=== PATIENT | male | born 1940 | race Caucasian/White ===

== ENCOUNTER → 2016-05-01 | Outpatient (CLI) | payer OTHER, MEDICARE ==
[~2016-05-01] MED LIST: ASPI81TA28 PO; ATOR-26 PO; CRD200 PO; FRS/40 PO; HYDR-4717 PO; INSHI7030 SC; LSN40 PO; MULT-506 PO; NITR0.4S UT; OMEG12006 PO; PLV75 PO; TPRSR/50 PO; VSC/10 PO; [UNRECOGNIZED DRUG - CODE] PO
[2016-05-01 16:39] LABS: HEMATOCRIT 39.1 % (42-52); MEAN CELL VOLUME 97.5 fL (80-100); MEAN CORPUSCULAR HEMOGLOBIN 32.9 pg (25-34); MEAN CORPUSCULAR HGB CONC 33.8 g/dl (32-36); MEAN PLATELET VOLUME 10.4 fL (7.4-10.4); PLATELET COUNT 143 K/uL (130-400); RED BLOOD COUNT 4.01 M/uL (4.7-6.1); WHITE BLOOD COUNT 7.53 K/uL (4.8-10.8)
== END | disposition home or self-care (01) ==
LOC: C.LABBFT 16:25
PROVIDERS: ATTEND Internal Medicine
DX: T14.8 Other injury of unspecified body region (principal); X58.XXXA Exposure to other specified factors, initial encounter

== ENCOUNTER → 2016-05-21 | Outpatient (CLI) | payer OTHER, MEDICARE ==
[2016-05-21 12:28] LABS: HEMATOCRIT 42.1 % (42-52); MEAN CELL VOLUME 96.1 fL (80-100); MEAN CORPUSCULAR HEMOGLOBIN 32.2 pg (25-34); MEAN CORPUSCULAR HGB CONC 33.5 g/dl (32-36); MEAN PLATELET VOLUME 10.1 fL (7.4-10.4); PLATELET COUNT 147 K/uL (130-400); RED BLOOD COUNT 4.38 M/uL (4.7-6.1); WHITE BLOOD COUNT 6.81 K/uL (4.8-10.8)
[2016-05-21 12:33] LABS: URINE APPEARANCE CLEAR (CLEAR); URINE BILIRUBIN NEG (NEG); URINE COLOR YELLOW; URINE NITRITE NEG (NEG); URINE SPECIFIC GRAVITY 1.017 (1.000-1.030); UROBILINOGEN NEG (NEG)
[2016-05-21 12:35] LABS: MANUAL MICROSCOPIC REQUIRED? NO; REVIEW REQ? NO
[2016-05-21 12:49] LABS: BLOOD UREA NITROGEN 22 mg/dl (7-18); BUN/CREATININE RATIO 17.1 (10-20); CALCIUM 8.7 mg/dl (8.5-10.1); CARBON DIOXIDE 30 mmol/L (21-32); CHLORIDE 103 mmol/L (98-107); CHOLESTEROL 141 mg/dl (0-200); GLUCOSE 86 mg/dl (70-99); POTASSIUM 3.9 mmol/L (3.5-5.1); SODIUM 141 mmol/L (136-145); TRIGLYCERIDES 182 mg/dl (0-150); VERY LOW DENSITY LIPOPROT CALC 36 mg/dl
[2016-05-21 12:52] LABS: CHOLESTEROL/HDL RATIO 3.4; HDL CHOLESTEROL 41 mg/dl; LDL CHOLESTEROL CALCULATED 64 mg/dl
[2016-05-21 13:05] LABS: URINE PROTIEN/CREAT RATIO 0.2 (0-0.2); URINE TOTAL PROTEIN 23.7 mg/dl (0-11.9)
== END | disposition home or self-care (01) ==
LOC: C.LABBFT 09:53
PROVIDERS: ATTEND Internal Medicine Nephrology
DX: I12.9 Hypertensive chronic kidney disease with stage 1 through stage 4 chronic kidney disease, or unspecified chronic kidney disease (principal); N20.0 Calculus of kidney; N18.3 Chronic kidney disease, stage 3 (moderate); E55.9 Vitamin D deficiency, unspecified; E78.5 Hyperlipidemia, unspecified; T14.8 Other injury of unspecified body region; X58.XXXA Exposure to other specified factors, initial encounter

== ENCOUNTER → 2016-06-18 | Outpatient (CLI) | payer OTHER, MEDICARE ==
[2016-06-19 06:00] LABS: ESTIMATED AVERAGE GLUCOSE 169 mg/dl; HA1C FLAG Normal (Normal)
== END | disposition home or self-care (01) ==
LOC: C.LABBFT 12:26
PROVIDERS: ATTEND Internal Medicine
DX: E11.65 Type 2 diabetes mellitus with hyperglycemia (principal)

== ENCOUNTER → 2016-07-07 | Outpatient (CLI) | payer OTHER, MEDICARE ==
[2016-07-07 13:09] LABS: BLOOD UREA NITROGEN 20 mg/dl (7-18); BUN/CREATININE RATIO 15.2 (10-20)
== END | disposition home or self-care (01) ==
LOC: C.LABBFT 08:39
PROVIDERS: ATTEND Urology
DX: N28.1 Cyst of kidney, acquired (principal)

== ENCOUNTER → 2016-07-14 | Outpatient (CLI) | payer OTHER, MEDICARE ==
[~2016-07-14] MED LIST changes: +AMLO-110 PO; +DONE1TAB26 PO; +ISOS60TA25 PO; +METO100T44 PO; +MULTTAB58 PO; +OMEG10007 PO; +SOLI10TA2 PO
--- NOTE | 2016-07-14 11:36 | DIAGNOSTIC IMAGING REPORT ---
CT SCAN OF THE ABDOMEN AND PELVIS COMBO RENAL MASS PROTOCOL CLINICAL HISTORY: Renal cyst. Follow-up complex renal lesion. COMPARISON STUDY: Abdominal CT dated 04/14/2016 and 03/05/2014. TECHNIQUE: Before and following the IV administration of 94 cc of Optiray 320, CT scan of the abdomen and pelvis is performed from the lung bases to the proximal femora utilizing the renal mass protocol. Images are reviewed in the axial, sagittal, and coronal planes. IV contrast was administered without complication. Automated dose control exposure was utilized. CT DOSE: 2641.71 mGycm FINDINGS: Lung bases: The heart is enlarged and without pericardial effusion. Pacemaker leads are noted. Calcified pleural plaque is seen at both lung bases. No airspace consolidation or pleural effusion is identified. There is a small hiatal hernia. Liver: The contrast-enhanced liver is normal in size, contour, and attenuation. There is no intrahepatic biliary ductal dilatation. Small hepatic cysts are unchanged and measure up to 2.9 cm. Additional subcentimeter hypodensities also likely represent cysts but are too small for definitive characterization. The hepatic veins and portal veins are patent. Gallbladder: Unremarkable. Spleen: The spleen is mildly enlarged, measuring 14.8 cm in length. Pancreas: The pancreas is moderately atrophic. Foci of parenchymal calcification suggest chronic pancreatitis. Adrenal glands: A 2.1 cm left adrenal nodule is unchanged and meets CT criteria for a fat-containing adenoma. The right adrenal gland is unremarkable. Kidneys: There is an 8 mm nonobstructing calculus in the lower pole of left kidney. A 6 mm nonobstructing calculus is seen in the right kidney. The contrast-enhanced kidneys are atrophic and without hydronephrosis. Multiple foci of cortical scarring are seen bilaterally. The kidneys enhance and excrete symmetrically. No enhancing renal cortical mass is identified. There is no evidence of urothelial lesion within the renal pelvis bilaterally or along the course of the ureters. Bilateral renal cysts measure up to 4.2 cm. An exophytic lesion arising from the upper pole of the left kidney measures up to 2.5 cm. This does not show any postcontrast enhancement or delayed washout and likely represents a complex/hemorrhagic cyst. Abdominal vasculature: There is advanced atherosclerotic calcification of the abdominal aorta. 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 The residual aneurysm sac measures 6.0 cm in AP diameter and 6.7 cm in transverse diameter. Contrast is present within the aneurysm sac on the arterial phase images. This is best seen on axial image #253. The appearance is consistent with endoleak. Bowel: The small bowel and colon are normal in course and caliber. There is mild to moderate colonic fecal retention. The appendix is well-visualized and normal. Peritoneum: There is no intraperitoneal free air or abdominal ascites. Lymphadenopathy: None. Pelvic viscera: The prostate gland is diminutive noting brachytherapy seeds. The bladder is partially decompressed. The bladder wall appears thickened and trabeculated suggesting the sequelae of chronic outlet obstruction. Skeletal structures: The skeletal structures are osteopenic. There is moderate to advanced lumbosacral spondylosis. No lytic or blastic lesions are seen. Posttraumatic deformity is again suggested involving the coccyx. There is only trace residual fluid seen overlying the left hip. This has almost completely resolved from previous. IMPRESSION: 1. No enhancing renal cortical mass is identified. There is no evidence of urothelial lesion within the renal pelvis bilaterally or along the course of the ureters. 2. The previously identified 2.5 cm indeterminant lesion arising from the upper pole of the left kidney is consistent with a complex cyst. 3. Bilateral nonobstructing renal calculi. 4. 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 The residual aneurysm sac measures 6.0 x 6.7 cm. 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 5. Brachytherapy seeds are noted in the prostate gland. The appearance of the bladder suggests the sequelae of chronic obstruction. 6. Cardiomegaly and cardiac pacemaker. 7. 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 8. The complex fluid collection overlying the left hip seen on 04/14/2016 has almost completely resolved from previous. 9. Additional findings as above. Electronically signed by: Neto Han M.D. 07/14/2016 11:35 AM Dictated Date/Time: 07/14/2016 11:21 AM
== END | disposition home or self-care (01) ==
LOC: C.CTS 10:36
PROVIDERS: ATTEND Urology
DX: E27.9 Disorder of adrenal gland, unspecified (principal); N28.1 Cyst of kidney, acquired; N20.0 Calculus of kidney; Z98.890 Other specified postprocedural states; I51.7 Cardiomegaly; Z95.0 Presence of cardiac pacemaker; J92.9 Pleural plaque without asbestos

== ENCOUNTER → 2016-10-30 | Outpatient (CLI) | payer OTHER, MEDICARE ==
[~2016-10-30] MED LIST changes: -AMLO-110 PO; -DONE1TAB26 PO; -ISOS60TA25 PO; -METO100T44 PO; -MULTTAB58 PO; -OMEG10007 PO; -SOLI10TA2 PO
[2016-10-30 16:31] LABS: URINE APPEARANCE CLEAR (CLEAR); URINE BILIRUBIN NEG (NEG); URINE COLOR YELLOW; URINE NITRITE NEG (NEG); URINE PH 6.5 (4.5-7.5); URINE SPECIFIC GRAVITY 1.022 (1.000-1.030); UROBILINOGEN NEG (NEG)
[2016-10-30 16:37] LABS: ALT/SGPT 20 U/L (12-78); AST/SGOT 13 U/L (15-37); BLOOD UREA NITROGEN 18 mg/dl (7-18); BUN/CREATININE RATIO 14.6 (10-20); CALCIUM 8.6 mg/dl (8.5-10.1); CARBON DIOXIDE 31 mmol/L (21-32); CHLORIDE 105 mmol/L (98-107); GLUCOSE 136 mg/dl (70-99); HEMATOCRIT 42.8 % (42-52); MEAN CELL VOLUME 96.6 fL (80-100); MEAN CORPUSCULAR HEMOGLOBIN 31.6 pg (25-34); MEAN CORPUSCULAR HGB CONC 32.7 g/dl (32-36); MEAN PLATELET VOLUME 9.9 fL (7.4-10.4); PLATELET COUNT 132 K/uL (130-400); RED BLOOD COUNT 4.43 M/uL (4.7-6.1); SODIUM 140 mmol/L (136-145); WHITE BLOOD COUNT 6.71 K/uL (4.8-10.8)
[2016-10-30 16:48] LABS: ALB/GLOB RATIO 0.9 (0.9-2); ALKALINE PHOSPHATASE 73 U/L (45-117); THYROID STIMULATING HORMONE 0.729 uIu/ml (0.300-4.500); URINE PROTIEN/CREAT RATIO 0.1 (0-0.2); URINE TOTAL PROTEIN 26.2 mg/dl (0-11.9)
[2016-10-30 16:57] LABS: MANUAL MICROSCOPIC REQUIRED? NO; REVIEW REQ? NO
[2016-10-31 06:02] LABS: ESTIMATED AVERAGE GLUCOSE 177 mg/dl; HA1C FLAG Normal (Normal)
== END | disposition home or self-care (01) ==
LOC: C.LABBFT 11:17
PROVIDERS: ATTEND Internal Medicine Nephrology
DX: I12.9 Hypertensive chronic kidney disease with stage 1 through stage 4 chronic kidney disease, or unspecified chronic kidney disease (principal); N18.3 Chronic kidney disease, stage 3 (moderate); E55.9 Vitamin D deficiency, unspecified; N28.1 Cyst of kidney, acquired; E11.65 Type 2 diabetes mellitus with hyperglycemia; I42.9 Cardiomyopathy, unspecified

== ENCOUNTER → 2016-12-15 | Outpatient (CLI) | payer OTHER, MEDICARE ==
[~2016-12-15] MED LIST changes: +AMLO-110 PO; +DONE1TAB26 PO; +ISOS60TA25 PO; +METO1TAB69 PO; +MULTTAB58 PO; +OMEG10007 PO; +SOLI10TA2 PO
--- NOTE | 2016-12-15 19:18 | DIAGNOSTIC IMAGING REPORT ---
LEFT LOWER EXTREMITY VENOUS DOPPLER HISTORY: LEFT LEG PAIN COMPARISON STUDY: None. FINDINGS: There is normal compressibility, flow, and augmentation within the left lower extremity deep venous system. Of note, the calf veins were not well visualized. IMPRESSION: No DVT within the left lower extremity. Electronically signed by: Luis Carlos Madrid M.D. 12/15/2016 7:17 PM Dictated Date/Time: 12/15/2016 7:17 PM
== END | disposition home or self-care (01) ==
LOC: C.ULTR 18:03
PROVIDERS: ATTEND Internal Medicine Nephrology
DX: E55.9 Vitamin D deficiency, unspecified (principal); I12.9 Hypertensive chronic kidney disease with stage 1 through stage 4 chronic kidney disease, or unspecified chronic kidney disease; N18.3 Chronic kidney disease, stage 3 (moderate); N20.0 Calculus of kidney; M25.552 Pain in left hip; N28.1 Cyst of kidney, acquired; M79.605 Pain in left leg

== ENCOUNTER → 2016-12-15 | Outpatient (CLI) | payer OTHER, MEDICARE ==
--- NOTE | 2016-12-15 14:23 | DIAGNOSTIC IMAGING REPORT ---
LEFT HIP UNILATERAL 2 VIEWS CLINICAL HISTORY: 76 years-old Male presenting with LT HIP PAIN. TECHNIQUE: Frontal and lateral views of the left hip were obtained. COMPARISON: Correlation made to CT from 04/14/2016. FINDINGS: Left hip joint congruent. No acute fracture. No joint space loss or severe degenerative changes evident. Partially visualized brachytherapy seeds in the prostate. Atherosclerosis. Partially visualized vascular stent in the left iliac region. IMPRESSION: No acute osseous injury of the left hip. Electronically signed by: Gian Bradley M.D. 12/15/2016 2:21 PM Dictated Date/Time: 12/15/2016 2:20 PM
== END | disposition home or self-care (01) ==
LOC: C.RAD1850 13:56
PROVIDERS: ATTEND Internal Medicine Nephrology
DX: E55.9 Vitamin D deficiency, unspecified (principal); I10 Essential (primary) hypertension; N18.3 Chronic kidney disease, stage 3 (moderate); N20.0 Calculus of kidney; M25.552 Pain in left hip

== ENCOUNTER → 2017-02-20 | Day surgery (SDC) | payer OTHER, MEDICARE ==
[2017-02-06 08:08] VITALS: Ht 167.6 cm; Wt 113.6 kg
[~2017-02-20] VITALS: Ht 167.6 cm; Wt 113.6 kg
[~2017-02-20] MED LIST changes: +LIDOCAINE HCL 2% 2 ML VIAL (20MG/ML) ONE; -LSN40 PO; +METO100T44 PO; -METO1TAB69 PO; -MULT-506 PO; -OMEG12006 PO; +OPTIRAY 320 IV PRN; -PLV75 PO; +PROPOFOL IV EMULSION 10 MG/ML 20 ML VIAL IV ONE; +SODIUM CHLORIDE 0.9% 500ML 500 ML IV ONE; -TPRSR/50 PO; -VSC/10 PO; -[UNRECOGNIZED DRUG - CODE] PO
[2017-02-20 08:22] VITALS: TEMP 36.6
--- NOTE | 2017-02-20 08:55 | Endo History and Physical ---
History & Physical Date of Service: Feb 20, 2017. Chief Complaint: history of polyps Referring Physician: Dr. Saud Dunham History of Present Illness 76 yo CM who presents for colonoscopy secondary to history of colon polyps. Past Surgical History Hx Cardiac Surgery: Yes (HEART CATHS-? #STENTS) Hx Internal Defibrillator: Yes Hx Pacemaker: Yes Hx Abdominal Surgery: Yes (ABDOMINAL ANEURYSM REPAIR X 3) Hx of Implantable Prosthesis: No Hx Post-Op Nausea and Vomiting: No Hx Cancer Surgery: No Hx Thoracic Surgery: No Hx Orthopedic: No Hx Urinary Tract Surgery: Yes (LITHOTRISPY AND STENT FOR KIDNEY STONE) Family History None Social History Smoking Status: Former Smoker Hx Substance Use: No Hx Alcohol Use: Yes ("SOCIALLY") Allergies Coded Allergies: No Known Allergies (Verified , 02/20/17) Current Medications Reported Home Medications Medications Dose Route/Sig Max Daily Dose Days Date Category Vesicare (Solifenacin) 10 Mg Tab 10 Mg PO QAM 02/06/17 Reported Multivitamin (Multiple Vitamin) 1 Tab Tab 1 Tab PO QAM 02/06/17 Reported Toprol-Xl (Metoprolol Succinate) 100 Mg Tabcr 100 Mg PO BID 02/06/17 Reported Imdur Ext Rel (Isosorbide Mononitrate) 60 Mg Ertab 60 Mg PO QAM 02/06/17 Reported Apresoline (Hydralazine Hcl) 50 Mg Tab 50 Mg PO TID 02/06/17 Reported [place]-3 (Fish Oil) 1 Ea Cap 1 Cap PO QAM 02/06/17 Reported Donepezil Hcl (Donepezil Hydrochloride) 10 Mg Tab 1 Tab PO QAM 02/06/17 Reported Norvasc (Amlodipine Besylate) 5 Mg Tab 5 Mg PO QAM 02/06/17 Reported Humulin 70/30 (Insulin Human Isoph/Insulin Regular) Inj 40 Units SC AMPM 03/05/14 Reported Nitrostat (Nitroglycerin) 0.4 Mg Sub 0.4 Mg UT PRN 03/05/14 Reported Amiodarone HCl 200 Mg Tab 200 Mg PO 3XWK 03/05/14 Reported Lipitor (Atorvastatin Calcium) 80 Mg Tab 80 Mg PO HS 03/05/14 Reported Lasix (Furosemide) 40 Mg Tab 40 Mg PO QAM 03/05/14 Reported Aspirin Ec (Aspirin) 81 Mg Tab 81 Mg PO QAM 03/05/14 Reported Vital Signs Weight (Kilograms): 113.64 Height (Feet): 5 Height (Inches): 6 Date Time Temp Pulse Resp B/P (MAP) Pulse Ox O2 Delivery O2 Flow Rate FiO2 02/20/17 08:28 139/86 (103) 96 Room Air 02/20/17 08:22 36.6 78 20 174/102 (126) 92 Room Air Physical Exam General Appearance: WD/WN, no apparent distress Respiratory/Chest: Auscultation: breath sounds normal Cardiovascular: Heart Auscultation: RRR Abdomen: Bowel Sounds: normal Inspection & Palpation: soft, non-distended, no tenderness, guarding & rebound Assessment and Plan Assessment: 76 yo CM who presents for colonoscopy secondary to history of colon polyps. Plan: Proceed with colonoscopy.
--- NOTE | 2017-02-20 09:48 | Discharge Instructions ---
Endoscopy Patient Instructions Date / Procedure(s) Performed Feb 20, 2017. Colonoscopy Allergy Information Coded Allergies: No Known Allergies (Verified , 02/20/17) Discharge Date / Findings Feb 20, 2017. Colon polyps Internal hemorrhoids Medication Instructions Stopped Medication(s): took ASA yesterday 1) Hold Aspirin for 5 days 2) Resume all other medications today as prescribed Reported Home Medications Medications Dose Route/Sig Max Daily Dose Days Date Category Vesicare (Solifenacin) 10 Mg Tab 10 Mg PO QAM 02/06/17 Reported Multivitamin (Multiple Vitamin) 1 Tab Tab 1 Tab PO QAM 02/06/17 Reported Toprol-Xl (Metoprolol Succinate) 100 Mg Tabcr 100 Mg PO BID 02/06/17 Reported Imdur Ext Rel (Isosorbide Mononitrate) 60 Mg Ertab 60 Mg PO QAM 02/06/17 Reported Apresoline (Hydralazine Hcl) 50 Mg Tab 50 Mg PO TID 02/06/17 Reported [place]-3 (Fish Oil) 1 Ea Cap 1 Cap PO QAM 02/06/17 Reported Donepezil Hcl (Donepezil Hydrochloride) 10 Mg Tab 1 Tab PO QAM 02/06/17 Reported Norvasc (Amlodipine Besylate) 5 Mg Tab 5 Mg PO QAM 02/06/17 Reported Humulin 70/30 (Insulin Human Isoph/Insulin Regular) Inj 40 Units SC AMPM 03/05/14 Reported Nitrostat (Nitroglycerin) 0.4 Mg Sub 0.4 Mg UT PRN 03/05/14 Reported Amiodarone HCl 200 Mg Tab 200 Mg PO 3XWK 03/05/14 Reported Lipitor (Atorvastatin Calcium) 80 Mg Tab 80 Mg PO HS 03/05/14 Reported Lasix (Furosemide) 40 Mg Tab 40 Mg PO QAM 03/05/14 Reported Aspirin Ec (Aspirin) 81 Mg Tab 81 Mg PO QAM 03/05/14 Reported Provider Instructions Activity Restrictions - No exercising or heavy lifting for 24 hours. - Do not drink alcohol the day of the procedure. - Do not drive a car or operate machinery until the day after the procedure. - Do not make any important decisions or sign important papers in 24 hours after the procedure. Following Day: - Return to full activity which may include returning to work/school. Diet Start your diet with liquids and light foods (jello, soup, juice, toast). Then eat your usual diet if not nauseated. Treatment For Common After Affects For mild abdominal pain, bloating, or excessive gas: - Rest - Eat lightly - Lie on right side Follow-Up Information Follow-up with Dr. Saud Dunham as scheduled Anesthesia Information What You Should Know You have had a procedure that required some medicine to reduce anxiety and discomfort. This treatment is called moderate sedation. After receiving the treatment, you may be sleepy, but you will be able to breathe on your own. The effects of the treatment may last for several hours. Follow these instructions along with Activity/Diet recommendations noted above: * Do NOT do anything where dizziness or clumsiness would be dangerous. * Rest quietly at home today, then you can be up and about tomorrow. * Have a responsible person stay with you the rest of today. * You may have had an I.V. today. If so, you may take the dressing off later today. Recommendations Call your doctor if: * Trouble breathing * Continuous vomiting for more than 24 hours * Temperature above 101 degrees * Severe abdominal pain or bloating * Pain not relieved by pain medicine ordered * There is increased drainage or redness from any incision * A large amount of rectal bleeding greater than 2-3 tablespoons. (If you had a polyp/s removed or have hemorrhoids, a small amount of blood - from the rectum is to be expected.) * You have any unanswered questions or concerns. IN THE EVENT OF A SERIOUS EMERGENCY, GO TO THE NEAREST EMERGENCY ROOM Your discharge instructions were prepared by provider Jamaal Brock. Patient Instructions Signature Page Rowdy Gracia Patient (or Guardian) Signature/Date: I have read and understand the instructions given to me by my caregivers. Caregiver/RN/Doctor Signature/Date: The above-named patient and/or guardian has received patient instructions on this date. + Original Patient Signature Page (only) stays with chart. Please make copy for patient.
--- NOTE | 2017-02-20 09:54 | GI REPORT ---
Procedure Date: 02/20/2017 8:17 AM Procedure: Colonoscopy Indications: High risk colon cancer surveillance: Personal history of colonic polyps Medicines: Monitored Anesthesia Care Complications: No immediate complications. Estimated Blood Loss: Estimated blood loss: none. Procedure: Pre-Anesthesia Assessment: - Prior to the procedure, a History and Physical was performed, and patient medications and allergies were reviewed. The patient's tolerance of previous anesthesia was also reviewed. The risks and benefits of the procedure and the sedation options and risks were discussed with the patient. All questions were answered, and informed consent was obtained. Prior Anticoagulants: The patient has taken aspirin, last dose was 1 day prior to procedure. ASA Grade Assessment: III - A patient with severe systemic disease. After reviewing the risks and benefits, the patient was deemed in satisfactory condition to undergo the procedure. After I obtained informed consent, the scope was passed under direct vision. Throughout the procedure, the patient's blood pressure, pulse, and oxygen saturations were monitored continuously. The scope was introduced through the anus and advanced to the cecum, identified by appendiceal orifice and ileocecal valve. The colonoscopy was performed without difficulty. The patient tolerated the procedure well. The quality of the bowel preparation was good. The ileocecal valve, appendiceal orifice, and rectum were photographed. Findings: Many (16) sessile polyps were found in the transverse colon and in the cecum. The polyps were 5 to 12 mm in size. These polyps were removed with a hot snare. Resection and retrieval were complete. To prevent bleeding after the polypectomy, four hemostatic clips were successfully placed (MR conditional). There was no bleeding at the end of the procedure. Non-bleeding internal hemorrhoids were found during retroflexion. The hemorrhoids were small. The perianal and digital rectal examinations were normal. Impression: - Many (16) 5 to 12 mm polyps in the transverse colon and in the cecum, removed with a hot snare. Resected and retrieved. Clips (MR conditional) were placed. - Non-bleeding internal hemorrhoids. Recommendation: - Resume previous diet. - Continue present medications. - Repeat colonoscopy for surveillance based on pathology results. - Return to primary care physician as previously scheduled. Jamaal Brock DO 02/20/2017 9:54:10 AM This report has been signed electronically. Note Initiated On: 02/20/2017 8:17 AM I attest to the content of the Intraoperative Record and orders documented therein, exceptions below
[2017-02-20 10:21] VITALS: BP 150/84; PULSE 60; O2SAT 92
--- NOTE | 2017-02-20 10:25 | Anesthesiology Progress Note ---
Anesthesia Post Op Note Date & Time Feb 20, 2017 at 10:24 Vital Signs Pain Intensity: 0 Vital Signs Past 12 Hours Date Time Temp Pulse Resp B/P (MAP) Pulse Ox O2 Delivery O2 Flow Rate FiO2 02/20/17 10:21 60 18 150/84 (106) 92 Room Air 02/20/17 10:06 64 18 115/70 (85) 94 Nasal Cannula 4 02/20/17 09:52 63 16 114/61 (78) 93 Nasal Cannula 4 02/20/17 08:28 139/86 (103) 96 Room Air 02/20/17 08:22 36.6 78 20 174/102 (126) 92 Room Air Notes Mental Status: alert / awake / arousable, participated in evaluation Pt Amnestic to Procedure: Yes Nausea / Vomiting: adequately controlled Pain: adequately controlled Airway Patency, RR, SpO2: stable & adequate BP & HR: stable & adequate Hydration State: stable & adequate Anesthetic Complications: no major complications apparent
== END | disposition home or self-care (01) ==
LOC: C.GI 07:57
PROVIDERS: ATTEND Internal Medicine
DX: Z12.11 Encounter for screening for malignant neoplasm of colon (principal); D12.0 Benign neoplasm of cecum; D12.3 Benign neoplasm of transverse colon; K64.8 Other hemorrhoids; Z86.010 Personal history of colon polyps; Z87.891 Personal history of nicotine dependence; Z79.82 Long term (current) use of aspirin; Z79.899 Other long term (current) drug therapy

== ENCOUNTER → 2017-03-18 | Outpatient (CLI) | payer OTHER, MEDICARE ==
[~2017-03-18] MED LIST changes: -LIDOCAINE HCL 2% 2 ML VIAL (20MG/ML) ONE; -OPTIRAY 320 IV PRN; -PROPOFOL IV EMULSION 10 MG/ML 20 ML VIAL IV ONE; -SODIUM CHLORIDE 0.9% 500ML 500 ML IV ONE
[2017-03-18 17:14] LABS: CHOLESTEROL 109 mg/dl (0-200); CHOLESTEROL/HDL RATIO 3.3; HDL CHOLESTEROL 33 mg/dl; LDL CHOLESTEROL CALCULATED 23 mg/dl; PROSTATE SPECIFIC ANTIGEN < 0.010 ng/ml (0.000-4.000); TRIGLYCERIDES 267 mg/dl (0-150); VERY LOW DENSITY LIPOPROT CALC 53 mg/dl
[2017-03-19 06:44] LABS: ESTIMATED AVERAGE GLUCOSE 186 mg/dl; HA1C FLAG Normal (Normal)
== END | disposition home or self-care (01) ==
LOC: C.LABBFT 12:32
PROVIDERS: ATTEND Physician Assistant Medical
DX: E78.5 Hyperlipidemia, unspecified (principal); E11.65 Type 2 diabetes mellitus with hyperglycemia; C61 Malignant neoplasm of prostate

== ENCOUNTER → 2017-06-17 | Outpatient (CLI) | payer OTHER, MEDICARE ==
[2017-06-17 17:46] LABS: HEMATOCRIT 41.5 % (42-52); HEMOGLOBIN 13.9 g/dL (14.0-18.0); MEAN CELL VOLUME 98.3 fL (80-100); MEAN CORPUSCULAR HEMOGLOBIN 32.9 pg (25-34); MEAN CORPUSCULAR HGB CONC 33.5 g/dl (32-36); MEAN PLATELET VOLUME 9.6 fL (7.4-10.4); PLATELET COUNT 126 K/uL (130-400); RED CELL DISTRIBUTION WIDTH CV 14.4 % (11.5-14.5); RED CELL DISTRIBUTION WIDTH SD 51.7 fL (36.4-46.3); WHITE BLOOD COUNT 5.55 K/uL (4.8-10.8)
[2017-06-17 17:59] LABS: ALBUMIN 3.4 gm/dl (3.4-5.0); BLOOD UREA NITROGEN 23 mg/dl (7-18); CALCIUM 8.8 mg/dl (8.5-10.1); CARBON DIOXIDE 33 mmol/L (21-32); CREATININE 1.42 mg/dl (0.60-1.40); GLUCOSE 140 mg/dl (70-99); SODIUM 138 mmol/L (136-145)
[2017-06-17 18:00] LABS: PHOSPHORUS 3.1 mg/dl (2.5-4.9)
== END | disposition home or self-care (01) ==
LOC: C.LABBFT 14:04
PROVIDERS: ATTEND Internal Medicine Nephrology
DX: I12.9 Hypertensive chronic kidney disease with stage 1 through stage 4 chronic kidney disease, or unspecified chronic kidney disease (principal); N20.0 Calculus of kidney; N18.3 Chronic kidney disease, stage 3 (moderate); M25.552 Pain in left hip; N28.1 Cyst of kidney, acquired; E55.9 Vitamin D deficiency, unspecified

== ENCOUNTER → 2017-07-01 | Outpatient (CLI) | payer OTHER, MEDICARE ==
[2017-07-01 12:33] LABS: ALT/SGPT 18 U/L (12-78); AST/SGOT 13 U/L (15-37); BLOOD UREA NITROGEN 20 mg/dl (7-18); CHOLESTEROL 121 mg/dl (0-200); CREATININE 1.27 mg/dl (0.60-1.40)
[2017-07-01 12:34] LABS: HEMOGLOBIN A1C 7.3 % (4.5-5.6)
[2017-07-01 12:44] LABS: LDL CHOLESTEROL CALCULATED 54 mg/dl
== END | disposition home or self-care (01) ==
LOC: C.LABBFT 10:27
PROVIDERS: ATTEND Physician Assistant Medical
DX: E11.65 Type 2 diabetes mellitus with hyperglycemia (principal); E78.5 Hyperlipidemia, unspecified; N18.3 Chronic kidney disease, stage 3 (moderate); I12.9 Hypertensive chronic kidney disease with stage 1 through stage 4 chronic kidney disease, or unspecified chronic kidney disease; I25.10 Atherosclerotic heart disease of native coronary artery without angina pectoris; I42.9 Cardiomyopathy, unspecified; Z79.899 Other long term (current) drug therapy

== ENCOUNTER 2017-08-02 00:07 | Emergency (ER) | payer OTHER, MEDICARE ==
[~2017-08-02] VITALS: Ht 170.2 cm; Wt 115.5 kg
[2017-08-02 00:12] VITALS: TEMP 36.5; Ht 170.2 cm; Wt 115.5 kg
--- NOTE | 2017-08-02 00:43 | EMERGENCY ROOM VISIT NOTE ---
History Report prepared by Davidibsergey: Jaswant Hummel Under the Supervision of: Dr. Niharika Cm M.D. First contact with patient: 00:16 Chief Complaint: KNEEPAIN Stated Complaint: LUMP ON BACK OF LEG/HIGH BP History of Present Illness The patient is a 76 year old male who presents to the Emergency Room with complaints of persistent lump to the back of his right leg since this afternoon. He reports playing cards when he bent over to reach down and noticed the lump. He states that he iced the lump, which seemed to help, but the lump still persists. He notes his leg is also swollen even though he had compression socks on. He also reports his blood pressure was over 200 systolic this evening. He notes it was 148 systolic this morning. 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 He uses a wrist cuff to measure his blood pressure. He regularly takes an Aspirin daily. He has a history of bilateral total knee replacements, AAA repair, aneurysms, MO, and vascular repairs. He has an AICD. Source of History: patient Onset: since this afternoon Position: leg (right) Quality: other (lump) Timing: other (persistent) Note: He notes leg swelling and hypertension. Review of Systems See HPI for pertinent positives & negatives. A total of 10 systems reviewed and were otherwise negative. Past Medical & Surgical Medical Problems: (1) Aneurysm (2) Diabetes (3) Hyperlipidemia (4) Hypertension (5) Myocardial infarction Surgical Problems: (1) AICD (automatic cardioverter/defibrillator) present (2) History of bilateral knee replacement Family History Diabetes mellitus Heart disease Hypertension Social History Smoking Status: Never Smoker Smokeless Tobacco Use: No Alcohol Use: occasionally Drug Use: none Marital Status: Housing Status: lives with family Occupation Status: unemployed Current/Historical Medications Scheduled Amiodarone HCl (Amiodarone HCl), 200 MG PO 5XWK Amlodipine (Norvasc), 5 MG PO QAM Aspirin (Aspirin Ec), 81 MG PO QAM Atorvastatin (Lipitor), 80 MG PO HS Donepezil Hydrochloride (Donepezil Hcl), 1 TAB PO QAM Fish Oil ([place]-3), 1 CAP PO QAM Furosemide (Lasix), 40 MG PO QAM Hydralazine Hcl (Apresoline), 50 MG PO TID Insulin Human Isophan/Regular (Humulin 70/30), 40 UNITS SC AMPM Isosorbide Mononitrate Ext Rel (Imdur Ext Rel), 60 MG PO QAM Metoprolol Succ (Toprol Xl) (Toprol-Xl ), 100 MG PO BID Multiple Vitamin (Multivitamin), 1 TAB PO QAM Nitroglycerin (Nitrostat), 0.4 MG UT PRN Solifenacin (Vesicare), 10 MG PO QAM Allergies Coded Allergies: No Known Allergies (Verified , 08/02/17) Physical Exam Vital Signs Date Time Temp Pulse Resp B/P (MAP) Pulse Ox O2 Delivery O2 Flow Rate FiO2 08/02/17 04:56 62 18 157/93 95 08/02/17 04:26 60 18 180/89 93 Room Air 08/02/17 04:03 60 18 168/99 93 Room Air 08/02/17 03:36 64 18 178/102 94 Room Air 08/02/17 02:37 61 18 152/105 93 Room Air 08/02/17 00:12 36.5 79 18 168/95 91 Room Air Physical Exam Vital signs reviewed. General: Well-appearing, in no significant distress. HEENT: No scleral icterus, PERRLA, neck supple. Atraumatic. Cardiovascular: Regular rate and rhythm, no extra sounds. Pulmonary: Clear to auscultation bilaterally, normal work of breathing. Abdomen: Soft, nontender, nondistended, positive bowel sounds. Musculoskeletal: Atraumatic, no peripheral edema. Palpable 4 cm mass to popliteal region of right knee. Nontender. Nonpulsatile. FROM of the leg. Neurologic: Patient awake alert and oriented x 3, full strength in all 4 extremities. Cranial nerves 2 through 12 grossly intact. Skin: Warm, dry, no rash. Venous insufficiency BLE. Medical Decision & Procedures ER Provider Diagnostic Interpretation: Radiology results as stated below per my review and interpretation: RIGHT KNEE XR: Arthritic changes, hardware appears to be intact. No acute fracture or dislocation. Radiology results as stated below per my review and radiologist interpretation: US VENOUS RIGHT LOWER EXTREMITY: No DVT. 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 Radiologist: Waldemar Chambers MD Study ready at 02:42 and initial results transmitted at 02:47 CTA EXTREMITY RIGHT LOWER: Extremely difficult to evaluate given overlying knee arthroplasty hardware. The popliteal artery appears to measure up to 1.4 cm in this limited view study , however, this is not reliable given that on the ultrasound the diameter was close to 5 cm with a large surrounding thrombus, which is not clearly demonstrated on this study. However, it is possible to say that the vessels are overall patent from the distal thigh to the proximal calf. Radiologist: Waldemar Chambers MD Study ready at 03:36 and initial results transmitted at 04:04 Laboratory Results Test 08/02/17 03:20 Bedside Hemoglobin 13.9 g/dl (14.0-18.0) Bedside Hematocrit 41 % (42-52) Bedside Sodium 140 mEq/L (135-144) Bedside Potassium 3.9 mEq/L (3.3-5.0) Bedside Chloride 100 mEq/L (101-112) Bedside Total CO2 28 mEq/l (24-31) Anion Gap 17.0 mmol/L (16-25) Bedside Blood Urea Nitrogen 27 mg/dl (7-18) Bedside Creatinine 1.4 mg/dl (0.6-1.3) Bedside Glucose (other) 124 mg/dl (70-99) Bedside Ionized Calcium (Margarita) 1.22 mmol/l (1.12-1.32) Laboratory results per my review. Medications Administered Medications (Trade) Dose Ordered Sig/Mehul Route Start Time Stop Time Status Last Admin Dose Admin Sodium Chloride 1,000 ml @ 125 mls/hr Q8H STAT IV 08/02/17 02:55 08/02/17 05:18 DC 08/02/17 03:08 125 MLS/HR ED Course 0028: Past medical records reviewed. The patient was evaluated in room B5. A complete history and physical examination was performed. 0255: Ordered Sodium Chloride 1,000 ml @ 125 mls/hr IV 0310: I reassessed the patient at this time. The patient agreed to have a CTA. 0435: I reassessed the patient at this time. I updated the patient. 0438: I spoke with Dr. Heredia, vascular surgeon. We discussed the patient's case. He will follow up with him as an outpatient. 0440: I reassessed the patient at this time. I discussed the results and treatment plan with the patient. I answered all pertaining questions that he had. He expressed understanding and verbalized agreement. The patient will be discharged home. Medical Decision Differential Diagnoses include: popliteal cyst, popliteal aneurysm, tumor, and DVT. This pt was evaluated and appeared to be in no distress. US of RLE is negative for DVT. 5 cm aneurysmal dilation of the popliteal artery. There is calcification. CTA of the leg is not useful d/t TKA hardware. Pt was hydrated with NSS d/t h/o renal insufficiency. Case was d/w Dr Heredia of vascular surgery. He stated that these aneurysms rarely rupture. Pt is asymptomatic and can be d/c to outpt f/u this week. Pt can see his vascular surgeon in [place] or f/u with Dr Heredia locally. They were provided with information. Pt will return to the ED for worsening of symptoms or any medical concerns. Medication Reconcilliation Current Medication List: was personally reviewed by me Blood Pressure Screening Patient's blood pressure: Elevated blood pressure Blood pressure disposition: Referred to PCP Consults Time Called: [phone] Consulting Physician: Dr. Heredia, vascular surgeon Returned Call: [phone] Heredia, vascular surgeon. We discussed the patient's case. He will follow up with him as an outpatient. Impression Primary Impression: Aneurysm of right popliteal artery Scribe Attestation The scribe's documentation has been prepared under my direction and personally reviewed by me in its entirety. I confirm that the note above accurately reflects all work, treatment, procedures, and medical decision making performed by me. Departure Information Dispostion Home / Self-Care Referrals Saud Dunham M.D. (PCP) Germán Heredia M.D. Forms HOME CARE DOCUMENTATION FORM, IMPORTANT VISIT INFORMATION Patient Instructions My [facility] Additional Instructions Diagnosis: Right popliteal artery aneurysm Please contact Dr. Heredia Thursday morning for follow-up within the next week. Avoid compression stockings on the right lower extremity until you are reevaluated. Return to the emergency department for pain, increased swelling or any medical concerns.
[2017-08-02] MEDS ORDERED: SODIUM CHLORIDE 0.9% 1000ML 1,000 ML IV STA (02:55)
[2017-08-02] MEDS ORDERED: OPTIRAY 320 IV PRN (03:15)
[2017-08-02 03:34] LABS: ISTAT CREATININE 1.4 mg/dl (0.6-1.3); ISTAT IONIZED CALCIUM 1.22 mmol/l (1.12-1.32); ISTAT POTASSIUM 3.9 mEq/L (3.3-5.0)
[2017-08-02 04:56] VITALS: BP 157/93; PULSE 62; O2SAT 95
--- NOTE | 2017-08-02 07:46 | DIAGNOSTIC IMAGING REPORT ---
RIGHT KNEE 2 VIEWS CLINICAL HISTORY: Recent development of a palpable mass. COMPARISON: None. DISCUSSION: There are postsurgical changes of a total right knee arthroplasty and patellar resurfacing. There are no acute fractures. There is a small joint effusion. Extensive vascular calcifications are visualized. A popliteal aneurysm cannot be excluded. IMPRESSION: 1. Postsurgical changes of a total right knee arthroplasty 2. No acute fractures 3. Joint effusion 4. Extensive vascular calcifications. The popliteal aneurysm cannot be excluded. Electronically signed by: Yoel Anderson M.D. 08/02/2017 7:44 AM Dictated Date/Time: 08/02/2017 7:42 AM
--- NOTE | 2017-08-02 07:53 | DIAGNOSTIC IMAGING REPORT ---
ULTRASOUND R VENOUS DOPP LOWER EXT UNILAT CLINICAL HISTORY: Right lower extremity edema and popliteal mass. COMPARISON STUDY: No previous studies for comparison. FINDINGS: Real-time and color flow Doppler imaging were performed. Flow was seen within the femoral, popliteal and calf veins with no intraluminal thrombus demonstrated. The saphenous vein is patent. There is a partially thrombosed 4.6 cm popliteal artery aneurysm. IMPRESSION: 1. No evidence of right lower extremity DVT 2. Partially thrombosed 4.6 cm popliteal artery aneurysm. Electronically signed by: Yoel Anderson M.D. 08/02/2017 7:52 AM Dictated Date/Time: 08/02/2017 7:50 AM
--- NOTE | 2017-08-02 09:19 | DIAGNOSTIC IMAGING REPORT ---
ENHANCED CT ANGIOGRAPHY OF THE RIGHT LOWER EXTREMITY CT DOSE: 287.32 mGy.cm CLINICAL HISTORY: Right popliteal fossa mass. Arterial aneurysm. TECHNIQUE: CT angiography of the popliteal fossa was performed. MIP imaging was obtained. The study is performed in a dynamic helical fashion during intravenous administration of 91 cc of Optiray 320. A dose lowering technique was utilized adhering to the principles of ALARA. COMPARISON STUDY: Ultrasound study dated 08/02/2017 FINDINGS: There is significant artifact secondary to the patient's the arthroplasty. There are atheromatous changes present within the distal superficial femoral and popliteal artery. There are atheromatous changes present within the proximal trifurcation vessels. The anterior tibial artery appears occluded proximally. The popliteal artery is patent. The recently described popliteal artery aneurysm cannot be visualized due to artifact from the knee arthroplasty. There is a focal dissection of the distal popliteal artery. IMPRESSION: 1. Very limited study secondary to artifact from the patient's total knee arthroplasty 2. Focal dissection of the distal popliteal artery 3. The popliteal artery lumen measures up to 14 mm in diameter. The partially thrombosed aneurysm described on the ultrasound study cannot be visualized due to artifact from the patient's prosthesis 4. Occlusion of the proximal anterior tibial artery. Electronically signed by: Yoel Anderson M.D. 08/02/2017 9:18 AM Dictated Date/Time: 08/02/2017 9:11 AM
== END 2017-08-02 04:57 | disposition home or self-care (01) ==
LOC: C.EDB 00:09
DX: I72.4 Aneurysm of artery of lower extremity (principal); E11.9 Type 2 diabetes mellitus without complications; E78.5 Hyperlipidemia, unspecified; I10 Essential (primary) hypertension; I25.2 Old myocardial infarction; Z95.810 Presence of automatic (implantable) cardiac defibrillator; Z96.653 Presence of artificial knee joint, bilateral; Z83.3 Family history of diabetes mellitus; Z82.49 Family history of ischemic heart disease and other diseases of the circulatory system; Z79.82 Long term (current) use of aspirin; Z79.4 Long term (current) use of insulin; Z79.899 Other long term (current) drug therapy

== ENCOUNTER → 2017-09-05 | Outpatient (CLI) | payer OTHER, MEDICARE ==
--- NOTE | 2017-09-05 11:34 | DIAGNOSTIC IMAGING REPORT ---
CHEST 2 VIEWS ROUTINE HISTORY: 77 years-old Male R05 Productive [id number] Lung [id number] acute cough COMPARISON: Chest radiographs 03/05/2014 TECHNIQUE: PA and lateral views of the chest FINDINGS: Cardiac silhouette is mildly enlarged, unchanged. Mild pulmonary vascular congestion without overt pulmonary edema. Atherosclerosis of the aorta. Left subclavian pacer/AICD appears unchanged. No pneumothorax or large pleural effusion. Linear scarring or atelectasis of the lateral right midlung. Subsegmental bibasilar opacities, left greater than right are noted with mild blunting of the left costophrenic angle. Degenerative changes of the shoulders and spine. IMPRESSION: 1. Cardiomegaly with mild pulmonary vascular congestion. 2. Left greater than right subsegmental bibasilar opacities suggest atelectasis with pneumonitis thought to be less likely. The above report was generated using voice recognition software. It may contain grammatical, syntax or spelling errors. Electronically signed by: Uri Ibarra M.D. 09/05/2017 11:32 AM Dictated Date/Time: 09/05/2017 11:30 AM
== END | disposition home or self-care (01) ==
LOC: C.RAD1850 11:10
PROVIDERS: ATTEND Internal Medicine
DX: R05 Cough (principal); R09.89 Other specified symptoms and signs involving the circulatory and respiratory systems; R09.02 Hypoxemia; I51.7 Cardiomegaly; R91.8 Other nonspecific abnormal finding of lung field

== ENCOUNTER 2017-12-08 17:37 | Emergency (ER) | payer OTHER, MEDICARE ==
[~2017-12-08] VITALS: Ht 170.2 cm; Wt 110.0 kg
[~2017-12-08 17:37] MED LIST changes: -AMLO-110 PO; +AMLO5TAB3 PO
[2017-12-08 17:58] VITALS: TEMP 36.6; Ht 170.2 cm; Wt 110.0 kg
--- NOTE | 2017-12-08 19:51 | DIAGNOSTIC IMAGING REPORT ---
ADDENDUM Given the patient's history of prior surgical intervention at outside institution as well as studies presumably done elsewhere following the CT angiogram done at this institution, it is impossible to evaluate the integrity of a vascular repair versus the possibility of a new or interval process. Electronically signed by: Talat Hanson M.D. 12/08/2017 8:34 PM Dictated Date/Time: 12/08/2017 8:33 PM ORIGINAL REPORT R ART DOP DUPLEX LWR EXT UNI CLINICAL HISTORY: R posterior knee swelling - R/O new aneurysm aneurysm TECHNIQUE: Arterial Doppler COMPARISON STUDY: CT angiography of 08/02/2017 FINDINGS: 1.8 cm complex popliteal cyst. No significant change in aneurysmal dilatation. No new or interval findings. IMPRESSION: 1.8 cm complex popliteal cyst. No evidence for new interval or progressive aneurysm. The above report was generated using voice recognition software. It may contain grammatical, syntax or spelling errors. Electronically signed by: Talat Hanson M.D. 12/08/2017 7:50 PM Dictated Date/Time: 12/08/2017 7:48 PM
--- NOTE | 2017-12-08 19:52 | DIAGNOSTIC IMAGING REPORT ---
ADDENDUM There is specifically noted that given the patient's history of prior surgical procedure at an outside institution following the patient's prior CT study at this institution, makes it impossible to confirm or exclude an interval change in the vascular configuration of the popliteal fossa. Correlation of this study with any prior postoperative procedures would be helpful to confirm or exclude significant change. Electronically signed by: Talat Hanson M.D. 12/08/2017 8:36 PM Dictated Date/Time: 12/08/2017 8:35 PM ORIGINAL REPORT R EXTREMITY NONVASCULAR LIMITED CLINICAL HISTORY: R posterior knee swelling - R/O Bakers cyst TECHNIQUE: Ultrasound COMPARISON STUDY: CT 08/02/2017 FINDINGS: 1.8 x 2.7 cm complex popliteal cyst. No other significant abnormality. IMPRESSION: Popliteal cyst. Otherwise negative study. The above report was generated using voice recognition software. It may contain grammatical, syntax or spelling errors. Electronically signed by: Talat Hnason M.D. 12/08/2017 7:51 PM Dictated Date/Time: 12/08/2017 7:50 PM
[2017-12-08] MEDS ORDERED: PLV75 PO (20:16)
[2017-12-08] MEDS ORDERED: INSU75IN2 SQ (20:16)
--- NOTE | 2017-12-08 20:20 | EMERGENCY ROOM VISIT NOTE ---
ED Visit Note First contact with patient: 18:00 The patient was seen and examined with Cristino Johnson PA-C. I agree with the history, physical and findings. Please see the note for disposition and details.
--- NOTE | 2017-12-08 20:20 | EMERGENCY ROOM VISIT NOTE ---
History First contact with patient: 18:00 Chief Complaint: KNEEPAIN Stated Complaint: LUMP BEHIND RIGHT KNEE History of Present Illness The patient is a 77 year old male who presents to the Emergency Room with complaints of a recurrent lump behind his right knee. The patient reports that he was here in July and diagnosed with a popliteal aneurysm. The patient had his first aneurysm surgery performed on 08/08/17 in [place]. He required an additional surgery on 11/12/17 for recurrent aneurysm. He started to notice a lump behind his knee yesterday, and it has progressively worsened. The patient was sent here by his PCP, Dr. Dunham for ultrasound. The patient denies any pain. Review of Systems 10 system review was performed and was negative except for pertinent positives and negatives as indicated in history of present illness Past Medical/Surgical History Medical Problems: (1) Aneurysm (2) Diabetes (3) Hyperlipidemia (4) Hypertension (5) Myocardial infarction Surgical Problems: (1) AICD (automatic cardioverter/defibrillator) present (2) History of bilateral knee replacement Family History Diabetes mellitus Heart disease Hypertension Social History Smoking Status: Never Smoker Alcohol Use: occasionally Drug Use: none Marital Status: Housing Status: lives with family Occupation Status: unemployed Current/Historical Medications Scheduled Amiodarone HCl (Amiodarone HCl), 200 MG PO 5XWK Aspirin (Aspirin Ec), 81 MG PO QAM Atorvastatin (Lipitor), 80 MG PO HS Clopidogrel Bisulfate (Clopidogrel), 75 MG PO DAILY Donepezil Hydrochloride (Donepezil Hcl), 1 TAB PO QAM Fish Oil ([place]-3), 1 CAP PO QAM Furosemide (Lasix), 40 MG PO QAM Hydralazine Hcl (Apresoline), 50 MG PO TID Insulin Lispro Protamine & Lis (Humalog Mix 75/25 Kwikpen), 40 UNITS SQ AMPM Isosorbide Mononitrate Ext Rel (Imdur Ext Rel), 60 MG PO QAM Metoprolol Succ (Toprol Xl) (Toprol-Xl ), 100 MG PO BID Multiple Vitamin (Multivitamin), 1 TAB PO QAM Nitroglycerin (Nitrostat), 0.4 MG UT PRN Solifenacin (Vesicare), 10 MG PO QAM Physical Exam Vital Signs Date Time Temp Pulse Resp B/P (MAP) Pulse Ox O2 Delivery O2 Flow Rate FiO2 8/14/18 19:32 82 18 175/107 94 Room Air 12/08/17 17:58 36.6 74 18 165/92 95 Room Air Physical Exam CONSTITUTIONAL: Healthy and well nourished. Alert and oriented X 3 with positive affect. HEENT: Normocephalic, atraumatic. Pupils equal, round and reactive. NECK: Full active range of motion without discomfort. MUSCULOSKELETAL: Examination shows a lemon sized fluctuant mass in the right popliteal space. It is nonpulsatile. No bruits on auscultation. There is no overriding erythema. Patient has no joint effusion or worsening pain with range of motion of the knee. Ligamentous exam of the knee is normal. Pedal pulses are intact. INTEGUMENTARY: No rash or other significant dermatologic conditions noted. NEUROLOGIC: Right lower extremity is sensory intact. Medical Decision & Procedures ER Provider Diagnostic Interpretation: Arterial ultrasound of the right lower extremity shows a 1.8 cm complex popliteal cyst. Nonvascular ultrasound confirms the same finding. Radiologist report is as follows: R ART DOP DUPLEX LWR EXT UNI CLINICAL HISTORY: R posterior knee swelling - R/O new aneurysm aneurysm TECHNIQUE: Arterial Doppler COMPARISON STUDY: CT angiography of 08/02/2017 FINDINGS: 1.8 cm complex popliteal cyst. No significant change in aneurysmal dilatation. No new or interval findings. IMPRESSION: 1.8 cm complex popliteal cyst. No evidence for new interval or progressive aneurysm. ED Course Patient history and physical exam were performed. Nurse's notes were reviewed. Vital signs were reviewed, showing an elevated blood pressure of 165/92. The patient denies any discomfort. Arterial ultrasound of the right lower extremity , as well as a nonvascular ultrasound of the right popliteal space confirms a 1.8 cm complex popliteal cyst. The requested copies of ultrasound studies so they can return to [place] for reevaluation by his vascular surgeon and orthopedics. The patient has had a prior history of right total knee arthroplasty. The patient and are happy with plan of care, and voiced understanding of all discharge instructions. The patient was also seen and examined by Dr. Aleman, ED attending physician, who agrees with workup and plan of care. Medical Decision Medication Reconcilliation Current Medication List: was personally reviewed by wa Blood Pressure Screening Patient's blood pressure: Normal blood pressure Impression Primary Impression: Right popliteal cyst Departure Information Referrals Dunham, Christopher E.,M.D. (PCP) Patient Instructions [facility]
[2017-12-08 20:52] VITALS: BP 181/109; PULSE 73; O2SAT 95
== END 2017-12-08 20:53 | disposition home or self-care (01) ==
LOC: C.EDB 17:38
DX: M71.21 Synovial cyst of popliteal space [Baker], right knee (principal); I72.4 Aneurysm of artery of lower extremity; E11.9 Type 2 diabetes mellitus without complications; E78.5 Hyperlipidemia, unspecified; I10 Essential (primary) hypertension; I25.2 Old myocardial infarction; Z95.810 Presence of automatic (implantable) cardiac defibrillator; Z96.653 Presence of artificial knee joint, bilateral; Z83.3 Family history of diabetes mellitus; Z82.49 Family history of ischemic heart disease and other diseases of the circulatory system; Z79.82 Long term (current) use of aspirin; Z79.4 Long term (current) use of insulin; Z79.899 Other long term (current) drug therapy

== ENCOUNTER → 2017-12-15 | Outpatient (CLI) | payer OTHER, MEDICARE ==
[~2017-12-15] MED LIST changes: -AMLO5TAB3 PO; -INSHI7030 SC; +INSU75IN2 SQ; +PLV75 PO
[2017-12-15 12:42] LABS: HEMOGLOBIN 12.9 g/dL (14.0-18.0); MEAN CELL VOLUME 94.1 fL (80-100); MEAN CORPUSCULAR HEMOGLOBIN 30.4 pg (25-34); MEAN CORPUSCULAR HGB CONC 32.3 g/dl (32-36); MEAN PLATELET VOLUME 10.2 fL (7.4-10.4); PLATELET COUNT 138 K/uL (130-400); RED CELL DISTRIBUTION WIDTH CV 16.6 % (11.5-14.5); WHITE BLOOD COUNT 5.87 K/uL (4.8-10.8)
[2017-12-15 13:23] LABS: HEMOGLOBIN A1C 8.1 % (4.5-5.6)
[2017-12-15 14:09] LABS: ALBUMIN 3.1 gm/dl (3.4-5.0); BLOOD UREA NITROGEN 21 mg/dl (7-18); CALCIUM 8.5 mg/dl (8.5-10.1); CARBON DIOXIDE 31 mmol/L (21-32); CHOLESTEROL 131 mg/dl (0-200); CREATININE 1.35 mg/dl (0.60-1.40); GLUCOSE 139 mg/dl (70-99); LDL CHOLESTEROL CALCULATED 57 mg/dl; PHOSPHORUS 3.1 mg/dl (2.5-4.9); SODIUM 139 mmol/L (136-145)
== END | disposition home or self-care (01) ==
LOC: C.LABBFT 09:44
PROVIDERS: ATTEND Internal Medicine Nephrology
DX: N18.3 Chronic kidney disease, stage 3 (moderate) (principal); N28.1 Cyst of kidney, acquired; E55.9 Vitamin D deficiency, unspecified; I12.9 Hypertensive chronic kidney disease with stage 1 through stage 4 chronic kidney disease, or unspecified chronic kidney disease; E11.65 Type 2 diabetes mellitus with hyperglycemia

== ENCOUNTER 2020-08-30 15:22 | Inpatient (IN) ==
--- NOTE | 2020-08-30 15:39 | Emergency Department Note ---
Impression & Plan Pulmonary embolism, Acute hypotension, CKD (chronic kidney disease) ED Provider Note NAME: NILTON NYE AGE: 80 SEX: M : 1940 ARRIVES VIA: Ambulance INFORMANT: Patient ED PROVIDER(S): Jamar Lopez DO CHIEF COMPLAINT: swelling in LLE HPI: Patient is an 80-year-old male who presents the ER with a past medical history of dialysis, ICD, cardiomyopathy, CAD, abdominal aortic aneurysm repair who presents ER referred in for swelling of his right lower extremity. In And compress patient was found to have bilateral lower extremity DVTs. He has been getting subcu heparin. He denies any headache or change in vision. No chest pain or shortness of breath. No nausea, vomiting or diarrhea. He notes he normally gets swelling in lower extremities but is normally able to care for it. He still on heparin 5000 units subcu every 8 hours. He denies any other exacerbating or remitting factors. Pressures have been running into the low 100s high 90s at [facility]. ROS: See above HPI for pertinent positives & negatives. A total of 10 systems reviewed and were otherwise negative. PAST MEDICAL HISTORY:See Below PAST SURGICAL HISTORY:See Below FAMILY HISTORY:See Below SOCIAL HISTORY:See Below HOME MEDICATIONS:See Below ALLERGIES:See Below VITALS:See Below PHYSICAL EXAMINATION: GENERAL: Sitting up in bed, alert, chronically ill-appearing, disheveled EYE EXAM: normal conjunctiva. OROPHARYNX: no exudate, no erythema, lips, buccal mucosa, and tongue normal and mucous membranes are moist NECK: supple, no nuchal rigidity, no adenopathy, non-tender LUNGS: Clear to auscultation. Normal chest wall mechanics HEART: no murmurs, S1 normal and S2 normal ABDOMEN: abdomen soft, non-tender, normo-active bowel sounds, no masses, no rebound or guarding. Midline incision is clean dry and intact with dressing in place. BACK: Back is symmetrical on inspection and there is no deformity, no midline tenderness, no CVA tenderness. SKIN: no rashes and no bruising UPPER EXTREMITIES: upper extremities are grossly normal. LOWER EXTREMITIES: Right lower extremity significantly larger than left NEURO EXAM: Normal sensorium, cranial nerves II-XII grossly intact, normal speech, no gross weakness of arms, no gross weakness of legs. MEDICAL DECISION MAKING: Patient is an 80-year-old male who presents the ER referred in for DVTs in his bilateral lower extremities. IV was established blood work was obtained. He is borderline slightly hypotensive with systolics in the 90s to low 100s. IV was established blood work was obtained.Labs show no significant leukocytosis. Mild anemia 10. INR was unremarkable. BMP with a creatinine of 5.2. LFTs bilirubin was unremarkable. Troponin was negative. Lipase was slightly elevated at 600. Covid was ordered. Duplex of the right lower extremity was negative. CT angio of the chest shows bilateral PEs. Patient was given a bolus of heparin and placed on a drip after discussion with Dr. Heredia and the surgery being performed around August 08. Upon initial arrival patient was discussed with [facility] as well. Triage Nursing notes reviewed. Limited review of prior medical records performed Vital Signs: reviewed and remarkable for no significant abnormalities Differential diagnosis: Differential diagnoses includes but is not limited to pneumonia, bronchitis, COPD/Asthma exacerbation, pneumothorax, pulmonary embolism, congestive heart failure, acute coronary syndrome ER treatment provided: See below Diagnostics interpreted by me: ECG: Ventricularly paced rate of 65 Left axis No PVCs QTC 567 Cardiac Monitoring: An order was placed for continuous cardiac monitoring. The monitor shows a rate of 68 with paced rhythm. Laboratory studies: As stated above and show below. Imaging studies: CT angio of the chest shows bilateral PEs Consultation(s): Discussed with Dr. Haely Celis for further evaluation Discussed with Dr. Heredia and agrees with IV heparin and admission Procedures: none Critical Care: I have personally spent 43 minutes of critical care time in the direct manageme nt of this patient. This includes bedside care, interpretation of diagnostic studies, and testing, discussion with consultants, patient, and family members, and other required patient management activities. This 43 minutes is in excess of all separately billable procedures. Past Med/Surg History Medical History (Updated 08/30/20 @ 19:20 by Jamar Lopez DO) Abdominal aortic aneurysm (AAA) x3 Aneurysm of right popliteal artery CAD (coronary artery disease) Cardiomyopathy Chronic kidney disease, stage 3 (moderate) Hearing deficit Hyperlipidemia Hypertension ICD (implantable cardioverter-defibrillator) in place (~2013) Kidney stones Lymphedema Myocardial Infarction (~1995) On amiodarone therapy Orbital floor fracture Right orbital fracture April 2019 Prostate cancer sx Ventricular tachycardia Surgical History History of bilateral cataract extraction History of bilateral knee replacement History of cardiac cath multiple--last one 2013 History of carpal tunnel release History of colonoscopy History of heart artery stent x1-2; "last one was years ago"--follows with Dr. Sosa History of hernia repair History of lithotripsy History of prostate biopsy malignant History of prostate surgery radiation seeds implanted History of total left knee replacement (TKR) History of total right knee replacement (TKR) S/P AAA repair x3--last in 2013 Status post cystoscopy with ureteral stent placement Status post femoral-popliteal bypass surgery 2018 in [place] Family History Mother Hypertension Cardiac disorder Father Cardiac disorder Myocardial infarction Brother Diabetes Hypertension Hyperlipidemia Obstructive sleep apnea Social History Smoking Status: Former smoker Second Hand Exposure: No; Hx Alcohol Use: Yes Alcohol type: beer, wine and hard liquor Hx Substance Use: No Preferred Language: Vietnamese Communication Ability: Effective 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: No Beliefs That Will Affect Care: None marital status: Current Living Situation: Spouse Feels Safe at Home: Yes Assistive Devices: Glasses Allergies Allergies Allergy/AdvReac Type Severity Reaction Status Date / Time No Known Allergies Allergy Verified 08/30/20 15:59 Home Meds Home Medications Medication Instructions Recorded Confirmed aspirin 81 mg tablet,delayed 81 mg PO QAM tab 09/27/18 08/30/20 release Saccharomyces boulardii [Florastor] 250 mg PO BIDM 08/30/20 08/30/20 acetaminophen [Tylenol] 650 mg PO Q4H PRN 08/30/20 08/30/20 amiodarone 200 mg PO 5XWK 08/30/20 08/30/20 bisacodyl 10 mg AL DAILY PRN 08/30/20 08/30/20 cholecalciferol (vitamin D3) 50 mcg PO DAILY 08/30/20 08/30/20 [Vitamin D3] darbepoetin tiarra in polysorbat 100 mcg IV WK 08/30/20 08/30/20 donepezil 10 mg PO HS 08/30/20 08/30/20 heparin (porcine) 5,000 unit SUBCUT Q8H 08/30/20 08/30/20 hydralazine 25 mg PO Q6H PRN 08/30/20 08/30/20 magnesium hydroxide [Milk of 30 ml PO DAILY PRN 08/30/20 08/30/20 Magnesia] metoprolol tartrate 50 mg PO Q12H 08/30/20 08/30/20 multivitamin with minerals 1 tab PO DAILY 08/30/20 08/30/20 naloxone [Narcan] 4 mg INTRANASAL DIRECTED PRN 08/30/20 08/30/20 omega-3 fatty acids 1,000 mg PO DAILY 08/30/20 08/30/20 pantoprazole 40 mg PO DAILYBB 08/30/20 08/30/20 polyethylene glycol 3350 [Miralax] 17 g PO QDL PRN 08/30/20 08/30/20 sennosides-docusate sodium 1 tab-cap PO QDL PRN 08/30/20 08/30/20 [Senokot-S] sodium chloride 0.9 % 1,000 ml IV Q12H PRN 08/30/20 08/30/20 tramadol 25 mg PO Q4H PRN 08/30/20 08/30/20 vancomycin 750 mg IV 3XWK 08/30/20 08/30/20 Previous Rx's Medication Instructions Recorded CPAP Machine #1 ea 02/28/19 lancets #100 ea 05/10/19 nitroglycerin 0.4 mg sublingual 0.4 mg SUBLINGUAL UD PRN #30 tab 05/10/19 tablet blood sugar diagnostic #300 ea 09/02/19 clopidogrel 75 mg tablet 75 mg PO QAM #90 tab 04/06/20 atorvastatin 80 mg tablet 80 mg PO QAM #90 tab 06/18/20 isosorbide mononitrate 60 mg 60 mg PO QAM #90 tab 06/22/20 tablet,extended release 24 hr nystatin 100,000 unit/gram topical 1 applic TOPICAL BID #30 g 07/27/20 powder Results & Data (ED) Vital Signs Vital Signs - 24 hr 08/30/20 15:27 08/30/20 15:39 08/30/20 16:00 Temperature 36.7 C Temperature Source Oral Pulse Rate 84 61 Pulse Rate from SpO2 Sensor 61 Respiratory Rate 18 18 Blood Pressure 96/62 L 94/56 L Blood Pressure Mean 73 68 Pulse Oximetry 96 96 95 Oxygen Delivery Method Room Air Room Air Room Air Sepsis Recent Fever Within 48 Hours No Sepsis New/Unexplained Change in Mental Status No Sepsis Action Taken by Nursing No Action Required 08/30/20 16:30 08/30/20 17:22 08/30/20 17:30 Temperature Temperature Source Pulse Rate 61 62 61 Pulse Rate from SpO2 Sensor 61 62 61 Respiratory Rate 21 17 Blood Pressure 91/58 L 100/60 100/57 L Blood Pressure Mean 69 73 71 Pulse Oximetry 95 95 94 Oxygen Delivery Method Room Air Room Air Room Air Sepsis Recent Fever Within 48 Hours Sepsis New/Unexplained Change in Mental Status Sepsis Action Taken by Nursing 08/30/20 18:32 Temperature Temperature Source Pulse Rate 64 Pulse Rate from SpO2 Sensor 64 Respiratory Rate 20 Blood Pressure 112/59 L Blood Pressure Mean 76 Pulse Oximetry 93 Oxygen Delivery Method Room Air Sepsis Recent Fever Within 48 Hours Sepsis New/Unexplained Change in Mental Status Sepsis Action Taken by Nursing Laboratory Data Result diagrams: 08/30/20 16:10 08/30/20 16:10 Lab Results 08/30/20 08/30/20 08/30/20 Range/Units 16:10 16:10 16:10 WBC 6.99 (4.8-10.8) K/uL RBC 3.45 L (4.7-6.1) M/uL Hgb 10.3 L (14.0-18.0) g/dL Hct 30.9 L (42-52) % MCV 89.6 (80-100) fL MCH 29.9 (25-34) pg MCHC 33.3 (32-36) g/dL RDW Std Deviation 54.3 H (36.4-46.3) fL RDW Coeff of Phillip 16.6 H (11.5-14.5) % Plt Count 273 (130-400) K/uL MPV 8.8 (7.4-10.4) fL Immature Gran % (Auto) 0.6 % Neut % (Auto) 70.0 % Lymph % (Auto) 12.0 % Ray % (Auto) 12.4 % Eos % (Auto) 4.6 % Baso % (Auto) 0.4 % Neut # (Auto) 4.89 (1.4-6.5) K/uL Lymph # (Auto) 0.84 L (1.2-3.4) K/uL Ray # (Auto) 0.87 H (0.11-0.59) K/uL Eos # (Auto) 0.32 (0-0.5) K/uL Baso # (Auto) 0.03 (0-0.2) K/uL Immature Gran # (Auto) 0.04 H (0.00-0.02) K/uL PT 11.3 (9.0-12.0) Seconds INR 1.1 (0.9-1.1) APTT 35.0 H (21.0-31.0) Seconds PTT Ratio 1.3 Sodium 134 L (136-145) mmol/L Potassium 4.4 (3.5-5.1) mmol/L Chloride 99 (98-107) mmol/L Carbon Dioxide 27 (21-32) mmol/L Anion Gap 8.0 (3-11) BUN 37 H (7-18) mg/dl Creatinine 5.21 H* (0.6-1.4) mg/dl Est Cr Clr Drug Dosing 12.7 ml/min Est GFR ( Amer) 11.1 Est GFR (Non-Af Amer) 9.6 BUN/Creatinine Ratio 7.2 L (10-20) Glucose 104 H (70-99) mg/dl Calcium 8.7 (8.5-10.1) mg/dl Total Bilirubin 0.6 (0.2-1) mg/dl AST 35 (15-37) U/L ALT 11 L (12-78) U/L Alkaline Phosphatase 269 H (45-117) U/L Troponin I < 0.015 (0-0.045) ng/ml Total Protein 7.0 (6.4-8.2) gm/dl Albumin 1.7 L (3.4-5.0) gm/dl Globulin 5.3 H (2.5-4.0) gm/dl Albumin/Globulin Ratio 0.3 L (0.9-2) Lipase 593 H (73-393) U/L COVID-19 Eval Order 08/30/20 Range/Units 18:50 WBC (4.8-10.8) K/uL RBC (4.7-6.1) M/uL Hgb (14.0-18.0) g/dL Hct (42-52) % MCV (80-100) fL MCH (25-34) pg MCHC (32-36) g/dL RDW Std Deviation (36.4-46.3) fL RDW Coeff of Phillip (11.5-14.5) % Plt Count (130-400) K/uL MPV (7.4-10.4) fL Immature Gran % (Auto) % Neut % (Auto) % Lymph % (Auto) % Ray % (Auto) % Eos % (Auto) % Baso % (Auto) % Neut # (Auto) (1.4-6.5) K/uL Lymph # (Auto) (1.2-3.4) K/uL Ray # (Auto) (0.11-0.59) K/uL Eos # (Auto) (0-0.5) K/uL Baso # (Auto) (0-0.2) K/uL Immature Gran # (Auto) (0.00-0.02) K/uL PT (9.0-12.0) Seconds INR (0.9-1.1) APTT (21.0-31.0) Seconds PTT Ratio Sodium (136-145) mmol/L Potassium (3.5-5.1) mmol/L Chloride (98-107) mmol/L Carbon Dioxide (21-32) mmol/L Anion Gap (3-11) BUN (7-18) mg/dl Creatinine (0.6-1.4) mg/dl Est Cr Clr Drug Dosing ml/min Est GFR ( Amer) Est GFR (Non-Af Amer) BUN/Creatinine Ratio (10-20) Glucose (70-99) mg/dl Calcium (8.5-10.1) mg/dl Total Bilirubin (0.2-1) mg/dl AST (15-37) U/L ALT (12-78) U/L Alkaline Phosphatase (45-117) U/L Troponin I (0-0.045) ng/ml Total Protein (6.4-8.2) gm/dl Albumin (3.4-5.0) gm/dl Globulin (2.5-4.0) gm/dl Albumin/Globulin Ratio (0.9-2) Lipase (73-393) U/L COVID-19 Eval Order CovFluRsv at [facility] Administered Medications Discontinued Medications Ioversol (Optiray 350 500ml) 107 ml IV ONCE ONE Stop: 08/30/20 18:26 Last Admin: 08/30/20 18:27 Dose: 107 ml Documented by: [id number] Imaging Data Radiologist's Impression: Chest X-Ray 08/30/20 15:34 XR chest 1V portable CLINICAL HISTORY: Chest Pain COMPARISON STUDY: Chest radiograph July 04, 2019. FINDINGS: A dual lumen right internal jugular central line is in place. There is a dual-lead left subclavian pacer/AICD. Lung volumes are diminished. This is unchanged. No pneumothorax or pleural effusion is noted. There is moderate cardiomegaly without evidence for pulmonary edema. Right basilar opacity is noted. There is minimal left basilar opacity. IMPRESSION: 1. Bibasilar opacities which could reflect atelectasis or consolidation. Radiographic follow-up is recommended. 2. Cardiomegaly without evidence for pulmonary edema. ACT 112: Negative or not required by law. Electronically signed by: George Pena M.D. 08/30/2020 4:20 PM Venous Doppler Study 08/30/20 15:34 RIGHT LOWER EXTREMITY VENOUS DOPPLER CLINICAL HISTORY: Right lower extremity swelling. COMPARISON STUDY: Right lower extremity venous Doppler ultrasound June 24, 2019. TECHNIQUE: Sonography of the deep venous system of the right lower extremity was performed. Compression and augmentation were evaluated. FINDINGS: The right common femoral, superficial femoral and popliteal veins were compressible. Augmentation was normal. Flow was shown within the deep calf vessels. Right lower extremity subcutaneous edema was noted. IMPRESSION: No evidence of deep venous thrombus within the right lower extremi ty. ACT 112: Negative or not required by law. Electronically signed by: George Pena M.D. 08/30/2020 5:15 PM Chest CTA 08/30/20 17:28 CT ANGIOGRAPHY OF THE CHEST, PULMONARY EMBOLUS PROTOCOL CLINICAL HISTORY: ? pe COMPARISON STUDY: Chest CT March 05, 2014. Chest radiograph performed earlier today. TECHNIQUE: Following IV administration of 107 mL of Optiray, helical axial images of the chest were obtained utilizing the pulmonary embolus protocol. Maximal intensity projections and sagittal and coronal reformats were viewed on an independent 3D workstation. IV contrast was administered without complication. Automated exposure control was utilized for the study. A dose lowering technique was utilized adhering to the principles of ALARA. CT DOSE: 779.77 mGy.cm FINDINGS: A right internal jugular dual lumen catheter is in place. There is a left subclavian pacer. Moderate cardiomegaly is noted with extensive coronary artery calcification. There is no pericardial effusion. Note is made of numerous bilateral pulmonary emboli, including emboli within the right lower lobe pulmonary artery extending into multiple segmental branches of the right lower lobe. Additional scattered bilateral segmental pulmonary emboli are noted. There is mild dilatation of the central pulmonary arteries. No pneumothorax is present. Calcified pleural plaques are present. There is no thoracic lymphadenopathy. Note is made of a trace right pleural effusion. There is moder ate right lower lobe subpleural opacity. Left basilar opacity favors atelectasis. Bones appear dense. There is hyperdense which are within the gallbladder with gallbladder wall thickening. A small amount of upper abdominal ascites is noted. A left adrenal nodule is unchanged and CT of April 2019. A suspected cyst within the upper pole the left kidney is noted. There are hepatic cyst. IMPRESSION: 1. Multiple bilateral pulmonary emboli, as above. 2. Trace right pleural effusion with right lower lobe airspace opacity. This could reflect atelectasis or consolidation. Pulmonary infarct is considered less likely but cannot be excluded. 3. Moderate cardiomegaly and extensive coronary artery calcification. Dilatation of the central pulmonary arteries which suggests pulmonary arterial hyper tension. 4. Hyperdense material within the gallbladder with gallbladder wall thickening. If right upper quadrant pain, ultrasound is recommended. 5. Small amount of upper abdominal ascites. ACT 112: Negative or not required by law. Electronically signed by: George Pena M.D. 08/30/2020 7:05 PM Discharge Plan Visit Data Chief Complaint: Swelling/Edema to Extremity Stated Complaint: BLOOD CLOTS IN LEG ED Provider: Jamar Lopez Discharge Problem: Pulmonary embolism, Acute hypotension, CKD (chronic kidney disease) Forms Stand Alone Forms: My [employer] Prescriptions Prescriptions: No Action (DME) lancets [Accu-Chek Softclix Lancets] Misc See Rx Instructions .ROUTE .MEDSUPPLY Qty: 100 RF: 5 (DME) Accu-Chek SmartView Test Strip Strip See Rx Instructions .ROUTE .MEDSUPPLY Qty: 300 RF: 5 clopidogrel [Plavix] 75 mg tablet 75 mg PO QAM Qty: 90 RF: 3 atorvastatin 80 mg tablet 80 mg PO QAM Qty: 90 RF: 3 isosorbide mononitrate 60 mg tablet extended release 24 hr 60 mg PO QAM Qty: 90 RF: 3 nystatin [Nystop] 100,000 unit/gram powder 1 applic topical BID Qty: 30 RF: 3 nitroglycerin 0.4 mg tablet, sublingual 0.4 mg Sublingual UD PRN (Reason: Angina) Qty: 30 RF: 0 (DME) CPAP Machine Misc See Dose Instructions .ROUTE .MEDSUPPLY Qty: 1 RF: 0 aspirin 81 mg tablet,delayed release (DR/EC) 81 mg PO QAM RF: 0 acetaminophen [Tylenol] 325 mg Tablet 650 mg PO Q4H PRN (Reason: Pain (Scale Score 1-3)) RF: 0 omega-3 fatty acids 1,000 mg Capsule 1,000 mg PO DAILY RF: 0 sennosides-docusate sodium [Senokot-S] 8.6-50 mg Tablet 1 tab-cap PO QDL PRN (Reason: Constipation) RF: 0 hydralazine 25 mg Tablet 25 mg PO Q6H PRN (Reason: ELAVATED BLOOD PRESSURE) RF: 0 tramadol 50 mg Tablet 25 mg PO Q4H PRN (Reason: Pain (Scale Score 4-6)) RF: 0 sodium chloride 0.9 % Solution 1,000 ml IV Q12H PRN (Reason: DIALYSIS) RF: 0 magnesium hydroxide [Milk of Magnesia] 400 mg/5 mL Suspension 30 ml PO DAILY PRN (Reason: Constipation) RF: 0 bisacodyl 10 mg Suppository 10 mg AL DAILY PRN (Reason: Constipation) RF: 0 pantoprazole 40 mg Tablet,Delayed Release (Dr/Ec) 40 mg PO DAILYBB RF: 0 metoprolol tartrate 50 mg Tablet 50 mg PO Q12H RF: 0 multivitamin with minerals Tablet 1 tab PO DAILY RF: 0 polyethylene glycol 3350 [Miralax] 17 gram/dose Powder 17 g PO QDL PRN (Reason: Constipation) RF: 0 heparin (porcine) 5,000 unit/mL Solution 5,000 unit SUBCUT Q8H RF: 0 Saccharomyces boulardii [Florastor] 250 mg Capsule 250 mg PO BIDM RF: 0 darbepoetin tiarra in polysorbat 100 mcg/0.5 mL Syringe 100 mcg IV WK RF: 0 cholecalciferol (vitamin D3) [Vitamin D3] 50 mcg (2,000 unit) Capsule 50 mcg PO DAILY RF: 0 vancomycin 750 mg Recon Soln 750 mg IV 3XWK RF: 0 Narcan 4 mg/actuation [place],Non-Aerosol 4 mg INTRANASAL DIRECTED PRN (Reason: OVERSEDATION) RF: 0 amiodarone 200 mg tablet 200 mg PO 5XWK RF: 0 donepezil 10 mg tablet 10 mg PO HS RF: 0 Discharge Problem: Pulmonary embolism Qualifiers: Pulmonary embolism type: unspecified Chronicity: acute Acute cor pulmonale presence: unspecified Qualified Code(s): I26.99 - Other pulmonary embolism without acute cor pulmonale CKD (chronic kidney disease) Qualifiers: Chronic kidney disease stage: unspecified stage Qualified Code(s): N18.9 - Chronic kidney disease, unspecified
--- NOTE | 2020-08-30 16:21 | XRay Report ---
XR chest 1V portable CLINICAL HISTORY: Chest Pain COMPARISON STUDY: Chest radiograph July 04, 2019. FINDINGS: A dual lumen right internal jugular central line is in place. There is a dual-lead left sub clavian pacer/AICD. Lung volumes are diminished. This is unchanged. No pneumothorax or pleural effusi on is noted. There is moderate cardiomegaly without evidence for pulmonary edema. Right basilar opaci ty is noted. There is minimal left basilar opacity. IMPRESSION: 1. Bibasilar opacities which could reflect atelectasis or consolidation. Radiographic follow-up is re commended. 2. Cardiomegaly without evidence for pulmonary edema. ACT 112: Negative or not required by law. Electronically signed by: George Pena M.D. 08/30/2020 4:20 PM
[2020-08-30 16:23] LABS: Basophils # (auto) 0.03 K/uL (0-0.2); Basophils % (auto) 0.4 %; Eosinophils # (auto) 0.32 K/uL (0-0.5); Eosinophils % (auto) 4.6 %; Hematocrit (blood only) 30.9 % (42-52); Hemoglobin 10.3 g/dL (14.0-18.0); Immature Granulocytes # (auto) 0.04 K/uL (0.00-0.02); Immature Granulocytes % (auto) 0.6 %; Lymphocytes # (auto) 0.84 K/uL (1.2-3.4); Mean Corpuscular Hemoglobin 29.9 pg (25-34); Mean Corpuscular Hgb Conc 33.3 g/dL (32-36); Mean Corpuscular Volume 89.6 fL (80-100); Mean Platelet Volume 8.8 fL (7.4-10.4); Monocytes # (auto) 0.87 K/uL (0.11-0.59); Monocytes % (auto) 12.4 %; Neutrophils # (auto) 4.89 K/uL (1.4-6.5); Platelet Count 273 K/uL (130-400); RDW Coefficient of Variation 16.6 % (11.5-14.5); RDW Standard Deviation 54.3 fL (36.4-46.3); Red Blood Count 3.45 M/uL (4.7-6.1); White Blood Count 6.99 K/uL (4.8-10.8)
[2020-08-30 16:34] LABS: INR 1.1 (0.9-1.1); Partial Thromboplastin Ratio 1.3; Prothrombin Time 11.3 Seconds (9.0-12.0)
[2020-08-30 17:09] LABS: Alanine Aminotransferase 11 U/L (12-78); Albumin Globulin Ratio 0.3 (0.9-2); Albumin Level 1.7 gm/dl (3.4-5.0); Alkaline Phosphatase 269 U/L (45-117); Aspartate Aminotransferase 35 U/L (15-37); BUN Creatinine Ratio 7.2 (10-20); Bilirubin,Total 0.6 mg/dl (0.2-1); Blood Urea Nitrogen 37 mg/dl (7-18); Calcium 8.7 mg/dl (8.5-10.1); Carbon Dioxide 27 mmol/L (21-32); Chloride 99 mmol/L (98-107); Creatinine Clr Calc Pharmacy 12.7 ml/min; Est GFR (African American) 11.1; Est GFR (Non-African American) 9.6; Globulin 5.3 gm/dl (2.5-4.0); Glucose 104 mg/dl (70-99); Lipase 593 U/L (73-393); Potassium 4.4 mmol/L (3.5-5.1); Sodium 134 mmol/L (136-145); Troponin I < 0.015 ng/ml (0-0.045)
--- NOTE | 2020-08-30 17:16 | Ultrasound Report ---
RIGHT LOWER EXTREMITY VENOUS DOPPLER CLINICAL HISTORY: Right lower extremity swelling. COMPARISON STUDY: Right lower extremity venous Doppler ultrasound June 24, 2019. TECHNIQUE: Sonography of the deep venous system of the right lower extremity was performed. Compress ion and augmentation were evaluated. FINDINGS: The right common femoral, superficial femoral and popliteal veins were compressible. Augme ntation was normal. Flow was shown within the deep calf vessels. Right lower extremity subcutaneous e dayanara was noted. IMPRESSION: No evidence of deep venous thrombus within the right lower extremity. ACT 112: Negative or not required by law. Electronically signed by: George Pena M.D. 08/30/2020 5:15 PM
[2020-08-30] MEDS ORDERED: OPTIRAY 350 500ml IV ONE (18:25)
[2020-08-30] MEDS ORDERED: Heparin IV Adult Wt-Based Standard WITH Bolus Protocol IV STA (18:46)
[2020-08-30] MEDS ORDERED: HEPARIN SOD (PORCINE) 1000 UNIT/ML IV ONE (19:01)
--- NOTE | 2020-08-30 19:07 | CT Scan Report ---
CT ANGIOGRAPHY OF THE CHEST, PULMONARY EMBOLUS PROTOCOL CLINICAL HISTORY: ? pe COMPARISON STUDY: Chest CT March 05, 2014. Chest radiograph performed earlier today. TECHNIQUE: Following IV administration of 107 mL of Optiray, helical axial images of the chest were o btained utilizing the pulmonary embolus protocol. Maximal intensity projections and sagittal and cor onal reformats were viewed on an independent 3D workstation. IV contrast was administered without co mplication. Automated exposure control was utilized for the study. A dose lowering technique was ut ilized adhering to the principles of ALARA. CT DOSE: 779.77 mGy.cm FINDINGS: A right internal jugular dual lumen catheter is in place. There is a left subclavian pacer . Moderate cardiomegaly is noted with extensive coronary artery calcification. There is no pericardia l effusion. Note is made of numerous bilateral pulmonary emboli, including emboli within the right lo wer lobe pulmonary artery extending into multiple segmental branches of the right lower lobe. Additio nal scattered bilateral segmental pulmonary emboli are noted. There is mild dilatation of the central pulmonary arteries. No pneumothorax is present. Calcified pleural plaques are present. There is no t horacic lymphadenopathy. Note is made of a trace right pleural effusion. There is moderate right lowe r lobe subpleural opacity. Left basilar opacity favors atelectasis. Bones appear dense. There is hype rdense which are within the gallbladder with gallbladder wall thickening. A small amount of upper abd ominal ascites is noted. A left adrenal nodule is unchanged and CT of April 2019. A suspected cyst within the upper pole the left kidney is noted. There are hepatic cyst. IMPRESSION: 1. Multiple bilateral pulmonary emboli, as above. 2. Trace right pleural effusion with right lower lobe airspace opacity. This could reflect atelectasi s or consolidation. Pulmonary infarct is considered less likely but cannot be excluded. 3. Moderate cardiomegaly and extensive coronary artery calcification. Dilatation of the central pulmo nary arteries which suggests pulmonary arterial hypertension. 4. Hyperdense material within the gallbladder with gallbladder wall thickening. If right upper quadra nt pain, ultrasound is recommended. 5. Small amount of upper abdominal ascites. ACT 112: Negative or not required by law. Electronically signed by: George Pena M.D. 08/30/2020 7:05 PM
--- NOTE | 2020-08-30 20:01 | Ultrasound Report ---
LEFT LOWER EXTREMITY VENOUS DOPPLER CLINICAL HISTORY: Left lower extremity swelling. COMPARISON STUDY: Left lower extremity venous Doppler ultrasound October 27, 2018. TECHNIQUE: Sonography of the deep venous system of the left lower extremity was performed. Compressi on and augmentation were evaluated. FINDINGS: Note is made of deep venous thrombus within the left common femoral and superficial femoral veins. Left calf edema is noted. IMPRESSION: Deep venous thrombus within the left common femoral and superficial femoral veins. ACT 112: Negative or not required by law. Electronically signed by: George Pena M.D. 08/30/2020 8:00 PM
[2020-08-30 20:03] LABS: Influenza A virus by PCR Negative (Neg); Influenza B virus by PCR Negative (Neg); RSV by PCR Negative (Neg); SARS CoV2 RNA(COVID-19) InHosp NEGATIVE (Negative)
[2020-08-30] MEDS: HEPARIN SODIUM/DEXTROSE 25,000 UNITS/500 ML BAG IV SCH (20:07)
--- NOTE | 2020-08-30 21:05 | History & Physical Report ---
Date of Service August 30, 2020 Assessment & Plan (1) Pulmonary embolism: 80yo male with multiple medical problems, recent prolonged hospitalization at [facility] for explant of his aortic graft with replacement, complicated by oliguric renal failure requiring initiation of HD. Patient presents today with LLE DVT as well as bilateral PEs. Patient is hemodynamically stable, no respiratory distress, adequate oxygenation on room air, asymptomatic at this time. Patient's age, gender and multiple comorbidities place him at high risk for poor outcome. LLE DVT present. -Admit to medical with telemetry monitoring -Continue heparin gtt - medication discussed between ER attending and Vascular Surgeon -Consider Vascular consultation given patient's recent endograft placement and need for anticoagulation Present on Admission?: Yes (2) Abdominal aortic aneurysm (AAA): S/p exploratory laparotomy with explantation of endograft, aorto iliac bypass and placement of Dacron graft performed at [facility] on 08/08/20. Concern for possible sepsis in the post-operative period. Patient has been on dual-antiplatelet therapy with ASA and Plavix since discharge from [facility]. -Will hold ASA for now in setting of Heparin gtt -Continue Plavix -Continue Vancomycin 750mg IV 3 times weekly as recommended by ID at [place] - to continue through 09/20/20 for risk of graft infection -Consider Vascular surgery assessment Present on Admission?: Yes (3) ESRD (end stage renal disease): Metabolic profile and electrolytes are acceptable at this time. No need for urgent HD. Patient is dialyzed q M/W/F -Nephrology consultation appreciated -Monitor electrolytes Present on Admission?: Yes (4) Anemia: Normochromic/normocytic anemia with Hgb=10.3, Hct=30.9, near baseline. No bleeding. -Continue to monitor CBC Present on Admission?: Yes (5) Diabetes mellitus, controlled: Blood sugars well controlled at presaent -ISS -Check A1C Present on Admission?: Yes (6) Cardiomyopathy: Patient appears euvolemic -Continue isosorbide mononitrate -Continue Metoprolol 50mg po BID Present on Admission?: Yes (7) CAD (coronary artery disease): Patient denies chest pain. Troponin unremarkable. EKG V-paced -Holding ASA 81mg po daily for now -Continue Plavix 75mg po daily -Continue Atorvastatin 80mg po daily -Continue Metoprolol 50mg po BID Present on Admission?: Yes (8) Hypertension: Blood pressure stable, 120/64 at this time -Continue Isosorbide mononitrate -Continue Metoprolol Present on Admission?: Yes (9) Severe obstructive sleep apnea: Chronic -Continue CPAP at home settings Present on Admission?: Yes (10) Senile dementia: states that patient becomes confused at times and does not remember things. -Delirium prevention strategies with frequent orientation, ambulation with assistance as tolerated and maintenance of sleep/wake cycle as able -Continue Aricept 10mg po qHS -Please update - Cynthia - [phone] Present on Admission?: Yes (11) ICD (implantable cardioverter-defibrillator) in place: No discharges -Continue Amiodarone F/E/N - Heplock. Monitor electrolytes. CC/AHA/Renal diet as tolerated, continue bowel regimen as needed. Continue Florastor at home dose Ppx - Heparin gtt Code - Full Code Dispo -Admit to medical POC: Cynthia () - [phone] Present on Admission?: Yes History of Present Illness Chief Complaint: pulmonary emboli Primary Care Provider: [facility] Rowdy Gracia is an 80yo male with history of abdominal aortic aneurysm. He had repair with an endograft in 2002. He was noted to have persistently enlarging aortic sac expansion and underwent multiple coil embolizations which were unsuccessful. He had explant of the aortic endograft open aortic aneurysm repair with aorto iliac bypass, placement of a 24 x 12mm Dacron graft performed at [facility] on [place]08/[place]. Patient suffered postoperative oliguric acute kidney injury and had CRRT initiated. He had a right chest HD catheter placed on and was started on HD, now is dialyzed q M/W/F. Patient was discharged to [facility] on August 23. Patient has been doing well at [facility] overall. He is able to ambulate short distances using a walker. Patient was complaining of some RLE pain and edema while at [facility]. A portable US was performed at [facility] which showed possible DVTs, therefore, he was sent to [facility] for further evaluation. Patinent found to have DVT in the left common femoral and superficial femoral veins as well as bilateral PEs. Patient denies chest pain/palpitations/cough/SOB. He denies nausea/vomiting/diarrhea/constipation/dizziness/syncope. No additional complaints at this time. ER Course: Heparin gtt Allergies Allergy/AdvReac Type Severity Reaction Status Date / Time No Known Allergies Allergy Verified 08/30/20 15:59 Home Medications Medication Instructions Recorded Confirmed Type aspirin 81 mg tablet,delayed 81 mg PO QAM tab 09/27/18 08/30/20 History release CPAP Machine #1 ea 02/28/19 06/27/20 Rx lancets #100 ea 05/10/19 06/27/20 Rx nitroglycerin 0.4 mg sublingual 0.4 mg SUBLINGUAL UD PRN #30 tab 05/10/19 08/30/20 Rx tablet blood sugar diagnostic #300 ea 09/02/19 06/27/20 Rx clopidogrel 75 mg tablet 75 mg PO QAM #90 tab 04/06/20 08/30/20 Rx atorvastatin 80 mg tablet 80 mg PO QAM #90 tab 06/18/20 08/30/20 Rx isosorbide mononitrate 60 mg 60 mg PO QAM #90 tab 06/22/20 08/30/20 Rx tablet,extended release 24 hr nystatin 100,000 unit/gram topical 1 applic TOPICAL BID #30 g 07/27/20 08/30/20 Rx powder Saccharomyces boulardii [Florastor] 250 mg PO BIDM 08/30/20 08/30/20 History acetaminophen [Tylenol] 650 mg PO Q4H PRN 08/30/20 08/30/20 History amiodarone 200 mg PO 5XWK 08/30/20 08/30/20 History bisacodyl 10 mg WA DAILY PRN 08/30/20 08/30/20 History cholecalciferol (vitamin D3) 50 mcg PO DAILY 08/30/20 08/30/20 History [Vitamin D3] darbepoetin tiarra in polysorbat 100 mcg IV WK 08/30/20 08/30/20 History donepezil 10 mg PO HS 08/30/20 08/30/20 History heparin (porcine) 5,000 unit SUBCUT Q8H 08/30/20 08/30/20 History hydralazine 25 mg PO Q6H PRN 08/30/20 08/30/20 History magnesium hydroxide [Milk of 30 ml PO DAILY PRN 08/30/20 08/30/20 History Magnesia] metoprolol tartrate 50 mg PO Q12H 08/30/20 08/30/20 History multivitamin with minerals 1 tab PO DAILY 08/30/20 08/30/20 History naloxone [Narcan] 4 mg INTRANASAL DIRECTED PRN 08/30/20 08/30/20 History omega-3 fatty acids 1,000 mg PO DAILY 08/30/20 08/30/20 History pantoprazole 40 mg PO DAILYBB 08/30/20 08/30/20 History polyethylene glycol 3350 [Miralax] 17 g PO QDL PRN 08/30/20 08/30/20 History sennosides-docusate sodium 1 tab-cap PO QDL PRN 08/30/20 08/30/20 History [Senokot-S] sodium chloride 0.9 % 1,000 ml IV Q12H PRN 08/30/20 08/30/20 History tramadol 25 mg PO Q4H PRN 08/30/20 08/30/20 History vancomycin 750 mg IV 3XWK 08/30/20 08/30/20 History Past Med/Surg History Medical History (Updated 08/31/20 @ 00:26 by Tameka Celis DO) Abdominal aortic aneurysm (AAA) x3 Aneurysm of right popliteal artery CAD (coronary artery disease) Cardiomyopathy ESRD (end stage renal disease) Hearing deficit Hyperlipidemia Hypertension ICD (implantable cardioverter-defibrillator) in place (~2013) Kidney stones Lymphedema Myocardial Infarction (~1995) On amiodarone therapy Orbital floor fracture Right orbital fracture April 2019 Prostate cancer sx Ventricular tachycardia Surgical History History of bilateral cataract extraction History of bilateral knee replacement History of cardiac cath multiple--last one 2013 History of carpal tunnel release History of colonoscopy History of heart artery stent x1-2; "last one was years ago"--follows with Dr. Sosa History of hernia repair History of lithotripsy History of prostate biopsy malignant History of prostate surgery radiation seeds implanted History of total left knee replacement (TKR) History of total right knee replacement (TKR) S/P AAA repair x3--last in 2013 Status post cystoscopy with ureteral stent placement Status post femoral-popliteal bypass surgery 2018 in [place] Family History Mother Hypertension Cardiac disorder Father Cardiac disorder Myocardial infarction Brother Diabetes Hypertension Hyperlipidemia Obstructive sleep apnea Social History Smoking Status: Former smoker Second Hand Exposure: No; Hx Alcohol Use: Yes Alcohol type: beer, wine and hard liquor Hx Substance Use: No Preferred Language: Nepali Communication Ability: Effective Soda Clerk Required: No Beliefs That Will Affect Care: None marital status: Current Living Situation: Spouse Feels Safe at Home: Yes Assistive Devices: Glasses Review of Systems Review of Systems: All systems reviewed & are unremarkable except as noted in HPI & below Physical Exam Physical Exam: General: patient resting comfortably, NAD, non-toxic in appearance, AA&O x 4 Skin: warm, dry, intact, no rashes or lesions, dusky coloration right great toe at baseline HEENT: NC/AT, PERRL, EOMI, anicteric sclera, conjunctiva without injection, external ear normal to inspection and nontender, nares patent, dry mucus membranes, dentition intact, no oropharyngeal lesions, neck supple, trachea midline, no LAD, no thyromegaly, no JVD Heart: +S1/S2, regular, no m/r/g, AICD left chest, nontender, Perm cath right chest wall, nontender Lungs: equal air entry bilaterally, no rales/rhonchi/wheezes Abd: +BS, soft, NT/ND, no masses/organomegaly/ascites, dressing in place with katherine, clean/dry/intact, abdominal binder Ext: warm, 2+ pulses in UE/LE bilaterally, no clubbing/cyanosis +3 + pitting edema of bilateral LE, > > R Neuro: nonfocal, patient AA&O x 4, speech intact, no facial droop, moving all extremities on command with equal strength 5/5 Results & Data Results & Data ([facility]) Vital Signs (Past 12 Hours) Vital Signs Temp Pulse Resp BP Pulse Ox 08/30/20 20:03 63 13 117/64 95 08/30/20 19:00 61 16 111/59 L 96 08/30/20 18:32 64 20 112/59 L 93 08/30/20 17:30 61 17 100/57 L 94 08/30/20 17:22 62 21 100/60 95 08/30/20 16:30 61 21 91/58 L 95 08/30/20 16:00 61 18 94/56 L 95 08/30/20 15:39 36.7 C 84 18 96/62 L 96 08/30/20 15:27 96 Laboratory Results Lab Results 08/30/20 08/30/20 08/30/20 Range/Units 16:10 16:10 16:10 WBC 6.99 (4.8-10.8) K/uL RBC 3.45 L (4.7-6.1) M/uL Hgb 10.3 L (14.0-18.0) g/dL Hct 30.9 L (42-52) % MCV 89.6 (80-100) fL MCH 29.9 (25-34) pg MCHC 33.3 (32-36) g/dL RDW Std Deviation 54.3 H (36.4-46.3) fL RDW Coeff of Phillip 16.6 H (11.5-14.5) % Plt Count 273 (130-400) K/uL MPV 8.8 (7.4-10.4) fL Immature Gran % (Auto) 0.6 % Neut % (Auto) 70.0 % Lymph % (Auto) 12.0 % Gonzales % (Auto) 12.4 % Eos % (Auto) 4.6 % Baso % (Auto) 0.4 % Neut # (Auto) 4.89 (1.4-6.5) K/uL Lymph # (Auto) 0.84 L (1.2-3.4) K/uL Gonzales # (Auto) 0.87 H (0.11-0.59) K/uL Eos # (Auto) 0.32 (0-0.5) K/uL Baso # (Auto) 0.03 (0-0.2) K/uL Immature Gran # (Auto) 0.04 H (0.00-0.02) K/uL PT 11.3 (9.0-12.0) Seconds INR 1.1 (0.9-1.1) APTT 35.0 H (21.0-31.0) Seconds PTT Ratio 1.3 Sodium 134 L (136-145) mmol/L Potassium 4.4 (3.5-5.1) mmol/L Chloride 99 (98-107) mmol/L Carbon Dioxide 27 (21-32) mmol/L Anion Gap 8.0 (3-11) BUN 37 H (7-18) mg/dl Creatinine 5.21 H* (0.6-1.4) mg/dl Est Cr Clr Drug Dosing 12.7 ml/min Est GFR ( Amer) 11.1 Est GFR (Non-Af Amer) 9.6 BUN/Creatinine Ratio 7.2 L (10-20) Glucose 104 H (70-99) mg/dl Calcium 8.7 (8.5-10.1) mg/dl Total Bilirubin 0.6 (0.2-1) mg/dl AST 35 (15-37) U/L ALT 11 L (12-78) U/L Alkaline Phosphatase 269 H (45-117) U/L Troponin I < 0.015 (0-0.045) ng/ml Total Protein 7.0 (6.4-8.2) gm/dl Albumin 1.7 L (3.4-5.0) gm/dl Globulin 5.3 H (2.5-4.0) gm/dl Albumin/Globulin Ratio 0.3 L (0.9-2) Lipase 593 H (73-393) U/L COVID-19 Eval Order SARS-CoV-2 (PCR) (Negative) Influenza Type A (PCR) (Neg) Influenza Type B (PCR) (Neg) RSV (RT-PCR) (Neg) 08/30/20 08/30/20 Range/Units 18:50 18:50 WBC (4.8-10.8) K/uL RBC (4.7-6.1) M/uL Hgb (14.0-18.0) g/dL Hct (42-52) % MCV (80-100) fL MCH (25-34) pg MCHC (32-36) g/dL RDW Std Deviation (36.4-46.3) fL RDW Coeff of Phillip (11.5-14.5) % Plt Count (130-400) K/uL MPV (7.4-10.4) fL Immature Gran % (Auto) % Neut % (Auto) % Lymph % (Auto) % Gonzales % (Auto) % Eos % (Auto) % Baso % (Auto) % Neut # (Auto) (1.4-6.5) K/uL Lymph # (Auto) (1.2-3.4) K/uL Gonzales # (Auto) (0.11-0.59) K/uL Eos # (Auto) (0-0.5) K/uL Baso # (Auto) (0-0.2) K/uL Immature Gran # (Auto) (0.00-0.02) K/uL PT (9.0-12.0) Seconds INR (0.9-1.1) APTT (21.0-31.0) Seconds PTT Ratio Sodium (136-145) mmol/L Potassium (3.5-5.1) mmol/L Chloride (98-107) mmol/L Carbon Dioxide (21-32) mmol/L Anion Gap (3-11) BUN (7-18) mg/dl Creatinine (0.6-1.4) mg/dl Est Cr Clr Drug Dosing ml/min Est GFR ( Amer) Est GFR (Non-Af Amer) BUN/Creatinine Ratio (10-20) Glucose (70-99) mg/dl Calcium (8.5-10.1) mg/dl Total Bilirubin (0.2-1) mg/dl AST (15-37) U/L ALT (12-78) U/L Alkaline Phosphatase (45-117) U/L Troponin I (0-0.045) ng/ml Total Protein (6.4-8.2) gm/dl Albumin (3.4-5.0) gm/dl Globulin (2.5-4.0) gm/dl Albumin/Globulin Ratio (0.9-2) Lipase (73-393) U/L COVID-19 Eval Order CovFluRsv at [facility] SARS-CoV-2 (PCR) NEGATIVE (Negative) Influenza Type A (PCR) Negative (Neg) Influenza Type B (PCR) Negative (Neg) RSV (RT-PCR) Negative (Neg) Diagnostic Findings CT ANGIOGRAPHY OF THE CHEST, PULMONARY EMBOLUS PROTOCOL CLINICAL HISTORY: ? pe COMPARISON STUDY: Chest CT March 05, 2014. Chest radiograph performed earlier today. TECHNIQUE: Following IV administration of 107 mL of Optiray, helical axial images of the chest were obtained utilizing the pulmonary embolus protocol. Maximal intensity projections and sagittal and coronal reformats were viewed on an independent 3D workstation. IV contrast was administered without complication. Automated exposure control was utilized for the study. A dose lowering technique was utilized adhering to the principles of ALARA. CT DOSE: 779.77 mGy.cm FINDINGS: A right internal jugular dual lumen catheter is in place. There is a left subclavian pacer. Moderate cardiomegaly is noted with extensive coronary artery calcification. There is no pericardial effusion. Note is made of numerous bilateral pulmonary emboli, including emboli within the right lower lobe pulmonary artery extending into multiple segmental branches of the right lower lobe. Additional scattered bilateral segmental pulmonary emboli are noted. There is mild dilatation of the central pulmonary arteries. No pneumothorax is present. Calcified pleural plaques are present. There is no thoracic lympha denopathy. Note is made of a trace right pleural effusion. There is moderate right lower lobe subpleural opacity. Left basilar opacity favors atelectasis. Bones appear dense. There is hyperdense which are within the gallbladder with gallbladder wall thickening. A small amount of upper abdominal ascites is noted. A left adrenal nodule is unchanged and CT of April 2019. A suspected cyst within the upper pole the left kidney is noted. There are hepatic cyst. IMPRESSION: 1. Multiple bilateral pulmonary emboli, as above. 2. Trace right pleural effusion with right lower lobe airspace opacity. This could reflect atelectasis or consolidation. Pulmonary infarct is considered less likely but cannot be excluded. 3. Moderate cardiomegaly and extensive coronary artery calcification. Dilatation of the central pulmonary arteries which suggests pulmonary arterial hypertension. 4. Hyperdense material within the gallbladder with gallbladder wall thickening. If right upper quadrant pain, ultrasound is recommended. 5. Small amount of upper abdominal ascites. ACT 112: Negative or not required by law. Electronically signed by: George Pena M.D. 08/30/2020 7:05 PM Dictated: 08/[id number]: 08/30/201857 LEFT LOWER EXTREMITY VENOUS DOPPLER CLINICAL HISTORY: Left lower extremity swelling. COMPARISON STUDY: Left lower extremity venous Doppler ultrasound October 27, 2018. TECHNIQUE: Sonography of the deep venous system of the left lower extremity was performed. Compression and augmentation were evaluated. FINDINGS: Note is made of deep venous thrombus within the left common femoral and superficial femoral veins. Left calf edema is noted. IMPRESSION: Deep venous thrombus within the left common femoral and superficial femoral veins. ACT 112: Negative or not required by law. Electronically signed by: George Pena M.D. 08/30/2020 8:00 PM Dictated: 08/30/[id number]: 08/30/201958 Code Status & VTE Plan VTE Prophylaxis Plan VTE Prophylaxis will be ordered: Yes PG Care Time/CCT Total # of Minutes Spent Total Time Spent with Patient: Total time spent is greater than 50% in coordination of care (as documented) at patient's floor/unit and/or counseling patient: Coding Level of Care Code 67977 Initial Inpt Care Lvl 3 Diagnoses Pulmonary embolism I26.99 Acute cor pulmonale presence: unspecified Chronicity: acute Pulmonary embolism type: unspecified Abdominal aortic aneurysm (AAA) I71.4 Presence of rupture: without rupture ESRD (end stage renal disease) N18.6 Anemia D64.9 Anemia type: unspecified type Diabetes mellitus, controlled E11.9 Diabetes mellitus type: type 2 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 transplanted heart: [place] heart Associated angina: without angina Qualified Code(s): I25.10 - Atherosclerotic heart disease of [place] coronary artery without angina pectoris (3) Abdominal aortic aneurysm (AAA) Presence of rupture: without rupture Qualified Code(s): I71.4 - Abdominal aortic aneurysm, without rupture (4) Anemia Anemia type: unspecified type Qualified Code(s): D64.9 - Anemia, unspecified (5) Senile dementia Dementia behavioral disturbance: without behavioral disturbance Qualified Code(s): F03.90 - Unspecified dementia without behavioral disturbance (6) Pulmonary embolism Acute cor pulmonale presence: unspecified Chronicity: acute Pulmonary embolism type: unspecified Qualified Code(s): I26.99 - Other pulmonary embolism without acute cor pulmonale (7) Hypertension Hypertension type: essential hypertension Qualified Code(s): I10 - Essential (primary) hypertension (8) Cardiomyopathy Cardiomyopathy type: unspecified Qualified Code(s): I42.9 - Cardiomyopathy, unspecified
[2020-08-31] MEDS ORDERED: DOCUSATE SODIUM/SENNA 50/8.6MG TAB PO PRN (00:28)
[2020-08-31] MEDS ORDERED: GLUCOSE 40% GEL 15 GM TUBE PO PRN (00:28)
[2020-08-31] MEDS ORDERED: POLYETHYLENE (MIRALAX) 17 GM PACK PO PRN (00:28)
[2020-08-31] MEDS ORDERED: ACETAMINOPHEN 325 MG TAB PO PRN ×2 (00:28)
[2020-08-31] MEDS ORDERED: DEXTROSE 50% 50 ML SYRINGE IV PRN (00:28)
[2020-08-31] MEDS ORDERED: DOCUSATE SODIUM 100 MG CAP PO PRN (00:28)
[2020-08-31] MEDS ORDERED: bisacodyL 10 MG SUPP PR PRN (00:28)
[2020-08-31] MEDS ORDERED: GLUCAGON FOR INJ 1 MG VIAL SQ PRN (00:28)
[2020-08-31] MEDS ORDERED: GLUCOSE 10 TABS/TUBE PO PRN (00:28)
[2020-08-31] MEDS ORDERED: CARBOHYDRATES FOR HYPOGLYCEMIA PO PRN (00:28)
[2020-08-31] MEDS ORDERED: MAGNESIUM HYDROXIDE SUSP 30 ML UDC PO PRN (00:28)
[2020-08-31] MEDS ORDERED: traMADol HCL 50 MG TABLET PO PRN (00:28)
[2020-08-31 01:20] LABS: Magnesium 2.5 mg/dl (1.8-2.4)
[2020-08-31] MEDS ORDERED: VANCOMYCIN CONSULT ACTIVE PRN (01:26)
[2020-08-31] MEDS: METOPROLOL TARTRATE 50 MG TAB PO SCH ×4 (02:19→23:52)
[2020-08-31] MEDS: DONEPEZIL HCL 10 MG TAB PO SCH ×2 (02:19→20:55)
[2020-08-31 02:27] LABS: Partial Thromboplastin Ratio > 5.3
[2020-08-31 02:28] LABS: Partial Thromboplastin Time > 139.0 Seconds (21.0-31.0)
[2020-08-31 03:49] LABS: Basophils # (auto) 0.03 K/uL (0-0.2); Basophils % (auto) 0.4 %; Eosinophils # (auto) 0.45 K/uL (0-0.5); Eosinophils % (auto) 6.3 %; Hematocrit (blood only) 28.4 % (42-52); Hemoglobin 9.4 g/dL (14.0-18.0); Immature Granulocytes # (auto) 0.04 K/uL (0.00-0.02); Immature Granulocytes % (auto) 0.6 %; Lymphocytes # (auto) 1.06 K/uL (1.2-3.4); Lymphocytes % (auto) 14.9 %; Mean Corpuscular Hemoglobin 29.5 pg (25-34); Mean Corpuscular Hgb Conc 33.1 g/dL (32-36); Mean Platelet Volume 8.4 fL (7.4-10.4); Monocytes # (auto) 0.76 K/uL (0.11-0.59); Monocytes % (auto) 10.7 %; Neutrophils # (auto) 4.77 K/uL (1.4-6.5); Neutrophils % (auto) 67.1 %; Platelet Count 232 K/uL (130-400); RDW Coefficient of Variation 16.6 % (11.5-14.5); RDW Standard Deviation 53.9 fL (36.4-46.3); Red Blood Count 3.19 M/uL (4.7-6.1); White Blood Count 7.11 K/uL (4.8-10.8)
[2020-08-31 04:32] LABS: Partial Thromboplastin Ratio 3.8
[2020-08-31 04:34] LABS: Partial Thromboplastin Time 100.8 Seconds (21.0-31.0)
[2020-08-31 04:35] LABS: BUN Creatinine Ratio 7.4 (10-20); Creatinine Clr Calc Pharmacy 12.2 ml/min; Est GFR (African American) 10.6; Est GFR (Non-African American) 9.1; Potassium 4.3 mmol/L (3.5-5.1)
[2020-08-31 05:35] LABS: Partial Thromboplastin Ratio 2.9
[2020-08-31] MEDS: PANTOprazole 40 MG TAB PO SCH (05:56)
[2020-08-31 06:27] LABS: Estimated Average Glucose 114 mg/dl; Hemoglobin A1C 5.6 % (4.5-5.6)
[2020-08-31] MEDS ORDERED: AMIODARONE 200 MG TAB PO SCH (09:00)
[2020-08-31] MEDS: CLOPIDOGREL BISULFATE 75 MG TAB PO SCH (09:28)
[2020-08-31] MEDS: ISOSORBIDE MONO EXTENDED REL 60 MG TABCR PO SCH (09:28)
[2020-08-31] MEDS: SACCHAROMYCES BOULARDII 250 MG CAP PO SCH ×2 (09:28→17:03)
[2020-08-31] MEDS: ATORVASTATIN 40 MG TAB PO SCH (09:28)
[2020-08-31] MEDS: INSULIN ASPART 100 UNITS/ML 3 ML PEN SC SCH ×4 (09:32→20:16)
--- NOTE | 2020-08-31 09:57 | Electrocardiogram Report ---
Test Reason : Blood Pressure : / mmHG Vent. Rate : 065 BPM Atrial Rate : 050 BPM P-R Int : 000 ms QRS Dur : 180 ms QT Int : 546 ms P-R-T Axes : 000 260 062 degrees QTc Int : 567 ms Ventricular-paced rhythm Abnormal ECG When compared with ECG of 04-JUL-2019 13:44, Electronic ventricular pacemaker has replaced Electronic atrial pacemaker Confirmed by Hiram Denton ([id number]) on 08/31/2020 9:57:30 AM Referred By: [facility] Confirmed By:Hiram Denton
--- NOTE | 2020-08-31 11:27 | Nephrology Consultation ---
Date of Consultation August 31, 2020 Assessment & Plan (1) ESRD (end stage renal disease): ESRD on HD MWF via rt IJ TDC. Admitted with acute PE and DVT, on heparin drip. Recent AAA repair, post of MURRAY requiring HD, DC to [facility]. --Hd today as regular schedule via IJ TDC with 2 K bath --dose meds for GFR <10 --left arm nephrology precaution for future AVF placement --continue renal caps daily, check phos --Check iron study, Epogen 72698 units today, may need venofer Will follow Thank you for the consult (2) Pulmonary embolism: (3) Anemia: (4) Hypertension: History of Present Illness Reason for Consultation: ESRD on HD, admitted with PE Attending Physician: Ihsan Dyer History of Present Illness Mr. Gracia is an 80yo male with h/o ESRD on HD, recent AAA repair, admitted with PE and DVT. Nephrology consult was requested to manage HD while inpatient. EMR records were reviewed during visit. was was discharged to [facility] on August 23 from [facility] after AAA repair on 08/08/20. He has been doing well at [facility] overall. He is able to ambulate short distances using a walker. He was complaining of some RLE pain and edema yesterday and doppler showed possible DVTs and sent to [facility] for further evaluation. Found to have DVT in the left common femoral and superficial femoral veins as well as bilateral PEs. Started on heparin drip. He denies chest pain/palpitations/cough/SOB. He denies nausea/vomiting/diarrhea/constipation/dizziness/syncope. No additional complaints at this time. Has h/o AAA and had an endograft in 2002 but had persistently enlarging aortic sac expansion and underwent multiple coil embolizations which were unsuccessful. He had explant of the aortic endograft open aortic aneurysm repair with aorto iliac bypass, placement of a 24 x 12mm Dacron graft performed at [facility] on 08/08/20. Had stage 3B CKD b/l cr 1.6 to 1.7 secondary to microvascular disease. Postoperative started on CRRT for oliguric MURRAY via rt IJ TDC and now on IHD M/W/F. He denies any SOB, CP, leg pain or other complaints at this time. Allergies Allergy/AdvReac Type Severity Reaction Status Date / Time No Known Allergies Allergy Verified 08/30/20 15:59 Home Medications Medication Instructions Recorded Confirmed Type aspirin 81 mg tablet,delayed 81 mg PO QAM tab 09/27/18 08/30/20 History release CPAP Machine #1 ea 02/28/19 06/27/20 Rx lancets #100 ea 05/10/19 06/27/20 Rx nitroglycerin 0.4 mg sublingual 0.4 mg SUBLINGUAL UD PRN #30 tab 05/10/19 08/30/20 Rx tablet blood sugar diagnostic #300 ea 09/02/19 06/27/20 Rx clopidogrel 75 mg tablet 75 mg PO QAM #90 tab 04/06/20 08/30/20 Rx atorvastatin 80 mg tablet 80 mg PO QAM #90 tab 06/18/20 08/30/20 Rx isosorbide mononitrate 60 mg 60 mg PO QAM #90 tab 06/22/20 08/30/20 Rx tablet,extended release 24 hr nystatin 100,000 unit/gram topical 1 applic TOPICAL BID #30 g 07/27/20 08/30/20 Rx powder Saccharomyces boulardii [Florastor] 250 mg PO BIDM 08/30/20 08/30/20 History acetaminophen [Tylenol] 650 mg PO Q4H PRN 08/30/20 08/30/20 History amiodarone 200 mg PO 5XWK 08/30/20 08/30/20 History bisacodyl 10 mg MN DAILY PRN 08/30/20 08/30/20 History cholecalciferol (vitamin D3) 50 mcg PO DAILY 08/30/20 08/30/20 History [Vitamin D3] darbepoetin tiarra in polysorbat 100 mcg IV WK 08/30/20 08/30/20 History donepezil 10 mg PO HS 08/30/20 08/30/20 History heparin (porcine) 5,000 unit SUBCUT Q8H 08/30/20 08/30/20 History hydralazine 25 mg PO Q6H PRN 08/30/20 08/30/20 History magnesium hydroxide [Milk of 30 ml PO DAILY PRN 08/30/20 08/30/20 History Magnesia] metoprolol tartrate 50 mg PO Q12H 08/30/20 08/30/20 History multivitamin with minerals 1 tab PO DAILY 08/30/20 08/30/20 History naloxone [Narcan] 4 mg INTRANASAL DIRECTED PRN 08/30/20 08/30/20 History omega-3 fatty acids 1,000 mg PO DAILY 08/30/20 08/30/20 History pantoprazole 40 mg PO DAILYBB 08/30/20 08/30/20 History polyethylene glycol 3350 [Miralax] 17 g PO QDL PRN 08/30/20 08/30/20 History sennosides-docusate sodium 1 tab-cap PO QDL PRN 08/30/20 08/30/20 History [Senokot-S] sodium chloride 0.9 % 1,000 ml IV Q12H PRN 08/30/20 08/30/20 History tramadol 25 mg PO Q4H PRN 08/30/20 08/30/20 History vancomycin 750 mg IV 3XWK 08/30/20 08/30/20 History Patient History Medical History (Updated 08/31/20 @ 00:26 by Tameka Celis DO) Abdominal aortic aneurysm (AAA) x3 Aneurysm of right popliteal artery CAD (coronary artery disease) Cardiomyopathy ESRD (end stage renal disease) Hearing deficit Hyperlipidemia Hypertension ICD (implantable cardioverter-defibrillator) in place (~2013) Kidney stones Lymphedema Myocardial Infarction (~1995) On amiodarone therapy Orbital floor fracture Right orbital fracture April 2019 Prostate cancer sx Ventricular tachycardia Surgical History History of bilateral cataract extraction History of bilateral knee replacement History of cardiac cath multiple--last one 2013 History of carpal tunnel release History of colonoscopy History of heart artery stent x1-2; "last one was years ago"--follows with Dr. Sosa History of hernia repair History of lithotripsy History of prostate biopsy malignant History of prostate surgery radiation seeds implanted History of total left knee replacement (TKR) History of total right knee replacement (TKR) S/P AAA repair x3--last in 2013 Status post cystoscopy with ureteral stent placement Status post femoral-popliteal bypass surgery 2018 in [place] Family History Mother Hypertension Cardiac disorder Father Cardiac disorder Myocardial infarction Brother Diabetes Hypertension Hyperlipidemia Obstructive sleep apnea Social History Smoking Status: Never smoker Second Hand Exposure: No; Hx Alcohol Use: No Hx Substance Use: No Preferred Language: Kinyarwanda Communication Ability: Effective Manufacturing Technologist Required: No Beliefs That Will Affect Care: None marital status: Current Living Situation: Spouse Other Information That Helps Us Care for You: No Feels Safe at Home: Yes Safety Concerns: Feels Safe At This Time Assistive Devices: Walker Review of Systems Review of Systems: All systems reviewed & are unremarkable except as noted in Subjective Physical Exam Constitutional: WD/WN, vitals as above no acute distress ENMT: external ear and nose normal, oropharynx normal Ears: no hearing impairment Neck: normal visual inspection Respiratory: normal respiratory effort; no respiratory distress and no cough Auscultation: no diminished lung sounds, no crackles, no rales and no wheezes Cardiovascular: RRR, no murmur, no edema Extremities: + vascular access device (Rt IJ TDC) Gastrointestinal (Abdomen): normal bowel sounds, soft, nontender, no hepatosplenomegaly Percussion/Palpation: abdomen nontender, no guarding and abdomen not rigid Musculoskeletal: Extremities: extremities normal to inspection Gait: normal gait Skin: no rashes, warm and dry Neurologic: no focal motor deficits and not confused Psychiatric: A+Ox3, euthymic affect Results & Data ([facility]) Vital Signs (Past 12 Hours) Vital Signs Temp Pulse Pulse Resp BP Pulse Ox 08/31/20 07:58 36.5 C 73 20 116/72 95 08/31/20 07:13 60 08/31/20 04:50 36.4 C L 61 20 110/57 L 93 08/31/20 01:04 61 18 92 08/31/20 00:05 36.6 C 64 18 144/79 H 92 08/31/20 00:00 36.6 C 64 18 144/79 H 92 PG Care Time/CCT Total # of Minutes Spent Total Time Spent with Patient: Total time spent is greater than 50% in coordination of care (as documented) at patient's floor/unit and/or counseling patient: Coding Level of Care Code 14601 Initial Inpt Care Lvl 3 Diagnoses ESRD (end stage renal disease) N18.6 Pulmonary embolism I26.99 Acute cor pulmonale presence: unspecified Chronicity: acute Pulmonary embolism type: unspecified Anemia D64.9 Anemia type: unspecified type Hypertension I10 Hypertension type: essential hypertension (1) Anemia Anemia type: unspecified type Qualified Code(s): D64.9 - Anemia, unspecified (2) Pulmonary embolism Acute cor pulmonale presence: unspecified Chronicity: acute Pulmonary embolism type: unspecified Qualified Code(s): I26.99 - Other pulmonary embolism without acute cor pulmonale (3) Hypertension Hypertension type: essential hypertension Qualified Code(s): I10 - Essential (primary) hypertension
[2020-08-31] MEDS ORDERED: EPOETIN ALFA 20,000 UNITS/ML VIAL IV STA (11:38)
--- NOTE | 2020-08-31 12:00 | Pharmacy Report ---
Pharmacy Abx Dose Short Note - Date of Service August 31, 2020 - Assessment & Plan Assessment * Mr Gracia is an 80 year old M receiving Vancomycin for risk of graft infection (s/p exp lap w/ explantation of endograft and aortoiliac bypass and placement of Dacron graft on 08/08/20 at [facility]). * Per [place] ID dept recommendations, continue vancomycin until 09/20/20. * Random vanc level obtained this morning, which indicates appropriate vancomycin dosing. For now, will continue vanc dosing as started at [facility] and monitor for safety. Plan Vancomycin * Random level of 16.5 mcg/mL is therapeutic. * Continue dose Vanc 750mg IV qMWF after dialysis. A dose will be provided after today's dialysis session. * Goal trough level: 15 to 20 mcg/mL * Random level ordered for Thursday morning. Pharmacy will continue to follow and will adjust dose/frequency as necessary. Thank you.
[2020-08-31 12:24] LABS: Partial Thromboplastin Ratio 2.5
[2020-08-31 12:32] LABS: Partial Thromboplastin Time 65.2 Seconds (21.0-31.0)
[2020-08-31] MEDS ORDERED: VANCOMYCIN HCL 750 MG in SODIUM CHLORIDE 0.9% 250 ML IV SCH (16:00)
[2020-08-31] MEDS: HEPARIN SODIUM/DEXTROSE 25,000 UNITS/500 ML BAG IV SCH (21:59)
[2020-09-01] MEDS: PANTOprazole 40 MG TAB PO SCH (05:29)
[2020-09-01 06:47] LABS: Basophils # (auto) 0.03 K/uL (0-0.2); Basophils % (auto) 0.5 %; Eosinophils # (auto) 0.38 K/uL (0-0.5); Eosinophils % (auto) 6.6 %; Hemoglobin 9.5 g/dL (14.0-18.0); Immature Granulocytes # (auto) 0.04 K/uL (0.00-0.02); Immature Granulocytes % (auto) 0.7 %; Lymphocytes # (auto) 0.91 K/uL (1.2-3.4); Lymphocytes % (auto) 15.9 %; Mean Corpuscular Hemoglobin 29.3 pg (25-34); Mean Corpuscular Hgb Conc 32.8 g/dL (32-36); Mean Corpuscular Volume 89.5 fL (80-100); Mean Platelet Volume 8.1 fL (7.4-10.4); Monocytes # (auto) 0.76 K/uL (0.11-0.59); Monocytes % (auto) 13.3 %; Platelet Count 228 K/uL (130-400); RDW Coefficient of Variation 16.6 % (11.5-14.5); RDW Standard Deviation 54.9 fL (36.4-46.3); Red Blood Count 3.24 M/uL (4.7-6.1); White Blood Count 5.72 K/uL (4.8-10.8)
[2020-09-01 07:09] LABS: Partial Thromboplastin Ratio 2.4
[2020-09-01 07:15] LABS: Partial Thromboplastin Time 63.3 Seconds (21.0-31.0)
[2020-09-01 07:23] LABS: Albumin Level 1.5 gm/dl (3.4-5.0); BUN Creatinine Ratio 6.2 (10-20); Bilirubin Direct 0.2 mg/dl (0-0.2); Calcium 8.7 mg/dl (8.5-10.1); Creatinine Clr Calc Pharmacy 15.9 ml/min; Est GFR (African American) 14.7; Est GFR (Non-African American) 12.7; Potassium 3.7 mmol/L (3.5-5.1)
[2020-09-01 07:27] LABS: Bilirubin,Total 0.4 mg/dl (0.2-1); Ferritin 653.2 ng/ml (8-388); Phosphorus 3.4 mg/dl (2.5-4.9); Total Protein 6.3 gm/dl (6.4-8.2)
--- NOTE | 2020-09-01 08:35 | Hospitalist Progress Note ---
Date of Service August 31, 2020 Assessment & Plan (1) Pulmonary embolism: 80yo male with multiple medical problems, recent prolonged hospitalization at [facility] for explant of his aortic graft with replacement, complicated by oliguric renal failure requiring initiation of HD. Patient presents today with LLE DVT as well as bilateral PEs. Patient is hemodynamically stable, no respiratory distress, adequate oxygenation on room air, asymptomatic at this time. Patient's age, gender and multiple comorbidities place him at high risk for poor outcome. LLE DVT present. -Admit to medical with telemetry monitoring -Continue heparin gtt - medication discussed between ER attending and Vascular Surgeon -Consider Vascular consultation given patient's recent endograft placement and need for anticoagulation D/W vascular surgeon, no further workup or change of management is required. (2) Abdominal aortic aneurysm (AAA): S/p exploratory laparotomy with explantation of endograft, aorto iliac bypass and placement of Dacron graft performed at [facility] on 08/08/20. Concern for possible sepsis in the post-operative period. Patient has been on dual-antiplatelet therapy with ASA and Plavix since discharge from [facility]. -Will hold ASA for now in setting of Heparin gtt -Continue Plavix -Continue Vancomycin 750mg IV 3 times weekly as recommended by ID at [place] - to continue through 09/20/20 for risk of graft infection -Consider Vascular surgery assessment (3) ESRD (end stage renal disease): Metabolic profile and electrolytes are acceptable at this time. No need for urgent HD. Patient is dialyzed q M/W/F -Nephrology consultation appreciated -Monitor electrolytes (4) Anemia: Normochromic/normocytic anemia with Hgb=10.3, Hct=30.9, near baseline. No bleeding. -Continue to monitor CBC (5) Diabetes mellitus, controlled: Blood sugars well controlled at presaent -ISS -Check A1C (6) Cardiomyopathy: Patient appears euvolemic -Continue isosorbide mononitrate -Continue Metoprolol 50mg po BID (7) CAD (coronary artery disease): Patient denies chest pain. Troponin unremarkable. EKG V-paced -Holding ASA 81mg po daily for now -Continue Plavix 75mg po daily -Continue Atorvastatin 80mg po daily -Continue Metoprolol 50mg po BID (8) Hypertension: Blood pressure stable, 120/64 at this time -Continue Isosorbide mononitrate -Continue Metoprolol (9) Severe obstructive sleep apnea: Chronic -Continue CPAP at home settings (10) Senile dementia: states that patient becomes confused at times and does not remember things. -Delirium prevention strategies with frequent orientation, ambulation with assistance as tolerated and maintenance of sleep/wake cycle as able -Continue Aricept 10mg po qHS -Please update - Cynthia - [phone] (11) ICD (implantable cardioverter-defibrillator) in place: No discharges -Continue Amiodarone F/E/N - [place]. Monitor electrolytes. CC/AHA/Renal diet as tolerated, continue bowel regimen as needed. Continue Florastor at home dose Ppx - Heparin gtt Code - Full Code Dispo -Admit to medical POC: Cynthia () - [phone] Admission and Anticipated Discharge Date Admission Date: August 30, 2020 Subjective Patient reports feeling well. He has no new complaints. Review of Systems Review of Systems: All systems reviewed & are unremarkable except as noted in HPI & below Physical Exam Physical Exam: General: patient resting comfortably, NAD, non-toxic in appearance, AA&O x 4 Skin: warm, dry, intact, no rashes or lesions, dusky coloration right great toe at baseline HEENT: NC/AT, PERRL, EOMI, anicteric sclera, conjunctiva without injection, external ear normal to inspection and nontender, nares patent, dry mucus membranes, dentition intact, no oropharyngeal lesions, neck supple, trachea midline, no LAD, no thyromegaly, no JVD Heart: +S1/S2, regular, no m/r/g, AICD left chest, nontender, Perm cath right chest wall, nontender Lungs: equal air entry bilaterally, no rales/rhonchi/wheezes Abd: +BS, soft, NT/ND, no masses/organomegaly/ascites, dressing in place with katherine, clean/dry/intact, abdominal binder Ext: warm, 2+ pulses in UE/LE bilaterally, no clubbing/cyanosis +3 + pitting edema of bilateral LE, > > R Neuro: nonfocal, patient AA&O x 4, speech intact, no facial droop, moving all extremities on command with equal strength 5/5 Results & Data Results & Data ([place]) Vital Signs (Past 12 Hours) Vital Signs Temp Pulse Pulse Resp BP Pulse Ox 09/01/20 05:02 61 09/01/20 03:06 36.6 C 61 17 115/61 90 08/31/20 22:54 36.7 C 56 L 17 111/62 92 PG Care Time/CCT Total # of Minutes Spent Total Time Spent with Patient: Total time spent is greater than 50% in coordination of care (as documented) at patient's floor/unit and/or counseling patient: Coding Level of Care Code 75842 Subseq Hosp Care Lvl 3 Diagnoses Pulmonary embolism I26.99 Acute cor pulmonale presence: unspecified Chronicity: acute Pulmonary embolism type: unspecified Abdominal aortic aneurysm (AAA) I71.4 Presence of rupture: without rupture ESRD (end stage renal disease) N18.6 Anemia D64.9 Anemia type: unspecified type Diabetes mellitus, controlled E11.9 Diabetes mellitus complication status: without complication Diabetes mellitus dry house wheeler insulin use: without care home use Diabetes mellitus type: type 2 Cardiomyopathy I42.9 Cardiomyopathy type: unspecified CAD (coronary artery disease) I25.10 Associated angina: without angina Coronary Disease-Associated Artery/Lesion type: barrow artery [place] vs. transplanted heart: barrow heart Hypertension I10 Hypertension type: essential hypertension Severe obstructive sleep apnea G47.33 Senile dementia F03.90 Dementia behavioral disturbance: without behavioral disturbance ICD (implantable cardioverter-defibrillator) in place Z95.810 Time Spent (min) 35 (1) Diabetes mellitus, controlled Diabetes mellitus complication status: without complication Diabetes mellitus dry house wheeler insulin use: without dry house wheeler use Diabetes mellitus type: type 2 Qualified Code(s): E11.9 - Type 2 diabetes mellitus without complications (2) CAD (coronary artery disease) Associated angina: without angina Coronary Disease-Associated Artery/Lesion type: barrow artery [place] vs. transplanted heart: barrow heart Qualified Code(s): I25.10 - Atherosclerotic heart disease of barrow coronary artery without angina pectoris (3) Abdominal aortic aneurysm (AAA) Presence of rupture: without rupture Qualified Code(s): I71.4 - Abdominal aortic aneurysm, without rupture (4) Anemia Anemia type: unspecified type Qualified Code(s): D64.9 - Anemia, unspecified (5) Senile dementia Dementia behavioral disturbance: without behavioral disturbance Qualified Code(s): F03.90 - Unspecified dementia without behavioral disturbance (6) Pulmonary embolism Acute cor pulmonale presence: unspecified Chronicity: acute Pulmonary embolism type: unspecified Qualified Code(s): I26.99 - Other pulmonary embolism without acute cor pulmonale (7) Hypertension Hypertension type: essential hypertension Qualified Code(s): I10 - Essential (primary) hypertension (8) Cardiomyopathy Cardiomyopathy type: unspecified Qualified Code(s): I42.9 - Cardiomyopathy, unspecified
[2020-09-01] MEDS: SACCHAROMYCES BOULARDII 250 MG CAP PO SCH ×2 (10:11→18:34)
[2020-09-01] MEDS: ATORVASTATIN 40 MG TAB PO SCH (10:11)
[2020-09-01] MEDS: NEPHROCAPS PO SCH (10:12)
[2020-09-01] MEDS: CLOPIDOGREL BISULFATE 75 MG TAB PO SCH (10:12)
[2020-09-01] MEDS: ISOSORBIDE MONO EXTENDED REL 60 MG TABCR PO SCH (10:13)
[2020-09-01] MEDS: INSULIN ASPART 100 UNITS/ML 3 ML PEN SC SCH ×4 (10:14→20:29)
--- NOTE | 2020-09-01 11:56 | Nephrology Progress Note ---
Date of Service September 01, 2020 Assessment & Plan (1) MURRAY (acute kidney injury): MURRAY consistent with ischemic ATN. HD dependent. Maintained on MWF schedule with monitoring for recovery. Non-oliguric. Continue to monitor for renal recovery. Medications appropriately dosed for kidney dysfunction. Clearance with dialysis has been acceptable. Electrolytes normal. (2) Anemia: with iron deficiency. Venofer 200 mg IV to be provided today. Epogen provided with HD. (3) Cardiomyopathy: Volume status controlled. Risk factor modification reviewed. (4) Pulmonary embolism: Remains on heparin gtt. (5) History of abdominal aortic aneurysm: Vanco level pre-HD on Thursday. Dosing according post HD. Admission and Anticipated Discharge Date Admission Date: August 30, 2020 Subjective No acute events overnight. Completed HD yesterday without complications. Net UF 1 L. Review of Systems Review of Systems: All systems reviewed & are unremarkable except as noted in HPI & below Physical Exam Constitutional: well developed; no acute distress Eyes: no scleral abnormality and no corneal abnormality ENMT: Mouth: no oral mucosal abnormality and oral mucous membranes not dry Neck: normal visual inspection and trachea midline Respiratory: normal respiratory effort Auscultation: lungs clear to auscultation bilaterally Cardiovascular: Rate/Rhythm: regular rate Heart Sounds: normal S1 and normal S2 Extremities: + edema RIJ TDC Musculoskeletal: Extremities: no cyanosis and no clubbing Skin: normal turgor; no lesions Neurologic: Motor/Sensory: no tremor and no asterixis Psychiatric: Orientation: alert and oriented x 3 Results & Data ([facility]) Vital Signs (Past 12 Hours) Vital Signs Temp Pulse Pulse Resp BP Pulse Ox 09/01/20 09:30 36.6 C 60 20 134/73 91 09/01/20 05:02 61 09/01/20 03:06 36.6 C 61 17 115/61 90 Laboratory Results Laboratory Results - last 24 hr 08/31/20 08/31/20 08/31/20 11:40 17:03 20:05 WBC RBC Hgb Hct MCV MCH MCHC RDW Std Deviation RDW Coeff of Phillip Plt Count MPV Immature Gran % (Auto) Neut % (Auto) Lymph % (Auto) [place] % (Auto) Eos % (Auto) Baso % (Auto) Neut # (Auto) Lymph # (Auto) [place] # (Auto) Eos # (Auto) Baso # (Auto) Immature Gran # (Auto) APTT 65.2 H* PTT Ratio 2.5 Sodium Potassium Chloride Carbon Dioxide Anion Gap BUN Creatinine Est Cr Clr Drug Dosing Est GFR ( Amer) Est GFR (Non-Af Amer) BUN/Creatinine Ratio Glucose POC Glucose 86 106 H Calcium Phosphorus Iron Transferrin Transferrin % Sat Ferritin Total Bilirubin Direct Bilirubin AST ALT Alkaline Phosphatase Total Protein Albumin 09/01/20 09/01/20 09/01/20 06:33 06:33 06:33 WBC 5.72 RBC 3.24 L Hgb 9.5 L Hct 29.0 L MCV 89.5 MCH 29.3 MCHC 32.8 RDW Std Deviation 54.9 H RDW Coeff of Phillip 16.6 H Plt Count 228 MPV 8.1 Immature Gran % (Auto) 0.7 Neut % (Auto) 63.0 Lymph % (Auto) 15.9 [place] % (Auto) 13.3 Eos % (Auto) 6.6 Baso % (Auto) 0.5 Neut # (Auto) 3.60 Lymph # (Auto) 0.91 L [place] # (Auto) 0.76 H Eos # (Auto) 0.38 Baso # (Auto) 0.03 Immature Gran # (Auto) 0.04 H APTT 63.3 H* PTT Ratio 2.4 Sodium 136 Potassium 3.7 Chloride 100 Carbon Dioxide 29 Anion Gap 7.0 BUN 26 H Creatinine 4.14 H D Est Cr Clr Drug Dosing 15.9 Est GFR ( Amer) 14.7 Est GFR (Non-Af Amer) 12.7 BUN/Creatinine Ratio 6.2 L Glucose 92 POC Glucose Calcium 8.7 Phosphorus 3.4 Iron 26 L Transferrin 124 L Transferrin % Sat 15 L Ferritin 653.2 H Total Bilirubin 0.4 Direct Bilirubin 0.2 AST 24 ALT 8 L Alkaline Phosphatase 185 H Total Protein 6.3 L Albumin 1.5 L 09/01/20 07:41 WBC RBC Hgb Hct MCV MCH MCHC RDW Std Deviation RDW Coeff of Phillip Plt Count MPV Immature Gran % (Auto) Neut % (Auto) Lymph % (Auto) [place] % (Auto) Eos % (Auto) Baso % (Auto) Neut # (Auto) Lymph # (Auto) [place] # (Auto) Eos # (Auto) Baso # (Auto) Immature Gran # (Auto) APTT PTT Ratio Sodium Potassium Chloride Carbon Dioxide Anion Gap BUN Creatinine Est Cr Clr Drug Dosing Est GFR ( Amer) Est GFR (Non-Af Amer) BUN/Creatinine Ratio Glucose POC Glucose 100 H Calcium Phosphorus Iron Transferrin Transferrin % Sat Ferritin Total Bilirubin Direct Bilirubin AST ALT Alkaline Phosphatase Total Protein Albumin PG Care Time/CCT Total # of Minutes Spent Total Time Spent with Patient: Total time spent is greater than 50% in coordination of care (as documented) at patient's floor/unit and/or counseling patient: Coding Level of Care Code 52745 Subseq Hosp Care Lvl 3 Diagnoses MURRAY (acute kidney injury) N17.9 Anemia D64.9 Anemia type: unspecified type Cardiomyopathy I42.9 Cardiomyopathy type: unspecified Pulmonary embolism I26.99 Acute cor pulmonale presence: unspecified Chronicity: acute Pulmonary embolism type: unspecified History of abdominal aortic aneurysm Z86.79 (1) Anemia Anemia type: unspecified type Qualified Code(s): D64.9 - Anemia, unspecified (2) Pulmonary embolism Acute cor pulmonale presence: unspecified Chronicity: acute Pulmonary embolism type: unspecified Qualified Code(s): I26.99 - Other pulmonary embolism without acute cor pulmonale (3) Cardiomyopathy Cardiomyopathy type: unspecified Qualified Code(s): I42.9 - Cardiomyopathy, unspecified
[2020-09-01] MEDS: METOPROLOL TARTRATE 50 MG TAB PO SCH ×2 (12:44→23:52)
[2020-09-01] MEDS ORDERED: MICONAZOLE NITRATE POWDER 43 GM EXT PRN (13:20)
[2020-09-01] MEDS: DONEPEZIL HCL 10 MG TAB PO SCH (20:59)
--- NOTE | 2020-09-01 22:34 | Hospitalist Progress Note ---
Date of Service September 01, 2020 Assessment & Plan (1) Pulmonary embolism: 80yo male with multiple medical problems, recent prolonged hospitalization at [facility] for explant of his aortic graft with replacement, complicated by oliguric renal failure requiring initiation of HD. Patient presents today with LLE DVT as well as bilateral PEs. Patient is hemodynamically stable, no respiratory distress, adequate oxygenation on room air, asymptomatic at this time. Patient's age, gender and multiple comorbidities place him at high risk for poor outcome. LLE DVT present. -Admit to medical with telemetry monitoring -Continue heparin gtt - medication discussed between ER attending and Vascular Surgeon -Consider Vascular consultation given patient's recent endograft placement and need for anticoagulation D/W vascular surgeon, no further workup or change of management is required. Will monitor for naother 24 hours, if continues to do well, will discharge on Eliquis back to [facility]. (2) Abdominal aortic aneurysm (AAA): S/p exploratory laparotomy with explantation of endograft, aorto iliac bypass and placement of Dacron graft performed at [facility] on 08/08/20. Concern for possible sepsis in the post-operative period. Patient has been on dual-antiplatelet therapy with ASA and Plavix since [place] [facility] -Will hold ASA for now in setting of Heparin gtt -Continue Plavix -Continue Vancomycin 750mg IV 3 times weekly as recommended by ID at [place] - to continue through 09/20/20 for risk of graft infection (3) ESRD (end stage renal disease): Metabolic profile and electrolytes are acceptable at this time. No need for urgent HD. Patient is dialyzed q M/W/ -Nephrology consultation appreciated -Monitor electrolytes (4) Anemia: Normochromic/normocytic anemia with Hgb=10.3, Hct=30.9, near baseline. No bleeding. -Continue to monitor CBC (5) Diabetes mellitus, controlled: Blood sugars well controlled at presaent -ISS -Check A1C (6) Cardiomyopathy: Patient appears euvolemic -Continue isosorbide mononitrate -Continue Metoprolol 50mg po BID (7) CAD (coronary artery disease): Patient denies chest pain. Troponin unremarkable. EKG V-paced -Holding ASA 81mg po daily for now -Continue Plavix 75mg po daily -Continue Atorvastatin 80mg po daily -Continue Metoprolol 50mg po BID (8) Hypertension: Blood pressure stable, 120/64 at this time -Continue Isosorbide mononitrate -Continue Metoprolol (9) Severe obstructive sleep apnea: Chronic -Continue CPAP at home settings (10) Senile dementia: states that patient becomes confused at times and does not remember things. -Delirium prevention strategies with frequent orientation, ambulation with assistance as tolerated and maintenance of sleep/wake cycle as able -Continue Aricept 10mg po qHS -Please update - Cynthia - [phone] (11) ICD (implantable cardioverter-defibrillator) in place: No discharges -Continue Amiodarone F/E/N - Heplock. Monitor electrolytes. CC/AHA/Renal diet as tolerated, continue bowel regimen as needed. Continue Florastor at home dose Ppx - Heparin gtt Code - Full Code Dispo -Admit to medical POC: Cynthia () - [phone] Admission and Anticipated Discharge Date Admission Date: August 30, 2020 Subjective Patient reports no new symptoms today. Review of Systems Review of Systems: All systems reviewed & are unremarkable except as noted in HPI & below Physical Exam Physical Exam: General: patient resting comfortably, NAD, non-toxic in appearance, AA&O x 4 Skin: warm, dry, intact, no rashes or lesions, dusky coloration right great toe at baseline HEENT: NC/AT, PERRL, EOMI, anicteric sclera, conjunctiva without injection, external ear normal to inspection and nontender, nares patent, dry mucus membranes, dentition intact, no oropharyngeal lesions, neck supple, trachea midline, no LAD, no thyromegaly, no JVD Heart: +S1/S2, regular, no m/r/g, AICD left chest, nontender, Perm cath right chest wall, nontender Lungs: equal air entry bilaterally, no rales/rhonchi/wheezes Abd: +BS, soft, NT/ND, no masses/organomegaly/ascites, dressing in place with katherine, clean/dry/intact, abdominal binder Ext: warm, 2+ pulses in UE/LE bilaterally, no clubbing/cyanosis +3 + pitting edema of bilateral LE, > > R Neuro: nonfocal, patient AA&O x 4, speech intact, no facial droop, moving all extremities on command with equal strength 5/5 Results & Data Results & Data ([facility]) Vital Signs (Past 12 Hours) Vital Signs Temp Pulse Resp BP Pulse Ox 09/01/20 19:24 36.7 C 59 L 18 99/58 L 90 09/01/20 14:57 37.2 C 60 20 103/50 L 97 09/01/20 12:18 36.6 C 62 20 110/62 92 PG Care Time/CCT Total # of Minutes Spent Total Time Spent with Patient: Total time spent is greater than 50% in coor dination of care (as documented) at patient's floor/unit and/or counseling patient: Coding Level of Care Code 45800 Subseq Hosp Care Lvl 2 Diagnoses Pulmonary embolism I26.99 Acute cor pulmonale presence: unspecified Chronicity: acute Pulmonary embolism type: unspecified Abdominal aortic aneurysm (AAA) I71.4 Presence of rupture: without rupture ESRD (end stage renal disease) N18.6 Anemia D64.9 Anemia type: unspecified type Diabetes mellitus, controlled E11.9 Diabetes mellitus complication status: without complication Diabetes mellitus penitentiary insulin use: without production finisher use Diabetes mellitus type: type 2 Cardiomyopathy I42.9 Cardiomyopathy type: unspecified CAD (coronary artery disease) I25.10 Associated angina: without angina Coronary Disease-Associated Artery/Lesion type: [place] artery [place] vs. transplanted heart: [place] heart Hypertension I10 Hypertension type: essential hypertension Severe obstructive sleep apnea G47.33 Senile dementia F03.90 Dementia behavioral disturbance: without behavioral disturbance ICD (implantable cardioverter-defibrillator) in place Z95.810 Time Spent (min) 25 (1) Diabetes mellitus, controlled Diabetes mellitus complication status: without complication Diabetes mellitus production finisher insulin use: without penitentiary use Diabetes mellitus type: type 2 Qualified Code(s): E11.9 - Type 2 diabetes mellitus without complications (2) CAD (coronary artery disease) Associated angina: without angina Coronary Disease-Associated Artery/Lesion type: [place] artery [place] vs. transplanted heart: [place] heart Qualified Code(s): I25.10 - Atherosclerotic heart disease of [place] coronary artery without angina pectoris (3) Abdominal aortic aneurysm (AAA) Presence of rupture: without rupture Qualified Code(s): I71.4 - Abdominal aortic aneurysm, without rupture (4) Anemia Anemia type: unspecified type Qualified Code(s): D64.9 - Anemia, unspecified (5) Senile dementia Dementia behavioral disturbance: without behavioral disturbance Qualified Code(s): F03.90 - Unspecified dementia without behavioral disturbance (6) Pulmonary embolism Acute cor pulmonale presence: unspecified Chronicity: acute Pulmonary embolism type: unspecified Qualified Code(s): I26.99 - Other pulmonary embolism without acute cor pulmonale (7) Hypertension Hypertension type: essential hypertension Qualified Code(s): I10 - Essential (primary) hypertension (8) Cardiomyopathy Cardiomyopathy type: unspecified Qualified Code(s): I42.9 - Cardiomyopathy, unspecified
[2020-09-01] MEDS: HEPARIN SODIUM/DEXTROSE 25,000 UNITS/500 ML BAG IV SCH (23:15)
[2020-09-02] MEDS: PANTOprazole 40 MG TAB PO SCH (06:05)
[2020-09-02 07:57] LABS: Partial Thromboplastin Ratio 2.1
[2020-09-02 07:59] LABS: Partial Thromboplastin Time 54.6 Seconds (21.0-31.0)
[2020-09-02] MEDS: INSULIN ASPART 100 UNITS/ML 3 ML PEN SC SCH ×2 (09:40→12:38)
[2020-09-02] MEDS: SACCHAROMYCES BOULARDII 250 MG CAP PO SCH (09:41)
[2020-09-02] MEDS: ATORVASTATIN 40 MG TAB PO SCH (09:41)
[2020-09-02] MEDS: NEPHROCAPS PO SCH (09:43)
[2020-09-02] MEDS: ISOSORBIDE MONO EXTENDED REL 60 MG TABCR PO SCH (09:43)
[2020-09-02] MEDS: CLOPIDOGREL BISULFATE 75 MG TAB PO SCH (09:44)
[2020-09-02] MEDS ORDERED: IRON SUCROSE 200 MG in 0.9 % SODIUM CHLORIDE 100 ML IV ONE (10:23)
--- NOTE | 2020-09-02 11:07 | Nephrology Progress Note ---
Date of Service September 02, 2020 Assessment & Plan (1) MURRAY (acute kidney injury): MURRAY consistent with ischemic ATN. HD dependent. Maintained on MWF schedule with monitoring for recovery. Non-oliguric. Repeat metabolic profile tomorrow AM. Medications appropriately dosed for kidney dysfunction. Clearance with dialysis acceptable. Electrolytes normal. [facility] nephrology will continue to follow and provide coverage for HD if Rowdy returns to [facility]. (2) Anemia: with iron deficiency. Venofer 200 mg IV to be provided today. Epogen provided with HD. (3) Cardiomyopathy: Volume status controlled. Risk factor modification reviewed. (4) Pulmonary embolism: Remains on heparin gtt. Plan to transition to Eliquis. (5) History of abdominal aortic aneurysm: Vanco level pre-HD on Thursday. Dosing according post HD. Admission and Anticipated Discharge Date Admission Date: August 30, 2020 Subjective No acute events overnight. Rowdy feels well this AM. He reports feeling slightly disoriented and states that he is not sure why he is still in the hospital. Good urine output. No fluid retention. Appetite fair. Review of Systems Review of Systems: All systems reviewed & are unremarkable except as noted in HPI & below Physical Exam Constitutional: well developed; no acute distress Eyes: no scleral abnormality and no corneal abnormality ENMT: Mouth: no oral mucosal abnormality and oral mucous membranes not dry Neck: normal visual inspection and trachea midline Respiratory: normal respiratory effort Auscultation: lungs clear to auscultation bilaterally Cardiovascular: Rate/Rhythm: regular rate Heart Sounds: normal S1 and normal S2 Extremities: + edema Musculoskeletal: Extremities: no cyanosis and no clubbing Skin: normal turgor; no lesions Neurologic: Motor/Sensory: no tremor and no asterixis Psychiatric: Orientation: alert and oriented x 3 Results & Data ([facility]) Vital Signs (Past 12 Hours) Vital Signs Temp Pulse Pulse Resp BP BP Pulse Ox 09/02/20 07:55 37.0 C 78 20 119/66 90 09/02/20 03:37 36.9 C 68 16 119/62 94 09/01/20 23:54 60 Laboratory Results Laboratory Results - last 24 hr 09/01/20 09/01/20 09/01/20 11:27 16:29 20:26 APTT PTT Ratio POC Glucose 125 H 134 H 122 H 09/02/20 09/02/20 06:56 07:38 APTT 54.6 H* PTT Ratio 2.1 POC Glucose 102 H PG Care Time/CCT Total # of Minutes Spent Total Time Spent with Patient: Total time spent is greater than 50% in coordination of care (as documented) at patient's floor/unit and/or counseling patient: Coding Level of Care Code 01795 Subseq Hosp Care Lvl 3 Diagnoses MURRAY (acute kidney injury) N17.9 Anemia D64.9 Anemia type: unspecified type Cardiomyopathy I42.9 Cardiomyopathy type: unspecified Pulmonary embolism I26.99 Acute cor pulmonale presence: unspecified Chronicity: acute Pulmonary embolism type: unspecified History of abdominal aortic aneurysm Z86.79 (1) Anemia Anemia type: unspecified type Qualified Code(s): D64.9 - Anemia, unspecified (2) Cardiomyopathy Cardiomyopathy type: unspecified Qualified Code(s): I42.9 - Cardiomyopathy, unspecified (3) Pulmonary embolism Acute cor pulmonale presence: unspecified Chronicity: acute Pulmonary embolism type: unspecified Qualified Code(s): I26.99 - Other pulmonary embolism without acute cor pulmonale
[2020-09-02] MEDS ORDERED: APIXABAN 5 MG TABLET PO SCH (11:15)
[2020-09-02] MEDS: METOPROLOL TARTRATE 50 MG TAB PO SCH (12:37)
--- NOTE | 2020-09-02 17:14 | Discharge Summary ---
Date of Service September 02, 2020 Admission HPI Per Admitting Provider Rowdy Gracia is an 80yo male with history of abdominal aortic aneurysm. He had repair with an endograft in 2002. He was noted to have persistently enlarging aortic sac expansion and underwent multiple coil embolizations which were unsuccessful. He had explant of the aortic endograft open aortic aneurysm repair with aorto iliac bypass, placement of a 24 x 12mm Dacron graft performed at [facility] on 08/08/20. Patient suffered postoperative oliguric acute kidney injury and had CRRT initiated. He had a right chest HD catheter placed on and was started on HD, now is dialyzed q M/W/F. Patient was discharged to [facility] on August 23. Patient has been doing well at [facility] overall. He is able to ambulate short distances using a walker. Patient was complaining of some RLE pain and edema while at [facility]. A portable US was performed at [facility] which showed possible DVTs, therefore, he was sent to [facility] for further evaluation. Patinent found to have DVT in the left common femoral and superficial femoral veins as well as bilateral PEs. Patient denies chest pain/palpitations/cough/SOB. He denies nausea/vomiting/diarrhea/constipation/dizziness/syncope. No additional complaints at this time. ER Course: Heparin gtt Principal Diagnosis Pulmonary Emboli Discharge Exam General: patient resting comfortably, NAD, non-toxic in appearance, AA&O x 4 Skin: warm, dry, intact, no rashes or lesions, dusky coloration right great toe at baseline HEENT: NC/AT, PERRL, EOMI, anicteric sclera, conjunctiva without injection, external ear normal to inspection and nontender, nares patent, dry mucus membranes, dentition intact, no oropharyngeal lesions, neck supple, trachea midline, no LAD, no thyromegaly, no JVD Heart: +S1/S2, regular, no m/r/g, AICD left chest, nontender, Perm cath right chest wall, nontender Lungs: equal air entry bilaterally, no rales/rhonchi/wheezes Abd: +BS, soft, NT/ND, no masses/organomegaly/ascites, dressing in place with katherine, clean/dry/intact, abdominal binder Ext: warm, 2+ pulses in UE/LE bilaterally, no clubbing/cyanosis +3 + pitting edema of bilateral LE, > > R Neuro: nonfocal, patient AA&O x 4, speech intact, no facial droop, moving all extremities on command with equal strength 08/29 Discharge Data Allergies Allergy/AdvReac Type Severity Reaction Status Date / Time No Known Allergies Allergy Verified 08/30/20 15:59 Consultations 08/30/20 19:00 ED Decision to Admit Stat 08/31/20 00:28 Consult Nephrology Routine Ordered Studies 08/30/20 15:34 US venous doppler LE RT Stat 08/30/20 17:27 US venous doppler LE LT Stat 08/30/20 17:28 CT angio chest PE protocol Stat Hospital Course (1) Pulmonary embolism: 80yo male with multiple medical problems, recent prolonged hospitalization at [facility] for explant of his aortic graft with replacement, complicated by oliguric renal failure requiring initiation of HD. Patient presents today with LLE DVT as well as bilateral PEs. Patient is hemodynamically stable, no respiratory distress, adequate oxygenation on room air, asymptomatic at this time. Patient's age, gender and multiple comorbidities place him at high risk for poor outcome. LLE DVT present. -Admit to medical with telemetry monitoring -Continue heparin gtt - medication discussed between ER attending and Vascular Surgeon -Consider Vascular consultation given patient's recent endograft placement and need for anticoagulation D/W vascular surgeon, no further workup or change of management is required. Monitored for >72 hours, patient did well, will discharge on Eliquis back to [facility]. will hold asa and continue plavix. (2) Abdominal aortic aneurysm (AAA): S/p exploratory laparotomy with explantation of endograft, aorto iliac bypass and placement of Dacron graft performed at [facility] on 08/08/20. Concern for possible sepsis in the post-operative period. Patient has been on dual-antiplatelet therapy with ASA and Plavix since discharge from [facility]. -Will hold ASA for now in setting of Heparin gtt -Continue Plavix -Continue Vancomycin 750mg IV 3 times weekly as recommended by ID at [place] - to continue through 09/20/20 for risk of graft infection (3) ESRD (end stage renal disease): Metabolic profile and electrolytes are acceptable at this time. No need for urgent HD. Patient is dialyzed q M/W/F -Nephrology consultation appreciated -Monitor electrolytes (4) Anemia: Normochromic/normocytic anemia with Hgb=10.3, Hct=30.9, near baseline. No bleeding. (5) Diabetes mellitus, controlled: Blood sugars well controlled at presaent -ISS -Check A1C: 5.6 (6) Cardiomyopathy: Patient appears euvolemic -Continue isosorbide mononitrate -Continue Metoprolol 50mg po BID (7) CAD (coronary artery disease): Patient denies chest pain. Troponin unremarkable. EKG V-paced -Holding ASA 81mg po daily for now -Continue Plavix 75mg po daily -Continue Atorvastatin 80mg po daily -Continue Metoprolol 50mg po BID (8) Hypertension: Blood pressure stable, 120/64 at this time -Continue Isosorbide mononitrate -Continue Metoprolol (9) Severe obstructive sleep apnea: Chronic -Continue CPAP at home settings (10) Senile dementia: states that patient becomes confused at times and does not remember things. -Delirium prevention strategies with frequent orientation, ambulation with assistance as tolerated and maintenance of sleep/wake cycle as able -Continue Aricept 10mg po qHS -Please update - Cynthia - [phone] (11) ICD (implantable cardioverter-defibrillator) in place: No discharges -Continue Amiodarone F/E/N - Heplock. Monitor electrolytes. CC/AHA/Renal diet as tolerated, continue bowel regimen as needed. Continue Florastor at home dose Ppx - Heparin gtt Code - Full Code Total Time Total Time Spent Total Time Spent (In Minutes): 32 Total Time Includes: Examination of the Patient, Discharge Planning and Medication Reconciliation Discharge Plan Discharge Items Patient Disposition: Transfer Inpatient Rehab Fac Reason For Visit: BILATERAL PES Discharge Diagnosis: bilateral Pulmonary emboli Activity: Resume your previous activity Non-emergency contact: Primary Care Provider Call non-emergency contact if: you have any medication questions Follow-up/Referrals: [facility] [Primary Care Provider] - Diet: Carb Consistent or DM2 and Heart Healthy Addtl Attending Provider Instructions: You were found to have Pulmonary emboli. You will need to be on blood thinning medication. will recommend 10 mg PO twice a day for 13 more doses, followed by 5 mg twice a day. recommend followup with PCP in 1-2 weeks and Transfer Man in 2-4 weeks Check CBC in 1 week Pending Studies at Discharge: No Stand-Alone Forms: [facility] Skilled Items Patient informed of condition?: Yes DNR: No Discharge Level of Care: Acute rehab Communicable Disease: No Discharge Prognosis: Stable Lines: None Urinary Catheter: No Medications and DC Order Prescriptions: New Eliquis 5 mg Tablet 10 mg PO BID Qty: 60 RF: 0 Continued (DME) lancets [Accu-Chek Softclix Lancets] Misc See Rx Instructions .ROUTE .MEDSUPPLY Qty: 100 RF: 5 (DME) Accu-Chek SmartView Test Strip Strip See Rx Instructions .ROUTE .MEDSUPPLY Qty: 300 RF: 5 clopidogrel [Plavix] 75 mg tablet 75 mg PO QAM Qty: 90 RF: 3 atorvastatin 80 mg tablet 80 mg PO QAM Qty: 90 RF: 3 isosorbide mononitrate 60 mg tablet extended release 24 hr 60 mg PO QAM Qty: 90 RF: 3 nystatin [Nystop] 100,000 unit/gram powder 1 applic topical BID Qty: 30 RF: 3 nitroglycerin 0.4 mg tablet, sublingual 0.4 mg Sublingual UD PRN (Reason: Angina) Qty: 30 RF: 0 (DME) CPAP Machine Misc See Dose Instructions .ROUTE .MEDSUPPLY Qty: 1 RF: 0 acetaminophen [Tylenol] 325 mg Tablet 650 mg PO Q4H PRN (Reason: Pain (Scale Score 1-3)) RF: 0 omega-3 fatty acids 1,000 mg Capsule 1,000 mg PO DAILY RF: 0 sennosides-docusate sodium [Senokot-S] 8.6-50 mg Tablet 1 tab-cap PO QDL PRN (Reason: Constipation) RF: 0 hydralazine 25 mg Tablet 25 mg PO Q6H PRN (Reason: ELAVATED BLOOD PRESSURE) RF: 0 tramadol 50 mg Tablet 25 mg PO Q4H PRN (Reason: Pain (Scale Score 4-6)) RF: 0 sodium chloride 0.9 % Solution 1,000 ml IV Q12H PRN (Reason: DIALYSIS) RF: 0 magnesium hydroxide [Milk of Magnesia] 400 mg/5 mL Suspension 30 ml PO DAILY PRN (Reason: Constipation) RF: 0 bisacodyl 10 mg Suppository 10 mg RI DAILY PRN (Reason: Constipation) RF: 0 pantoprazole 40 mg Tablet,Delayed Release (Dr/Ec) 40 mg PO DAILYBB RF: 0 metoprolol tartrate 50 mg Tablet 50 mg PO Q12H RF: 0 multivitamin with minerals Tablet 1 tab PO DAILY RF: 0 polyethylene glycol 3350 [Miralax] 17 gram/dose Powder 17 g PO QDL PRN (Reason: Constipation) RF: 0 Saccharomyces boulardii [Florastor] 250 mg Capsule 250 mg PO BIDM RF: 0 darbepoetin tiarra in polysorbat 100 mcg/0.5 mL Syringe 100 mcg IV WK RF: 0 cholecalciferol (vitamin D3) [Vitamin D3] 50 mcg (2,000 unit) Capsule 50 mcg PO DAILY RF: 0 vancomycin 750 mg Recon Soln 750 mg IV 3XWK RF: 0 Narcan 4 mg/actuation [place],Non-Aerosol 4 mg INTRANASAL DIRECTED PRN (Reason: OVERSEDATION) RF: 0 amiodarone 200 mg tablet 200 mg PO 5XWK RF: 0 donepezil 10 mg tablet 10 mg PO HS RF: 0 Discontinued aspirin 81 mg tablet,delayed release (DR/EC) 81 mg PO QAM RF: 0 heparin (porcine) 5,000 unit/mL Solution 5,000 unit SUBCUT Q8H RF: 0 Discharge Orders: Discharge Order (Routine); Ordered 09/02/20 Ordered By: Ihsan Dyer Admission Data Admit Date/Time: 08/30/20 20:26 Attending Provider: Ihsan Dyer Admit Provider: Tameka Celis [facility] Other Providers: Tameka Celis ; Nicholas Bolanos ; [facility] Other Interventions: Discharge Summary Assessment (RN) Last Done: 09/02/20 15:04 Coding Level of Care Code D/C Day Management >30 mins Diagnoses Pulmonary embolism I26.99 Acute cor pulmonale presence: unspecified Chronicity: acute Pulmonary embolism type: unspecified Abdominal aortic aneurysm (AAA) I71.4 Presence of rupture: without rupture ESRD (end stage renal disease) N18.6 Anemia D64.9 Anemia type: unspecified type Diabetes mellitus, controlled E11.9 Diabetes mellitus complication status: without complication Diabetes mellitus superintendent marine oil terminal insulin use: without [facility] use Diabetes mellitus type: type 2 Cardiomyopathy I42.9 Cardiomyopathy type: unspecified CAD (coronary artery disease) I25.10 Associated angina: without angina Coronary Disease-Associated Artery/Lesion type: [place] artery [place] vs. transplanted heart: [place] heart Hypertension I10 Hypertension type: essential hypertension Severe obstructive sleep apnea G47.33 Senile dementia F03.90 Dementia behavioral disturbance: without behavioral disturbance ICD (implantable cardioverter-defibrillator) in place Z95.810
--- NOTE | 2020-09-14 10:30 | Coding Query ---
CODING QUERY To promote full compliance with coding requirements relating to patient care, provider participation is requested in all cases of manager telecom uncertainty. Please assist us with the question(s) below: Coding Question(s): "Concern for possible Sepsis in the post-operative period" is documented but documentation does not indicate if treated or not. Please clarify below: ( ) (Possible) Postop Sepsis ( x) Postop Sepsis Ruled Out ( ) Other Please Explain: Thank you Jose Acuna Principal Diagnosis: "that condition established after study, to be chiefly responsible for occasioning the admission of the patient to the hospital for care." Co-Existing Principal Diagnosis: "when two or more diagnoses equally meet the criteria for principal diagnosis as determined by the circumstances of admission, diagnostic work up, and/or therapy provided, and the Alphabetic Index, Tabular List, or another coding guideline does not provide sequencing direction, any one of the diagnoses may be sequenced first." "When the physician has documented what appears to be a current diagnosis in the body of the record, but has not included the diagnosis in the final diagnostic statement, the physician should be asked whether the diagnosis should be added." (Source Coding [facility] 2 QTR90. p3-4) CONCEPCION
== END 2020-09-02 15:42 ==
LOC: ED 15:22 → SUATTDRO 20:26 → 2N 20:26

== ENCOUNTER 2020-12-03 09:08 | Inpatient (IN) ==
[2020-12-03] MEDS ORDERED: CEFEPIME 2,000 MG/20 ML VIAL IV STA (10:37)
[2020-12-03 11:47] LABS: Basophils # (auto) 0.02 K/uL (0-0.2); Basophils % (auto) 0.4 %; Eosinophils % (auto) 3.6 %; Hematocrit (blood only) 33.3 % (42-52); Hemoglobin 10.6 g/dL (14.0-18.0); Immature Granulocytes # (auto) 0.01 K/uL (0.00-0.02); Immature Granulocytes % (auto) 0.2 %; Lymphocytes % (auto) 23.4 %; Mean Corpuscular Hemoglobin 30.3 pg (25-34); Mean Corpuscular Hgb Conc 31.8 g/dL (32-36); Mean Corpuscular Volume 95.1 fL (80-100); Mean Platelet Volume 9.2 fL (7.4-10.4); Monocytes # (auto) 0.52 K/uL (0.11-0.59); Monocytes % (auto) 9.4 %; Neutrophils # (auto) 3.51 K/uL (1.4-6.5); Platelet Count 172 K/uL (130-400); RDW Coefficient of Variation 17.5 % (11.5-14.5); RDW Standard Deviation 61.3 fL (36.4-46.3); White Blood Count 5.56 K/uL (4.8-10.8)
[2020-12-03 12:05] LABS: Albumin Level 2.6 gm/dl (3.4-5.0); BUN Creatinine Ratio 14.5 (10-20); Calcium 8.6 mg/dl (8.5-10.1); Creatinine Clr Calc Pharmacy 43.8 ml/min; Est GFR (African American) 55.1 ml/min; Est GFR (Non-African American) 47.5 ml/min; Magnesium 2.1 mg/dl (1.8-2.4); Potassium 4.1 mmol/L (3.5-5.1)
[2020-12-03 12:08] LABS: Albumin Globulin Ratio 0.6 (0.9-2); Bilirubin,Total 0.4 mg/dl (0.2-1); C Reactive Protein 1.82 mg/dl (0-0.29); Globulin 4.2 gm/dl (2.5-4.0); Total Protein 6.8 gm/dl (6.4-8.2)
--- NOTE | 2020-12-03 12:18 | Emergency Department Note ---
Impression & Plan Osteomyelitis of great toe of right foot, ICD (implantable cardioverter- defibrillator) in place, Ischemic ulcer, On apixaban therapy, Pseudomonas infection ED Provider Note NAME: NILTON NYE AGE: 80 SEX: M ARRIVES VIA: Walk-In INFORMANT: Patient, ED PROVIDER(S): Harrison Echevarria MD CHIEF COMPLAINT: Referred. Osteomyelitis. PLAN: Disposition: Admit MEDICAL DECISION MAKING: The patient is a pleasant 80-year-old gentleman with a past medical history of AAA, diabetes, atrial fibrillation on Eliquis, cardiomyopathy, recent complicated medical course with temporary hemodialysis for renal failure in the setting of AAA repair, recently managed for chronic right great toe ulcer suspected to be related to arterial insufficiency related to his AAA repair who presents to the emergency department referred for concern for osteomyelitis in the setting of concrern for developing infection of his right great toe ulcrer when seen in wound clinic on Thursday where he was started on antibiotics and had outpatient x-ray which was reported today showing evidence of osteomyelitis. The patient and deny any fevers, chills, cough, congestion, GI or symptoms. They do report that they feel the redness was improving. They further report that the wound clinic was concerned regarding the patient's worsening ulceration with exposed bone. Wound culture from wound clinic does show Pseudomonas sensitive to cefepime. On arrival patient is no acute distress, afebrile stable vital signs. On exam the patient has a 1.5 cm ulceration on the distal aspect of his right great toe with mild surrounding erythema but no significant edema. There is no crepitus. Full range of motion intact. EKG is paced, without overt acute ischemia. WBC and platelets within normal limits. H/H 10.6/33.3 similar to prior range of values. ESR and CRP are elevated at 53 and 1.8, respectively. Chemistry without metabolic acidosis. Electrolytes and LFTs without significant abnormality. Lactate 0.9, within normal limits. COVID-19 PCR was negative. Given the patient's worsening toe ulceration and plain film evidence of osteomyelitis reasonable admit the patient for IV antibiotics and further management. Cefepime ordered. The patient initially was reluctant but both he and his were in agreement plan for admission. Case was discussed with Saul Zuñiga [facility] ASTUD[facility]O with Dr. Navarrete [facility] hospitalist, who will evaluate the patient for admission. Triage Nursing notes reviewed and agree them. Prior medical records reviewed Vital Signs: reviewed and remarkable for hypertension. Differential diagnosis: Cellulitis, abscess, MRSA infection, DVT, necrotizing fasciitis, dermatitis, drug eruption, allergic reaction, as well as other pathologies. ER treatment provided: See below. Diagnostics interpreted by me: ECG: AV dual paced rhythm 60bpm, no ectopy, no overt acute ischemia. Cardiac Monitoring: An order for continuous cardiac monitoring was placed and demonstrated AV dual paced rhythm 60bpm, no ectopy. Laboratory studies: See below Imaging studies: Outpatient XR: 11/30/2020 XR toe(s) RT min 2V CLINICAL HISTORY: Osteomyelitis. COMPARISON: Right first toe radiographs October 19, 2020. FINDINGS: Right first toe soft tissue swelling is present. Note is made of interval development of an erosion of the medial aspect of the distal tuft of the distal phalanx of the right first toe. There is also lucency within the d istal aspect of the distal phalanx. 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 IMPRESSION: Findings highly suggestive of osteomyelitis of the distal phalanx of the right first toe, as described above. Consultation(s): Saul ASTUDILLO with Dr. Landon MILLARD hospitalist, who will evaluate the patient for admission. HPI: The patient is a pleasant 80-year-old gentleman with a past medical history of AAA, diabetes, atrial fibrillation on Eliquis, cardiomyopathy, recent complicated medical course with temporary hemodialysis for renal failure in the setting of AAA repair, recently managed for chronic right great toe ulcer suspected to be related to arterial insufficiency related to his AAA repair who presents to the emergency department referred for concern for osteomyelitis in the setting of concrern for developing infection of his right great toe ulcrer when seen in wound clinic on Thursday where he was started on antibiotics and had outpatient x-ray which was reported today showing evidence of osteomyelitis. The patient and deny any fevers, chills, cough, congestion, GI or symptoms. They do report that they feel the redness was improving. They further report that the wound clinic was concerned regarding the patient's worsening ulceration with exposed bone. Wound culture from wound clinic does show Pseudomonas. ROS: See above HPI for pertinent positives & negatives. A total of 10 systems reviewed and were otherwise negative. PAST MEDICAL HISTORY:See Below PAST SURGICAL HISTORY:See Below FAMILY HISTORY:See Below SOCIAL HISTORY:See Below HOME MEDICATIONS:See Below ALLERGIES:See Below VITALS:See Below PHYSICAL EXAMINATION: GENERAL: Awake, alert, well-appearing, in no distress HENT: Normocephalic, atraumatic. Oropharynx unremarkable. EYES: Normal conjunctiva. Sclera non-icteric. NECK: Supple. No nuchal rigidity. FROM. No JVD. RESPIRATORY: Clear to auscultation. CARDIAC: Regular rate, normal rhythm. Extremities warm and well perfused. Pulses equal. ABDOMEN: Soft, non-distended. No tenderness to palpation. No rebound or guarding. No masses. RECTAL: Deferred. MUSCULOSKELETAL: Chest examination reveals no tenderness. The back is symmetrical on inspection without obvious abnormality. There is no CVA tenderness to palpation. No joint edema. LOWER EXTREMITIES: Calves are equal size bilaterally and non-tender. 1.5 cm ulceration on the distal aspect of his right great toe with mild surrounding erythema but no significant edema. There is no crepitus. Full range of motion intact. NEURO: Normal sensorium. No sensory or motor deficits noted. SKIN: No rash or jaundice noted. Harrison Echevarria MD Past Med/Surg History Medical History A-fib new onset and need cardioversion Abdominal aortic aneurysm (AAA) x3 repaired 08/08/2020 at [place] Aneurysm of right popliteal artery 2018 CAD (coronary artery disease) s/p PCI 1995 and 2002. 2103 chest pain --> cath -- > occluded RCA --> ICD placed. Cardiomyopathy EF 55-60% on 06/18/2020 echocardiogram Diabetes mellitus ESRD (end stage renal disease) dialysis from 08/08/2020 thru 10/03/2020 Hearing deficit Hyperlipidemia Hypertension ICD (implantable cardioverter-defibrillator) in place (~2013) [employer] Kidney stones hx Lymphedema Myocardial Infarction (~1995) On amiodarone therapy Open wound Prostate cancer sx Pulmonary embolism B/L, with DVT in L common femoral vein. Treated at [facility] 08/2020. Senile dementia Per PAT assessment rn, pt reported his own PMH, does not require assistance with ADLs Ventricular tachycardia hx 2013 and has ICD Surgical History History of bilateral cataract extraction History of bilateral knee replacement History of cardiac cath multiple--last one 2013 History of carpal tunnel release History of colonoscopy History of heart artery stent x1-2013; "last one was years ago"--follows with Dr. Sosa History of hernia repair History of lithotripsy History of prostate biopsy malignant History of prostate surgery radiation seeds implanted Orbital floor fracture Right orbital fracture April 2019 S/P AAA repair x3--last in 08/08/2020 [email or web address] Status post cystoscopy with ureteral stent placement Status post femoral-popliteal bypass surgery 2018 in [place] Family History Mother Hypertension Cardiac disorder Father Cardiac disorder Myocardial infarction Brother Diabetes Hypertension Hyperlipidemia Obstructive sleep apnea Denies family history of Ovarian cancer Prostate cancer Coronary heart disease Breast cancer Colorectal cancer Social History Smoking Status: Former smoker Second Hand Exposure: No; Do You Dip or Chew Tobacco: No; Hx Alcohol Use: Yes Alcohol type: wine Hx Substance Use: No Preferred Language: Upper Sorbian Communication Ability: Effective Hearing Ability: Normal Assemblyman Or Woman Required: No Beliefs That Will Affect Care: None marital status: Current Living Situation: Alone current occupational status: retired Feels Safe at Home: Yes Safety Concerns: Feels Safe At This Time Childhood Exposure to Second-Hand Smoke: No Dental Care, Regularly: Yes Physical Activity Frequency: 5-6 Times per Week Seatbelt Use: always Sunscreen Use: No Assistive Devices: CPAP, Glasses and Walker Allergies Allergies Allergy/AdvReac Type Severity Reaction Status Date / Time No Known Allergies Allergy Verified 11/29/20 15:04 Home Meds Home Medications Medication Instructions Recorded Confirmed acetaminophen 325 mg tablet 650 mg PO Q4H PRN 08/30/20 12/03/20 (Tylenol) nystatin 100,000 unit/gram topical 1 applic TOPICAL BID PRN 12/03/20 12/03/20 powder (Nystop) vitamin B complex and vitamin C 1 cap PO DAILY 12/03/20 12/03/20 no.20-folic acid 1 mg capsule ([place] Caps) Previous Rx's Medication Instructions Recorded CPAP Machine #1 ea 02/28/19 lancets (Accu-Chek Softclix #100 ea 05/10/19 Lancets) nitroglycerin 0.4 mg sublingual 0.4 mg SUBLINGUAL UD PRN #30 tab 05/10/19 tablet blood sugar diagnostic (Accu-Chek #300 ea 09/02/19 SmartView Test Strip) aspirin 81 mg tablet,delayed 81 mg PO DAILY #90 tab 09/27/20 release amiodarone 200 mg tablet 200 mg PO 5XWK #150 tab 10/15/20 apixaban 5 mg tablet (Eliquis) 5 mg PO BID #180 tab 10/15/20 atorvastatin 80 mg tablet 80 mg PO QAM #90 tab 10/15/20 donepezil 10 mg tablet 10 mg PO HS #90 tab 10/15/20 isosorbide mononitrate 60 mg 60 mg PO QAM #90 tab 10/15/20 tablet,extended release 24 hr lansoprazole 30 mg capsule,delayed 30 mg PO QAM #90 cap 10/15/20 release metoprolol succinate 50 mg 50 mg PO BID #180 tab 10/15/20 tablet,extended release 24 hr doxycycline hyclate 100 mg tablet 100 mg PO bid 14 Days #28 tab 11/29/20 Results & Data (ED) Vital Signs Vital Signs - 24 hr 12/03/20 09:12 12/03/20 10:51 12/03/20 11:00 Temperature 36.4 C L Temperature Source Temporal Artery Scan Pulse Rate 79 60 60 Pulse Rate from SpO2 Sensor 60 60 Respiratory Rate 16 16 17 Respiratory Effort / Characteristics Non-Labored Respiratory Depth Normal Blood Pressure 153/91 H Blood Pressure Mean 111 Pulse Oximetry 98 94 94 Oxygen Delivery Method Sepsis Recent Fever Within 48 Hours No Sepsis New/Unexplained Change in Mental Status No Sepsis Action Taken by Nursing No Action Required 12/03/20 11:06 12/03/20 11:15 12/03/20 11:30 Temperature Temperature Source Pulse Rate 60 56 L Pulse Rate from SpO2 Sensor 60 58 L Respiratory Rate 15 17 Respiratory Effort / Characteristics Respiratory Depth Blood Pressure Blood Pressure Mean Pulse Oximetry 93 92 94 Oxygen Delivery Method Room Air Room Air Sepsis Recent Fever Within 48 Hours Sepsis New/Unexplained Change in Mental Status Sepsis Action Taken by Nursing 12/03/20 11:45 12/03/20 12:00 12/03/20 12:15 Temperature Temperature Source Pulse Rate 60 61 62 Pulse Rate from SpO2 Sensor 60 61 62 Respiratory Rate 17 19 16 Respiratory Effort / Characteristics Respiratory Depth Blood Pressure Blood Pressure Mean Pulse Oximetry 94 96 95 Oxygen Delivery Method Room Air Room Air Room Air Sepsis Recent Fever Within 48 Hours Sepsis New/Unexplained Change in Mental Status Sepsis Action Taken by Nursing 12/03/20 12:30 12/03/20 12:45 Temperature Temperature Source Pulse Rate 60 55 L Pulse Rate from SpO2 Sensor 60 42 L Respiratory Rate 20 18 Respiratory Effort / Characteristics Respiratory Depth Blood Pressure Blood Pressure Mean Pulse Oximetry 94 94 Oxygen Delivery Method Room Air Room Air Sepsis Recent Fever Within 48 Hours Sepsis New/Unexplained Change in Mental Status Sepsis Action Taken by Nursing Laboratory Data Attestation: I reviewed the patient's lab results. Result diagrams: 12/03/20 11:33 12/03/20 11:34 Lab Results 12/03/20 12/03/20 12/03/20 Range/Units 11:33 11:33 11:33 WBC 5.56 (4.8-10.8) K/uL RBC 3.50 L (4.7-6.1) M/uL Hgb 10.6 L (14.0-18.0) g/dL Hct 33.3 L (42-52) % MCV 95.1 (80-100) fL MCH 30.3 (25-34) pg MCHC 31.8 L (32-36) g/dL RDW Std Deviation 61.3 H (36.4-46.3) fL RDW Coeff of Phillip 17.5 H (11.5-14.5) % Plt Count 172 (130-400) K/uL MPV 9.2 (7.4-10.4) fL Immature Gran % (Auto) 0.2 % Neut % (Auto) 63.0 % Lymph % (Auto) 23.4 % [place] % (Auto) 9.4 % Eos % (Auto) 3.6 % Baso % (Auto) 0.4 % Neut # (Auto) 3.51 (1.4-6.5) K/uL Lymph # (Auto) 1.30 (1.2-3.4) K/uL [place] # (Auto) 0.52 (0.11-0.59) K/uL Eos # (Auto) 0.20 (0-0.5) K/uL Baso # (Auto) 0.02 (0-0.2) K/uL Immature Gran # (Auto) 0.01 (0.00-0.02) K/uL ESR 53 H (0-20) mm/hr Sodium (136-145) mmol/L Potassium (3.5-5.1) mmol/L Chloride (98-107) mmol/L Carbon Dioxide (21-32) mmol/L Anion Gap (3-11) BUN (7-18) mg/dl Creatinine (0.6-1.4) mg/dl Est Cr Clr Drug Dosing ml/min Est GFR ( Amer) ml/min Est GFR (Non-Af Amer) ml/min BUN/Creatinine Ratio (10-20) Glucose (70-99) mg/dl Lactate 0.9 (0.4-2.0) mmol/L Calcium (8.5-10.1) mg/dl Phosphorus (2.5-4.9) mg/dl Magnesium (1.8-2.4) mg/dl Total Bilirubin (0.2-1) mg/dl AST (15-37) U/L ALT (12-78) U/L Alkaline Phosphatase (45-117) U/L C-Reactive Protein (0-0.29) mg/dl Total Protein (6.4-8.2) gm/dl Albumin (3.4-5.0) gm/dl Globulin (2.5-4.0) gm/dl Albumin/Globulin Ratio (0.9-2) COVID-19 Eval Order SARS-CoV-2 (PCR) (Negative) 12/03/20 12/03/20 12/03/20 Range/Units 11:34 11:55 11:55 WBC (4.8-10.8) K/uL RBC (4.7-6.1) M/uL Hgb (14.0-18.0) g/dL Hct (42-52) % MCV (80-100) fL MCH (25-34) pg MCHC (32-36) g/dL RDW Std Deviation (36.4-46.3) fL RDW Coeff of Phillip (11.5-14.5) % Plt Count (130-400) K/uL MPV (7.4-10.4) fL Immature Gran % (Auto) % Neut % (Auto) % Lymph % (Auto) % [place] % (Auto) % Eos % (Auto) % Baso % (Auto) % Neut # (Auto) (1.4-6.5) K/uL Lymph # (Auto) (1.2-3.4) K/uL [place] # (Auto) (0.11-0.59) K/uL Eos # (Auto) (0-0.5) K/uL Baso # (Auto) (0-0.2) K/uL Immature Gran # (Auto) (0.00-0.02) K/uL ESR (0-20) mm/hr Sodium 142 (136-145) mmol/L Potassium 4.1 (3.5-5.1) mmol/L Chloride 110 H (98-107) mmol/L Carbon Dioxide 29 (21-32) mmol/L Anion Gap 3.0 (3-11) BUN 20 H (7-18) mg/dl Creatinine 1.39 (0.6-1.4) mg/dl Est Cr Clr Drug Dosing 43.8 ml/min Est GFR ( Amer) 55.1 ml/min Est GFR (Non-Af Amer) 47.5 ml/min BUN/Creatinine Ratio 14.5 (10-20) Glucose 89 (70-99) mg/dl Lactate (0.4-2.0) mmol/L Calcium 8.6 (8.5-10.1) mg/dl Phosphorus 3.0 (2.5-4.9) mg/dl Magnesium 2.1 (1.8-2.4) mg/dl Total Bilirubin 0.4 (0.2-1) mg/dl AST 31 (15-37) U/L ALT 26 (12-78) U/L Alkaline Phosphatase 80 (45-117) U/L C-Reactive Protein 1.82 H (0-0.29) mg/dl Total Protein 6.8 (6.4-8.2) gm/dl Albumin 2.6 L (3.4-5.0) gm/dl Globulin 4.2 H (2.5-4.0) gm/dl Albumin/Globulin Ratio 0.6 L (0.9-2) COVID-19 Eval Order Covid19 at [facility] SARS-CoV-2 (PCR) NEGATIVE (Negative) Administered Medications Apixaban (Apixaban 5 Mg Tablet) 5 mg PO BID [place] Stop: 01/02/21 20:59 Last Admin: 12/03/20 20:23 Dose: 5 mg Documented by: [id number] Donepezil HCl (Donepezil Hcl 10 Mg Tab) 10 mg PO HS [place] Stop: 01/02/21 20:59 Last Admin: 12/03/20 20:23 Dose: 10 mg Documented by: [id number] Insulin Aspart (Insulin Aspart 100 Units/Ml 3 Ml Pen) 0 units SC ACHS [place] Stop: 01/02/21 16:29 Last Admin: 12/03/20 20:24 Dose: Not Given Documented by: [id number] Admin: 12/03/20 17:18 Dose: Not Given Documented by: [id number] Cosigned by: [id number] Metoprolol Succinate (Metoprolol Succ 50mg Ext Rel Tab) 50 mg PO BID [place] Stop: 01/02/21 20:59 Last Admin: 12/03/20 16:59 Dose: 50 mg Documented by: [id number] Discontinued Medications Cefepime HCl (Maxipime) 2,000 mg in 20 mls @ 5 mls/min IV NOW STA; Protocol Stop: 12/03/20 10:40 Last Admin: 12/03/20 11:55 Dose: 5 mls/min Documented by: [id number] Discharge Plan Visit Data Chief Complaint: Wound Stated Complaint: WOUND ON RT BIG TOE, REF BY [facility]OUND [facility]ARE [facility] Discharge Problem: Osteomyelitis of great toe of right foot, ICD (implantable cardioverter- defibrillator) in place, Ischemic ulcer, On apixaban therapy, Pseudomonas infe ction Patient Disposition: Admitted As Inpatient Discharge Instructions Interventions: ED Discharge Assessment Last Done: 12/03/20 15:52
--- NOTE | 2020-12-03 13:14 | History & Physical Report ---
Date of Service December 03, 2020 Assessment & Plan (1) Osteomyelitis of great toe of right foot: Plan: Admit for IV Cefepime for Pseudomonas coverage - Unable to get MRI with AICD- consider CT scan of toe for further evaluation - Localized to distal phalanx - Patient has good sensation and movement of toe - Consider PICC line for prolonged therapy or Oral therapy - Follow biomarkers (2) Pulmonary embolism: Plan: History of since August 2020- continue Eliquis 5 mg BID - CRCL 43.8 (3) ICD (implantable cardioverter-defibrillator) in place: Plan: As above- settings AAIR/DDDR - Cardioversion in September with Cardiology (4) On amiodarone therapy: Plan: As above for Afib - AST/ALT normal - TSH in morning - Conotinue (5) Cardiomyopathy: Plan: No acute needs, no evidence of failure - Continue Metoprolol 50mg QD - Continue isosorbide 60mg Q24 - Continue atorvastatin 80 mg daily - Continue aspirin 81 (6) CAD (coronary artery disease): Plan: As above- no acute needs (7) Hypertension: Plan: As above- hydralazine was discontinued in September secondary to hypotension, may need adjusted for goal <130 - follow while in house and with infectious pathology - May need evening medications earlier (8) Hyperlipidemia: Plan: As above (9) CKD (chronic kidney disease), stage III: Plan: As above- stable- follow daily BMP with Cefepime and volume status (10) Diabetes mellitus, controlled: Plan: Not on therapy as outaptient - will place on loose sliding scale at this time with infection - Carb consistent diet - CF 30 no carb coverage at this time - Goal <180 (11) Severe obstructive sleep apnea: Plan: CPAP 11 - continue (12) History of abdominal aortic aneurysm: Plan: Repaired in July- Imaging in October obtained- Patient was transferred to [facility]- which was deemed not to be an anastomotic leak History of Present Illness Primary Care Provider: Saud Dunham MD 80 YOM with past medical history of: CAD with stent , HLD, HTN, DM (diet controlled), Dialysis (currently not on and has had temporary access removed)- 2019, DVT, PE (following AAA repair in July), Afib(on Eliquis), Pacemaker/ICD, Cardiomyopathy, AAA with aortic endograft and aorto-iliac bypass(July 2020). Following AAA and aorto-iliac bypass patient had shower emboli resulting in development of right great toe ischemic ulcer. He has been following with the wound care clinic for this and getting it debrided in the office. On - the patient had concerns for developing cellulitis with new bone exposure. A wound culture was obtained at that time with Plain film of the right great toe and was started on Doxycycline. He was notified today of X- ray concerning for development of Osteomyelitis with note of interval development of an erosion of the distal tuft of the distal phalanx; this was new since his X-ray in October 2020. His wound culture was also noted to have continual growth of Pseudomonas since September, which was being treated with topical gentamicin ointment. His right heal ulcer was being treated with Aquacel AG and is well healed with very small scab area. Patient will be admitted for IV antibiotics and clinical following of his infection. The patient denies any fevers, chills, or changes to the sensation of his foot or function. For his afib- he remains on Amiodarone, with recent cardioversion in September, currently AV paced- he does at times have underlying SR with 1st degree AV block. He had an ECHO in 06/18/20 with EF 55-60%akinesis of the basal to mid inferior wall with severe hypokinesis of the inferolateral wall. Hypertrophy of the anterior septum. His Pacer/AICD is AAIR/DDR 60-120 BPM. Stress test completed on 06/29/20 no Lexiscan induced chest pain with scintigraphic evidence of prior proximal and mid inferior wall CO, and NO stress induced myocardial Ischemia. Follows with Dr. 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 His HR and BP remain well controlled. He remains on Eliquis following DVT/PE in August 2020. Allergies Allergy/AdvReac Type Severity Reaction Status Date / Time No Known Allergies Allergy Verified 11/29/20 15:04 Home Medications Medication Instructions Recorded Confirmed Type CPAP Machine #1 ea 02/28/19 11/26/20 Rx lancets (Accu-Chek Softclix #100 ea 05/10/19 11/26/20 Rx Lancets) nitroglycerin 0.4 mg sublingual 0.4 mg SUBLINGUAL UD PRN #30 tab 05/10/19 12/03/20 Rx tablet blood sugar diagnostic (Accu-Chek #300 ea 09/02/19 11/26/20 Rx SmartView Test Strip) acetaminophen 325 mg tablet 650 mg PO Q4H PRN 08/30/20 12/03/20 History (Tylenol) aspirin 81 mg tablet,delayed 81 mg PO DAILY #90 tab 09/27/20 12/03/20 Rx release amiodarone 200 mg tablet 200 mg PO 5XWK #150 tab 10/15/20 12/03/20 Rx apixaban 5 mg tablet (Eliquis) 5 mg PO BID #180 tab 10/15/20 12/03/20 Rx atorvastatin 80 mg tablet 80 mg PO QAM #90 tab 10/15/20 12/03/20 Rx donepezil 10 mg tablet 10 mg PO HS #90 tab 10/15/20 12/03/20 Rx isosorbide mononitrate 60 mg 60 mg PO QAM #90 tab 10/15/20 12/03/20 Rx tablet,extended release 24 hr lansoprazole 30 mg capsule,delayed 30 mg PO QAM #90 cap 10/15/20 12/03/20 Rx release metoprolol succinate 50 mg 50 mg PO BID #180 tab 10/15/20 12/03/20 Rx tablet,extended release 24 hr doxycycline hyclate 100 mg tablet 100 mg PO bid 14 Days #28 tab 11/29/20 12/03/20 Rx nystatin 100,000 unit/gram topical 1 applic TOPICAL BID PRN 12/03/20 12/03/20 History powder (Nystop) vitamin B complex and vitamin C 1 cap PO DAILY 12/03/20 12/03/20 History no.20-folic acid 1 mg capsule (Quinn Caps) Past Med/Surg History Medical History A-fib new onset and need cardioversion Abdominal aortic aneurysm (AAA) x3 repaired 08/08/2020 at [facility] Aneurysm of right popliteal artery 2018 CAD (coronary artery disease) s/p PCI 1995 and 2002. 2103 chest pain --> cath -- > occluded RCA --> ICD placed. Cardiomyopathy EF 55-60% on 06/18/2020 echocardiogram Diabetes mellitus ESRD (end stage renal disease) dialysis from 08/08/2020 thru 10/03/2020 Hearing deficit Hyperlipidemia Hypertension ICD (implantable cardioverter-defibrillator) in place (~2013) medtronic Kidney stones hx Lymphedema Myocardial Infarction (~1995) On amiodarone therapy Open wound Prostate cancer sx Pulmonary embolism B/L, with DVT in L common femoral vein. Treated at [facility] 08/2020. 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 Sosa History of hernia repair History of lithotripsy History of prostate biopsy malignant History of prostate surgery radiation seeds implanted Orbital floor fracture Right orbital fracture April 2019 S/P AAA repair x3--last in 08/08/2020 [email or web address] Status post cystoscopy with ureteral stent placement Status post femoral-popliteal bypass surgery 2018 in [place] Family History Mother Hypertension Cardiac disorder Father Cardiac disorder Myocardial infarction Brother Diabetes Hypertension Hyperlipidemia Obstructive sleep apnea Denies family history of Ovarian cancer Prostate cancer Coronary heart disease Breast cancer Colorectal cancer Social History Smoking Status: Former smoker Second Hand Exposure: No; Do You Dip or Chew Tobacco: No; Hx Alcohol Use: Yes Alcohol type: wine Hx Substance Use: No Preferred Language: Georgian Communication Ability: Effective Hearing Ability: Normal It Support Engineer Required: No Beliefs That Will Affect Care: None marital status: Current Living Situation: Alone current occupational status: retired Feels Safe at Home: Yes Safety Concerns: Feels Safe At This Time Childhood Exposure to Second-Hand Smoke: No Dental Care, Regularly: Yes Physical Activity Frequency: 5-6 Times per Week Seatbelt Use: always Sunscreen Use: No Assistive Devices: CPAP, Glasses and Walker Review of Systems Review of Systems: REVIEW OF SYSTEMS: Constitutional: No fever, sweats or chills Eyes: No diplopia, no worsening or blurred vision ENT: normal hearing, no trouble swallowing Respiratory: No cough, sputum, dyspnea at rest or on exertion Cardiovascular: No chest pain, tightness or palpitations Abdomen: No pain, nausea, vomiting, diarrhea or constipation Musculoskeletal: (+) walks with walker, No joint pain, calf pain, swelling Neurologic: No weakness, numbness/tingling Psychiatric: No anxiety or depression Skin: No rash or itch Physical Exam Physical Exam: PHYSICAL EXAM: General: awake, alert, no apparent distress Head: Normocephalic, atraumatic ENT: PERRL, EOMI, no pharyngeal exudate, mucous membranes moist Neuro: AAO x 3, speech clear and appropriate, strength intact bilaterally 5/5, sensation intact and equal all extremities and dermatomes, no pronator drift Chest: equal rise and fall of the chest, no accessory muscle use, no heaves or thrills, Clear to auscultation, on room air, Cardiac: Regular rate and rhythm, telemetry reviewed, skin warm dry, cap refill <3 seconds, peripheral pulses +2 no JVD, Grade II systolic murmur, no edema GI: NABS x 4 quadrants, soft, nontender to palpation, no rebound, guarding or tenderness : Spontaneously voiding, no pain, no CVA tenderness, Extremities: (+) ulcer right great toe, no surrounding erythema or extension cephalad, no drainage, heel ulcer nearly completely healed, Normal inspection, no peripheral edema or erythema, calfs nontender to palpation Psych: Normal mood and affect Skin: no rash or erythema Results & Data Results & Data ([facility]) Vital Signs (Past 12 Hours) Vital Signs Temp Pulse Resp BP Pulse Ox 12/03/20 12:30 60 20 94 12/03/20 12:15 62 16 95 12/03/20 12:00 61 19 96 12/03/20 11:45 60 17 94 12/03/20 11:30 56 L 17 94 12/03/20 11:15 60 15 92 12/03/20 11:06 93 12/03/20 11:00 60 17 94 12/03/20 10:51 60 16 94 12/03/20 09:12 36.4 C L 79 16 153/91 H 98 Laboratory Results Abnormal lab results 08/01/1512/03/20 12/03/20 Range/Units 11:33 11:33 11:34 RBC 3.50 L (4.7-6.1) M/uL Hgb 10.6 L (14.0-18.0) g/dL Hct 33.3 L (42-52) % MCHC 31.8 L (32-36) g/dL RDW Std Deviation 61.3 H (36.4-46.3) fL RDW Coeff of Phillip 17.5 H (11.5-14.5) % ESR 53 H (0-20) mm/hr Chloride 110 H (98-107) mmol/L BUN 20 H (7-18) mg/dl C-Reactive Protein 1.82 H (0-0.29) mg/dl Albumin 2.6 L (3.4-5.0) gm/dl Globulin 4.2 H (2.5-4.0) gm/dl Albumin/Globulin Ratio 0.6 L (0.9-2) Diagnostic Findings XR toe(s) RT min 2V- 11/29/2020 CLINICAL HISTORY: Osteomyelitis. COMPARISON: Right first toe radiographs October 19, 2020. FINDINGS: Right first toe soft tissue swelling is present. Note is made of i nterval development of an erosion of the medial aspect of the distal tuft of the distal phalanx of the right first toe. There is also lucency within the distal aspect of the distal phalanx. 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 IMPRESSION: Findings highly suggestive of osteomyelitis of the distal phalanx of the right first toe, as described above. Electronically signed by: George Pena M.D. 11/30/2020 12:10 PM Medications Administered Home Medications CPAP Machine #1 ea 02/28/19 [Rx Confirmed 11/26/20] lancets (Accu-Chek Softclix Lancets) #100 ea 05/10/19 [Rx Confirmed 11/26/20] nitroglycerin 0.4 mg sublingual tablet 0.4 mg SUBLINGUAL UD PRN #30 tab 05/10/19 [Rx Confirmed 12/03/20] blood sugar diagnostic (Accu-Chek SmartView Test Strip) #300 ea 09/02/19 [Rx Confirmed 11/26/20] acetaminophen 325 mg tablet (Tylenol) 650 mg PO Q4H PRN 08/30/20 [History Confirmed 12/03/20] aspirin 81 mg tablet,delayed release 81 mg PO DAILY #90 tab 09/27/20 [Rx Confirmed 12/03/20] amiodarone 200 mg tablet 200 mg PO 5XWK #150 tab 10/15/20 [Rx Confirmed 12/03/20] apixaban 5 mg tablet (Eliquis) 5 mg PO BID #180 tab 10/15/20 [Rx Confirmed 12/03/20] atorvastatin 80 mg tablet 80 mg PO QAM #90 tab 10/15/20 [Rx Confirmed 12/03/20] donepezil 10 mg tablet 10 mg PO HS #90 tab 10/15/20 [Rx Confirmed 12/03/20] isosorbide mononitrate 60 mg tablet,extended release 24 hr 60 mg PO QAM #90 tab 10/15/20 [Rx Confirmed 12/03/20] lansoprazole 30 mg capsule,delayed release 30 mg PO QAM #90 cap 10/15/20 [Rx Confirmed 12/03/20] metoprolol succinate 50 mg tablet,extended release 24 hr 50 mg PO BID #180 tab 10/15/20 [Rx Confirmed 12/03/20] doxycycline hyclate 100 mg tablet 100 mg PO bid 14 Days #28 tab 11/29/20 [Rx Confirmed 12/03/20] nystatin 100,000 unit/gram topical powder (Nystop) 1 applic TOPICAL BID PRN 12/03/20 [History Confirmed 12/03/20] vitamin B complex and vitamin C no.20-folic acid 1 mg capsule ([place]les Caps) 1 cap PO DAILY 12/03/20 [History Confirmed 12/03/20] ECG Additional Comments: AV dual-paced rhythm with prolonged AV conduction Abnormal ECG When compared with ECG of 04-NOV-2020 00:57, Vent. rate has decreased BY 13 BPM Code Status & VTE Plan Code Status CODE: FULL VTE: SCDs, Eliquis VTE Prophylaxis Plan VTE Prophylaxis will be ordered: Yes Supervising Physician Co-Signing Physician Notes Patient seen and examined, chart reviewed, case discussed with Saul ASTUDILLO and I agree with the assessment and plan as above except as otherwise noted above. General: A&Ox3. NAD. Cooperative. HEENT: Atraumatic, normocephalic. Pulm: CTAB A&P. -wheezes, -rales, -rhonchi. Symmetrical chest rise. No increase work of breathing. No respiratory distress. Cardiac: RRR, +systolic murmur.. Radial pulses intact and symmetrical. Abdominal: Nontender, nondistended, soft. BS present. Ext: R 1st toe ulceration, otherwise intact and atraumatic. All labs and images reviewed Rowdy is a 80yo M who presents for an infection of the R 1st toe noted to have worsened at wound clinic with outpt cultures positive or pseudomonas. He is admitted for the treatment of R 1st digit osteomyelitis. Pt is neurovascularly intact. Continue cefepime. CRP trended, BMP/CBC daily. Wound care consulted. Continue chronic home medications including eliquis. Will likely require PICC for several weeks of antipseudomonal abx. PG Care Time/CCT Total # of Minutes Spent Total Time Spent with Patient: Total time spent is greater than 50% in coordination of care (as documented) at patient's floor/unit and/or counseling patient: Coding Level of Care Code INT OBSERVATION CARE 70M LVL 3 Diagnoses Osteomyelitis of great toe of right foot M86.9 Pulmonary embolism I26.99 Acute cor pulmonale presence: unspecified Chronicity: acute Pulmonary embolism type: unspecified ICD (implantable cardioverter-defibrillator) in place Z95.810 On amiodarone therapy Z79.899 Cardiomyopathy I42.9 Cardiomyopathy type: unspecified CAD (coronary artery disease) I25.10 Associated angina: without angina Coronary Disease-Associated Artery/Lesion type: [place] artery [place] vs. 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 transplanted heart: [place] heart Qualified Code(s): I25.10 - Atherosclerotic heart disease of [place] coronary artery without angina pectoris (3) Pulmonary embolism Acute cor pulmonale presence: unspecified Chronicity: acute Pulmonary embolism type: unspecified Qualified Code(s): I26.99 - Other pulmonary embolism without acute cor pulmonale (4) Hypertension Hypertension type: essential hypertension Qualified Code(s): I10 - Essential (primary) hypertension (5) Cardiomyopathy Cardiomyopathy type: unspecified Qualified Code(s): I42.9 - Cardiomyopathy, unspecified
[2020-12-03] MEDS ORDERED: GLUCOSE 10 TABS/TUBE PO PRN (16:18)
[2020-12-03] MEDS ORDERED: GLUCOSE 40% GEL 15 GM TUBE PO PRN (16:18)
[2020-12-03] MEDS ORDERED: CARBOHYDRATES FOR HYPOGLYCEMIA PO PRN (16:18)
[2020-12-03] MEDS ORDERED: DEXTROSE 50% 50 ML SYRINGE IV PRN (16:18)
[2020-12-03] MEDS ORDERED: ACETAMINOPHEN 325 MG TAB PO PRN (16:18)
[2020-12-03] MEDS ORDERED: GLUCAGON FOR INJ 1 MG VIAL SQ PRN (16:18)
[2020-12-03] MEDS ORDERED: NITROGLYCERIN SL 0.4 MG/TAB TAB SL PRN (16:18)
[2020-12-03] MEDS: METOPROLOL SUCC 50MG EXT REL TAB PO SCH (16:59)
[2020-12-03] MEDS: INSULIN ASPART 100 UNITS/ML 3 ML PEN SC SCH ×2 (17:18→20:24)
--- NOTE | 2020-12-03 18:11 | Electrocardiogram Report ---
Test Reason : Blood Pressure : / mmHG Vent. Rate : 060 BPM Atrial Rate : 060 BPM P-R Int : 216 ms QRS Dur : 162 ms QT Int : 572 ms P-R-T Axes : 000 261 068 degrees QTc Int : 572 ms AV dual-paced rhythm with prolonged AV conduction Abnormal ECG When compared with ECG of 04-NOV-2020 00:57, Vent. rate has decreased BY 13 BPM Confirmed by Saud hO ([id number]) on 12/03/2020 6:10:59 PM Referred By: REFERRED SELF Confirmed By:Benji Oh
[2020-12-03] MEDS: DONEPEZIL HCL 10 MG TAB PO SCH (20:23)
[2020-12-03] MEDS: APIXABAN 5 MG TABLET PO SCH (20:23)
[2020-12-03] MEDS: CEFEPIME 2,000 MG in SYRINGE 0 ML IV SCH (23:10)
[2020-12-04 07:31] LABS: Basophils # (auto) 0.03 K/uL (0-0.2); Basophils % (auto) 0.5 %; Eosinophils # (auto) 0.28 K/uL (0-0.5); Eosinophils % (auto) 4.2 %; Hematocrit (blood only) 33.3 % (42-52); Hemoglobin 10.6 g/dL (14.0-18.0); Immature Granulocytes # (auto) 0.01 K/uL (0.00-0.02); Immature Granulocytes % (auto) 0.2 %; Lymphocytes # (auto) 1.59 K/uL (1.2-3.4); Lymphocytes % (auto) 23.9 %; Mean Corpuscular Hemoglobin 30.1 pg (25-34); Mean Corpuscular Hgb Conc 31.8 g/dL (32-36); Mean Corpuscular Volume 94.6 fL (80-100); Mean Platelet Volume 9.5 fL (7.4-10.4); Monocytes # (auto) 0.73 K/uL (0.11-0.59); Neutrophils % (auto) 60.2 %; Platelet Count 182 K/uL (130-400); RDW Coefficient of Variation 17.4 % (11.5-14.5); RDW Standard Deviation 59.2 fL (36.4-46.3); Red Blood Count 3.52 M/uL (4.7-6.1); White Blood Count 6.64 K/uL (4.8-10.8)
[2020-12-04 08:09] LABS: BUN Creatinine Ratio 15.7 (10-20); Calcium 8.3 mg/dl (8.5-10.1); Creatinine Clr Calc Pharmacy 44.6 ml/min; Est GFR (African American) 57.1 ml/min; Est GFR (Non-African American) 49.2 ml/min; Magnesium 1.8 mg/dl (1.8-2.4); Potassium 3.7 mmol/L (3.5-5.1)
[2020-12-04 08:19] LABS: C Reactive Protein 1.66 mg/dl (0-0.29); Thyroid Stimulating Hormone 0.556 uIu/ml (0.300-4.500)
[2020-12-04] MEDS: ATORVASTATIN 40 MG TAB PO SCH (08:32)
[2020-12-04] MEDS: PANTOprazole 40 MG TAB PO SCH (08:33)
[2020-12-04] MEDS: NEPHROCAPS PO SCH (08:33)
[2020-12-04] MEDS: APIXABAN 5 MG TABLET PO SCH ×2 (08:33→20:46)
[2020-12-04] MEDS: ISOSORBIDE MONO EXTENDED REL 60 MG TABCR PO SCH (08:33)
[2020-12-04] MEDS: METOPROLOL SUCC 50MG EXT REL TAB PO SCH ×2 (08:33→20:46)
[2020-12-04] MEDS: AMIODARONE 200 MG TAB PO SCH (08:33)
[2020-12-04] MEDS: ASPIRIN 81 MG ECTAB PO SCH (08:33)
[2020-12-04] MEDS: INSULIN ASPART 100 UNITS/ML 3 ML PEN SC SCH ×4 (11:10→20:43)
[2020-12-04] MEDS: CEFEPIME 2,000 MG in SYRINGE 0 ML IV SCH ×2 (13:59→23:28)
[2020-12-04] MEDS ORDERED: OPTIRAY 320 100ml IV ONE (14:19)
--- NOTE | 2020-12-04 14:58 | CT Scan Report ---
CT foot RT w con CT DOSE: 147.23 mGy.cm CLINICAL HISTORY: right big toe osteomyelitis TECHNIQUE: A dose lowering technique was utilized adhering to the principles of ALARA. COMPARISON STUDY: None. FINDINGS: Questionable lucency within distal aspect of the third proximal phalanx is seen, visualized on latera l view only (300/43) might represent prominent nutrient channel or nondisplaced fracture. No other ar eas of fracture or dislocation seen. Small ossified fragment is seen at the lateral aspect of the third tarsometatarsal joint which might represent sequela from prior fracture. Degenerative changes at the tarsometatarsal region are seen. Mild osseous irregularity of the right big toe shows periarticular osteophytes, mild sclerosis and bonds bchondral cysts which usually seen in degenerative process. Minimal osseous fragment is seen at the t ip of the distal first phalanx, however no lytic lesions with ill-defined borders visualized to sugge st osteomyelitis. Diffuse soft tissue edema is seen surrounding the first digit also associated with overlying soft tissue irregularity. No evidence of soft tissue gas collection is seen. IMPRESSION: 1. No definite findings suggestive of osteomyelitis is seen however soft tissue edema and irregulari ty might be seen in cellulitis and developing osteomyelitis. No soft tissue gas collection is seen. If there is clinical suspicion for osteomyelitis, further evaluation with contrast-enhanced MRI of t he foot might be considered. 2. Questionable lucency within distal aspect of the third proximal phalanx might represent nondispla mallika fracture or prominent nutrient channel. 3. Multifocal degenerative changes as detailed above. ACT 112: Negative or not required by law. The above report was generated using voice recognition software. It may contain grammatical, syntax o r spelling errors. Electronically signed by: Emerita Ba DO 12/04/2020 2:56 PM
--- NOTE | 2020-12-04 15:43 | Ultrasound Report ---
ULTRASOUND US arterial duplex LE BI CLINICAL HISTORY: brisk pulses with h/o shower emboli osteomyelitis. Prior history of abdominal aorti c aneurysm repair. COMPARISON STUDY: June 29, 2019 FINDINGS: Real-time as well as Doppler evaluation of the arterial structures of the lower legs was performed. There are extensive calcified plaques are seen throughout arteries of bilateral lower extremity with triphasic waveform within proximal aspect of the right lower extremity and distal aspect of the right lower extremity and within left lower extremity.. Peak systolic velocities are not elevated. Redemonstration of right popliteal artery occlusion and patent bypass graft extending from distal fem oral artery to the [place]-popliteal junction which shows no evidence of stenosis. The following blood pressure indices were obtained. On the right, posterior tibial is 174 mmHg and d orsalis pedis is 177mmHg. On the left, posterior tibial is 187 mmHg and dorsalis pedis is 157mmHg. IMPRESSION: 1. 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 Right lower extremity bypass graft is patent with no evidence of in-stent stenosis. 2. Atherosclerotic involvement of bilateral lower extremity arteries. 3. No evidence of focal occlusion or significant stenosis on the left.. Electronically signed by: Emerita Ba DO 12/04/2020 3:42 PM
--- NOTE | 2020-12-04 16:47 | Hospitalist Progress Note ---
Date of Service December 04, 2020 Assessment & Plan (1) Osteomyelitis of great toe of right foot: Plan: Admit for IV Cefepime for Pseudomonas coverage - Xray on 11/30 highly suggestive of osteomyelitis - Unable to get MRI with AICD --> CT performed today (results shown above) - Localized to distal phalanx - Patient has good sensation and movement of toe - Consider PICC line for prolonged therapy, blood culture results pending --> will consult PICC line team tomorrow - Follow biomarkers - ID consult ordered - Following with wound care (2) Pulmonary embolism: Plan: History of since August 2020- continue Eliquis 5 mg BID - CRCL 43.8 - bilateral LE arterial US Doppler performed today (results shown above; right LE bypass graft patent) (3) ICD (implantable cardioverter-defibrillator) in place: Plan: As above- settings AAIR/DDDR - Cardioversion in September with Cardiology (4) On amiodarone therapy: Plan: As above for Afib - AST/ALT normal - TSH WNL (5) Cardiomyopathy: Plan: No acute needs, no evidence of failure - Continue Metoprolol 50mg BID - Continue isosorbide 60mg Q24 - Continue atorvastatin 80 mg daily - Continue aspirin 81 (6) CAD (coronary artery disease): Plan: As above- no acute needs (7) Hypertension: Plan: As above- hydralazine was discontinued in September secondary to hypotension, may need adjusted for goal <130 - follow while in house and with infectious pathology (8) Hyperlipidemia: Plan: As above (9) CKD (chronic kidney disease), stage III: Plan: As above- stable- follow daily BMP with Cefepime and volume status (10) Diabetes mellitus, controlled: Plan: Not on therapy as outaptient - will place on loose sliding scale at this time with infection - Carb consistent diet - CF 30 no carb coverage at this time - Goal <180 (11) Severe obstructive sleep apnea: Plan: CPAP 11 - continue as needed (12) History of abdominal aortic aneurysm: Plan: Repaired in July- Imaging in October obtained- Patient was transferred to [facility]- which was deemed not to be an anastomotic leak Admission and Anticipated Discharge Date Admission Date: December 03, 2020 Supervising Physician Co-Signing Physician Notes Patient seen and examined independently of PGY-1 Dr. Cancino. Agree with history, exam findings, assessment and plan of care as outlined. In brief, Mr. Gracia is an 80 year old male with hx of ischemic ulcer of the right great toe, afib, cardiomyopathy, CKD and prior shower emboli admitted with concerns for osteomyelitis of the right great toe. Today, he is feeling well. Denies pain in the toe. He is concerned about the length of time he has been in the hospital. Vital signs and nursing notes reviewed. Afebrile overnight. Non-toxic. Well appearing. No acute distress. Right foot, cold with a barely palpable dorsalis pedis pulse; however dorsalis pedis pulse was heard with the Doppler. Right great toe is dressed by wound care about an hour prior. Reviewed photos in the chart taken by wound care. Labs and imaging reviewed. 1. Osteomyelitis of the right great toe. Bone is exposed and in combination with poor blood flow, concern for true osteomyelitis. CT without definitive findings of osteomyelitis but consistent with cellulitis and possible developing osteomyelitis. No soft tissue gas collection. We are not able to do an MRI due to ICD. Outpatient culture growing Pseudomonas. Elevated CRP and ESR. Blood cultures without growth x 24 hours. Will follow. Appreciate infectious disease recommendations for length of IV antibiotics and possibility of switching to oral antibiotics at some point. Continue cefepime. 2. Hx of PE. Continue home eliquis. 3. Hx of shower emboli resulting in bypass and ischemic ulcer. Arterial dopplers obtained today showing patent bypass graft. 4. CKD. Stable. Dispo: pending clinical improvement. Subjective No acute concerns. Patient is in no pain. Denies LE swelling and SOB. Review of Systems Review of Systems: All systems reviewed & are unremarkable except as noted in HPI & below Physical Exam Physical Exam: PHYSICAL EXAM: General: awake, alert, no apparent distress Head: Normocephalic, atraumatic ENT: PERRL, EOMI, no pharyngeal exudate, mucous membranes moist Neuro: AAO x 3, speech clear and appropriate, strength intact bilaterally 5/5, sensation intact and equal all extremities and dermatomes Chest: equal rise and fall of the chest, no accessory muscle use, no heaves or thrills, Clear to auscultation, on room air, Cardiac: Regular rate and rhythm, telemetry reviewed, skin warm dry, cap refill <3 seconds, peripheral pulses +2 no JVD, Grade II systolic murmur, no edema GI: NABS x 4 quadrants, soft, nontender to palpation, no rebound, guarding or tenderness : Spontaneously voiding, no pain, no CVA tenderness Extremities: (+) ulcer right great toe, no surrounding erythema or extension cephalad, no drainage, heel ulcer nearly completely healed, Normal inspection, no peripheral edema or erythema, calfs nontender to palpation Psych: Normal mood and affect Skin: no rash or erythema Results & Data Results & Data ([facility]) Vital Signs (Past 12 Hours) Vital Signs Temp Pulse Pulse Resp BP Pulse Ox 12/04/20 15:48 36.3 C L 66 16 167/83 H 96 12/04/20 08:46 36.9 C 60 18 179/86 H 94 Diagnostic Findings Laboratory Results WBC 6.64 K/uL (4.8-10.8) 12/04/20 06:45 RBC 3.52 M/uL (4.7-6.1) L 12/04/20 06:45 Hgb 10.6 g/dL (14.0-18.0) L 12/04/20 06:45 Hct 33.3 % (42-52) L 12/04/20 06:45 MCV 94.6 fL (80-100) 12/04/20 06:45 MCH 30.1 pg (25-34) 12/04/20 06:45 MCHC 31.8 g/dL (32-36) L 12/04/20 06:45 RDW Std Deviation 59.2 fL (36.4-46.3) H 12/04/20 06:45 RDW Coeff of Phillip 17.4 % (11.5-14.5) H 12/04/20 06:45 Plt Count 182 K/uL (130-400) 12/04/20 06:45 MPV 9.5 fL (7.4-10.4) 12/04/20 06:45 Immature Gran % (Auto) 0.2 % 12/04/20 06:45 Neut % (Auto) 60.2 % 12/04/20 06:45 Lymph % (Auto) 23.9 % 12/04/20 06:45 [place] % (Auto) 11.0 % 12/04/20 06:45 Eos % (Auto) 4.2 % 12/04/20 06:45 Baso % (Auto) 0.5 % 12/04/20 06:45 Neut # (Auto) 4.00 K/uL (1.4-6.5) 12/04/20 06:45 Lymph # (Auto) 1.59 K/uL (1.2-3.4) 12/04/20 06:45 [place] # (Auto) 0.73 K/uL (0.11-0.59) H 12/04/20 06:45 Eos # (Auto) 0.28 K/uL (0-0.5) 12/04/20 06:45 Baso # (Auto) 0.03 K/uL (0-0.2) 12/04/20 06:45 Immature Gran # (Auto) 0.01 K/uL (0.00-0.02) 12/04/20 06:45 ESR 74 mm/hr (0-20) H 12/04/20 06:45 Sodium 138 mmol/L (136-145) 12/04/20 06:45 Potassium 3.7 mmol/L (3.5-5.1) 12/04/20 06:45 Chloride 107 mmol/L (98-107) 12/04/20 06:45 Carbon Dioxide 29 mmol/L (21-32) 12/04/20 06:45 Anion Gap 2.0 (3-11) L 12/04/20 06:45 BUN 21 mg/dl (7-18) H 12/04/20 06:45 Creatinine 1.35 mg/dl (0.6-1.4) 12/04/20 06:45 Est Cr Clr Drug Dosing 44.6 ml/min 12/04/20 06:45 Est GFR ( Amer) 57.1 ml/min 12/04/20 06:45 Est GFR (Non-Af Amer) 49.2 ml/min 12/04/20 06:45 BUN/Creatinine Ratio 15.7 (10-20) 12/04/20 06:45 Glucose 87 mg/dl (70-99) 12/04/20 06:45 POC Glucose 88 mg/dl (70-99) 12/04/20 12:29 Lactate 0.9 mmol/L (0.4-2.0) 12/03/20 11:33 Calcium 8.3 mg/dl (8.5-10.1) L 12/04/20 06:45 Phosphorus 3.0 mg/dl (2.5-4.9) 12/03/20 11:34 Magnesium 1.8 mg/dl (1.8-2.4) 12/04/20 06:45 Total Bilirubin 0.4 mg/dl (0.2-1) 12/03/20 11:34 AST 31 U/L (15-37) 12/03/20 11:34 ALT 26 U/L (12-78) 12/03/20 11:34 Alkaline Phosphatase 80 U/L (45-117) 12/03/20 11:34 C-Reactive Protein 1.66 mg/dl (0-0.29) H 12/04/20 06:45 Total Protein 6.8 gm/dl (6.4-8.2) 12/03/20 11:34 Albumin 2.6 gm/dl (3.4-5.0) L 12/03/20 11:34 Globulin 4.2 gm/dl (2.5-4.0) H 12/03/20 11:34 Albumin/Globulin Ratio 0.6 (0.9-2) L 12/03/20 11:34 TSH 0.556 uIu/ml (0.300-4.500) 12/04/20 06:45 COVID-19 Eval Order Covid19 at [facility] 12/03/20 11:55 SARS-CoV-2 (PCR) NEGATIVE (Negative) 12/03/20 11:[address] 12/04/20 13:23 CT foot RT w con CT DOSE: 147.23 mGy.cm CLINICAL HISTORY: right big toe osteomyelitis TECHNIQUE: A dose lowering technique was utilized adhering to the principles of ALARA. COMPARISON STUDY: None. FINDINGS: Questionable lucency within distal aspect of the third proximal phalanx is seen, visualized on lateral view only (300/43) might represent prominent nutrient channel or nondisplaced fracture. No other areas of fracture or dislocation seen. Small ossified fragment is seen at the lateral aspect of the third tarsometatarsal joint which might represent sequela from prior fracture. Degenerative changes at the tarsometatarsal region are seen. Mild osseous irregularity of the right big toe shows periarticular osteophytes, mild sclerosis and subchondral cysts which usually seen in degenerative process. Minimal osseous fragment is seen at the tip of the distal first phalanx, however no lytic lesions with ill-defined borders visualized to suggest osteomyelitis. Diffuse soft tissue edema is seen surrounding the first digit also associated with overlying soft tissue irregularity. No evidence of soft tissue gas collection is seen. IMPRESSION: 1. No definite findings suggestive of osteomyelitis is seen however soft tissue edema and irregularity might be seen in cellulitis and developing osteomyelitis. No soft tissue gas collection is seen. If there is clinical suspicion for osteomyelitis, further evaluation with contrast-enhanced MRI of the foot might be considered. 2. Questionable lucency within distal aspect of the third proximal phalanx might represent nondisplaced fracture or prominent nutrient channel. 3. Multifocal degenerative changes as detailed above. ACT 112: Negative or not required by law. The above report was generated using voice recognition software. It may contain grammatical, syntax or spelling errors. Electronically signed by: Emerita Ba DO 12/04/2020 2:56 PM Duplex Scan Lower Extremity Artery 12/04/20 15:00 ULTRASOUND US arterial duplex LE BI CLINICAL HISTORY: brisk pulses with h/o shower emboli osteomyelitis. Prior history of abdominal aortic aneurysm repair. COMPARISON STUDY: June 29, 2019 FINDINGS: Real-time as well as Doppler evaluation of the arterial structures of the lower legs was performed. There are extensive calcified plaques are seen throughout arteries of bilateral lower extremity with triphasic waveform within proximal aspect of the right lower extremity and distal aspect of the right lower extremity and within left lower extremity.. Peak systolic velocities are not elevated. Redemonstration of right popliteal artery occlusion and patent bypass graft extending from distal femoral artery to the POLYETHYLENE [employer]ER-popliteal junction which shows no evidence of stenosis. The following blood pressure indices were obtained. On the right, posterior tibial is 174 mmHg and dorsalis pedis is 177mmHg. On the left, posterior tibial is 187 mmHg and dorsalis pedis is 157mmHg. IMPRESSION: 1. 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 Right lower extremity bypass graft is patent with no evidence of in-stent stenosis. 2. Atherosclerotic involvement of bilateral lower extremity arteries. 3. No evidence of focal occlusion or significant stenosis on the left.. Electronically signed by: Emerita Ba DO 12/04/2020 3:42 PM Resident Activity Tracking Resident Involvement: Resident Care Provided Care Provided: Adult Hospital Medicine (1) Diabetes mellitus, controlled Diabetes mellitus complication status: without complication Diabetes mellitus detention insulin use: without long wall shear operator use Diabetes mellitus type: type 2 Qualified Code(s): E11.9 - Type 2 diabetes mellitus without complications (2) CAD (coronary artery disease) Associated angina: without angina Coronary Disease-Associated Artery/Lesion type: [place] artery [place] vs. transplanted heart: [place] heart Qualified Code(s): I25.10 - Atherosclerotic heart disease of [place] coronary artery without angina pectoris (3) Pulmonary embolism Acute cor pulmonale presence: unspecified Chronicity: acute Pulmonary embolism type: unspecified Qualified Code(s): I26.99 - Other pulmonary embolism without acute cor pulmonale (4) Hypertension Hypertension type: essential hypertension Qualified Code(s): I10 - Essential (primary) hypertension (5) Cardiomyopathy Cardiomyopathy type: unspecified Qualified Code(s): I42.9 - Cardiomyopathy, unspecified
[2020-12-04] MEDS: DONEPEZIL HCL 10 MG TAB PO SCH (20:46)
[2020-12-05] MEDS: METOPROLOL SUCC 50MG EXT REL TAB PO SCH ×2 (07:57→19:31)
[2020-12-05] MEDS: NEPHROCAPS PO SCH (07:57)
[2020-12-05] MEDS: ATORVASTATIN 40 MG TAB PO SCH (07:57)
[2020-12-05] MEDS: PANTOprazole 40 MG TAB PO SCH (07:57)
[2020-12-05] MEDS: ASPIRIN 81 MG ECTAB PO SCH (07:57)
[2020-12-05] MEDS: ISOSORBIDE MONO EXTENDED REL 60 MG TABCR PO SCH (07:57)
[2020-12-05] MEDS: APIXABAN 5 MG TABLET PO SCH ×2 (07:58→19:31)
[2020-12-05] MEDS: AMIODARONE 200 MG TAB PO SCH (07:58)
[2020-12-05] MEDS: INSULIN ASPART 100 UNITS/ML 3 ML PEN SC SCH ×4 (08:02→20:44)
[2020-12-05 08:27] LABS: Basophils # (auto) 0.03 K/uL (0-0.2); Basophils % (auto) 0.5 %; Eosinophils # (auto) 0.32 K/uL (0-0.5); Eosinophils % (auto) 5.2 %; Hematocrit (blood only) 32.7 % (42-52); Hemoglobin 10.4 g/dL (14.0-18.0); Lymphocytes # (auto) 1.32 K/uL (1.2-3.4); Lymphocytes % (auto) 21.5 %; Mean Corpuscular Hemoglobin 29.6 pg (25-34); Mean Corpuscular Hgb Conc 31.8 g/dL (32-36); Mean Corpuscular Volume 93.2 fL (80-100); Mean Platelet Volume 9.6 fL (7.4-10.4); Monocytes # (auto) 0.68 K/uL (0.11-0.59); Monocytes % (auto) 11.1 %; Neutrophils # (auto) 3.79 K/uL (1.4-6.5); Neutrophils % (auto) 61.7 %; Platelet Count 160 K/uL (130-400); RDW Coefficient of Variation 17.2 % (11.5-14.5); RDW Standard Deviation 58.4 fL (36.4-46.3); Red Blood Count 3.51 M/uL (4.7-6.1); White Blood Count 6.14 K/uL (4.8-10.8)
[2020-12-05 09:00] LABS: BUN Creatinine Ratio 17.7 (10-20); C Reactive Protein 1.67 mg/dl (0-0.29); Calcium 8.3 mg/dl (8.5-10.1); Creatinine Clr Calc Pharmacy 48.6 ml/min; Est GFR (African American) 63.2 ml/min; Est GFR (Non-African American) 54.6 ml/min; Magnesium 1.5 mg/dl (1.8-2.4); Potassium 3.7 mmol/L (3.5-5.1)
[2020-12-05] MEDS: MAGNESIUM SULFATE / D5W 1 GM/100 ML BAG IV SCH ×4 (10:14→17:40)
[2020-12-05] MEDS: CEFEPIME 2,000 MG in SYRINGE 0 ML IV SCH (13:44)
--- NOTE | 2020-12-05 15:13 | XRay Report ---
SINGLE VIEW CHEST CLINICAL HISTORY: PICC placement. FINDINGS: An AP, portable, upright chest radiograph is compared to chest x-ray and chest CT dated 10/25. The examination is degraded by portable technique and apical lordotic positioning. A right PI CC line has been placed. The tip extends superiorly into the jugular vein. A 2-lead cardiac AICD is u nchanged in position. The heart is enlarged noting atherosclerotic calcification of the thoracic aort a. The pulmonary vasculature is noncongested. Chronic interstitial thickening is similar to previous. Scarring/atelectasis is noted at the lung bases. No airspace consolidation or large pleural effusion is identified. Calcified pleural plaques are again noted. No pneumothorax is seen. The skeletal stru ctures are osteopenic. The bony thorax is grossly intact. IMPRESSION: 1. A right PICC line has been placed. The tip extends superiorly into the jugular vein and reposition ing is indicated. 2. Cardiomegaly and AICD. There is no radiographic evidence of congestive failure. 3. No airspace consolidation or large pleural effusion is identified. ACT 112: Negative or not required by law. Electronically signed by: Neto Han M.D. 12/05/2020 3:12 PM
--- NOTE | 2020-12-05 15:36 | Discharge Summary ---
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 Following AAA and aorto-iliac bypass patient had shower emboli resulting in development of right great toe ischemic ulcer. He has been following with the wound care clinic for this and getting it debrided in the office. On - the patient had concerns for developing cellulitis with new bone exposure. A wound culture was obtained at that time with Plain film of the right great toe and was started on Doxycycline. He was notified today of X- ray concerning for development of Osteomyelitis with note of interval development of an erosion of the distal tuft of the distal phalanx; this was new since his X-ray in October 2020. His wound culture was also noted to have continual growth of Pseudomonas since September, which was being treated with topical gentamicin ointment. His right heal ulcer was being treated with Aquacel AG and is well healed with very small scab area. Patient will be admitted for IV antibiotics and clinical following of his infection. The patient denies any fevers, chills, or changes to the sensation of his foot or function. For his afib- he remains on Amiodarone, with recent cardioversion in September, currently AV paced- he does at times have underlying SR with 1st degree AV block. He had an ECHO in 06/18/20 with EF 55-60%akinesis of the basal to mid inferior wall with severe hypokinesis of the inferolateral wall. Hypertrophy of the anterior septum. His Pacer/AICD is AAIR/DDR 60-120 BPM. Stress test completed on 06/29/20 no Lexiscan induced chest pain with scintigraphic evidence of prior proximal and mid inferior wall ME, and NO stress induced myocardial Ischemia. Follows with Dr. Bolanos for Nephrology- IJ temporary dialysis line removed in September with stabilizing of SPANISH INTERPRETER/TRANSLATOR at 2.1. His HR and BP remain well controlled. He remains on Eliquis following DVT/PE in August 2020. Admission Exam Per Admitting Provider General: awake, alert, no apparent distress Head: Normocephalic, atraumatic ENT: PERRL, EOMI, no pharyngeal exudate, mucous membranes moist Neuro: AAO x 3, speech clear and appropriate, strength intact bilaterally 5/5, sensation intact and equal all extremities and dermatomes, no pronator drift Chest: equal rise and fall of the chest, no accessory muscle use, no heaves or thrills, Clear to auscultation, on room air, Cardiac: Regular rate and rhythm, telemetry reviewed, skin warm dry, cap refill <3 seconds, peripheral pulses +2 no JVD, Grade II systolic murmur, no edema GI: NABS x 4 quadrants, soft, nontender to palpation, no rebound, guarding or tenderness : Spontaneously voiding, no pain, no CVA tenderness, Extremities: (+) ulcer right great toe, no surrounding erythema or extension cephalad, no drainage, heel ulcer nearly completely healed, Normal inspection, no peripheral edema or erythema, calfs nontender to palpation Psych: Normal mood and affect Skin: no rash or erythema Principal Diagnosis Osteomyelitis Right Big Toe Discharge Exam General: awake, alert, no apparent distress Head: Normocephalic, atraumatic ENT: PERRL, EOMI, no pharyngeal exudate, mucous membranes moist Neuro: AAO x 3, speech clear and appropriate, strength intact bilaterally 5/5, sensation intact and equal all extremities and dermatomes Chest: equal rise and fall of the chest, no accessory muscle use, no heaves or thrills, Clear to auscultation, on room air, Cardiac: Regular rate and rhythm, telemetry reviewed, skin warm dry, peripheral pulses +2 no JVD, Grade II systolic murmur, no edema GI: normal active bowel sounds 4 quadrants, soft, nontender to palpation, no rebound, guarding or tenderness : Spontaneously voiding, no CVA tenderness Extremities: (+) ulcer right great toe, no surrounding erythema or extension cephalad, no drainage, heel ulcer nearly completely healed, Normal inspection, no peripheral edema or erythema, calfs nontender to palpation Psych: Normal mood and affect Discharge Data Allergies Allergy/AdvReac Type Severity Reaction Status Date / Time No Known Allergies Allergy Verified 11/29/20 15:04 Consultations 12/03/20 13:21 ED Decision to Admit Stat 12/04/20 15:52 Consult Infectious Diseases Routine Ordered Studies Laboratory Results WBC 6.14 K/uL (4.8-10.8) 12/05/20 07:57 RBC 3.51 M/uL (4.7-6.1) L 12/05/20 07:57 Hgb 10.4 g/dL (14.0-18.0) L 12/05/20 07:57 Hct 32.7 % (42-52) L 12/05/20 07:57 MCV 93.2 fL (80-100) 12/05/20 07:57 MCH 29.6 pg (25-34) 12/05/20 07:57 MCHC 31.8 g/dL (32-36) L 12/05/20 07:57 RDW Std Deviation 58.4 fL (36.4-46.3) H 12/05/20 07:57 RDW Coeff of Phillip 17.2 % (11.5-14.5) H 12/05/20 07:57 Plt Count 160 K/uL (130-400) 12/05/20 07:57 MPV 9.6 fL (7.4-10.4) 12/05/20 07:57 Immature Gran % (Auto) 0.0 % 12/05/20 07:57 Neut % (Auto) 61.7 % 12/05/20 07:57 Lymph % (Auto) 21.5 % 12/05/20 07:57 Scott % (Auto) 11.1 % 12/05/20 07:57 Eos % (Auto) 5.2 % 12/05/20 07:57 Baso % (Auto) 0.5 % 12/05/20 07:57 Neut # (Auto) 3.79 K/uL (1.4-6.5) 12/05/20 07:57 Lymph # (Auto) 1.32 K/uL (1.2-3.4) 12/05/20 07:57 Scott # (Auto) 0.68 K/uL (0.11-0.59) H 12/05/20 07:57 Eos # (Auto) 0.32 K/uL (0-0.5) 12/05/20 07:57 Baso # (Auto) 0.03 K/uL (0-0.2) 12/05/20 07:57 Immature Gran # (Auto) 0.00 K/uL (0.00-0.02) 12/05/20 07:57 ESR 50 mm/hr (0-20) H 12/05/20 07:57 Sodium 139 mmol/L (136-145) 12/05/20 07:57 Potassium 3.7 mmol/L (3.5-5.1) 12/05/20 07:57 Chloride 106 mmol/L (98-107) 12/05/20 07:57 Carbon Dioxide 28 mmol/L (21-32) 12/05/20 07:57 Anion Gap 5.0 (3-11) 12/05/20 07:57 BUN 22 mg/dl (7-18) H 12/05/20 07:57 Creatinine 1.24 mg/dl (0.6-1.4) 12/05/20 07:57 Est Cr Clr Drug Dosing 48.6 ml/min 12/05/20 07:57 Est GFR ( Amer) 63.2 ml/min 12/05/20 07:57 Est GFR (Non-Af Amer) 54.6 ml/min 12/05/20 07:57 BUN/Creatinine Ratio 17.7 (10-20) 12/05/20 07:57 Glucose 87 mg/dl (70-99) 12/05/20 07:57 POC Glucose 131 mg/dl (70-99) H 12/05/20 12:08 Lactate 0.9 mmol/L (0.4-2.0) 12/03/20 11:33 Calcium 8.3 mg/dl (8.5-10.1) L 12/05/20 07:57 Phosphorus 3.0 mg/dl (2.5-4.9) 12/03/20 11:34 Magnesium 1.5 mg/dl (1.8-2.4) L 12/05/20 07:57 Total Bilirubin 0.4 mg/dl (0.2-1) 12/03/20 11:34 AST 31 U/L (15-37) 12/03/20 11:34 ALT 26 U/L (12-78) 12/03/20 11:34 Alkaline Phosphatase 80 U/L (45-117) 12/03/20 11:34 C-Reactive Protein 1.67 mg/dl (0-0.29) H 12/05/20 07:57 Total Protein 6.8 gm/dl (6.4-8.2) 12/03/20 11:34 Albumin 2.6 gm/dl (3.4-5.0) L 12/03/20 11:34 Globulin 4.2 gm/dl (2.5-4.0) H 12/03/20 11:34 Albumin/Globulin Ratio 0.6 (0.9-2) L 12/03/20 11:34 TSH 0.556 uIu/ml (0.300-4.500) 12/04/20 06:45 COVID-19 Eval Order Covid19 at [facility] 12/03/20 11:55 SARS-CoV-2 (PCR) NEGATIVE (Negative) 12/03/20 11:[address] 12/04/20 13:23 CT foot RT w con CT DOSE: 147.23 mGy.cm CLINICAL HISTORY: right big toe osteomyelitis TECHNIQUE: A dose lowering technique was utilized adhering to the principles of ALARA. COMPARISON STUDY: None. FINDINGS: Questionable lucency within distal aspect of the third proximal phalanx is seen, visualized on lateral view only (300/43) might represent prominent nutrient channel or nondisplaced fracture. No other areas of fracture or dislocation seen. Small ossified fragment is seen at the lateral aspect of the third tarsometatarsal joint which might represent sequela from prior fracture. Degenerative changes at the tarsometatarsal region are seen. Mild osseous irregularity of the right big toe shows periarticular osteophytes, mild sclerosis and subchondral cysts which usually seen in degenerative process. Minimal osseous fragment is seen at the tip of the distal first phalanx, however no lytic lesions with ill-defined borders visualized to suggest osteomyelitis. Diffuse soft tissue edema is seen surrounding the first digit also associated with overlying soft tissue irregularity. No evidence of soft tissue gas collection is seen. IMPRESSION: 1. No definite findings suggestive of osteomyelitis is seen however soft tissue edema and irregularity might be seen in cellulitis and developing osteomyelitis. No soft tissue gas collection is seen. If there is clinical suspicion for osteomyelitis, further evaluation with contrast-enhanced MRI of the foot might be considered. 2. Questionable lucency within distal aspect of the third proximal phalanx might represent nondisplaced fracture or prominent nutrient channel. 3. Multifocal degenerative changes as detailed above. ACT 112: Negative or not required by law. The above report was generated using voice recognition software. It may contain grammatical, syntax or spelling errors. Electronically signed by: Emerita Ba DO 12/04/2020 2:56 PM Duplex Scan Lower Extremity Artery 12/04/20 15:00 ULTRASOUND US arterial duplex LE BI CLINICAL HISTORY: brisk pulses with h/o shower emboli osteomyelitis. Prior history of abdominal aortic aneurysm repair. COMPARISON STUDY: June 29, 2019 FINDINGS: Real-time as well as Doppler evaluation of the arterial structures of the lower legs was performed. There are extensive calcified plaques are seen throughout arteries of bilateral lower extremity with triphasic waveform within proximal aspect of the right lower extremity and distal aspect of the right lower extremity and within left lower extremity.. Peak systolic velocities are not elevated. Redemonstration of right popliteal artery occlusion and patent bypass graft extending from distal femoral artery to the MEAT SUPERVISOR-popliteal junction which shows no evidence of stenosis. The following blood pressure indices were obtained. On the right, posterior tibial is 174 mmHg and dorsalis pedis is 177mmHg. On the left, posterior tibial is 187 mmHg and dorsalis pedis is 157mmHg. IMPRESSION: 1. 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 Right lower extremity bypass graft is patent with no evidence of in-stent stenosis. 2. Atherosclerotic involvement of bilateral lower extremity arteries. 3. No evidence of focal occlusion or significant stenosis on the left.. Electronically signed by: Emerita Ba DO 12/04/2020 3:42 PM Chest X-Ray 12/05/20 14:50 SINGLE VIEW CHEST CLINICAL HISTORY: PICC placement. FINDINGS: An AP, portable, upright chest radiograph is compared to chest x-ray and chest CT dated 11/04/2020. The examination is degraded by portable technique and apical lordotic positioning. A right PICC line has been placed. The tip extends superiorly into the jugular vein. A 2-lead cardiac AICD is unchanged in position. The heart is enlarged noting atherosclerotic calcification of the thoracic aorta. The pulmonary vasculature is noncongested. Chronic interstitial thickening is similar to previous. Scarring/atelectasis is noted at the lung bases. No airspace consolidation or large pleural effusion is identified. Calcified pleural plaques are again noted. No pneumothorax is seen. The skeletal structures are osteopenic. The bony thorax is grossly intact. IMPRESSION: 1. A right PICC line has been placed. The tip extends superiorly into the jugular vein and repositioning is indicated. 2. Cardiomegaly and AICD. There is no radiographic evidence of congestive failure. 3. No airspace consolidation or large pleural effusion is identified. ACT 112: Negative or not required by law. Electronically signed by: Neto Han M.D. 12/05/2020 3:12 PM Hospital Course (1) Osteomyelitis of great toe of right foot: Admitted for IV Cefepime for Pseudomonas coverage - Xray on 11/30 highly suggestive of osteomyelitis localized to distal phalanx right foot --> wound care referred him to ED and was admitted for IV abx - Unable to get MRI with AICD --> CT performed; results showed no definitive osteomyelitis but soft tissue edema and irregularity suggesting developing osteomyelitis - Blood cultures negative --> PICC line inserted - ID consulted to decide which antibiotic and for how long it should it be used. - Wound care consulted during visit; wrapped toe --> patient will follow up with wound care as an outpatient for debridement and monitoring of wound (2) Pulmonary embolism: History of in August 2020 - bilateral LE arterial US Doppler performed --> results showed right LE bypass graft patent, persistent occlusion of right popliteal artery - continue Eliquis 5 mg BID at home Total Time Total Time Spent Total Time Spent (In Minutes): 45 Discharge Plan Discharge Items Patient Disposition: Home - Self-Care Reason For Visit: OSTEOPMEYELITIS Discharge Diagnosis: Osteomyelitis of Right Big Toe Activity: Per Instructions section Non-emergency contact: Primary Care Provider and Specialist Call non-emergency contact if: you have any medication questions, your symptoms worsen, you have a fever and your wound has increased drainage Follow-up/Referrals: Mike Dunham MD [Primary Care Provider] - Diet: Carb Consistent or DM2 Addtl Attending Provider Instructions: You were admitted to the hospital for administration of IV antibiotics for the infection in your right big toe. It has been determined you will need prolonged IV antibiotic therapy in attempts to rid the infection. -Fortunately, we inserted a PICC line into your arm which will allow the administration of antibiotics to be possible at home. We will Pending Studies at Discharge: No Stand-Alone Forms: My [facility] [employer] and [place] Order Prescriptions: No Action doxycycline hyclate 100 mg tablet 100 mg PO bid 14 Days Qty: 28 RF: 0 (DME) lancets [Accu-Chek Softclix Lancets] Misc See Rx Instructions .ROUTE .MEDSUPPLY Qty: 100 RF: 5 (DME) Accu-Chek SmartView Test Strip Strip See Rx Instructions .ROUTE .MEDSUPPLY Qty: 300 RF: 5 amiodarone 200 mg tablet 200 mg PO 5XWK Qty: 150 RF: 3 isosorbide mononitrate 60 mg tablet extended release 24 hr 60 mg PO QAM Qty: 90 RF: 3 Eliquis 5 mg tablet 5 mg PO BID Qty: 180 RF: 3 atorvastatin 80 mg tablet 80 mg PO QAM Qty: 90 RF: 3 donepezil 10 mg tablet 10 mg PO HS Qty: 90 RF: 3 lansoprazole 30 mg capsule,delayed release(DR/EC) 30 mg PO QAM Qty: 90 RF: 3 metoprolol succinate 50 mg tablet extended release 24 hr 50 mg PO BID Qty: 180 RF: 2 aspirin 81 mg tablet,delayed release (DR/EC) 81 mg PO DAILY Qty: 90 RF: 3 nitroglycerin 0.4 mg tablet, sublingual 0.4 mg Sublingual UD PRN (Reason: Angina) Qty: 30 RF: 0 (DME) CPAP Machine Misc See Dose Instructions .ROUTE .MEDSUPPLY Qty: 1 RF: 0 nystatin [Nystop] 100,000 unit/gram powder 1 applic topical BID PRN (Reason: Skin Irritation) RF: 0 Dane Caps 1 mg capsule 1 cap PO DAILY RF: 0 acetaminophen [Tylenol] 325 mg Tablet 650 mg PO Q4H PRN (Reason: Pain (Scale Score 1-3)) RF: 0 Admission Data Admit Date/Time: 12/03/20 12:59 Attending Provider: Caroline Ellison Admit Provider: Saul Zuñiga Primary Care Provider: Mike Dunham Other Providers: Gian Navarrete ; Christiano Abraham ; Montrell Vázquez ; Vivek Celis I. ; Matt Santos II ; Vernell Gonzalez ; Talat Bolanos
--- NOTE | 2020-12-05 16:14 | XRay Report ---
XR chest 1V portable HISTORY: 80 years-old Male right PICC tip placement status post placement of a left subclavian pacer COMPARISON: Chest radiograph of same day at 3:03 PM TECHNIQUE: Semierect AP view the chest FINDINGS: Cardiac silhouette is enlarged. Left subclavian pacer/AICD. Calcified plaque of the thoracic aorta. N o pneumothorax, pleural effusion, airspace consolidation or overt pulmonary edema. Degenerative mancilla es of the shoulders and spine. A right-sided PICC repositioned with distal tip folded upon itself wit hin the distribution of the right subclavian vein. IMPRESSION: 1. Repositioned PICC is folded upon itself with distal tip in the expected location of the right subc lavian vein. 2. Cardiomegaly with AICD. ACT 112: Negative or not required by law. The above report was generated using voice recognition software. It may contain grammatical, syntax o r spelling errors. Electronically signed by: Andrey Ibarra M.D. 12/05/2020 4:13 PM
--- NOTE | 2020-12-05 17:31 | Hospitalist Progress Note ---
Date of Service December 05, 2020 Assessment & Plan (1) Osteomyelitis of great toe of right foot: Plan: (1) Osteomyelitis of great toe of right foot: Admit for IV Cefepime for Pseudomonas coverage - Xray on 11/30 highly suggestive of osteomyelitis - Unable to get MRI with AICD --> CT performed yesterday --> results showed tissue edema and irregularity suggesting possible osteomyelitis - Localized to distal phalanx - ID consult ordered; unable to see patient today due to patient undergoing PICC line procedure; will see tomorrow - PICC line insertion was unsuccessful --> they will try again after ID consult who will decide which abx and length of IV treatment - Following with wound care; recommended getting toe brachial index but radiology said it was difficult to do with dressing on; procedure deferred for now - Discharge expected tomorrow (2) Pulmonary embolism: History of since August 2020- continue Eliquis 5 mg BID - CRCL 43.8 - bilateral LE arterial US Doppler performed yesterday (results shown above; right LE bypass graft patent, persistent right popliteal artery occlusion) (3) ICD (implantable cardioverter-defibrillator) in place: As above- settings AAIR/DDDR - Cardioversion in September with Cardiology (4) On amiodarone therapy: As above for Afib - AST/ALT normal - TSH WNL (5) Cardiomyopathy: No acute needs, no evidence of failure - Continue Metoprolol 50mg BID - Continue isosorbide 60mg Q24 - Continue atorvastatin 80 mg daily - Continue aspirin 81 (6) CAD (coronary artery disease): As above- no acute needs (7) Hypertension: As above- hydralazine was discontinued in September secondary to hypotension, may need adjusted for goal <130 - follow while in house and with infectious pathology (8) Hyperlipidemia: As above (9) CKD (chronic kidney disease), stage III: As above- stable- follow daily BMP with Cefepime and volume status (10) Diabetes mellitus, controlled: Not on therapy as outaptient - will place on loose sliding scale at this time with infection - Carb consistent diet - CF 30 no carb coverage at this time - Goal <180 (11) Severe obstructive sleep apnea: CPAP 11 - continue as needed (12) History of abdominal aortic aneurysm: Repaired in July- Imaging in October obtained- Patient was transferred to [facility]- which was deemed not to be an anastomotic leak Admission and Anticipated Discharge Date Admission Date: December 03, 2020 Supervising Physician Co-Signing Physician Notes Patient seen and examined with PGY-1 Dr. Cancino. Agree with history, exam findings, assessment and plan of care as outlined. In brief, Mr. Gracia is an 80 year old male with hx of ischemic ulcer of the right great toe, afib, cardiomyopathy, CKD and prior shower emboli admitted with concerns for osteomyelitis of the right great toe. Today, he is feeling well. Denies pain in the toe. Vital signs and nursing notes reviewed. Afebrile overnight. Non-toxic. Well appearing. No acute distress. Right foot, cold with a barely palpable dorsalis pedis pulse; however dorsalis pedis pulse was heard with the Doppler. Great toe wound without drainage. Yellow crust covering the bone. Labs and imaging reviewed. 1. Osteomyelitis of the right great toe. Bone is exposed and in combination with poor blood flow, concern for true osteomyelitis. CT without definitive findings of osteomyelitis but consistent with cellulitis and possible developing osteomyelitis. No soft tissue gas collection. We are not able to do an MRI due to ICD. Outpatient culture growing Pseudomonas. Elevated CRP and ESR tending down. Blood cultures without growth x 48 hours. Will follow. Appreciate infectious disease recommendations for length of IV antibiotics (Determine whether he needs a PICC vs mid-line) and possibility of switching to oral antibiotics at some point. Continue cefepime for now. 2. Hx of PE. Continue home eliquis. 3. Hx of shower emboli resulting in bypass and ischemic ulcer. Arterial dopplers obtained today showing patent bypass graft. 4. CKD. Stable. Dispo: pending clinical improvement. Subjective No acute complaints today. Patient denies any pain or leg swelling. Review of Systems Review of Systems: All systems reviewed & are unremarkable except as noted in HPI & below Physical Exam Physical Exam: General: awake, alert, no apparent distress Head: Normocephalic, atraumatic ENT: PERRL, EOMI, no pharyngeal exudate, mucous membranes moist Neuro: AAO x 3, speech clear and appropriate, strength intact bilaterally 5/5, sensation intact and equal all extremities and dermatomes Chest: equal rise and fall of the chest, no accessory muscle use, no heaves or thrills, Clear to auscultation, on room air, Cardiac: Regular rate and rhythm, telemetry reviewed, skin warm dry, cap refill <3 seconds, peripheral pulses +2 no JVD, Grade II systolic murmur, no edema GI: NABS x 4 quadrants, soft, nontender to palpation, no rebound, guarding or tenderness : Spontaneously voiding, no pain, no CVA tenderness Extremities: (+) ulcer right great toe, no surrounding erythema or extension cephalad, no drainage, heel ulcer nearly completely healed, Normal inspection, no peripheral edema or erythema, calfs nontender to palpation Psych: Normal mood and affect Results & Data Results & Data ([facility]) Vital Signs (Past 12 Hours) Vital Signs Temp Pulse Resp BP Pulse Ox 12/05/20 08:45 145/86 H 12/05/20 08:00 36.7 C 61 16 174/88 H 93 Diagnostic Findings Laboratory Results WBC 6.14 K/uL (4.8-10.8) 12/05/20 07:57 RBC 3.51 M/uL (4.7-6.1) L 12/05/20 07:57 Hgb 10.4 g/dL (14.0-18.0) L 12/05/20 07:57 Hct 32.7 % (42-52) L 12/05/20 07:57 MCV 93.2 fL (80-100) 12/05/20 07:57 MCH 29.6 pg (25-34) 12/05/20 07:57 MCHC 31.8 g/dL (32-36) L 12/05/20 07:57 RDW Std Deviation 58.4 fL (36.4-46.3) H 12/05/20 07:57 RDW Coeff of Phillip 17.2 % (11.5-14.5) H 12/05/20 07:57 Plt Count 160 K/uL (130-400) 12/05/20 07:57 MPV 9.6 fL (7.4-10.4) 12/05/20 07:57 Immature Gran % (Auto) 0.0 % 12/05/20 07:57 Neut % (Auto) 61.7 % 12/05/20 07:57 Lymph % (Auto) 21.5 % 12/05/20 07:57 [place] % (Auto) 11.1 % 12/05/20 07:57 Eos % (Auto) 5.2 % 12/05/20 07:57 Baso % (Auto) 0.5 % 12/05/20 07:57 Neut # (Auto) 3.79 K/uL (1.4-6.5) 12/05/20 07:57 Lymph # (Auto) 1.32 K/uL (1.2-3.4) 12/05/20 07:57 [place] # (Auto) 0.68 K/uL (0.11-0.59) H 12/05/20 07:57 Eos # (Auto) 0.32 K/uL (0-0.5) 12/05/20 07:57 Baso # (Auto) 0.03 K/uL (0-0.2) 12/05/20 07:57 Immature Gran # (Auto) 0.00 K/uL (0.00-0.02) 12/05/20 07:57 ESR 50 mm/hr (0-20) H 12/05/20 07:57 Sodium 139 mmol/L (136-145) 12/05/20 07:57 Potassium 3.7 mmol/L (3.5-5.1) 12/05/20 07:57 Chloride 106 mmol/L (98-107) 12/05/20 07:57 Carbon Dioxide 28 mmol/L (21-32) 12/05/20 07:57 Anion Gap 5.0 (3-11) 12/05/20 07:57 BUN 22 mg/dl (7-18) H 12/05/20 07:57 Creatinine 1.24 mg/dl (0.6-1.4) 12/05/20 07:57 Est Cr Clr Drug Dosing 48.6 ml/min 12/05/20 07:57 Est GFR ( Amer) 63.2 ml/min 12/05/20 07:57 Est GFR (Non-Af Amer) 54.6 ml/min 12/05/20 07:57 BUN/Creatinine Ratio 17.7 (10-20) 12/05/20 07:57 Glucose 87 mg/dl (70-99) 12/05/20 07:57 POC Glucose 131 mg/dl (70-99) H 12/05/20 12:08 Lactate 0.9 mmol/L (0.4-2.0) 12/03/20 11:33 Calcium 8.3 mg/dl (8.5-10.1) L 12/05/20 07:57 Phosphorus 3.0 mg/dl (2.5-4.9) 12/03/20 11:34 Magnesium 1.5 mg/dl (1.8-2.4) L 12/05/20 07:57 Total Bilirubin 0.4 mg/dl (0.2-1) 12/03/20 11:34 AST 31 U/L (15-37) 12/03/20 11:34 ALT 26 U/L (12-78) 12/03/20 11:34 Alkaline Phosphatase 80 U/L (45-117) 12/03/20 11:34 C-Reactive Protein 1.67 mg/dl (0-0.29) H 12/05/20 07:57 Total Protein 6.8 gm/dl (6.4-8.2) 12/03/20 11:34 Albumin 2.6 gm/dl (3.4-5.0) L 12/03/20 11:34 Globulin 4.2 gm/dl (2.5-4.0) H 12/03/20 11:34 Albumin/Globulin Ratio 0.6 (0.9-2) L 12/03/20 11:34 TSH 0.556 uIu/ml (0.300-4.500) 12/04/20 06:45 COVID-19 Eval Order Covid19 at [facility] 12/03/20 11:55 SARS-CoV-2 (PCR) NEGATIVE (Negative) 12/03/20 11:[address] 12/04/20 13:23 CT foot RT w con CT DOSE: 147.23 mGy.cm CLINICAL HISTORY: right big toe osteomyelitis TECHNIQUE: A dose lowering technique was utilized adhering to the principles of ALARA. COMPARISON STUDY: None. FINDINGS: Questionable lucency within distal aspect of the third proximal phalanx is seen, visualized on lateral view only (300/43) might represent prominent nutrient channel or nondisplaced fracture. No other areas of fracture or dislocation seen. Small ossified fragment is seen at the lateral aspect of the third tarsometatarsal joint which might represent sequela from prior fracture. Degenerative changes at the tarsometatarsal region are seen. Mild osseous irregularity of the right big toe shows periarticular osteophytes, mild sclerosis and subchondral cysts which usually seen in degenerative process. Minimal osseous fragment is seen at the tip of the distal first phalanx, however no lytic lesions with ill-defined borders visualized to suggest osteomyelitis. Diffuse soft tissue edema is seen surrounding the first digit also associated with overlying soft tissue irregularity. No evidence of soft tissue gas collection is seen. IMPRESSION: 1. No definite findings suggestive of osteomyelitis is seen however soft tissue edema and irregularity might be seen in cellulitis and developing osteomyelitis. No soft tissue gas collection is seen. If there is clinical suspicion for osteomyelitis, further evaluation with contrast-enhanced MRI of the foot might be considered. 2. Questionable lucency within distal aspect of the third proximal phalanx might represent nondisplaced fracture or prominent nutrient channel. 3. Multifocal degenerative changes as detailed above. ACT 112: Negative or not required by law. The above report was generated using voice recognition software. It may contain grammatical, syntax or spelling errors. Electronically signed by: Emerita Ba DO 12/04/2020 2:56 PM Duplex Scan Lower Extremity Artery 12/04/20 15:00 ULTRASOUND US arterial duplex LE BI CLINICAL HISTORY: brisk pulses with h/o shower emboli osteomyelitis. Prior history of abdominal aortic aneurysm repair. COMPARISON STUDY: June 29, 2019 FINDINGS: Real-time as well as Doppler evaluation of the arterial structures of the lower legs was performed. There are extensive calcified plaques are seen throughout arteries of bilateral lower extremity with triphasic waveform within proximal aspect of the right lower extremity and distal aspect of the right lower extremity and within left l ower extremity.. Peak systolic velocities are not elevated. Redemonstration of right popliteal artery occlusion and patent bypass graft extending from distal femoral artery to the [employer]-popliteal junction which shows no evidence of stenosis. The following blood pressure indices were obtained. On the right, posterior tibial is 174 mmHg and dorsalis pedis is 177mmHg. On the left, posterior tibial is 187 mmHg and dorsalis pedis is 157mmHg. IMPRESSION: 1. 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 Right lower extremity bypass graft is patent with no evidence of in-stent stenosis. 2. Atherosclerotic involvement of bilateral lower extremity arteries. 3. No evidence of focal occlusion or significant stenosis on the left.. Electronically signed by: Emerita Ba DO 12/04/2020 3:42 PM Chest X-Ray 12/05/20 15:52 XR chest 1V portable HISTORY: 80 years-old Male right PICC tip placement status post placement of a left subclavian pacer COMPARISON: Chest radiograph of same day at 3:03 PM TECHNIQUE: Semierect AP view the chest FINDINGS: Cardiac silhouette is enlarged. Left subclavian pacer/AICD. Calcified plaque of the thoracic aorta. No pneumothorax, pleural effusion, airspace consolidation or overt pulmonary edema. Degenerative changes of the shoulders and spine. A right- sided PICC repositioned with distal tip folded upon itself within the distribution of the right subclavian vein. IMPRESSION: 1. Repositioned PICC is folded upon itself with distal tip in the expected location of the right subclavian vein. 2. Cardiomegaly with AICD. ACT 112: Negative or not required by law. The above report was generated using voice recognition software. It may contain grammatical, syntax or spelling errors. Electronically signed by: Andrey Ibarra M.D. 12/05/2020 4:13 PM Resident Activity Tracking Resident Involvement: Resident Care Provided Care Provided: Adult Hospital Medicine
[2020-12-05] MEDS: DONEPEZIL HCL 10 MG TAB PO SCH (19:31)
[2020-12-06] MEDS: CEFEPIME 2,000 MG in SYRINGE 0 ML IV SCH ×2 (00:40→13:07)
[2020-12-06] MEDS: PANTOprazole 40 MG TAB PO SCH (08:21)
[2020-12-06] MEDS: NEPHROCAPS PO SCH (08:21)
[2020-12-06] MEDS: ISOSORBIDE MONO EXTENDED REL 60 MG TABCR PO SCH (08:21)
[2020-12-06] MEDS: ATORVASTATIN 40 MG TAB PO SCH (08:21)
[2020-12-06] MEDS: APIXABAN 5 MG TABLET PO SCH ×2 (08:22→20:28)
[2020-12-06] MEDS: ASPIRIN 81 MG ECTAB PO SCH (08:22)
[2020-12-06] MEDS: AMIODARONE 200 MG TAB PO SCH (08:22)
[2020-12-06] MEDS: METOPROLOL SUCC 50MG EXT REL TAB PO SCH ×2 (08:22→20:28)
[2020-12-06 09:13] LABS: Basophils # (auto) 0.03 K/uL (0-0.2); Basophils % (auto) 0.5 %; Eosinophils # (auto) 0.33 K/uL (0-0.5); Eosinophils % (auto) 5.6 %; Hematocrit (blood only) 35.2 % (42-52); Hemoglobin 11.2 g/dL (14.0-18.0); Immature Granulocytes # (auto) 0.01 K/uL (0.00-0.02); Immature Granulocytes % (auto) 0.2 %; Lymphocytes # (auto) 1.49 K/uL (1.2-3.4); Lymphocytes % (auto) 25.1 %; Mean Corpuscular Hemoglobin 29.8 pg (25-34); Mean Corpuscular Hgb Conc 31.8 g/dL (32-36); Mean Corpuscular Volume 93.6 fL (80-100); Mean Platelet Volume 9.7 fL (7.4-10.4); Monocytes # (auto) 0.58 K/uL (0.11-0.59); Monocytes % (auto) 9.8 %; Neutrophils # (auto) 3.49 K/uL (1.4-6.5); Neutrophils % (auto) 58.8 %; Platelet Count 171 K/uL (130-400); RDW Coefficient of Variation 17.2 % (11.5-14.5); RDW Standard Deviation 59.1 fL (36.4-46.3); Red Blood Count 3.76 M/uL (4.7-6.1); White Blood Count 5.93 K/uL (4.8-10.8)
[2020-12-06] MEDS: INSULIN ASPART 100 UNITS/ML 3 ML PEN SC SCH ×4 (09:45→20:34)
[2020-12-06 09:52] LABS: BUN Creatinine Ratio 16.9 (10-20); Calcium 8.5 mg/dl (8.5-10.1); Creatinine Clr Calc Pharmacy 43.6 ml/min; Est GFR (African American) 55.6 ml/min; Est GFR (Non-African American) 47.9 ml/min; Magnesium 2.3 mg/dl (1.8-2.4); Potassium 4.2 mmol/L (3.5-5.1)
--- NOTE | 2020-12-06 17:19 | Hospitalist Progress Note ---
Date of Service December 06, 2020 Assessment & Plan (1) Osteomyelitis of great toe of right foot: Plan: (1) Osteomyelitis of great toe of right foot: Admit for IV Cefepime for Pseudomonas coverage - Xray on 11/30 highly suggestive of osteomyelitis - Unable to get MRI with AICD --> CT performed --> results showed tissue edema and irregularity suggesting possible osteomyelitis - Localized to distal phalanx - PICC line insertion was unsuccessful yesterday --> to try again after ID consult which was today --> ID decided 6 weeks of IV abx, recommends either Cipro as long as patient does not have QT prolongation OR cefepime (which he is on right now); will most likely go with IV Cefepime - US guided PICC line insertion tomorrow; case management will be contacted in the morning about discharge and home IV set up via home health - Following with wound care; recommended getting toe brachial index but radiology said it was difficult to do with dressing on; procedure deferred for now (2) Pulmonary embolism: History of since August 2020- continue Eliquis 5 mg BID - CRCL 43.8 - bilateral LE arterial US Doppler performed (results shown above; right LE bypass graft patent, persistent right popliteal artery occlusion) (3) ICD (implantable cardioverter-defibrillator) in place: As above- settings AAIR/DDDR - Cardioversion in September with Cardiology (4) On amiodarone therapy: As above for Afib - AST/ALT normal - TSH WNL (5) Cardiomyopathy: No acute needs, no evidence of failure - Continue Metoprolol 50mg BID - Continue isosorbide 60mg Q24 - Continue atorvastatin 80 mg daily - Continue aspirin 81 (6) CAD (coronary artery disease): As above- no acute needs (7) Hypertension: As above- hydralazine was discontinued in September secondary to hypotension, may need adjusted for goal <130 - follow while in house and with infectious pathology (8) Hyperlipidemia: As above (9) CKD (chronic kidney disease), stage III: As above- stable- follow daily BMP with Cefepime and volume status (10) Diabetes mellitus, controlled: Not on therapy as outaptient - will place on loose sliding scale at this time with infection - Carb consistent diet - CF 30 no carb coverage at this time - Goal <180 (11) Severe obstructive sleep apnea: CPAP 11 - continue as needed (12) History of abdominal aortic aneurysm: Repaired in July- Imaging in October- Patient was transferred to [facility]- which was deemed not to be an anastomotic leak Admission and Anticipated Discharge Date Admission Date: December 03, 2020 Subjective No acute complaints today. Patient denies any pain or leg swelling. Review of Systems Review of Systems: All systems reviewed & are unremarkable except as noted in HPI & below Physical Exam Physical Exam: General: awake, alert, no apparent distress Head: Normocephalic, atraumatic ENT: PERRL, EOMI, no pharyngeal exudate, mucous membranes moist Neuro: AAO x 3, speech clear and appropriate, strength intact bilaterally 5/5, sensation intact and equal all extremities and dermatomes Chest: equal rise and fall of the chest, no accessory muscle use, no heaves or thrills, Clear to auscultation, on room air, Cardiac: Regular rate and rhythm, telemetry reviewed, skin warm dry, cap refill <3 seconds, peripheral pulses +2 no JVD, Grade II systolic murmur, no edema GI: NABS x 4 quadrants, soft, nontender to palpation, no rebound, guarding or tenderness : Spontaneously voiding, no pain, no CVA tenderness Extremities: (+) ulcer right great toe, no surrounding erythema or extension cephalad, no drainage, heel ulcer nearly completely healed, Normal inspection, no peripheral edema or erythema, calfs nontender to palpation Psych: Normal mood and affect Results & Data Results & Data ([facility]) Vital Signs (Past 12 Hours) Vital Signs Temp Pulse Resp BP Pulse Ox 12/06/20 15:32 36.5 C 56 L 16 174/84 H 93 12/06/20 07:15 36.5 C 64 16 173/85 H 94 Diagnostic Findings Laboratory Results WBC 5.93 K/uL (4.8-10.8) 12/06/20 08:43 RBC 3.76 M/uL (4.7-6.1) L 12/06/20 08:43 Hgb 11.2 g/dL (14.0-18.0) L 12/06/20 08:43 Hct 35.2 % (42-52) L 12/06/20 08:43 MCV 93.6 fL (80-100) 12/06/20 08:43 MCH 29.8 pg (25-34) 12/06/20 08:43 MCHC 31.8 g/dL (32-36) L 12/06/20 08:43 RDW Std Deviation 59.1 fL (36.4-46.3) H 12/06/20 08:43 RDW Coeff of Phillip 17.2 % (11.5-14.5) H 12/06/20 08:43 Plt Count 171 K/uL (130-400) 12/06/20 08:43 MPV 9.7 fL (7.4-10.4) 12/06/20 08:43 Immature Gran % (Auto) 0.2 % 12/06/20 08:43 Neut % (Auto) 58.8 % 12/06/20 08:43 Lymph % (Auto) 25.1 % 12/06/20 08:43 [place] % (Auto) 9.8 % 12/06/20 08:43 Eos % (Auto) 5.6 % 12/06/20 08:43 Baso % (Auto) 0.5 % 12/06/20 08:43 Neut # (Auto) 3.49 K/uL (1.4-6.5) 12/06/20 08:43 Lymph # (Auto) 1.49 K/uL (1.2-3.4) 12/06/20 08:43 [place] # (Auto) 0.58 K/uL (0.11-0.59) 12/06/20 08:43 Eos # (Auto) 0.33 K/uL (0-0.5) 12/06/20 08:43 Baso # (Auto) 0.03 K/uL (0-0.2) 12/06/20 08:43 Immature Gran # (Auto) 0.01 K/uL (0.00-0.02) 12/06/20 08:43 ESR 50 mm/hr (0-20) H 12/05/20 07:57 Sodium 137 mmol/L (136-145) 12/06/20 08:43 Potassium 4.2 mmol/L (3.5-5.1) 12/06/20 08:43 Chloride 105 mmol/L (98-107) 12/06/20 08:43 Carbon Dioxide 28 mmol/L (21-32) 12/06/20 08:43 Anion Gap 5.0 (3-11) 12/06/20 08:43 BUN 23 mg/dl (7-18) H 12/06/20 08:43 Creatinine 1.38 mg/dl (0.6-1.4) 12/06/20 08:43 Est Cr Clr Drug Dosing 43.6 ml/min 12/06/20 08:43 Est GFR ( Amer) 55.6 ml/min 12/06/20 08:43 Est GFR (Non-Af Amer) 47.9 ml/min 12/06/20 08:43 BUN/Creatinine Ratio 16.9 (10-20) 12/06/20 08:43 Glucose 85 mg/dl (70-99) 12/06/20 08:43 POC Glucose 99 mg/dl (70-99) 12/06/20 17:09 Lactate 0.9 mmol/L (0.4-2.0) 12/03/20 11:33 Calcium 8.5 mg/dl (8.5-10.1) 12/06/20 08:43 Phosphorus 3.0 mg/dl (2.5-4.9) 12/03/20 11:34 Magnesium 2.3 mg/dl (1.8-2.4) 12/06/20 08:43 Total Bilirubin 0.4 mg/dl (0.2-1) 12/03/20 11:34 AST 31 U/L (15-37) 12/03/20 11:34 ALT 26 U/L (12-78) 12/03/20 11:34 Alkaline Phosphatase 80 U/L (45-117) 12/03/20 11:34 C-Reactive Protein 1.67 mg/dl (0-0.29) H 12/05/20 07:57 Total Protein 6.8 gm/dl (6.4-8.2) 12/03/20 11:34 Albumin 2.6 gm/dl (3.4-5.0) L 12/03/20 11:34 Globulin 4.2 gm/dl (2.5-4.0) H 12/03/20 11:34 Albumin/Globulin Ratio 0.6 (0.9-2) L 12/03/20 11:34 TSH 0.556 uIu/ml (0.300-4.500) 08/10/21 06:45 COVID-19 Eval Order Covid19 at [facility] 12/03/20 11:55 SARS-CoV-2 (PCR) NEGATIVE (Negative) 12/03/20 11:[address] 12/04/20 13:23 CT foot RT w con CT DOSE: 147.23 mGy.cm CLINICAL HISTORY: right big toe osteomyelitis TECHNIQUE: A dose lowering technique was utilized adhering to the principles of ALARA. COMPARISON STUDY: None. FINDINGS: Questionable lucency within distal aspect of the third proximal phalanx is seen, visualized on lateral view only (300/43) might represent prominent nutrient channel or nondisplaced fracture. No other areas of fracture or dislocation seen. Small ossified fragment is seen at the lateral aspect of the third tarsometatarsal joint which might represent sequela from prior fracture. Degenerative changes at the tarsometatarsal region are seen. Mild osseous irregularity of the right big toe shows periarticular osteophytes, mild sclerosis and subchondral cysts which usually seen in degenerative process. Minimal osseous fragment is seen at the tip of the distal first phalanx, however no lytic lesions with ill-defined borders visualized to suggest osteomyelitis. Diffuse soft tissue edema is seen surrounding the first digit also associated with overlying soft tissue irregularity. No evidence of soft tissue gas collection is seen. IMPRESSION: 1. No definite findings suggestive of osteomyelitis is seen however soft tissue edema and irregularity might be seen in cellulitis and developing osteomyelitis. No soft tissue gas collection is seen. If there is clinical suspicion for osteomyelitis, further evaluation with contrast-enhanced MRI of the foot might be considered. 2. Questionable lucency within distal aspect of the third proximal phalanx might represent nondisplaced fracture or prominent nutrient channel. 3. Multifocal degenerative changes as detailed above. ACT 112: Negative or not required by law. The above report was generated using voice recognition software. It may contain grammatical, syntax or spelling errors. Electronically signed by: Emerita Ba DO 12/04/2020 2:56 PM Duplex Scan Lower Extremity Artery 12/04/20 15:00 ULTRASOUND US arterial duplex LE BI CLINICAL HISTORY: brisk pulses with h/o shower emboli osteomyelitis. Prior history of abdominal aortic aneurysm repair. COMPARISON STUDY: June 29, 2019 FINDINGS: Real-time as well as Doppler evaluation of the arterial structures of the lower legs was performed. There are extensive calcified plaques are seen throughout arteries of bilateral lower extremity with triphasic waveform within proximal aspect of the right lower extremity and distal aspect of the right lower extremity and within left lower extremity.. Peak systolic velocities are not elevated. Redemonstration of right popliteal artery occlusion and patent bypass graft extending from distal femoral artery to the [employer]ENT[employer]IVE-popliteal junction which shows no evidence of stenosis. The following blood pressure indices were obtained. On the right, posterior tibial is 174 mmHg and dorsalis pedis is 177mmHg. On the left, posterior tibial is 187 mmHg and dorsalis pedis is 157mmHg. IMPRESSION: 1. 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 Right lower extremity bypass graft is patent with no evidence of in-stent stenosis. 2. Atherosclerotic involvement of bilateral lower extremity arteries. 3. No evidence of focal occlusion or significant stenosis on the left.. Electronically signed by: Emerita Ba DO 12/04/2020 3:42 PM Chest X-Ray 12/05/20 15:52 XR chest 1V portable HISTORY: 80 years-old Male right PICC tip placement status post placement of a left subclavian pacer COMPARISON: Chest radiograph of same day at 3:03 PM TECHNIQUE: Semierect AP view the chest FINDINGS: Cardiac silhouette is enlarged. Left subclavian pacer/AICD. Calcified plaque of the thoracic aorta. No pneumothorax, pleural effusion, airspace consolidation or overt pulmonary edema. Degenerative changes of the shoulders and spine. A right- sided PICC repositioned with distal tip folded upon itself within the distribution of the right subclavian vein. IMPRESSION: 1. Repositioned PICC is folded upon itself with distal tip in the expected location of the right subclavian vein. 2. Cardiomegaly with AICD. ACT 112: Negative or not required by law. The above report was generated using voice recognition software. It may contain grammatical, syntax or spelling errors. Electronically signed by: Andrey Ibarra M.D. 12/05/2020 4:13 PM
[2020-12-06] MEDS: DONEPEZIL HCL 10 MG TAB PO SCH (20:28)
--- NOTE | 2020-12-06 21:24 | Communication Note ---
Date of Service: December 06, 2020 I was paged due to the patient being delirious and confused. On exam the patient is A+O to self only but is calm and resting in bed. Hemodynamically stable, afebrile, grossly neurologically intact, unremarkable exam. Labs largely unremarkable. Suspect delirium due to infection and unfamiliar environment in an elderly gentleman who has chronic dementia. Patient's nurse called the patient's to reassure her. No medication changes were made. Placed nursing communication order for re-orientation. Maintain sleep-wake cycles. Attending addendum: Concern for possible Cefepime-induced mental status changes/delirium. Dr. Strickland spoke extensively to patient's who was concerned about his medications. She reports that her was on an antibiotic in the past that caused him to become confused and needed to receive dialysis. I believe this was during an admission to [facility]. Records were reviewed by Dr. Strickland and it was noted that he had cefepime toxicity. -Antibiotic changed to Meropenem for now -Issue will be signed out to day team
[2020-12-06] MEDS ORDERED: MEROPENEM CONSULT ACITVE PRN (21:40)
--- NOTE | 2020-12-06 22:42 | Communication Note ---
Date of Service: December 06, 2020 Patient's called and informed me that the patient was in [facility] in 07/2020 and had altered mental status due to toxic levels of an unknown antibiotic; the antibiotic was stopped, he underwent temporary dialysis to decrease level of antibiotic, and his mental status improved. On examination of [facility] records, it appears that the patient became septic after an abdominal aortic aneurysm repair and was started on Vanco/Cefepime/Flagyl. On POD 7 the patient had AMS and was found to have toxic levels of Cefepime; required dialysis to clear the Cefepime and his mental status subsequently improved. In light of the above I discontinued Cefepime and changed to Meropenem 1g IV Q12H (renally dosed) which will provide Pseudomonas coverage as well.
[2020-12-06] MEDS: MEROPENEM 500 MG in SYRINGE 0 ML IV SCH (23:54)
[2020-12-07 07:45] LABS: Basophils # (auto) 0.02 K/uL (0-0.2); Basophils % (auto) 0.3 %; Eosinophils # (auto) 0.27 K/uL (0-0.5); Eosinophils % (auto) 4.4 %; Hematocrit (blood only) 32.5 % (42-52); Hemoglobin 10.5 g/dL (14.0-18.0); Lymphocytes # (auto) 1.49 K/uL (1.2-3.4); Lymphocytes % (auto) 24.1 %; Mean Corpuscular Hemoglobin 30.3 pg (25-34); Mean Corpuscular Hgb Conc 32.3 g/dL (32-36); Mean Corpuscular Volume 93.9 fL (80-100); Mean Platelet Volume 9.9 fL (7.4-10.4); Monocytes # (auto) 0.61 K/uL (0.11-0.59); Monocytes % (auto) 9.9 %; Neutrophils # (auto) 3.79 K/uL (1.4-6.5); Neutrophils % (auto) 61.3 %; Platelet Count 177 K/uL (130-400); RDW Coefficient of Variation 17.3 % (11.5-14.5); RDW Standard Deviation 59.1 fL (36.4-46.3); Red Blood Count 3.46 M/uL (4.7-6.1); White Blood Count 6.18 K/uL (4.8-10.8)
[2020-12-07 08:16] LABS: BUN Creatinine Ratio 19.2 (10-20); Calcium 8.3 mg/dl (8.5-10.1); Creatinine Clr Calc Pharmacy 39.9 ml/min; Est GFR (African American) 49.8 ml/min; Potassium 4.1 mmol/L (3.5-5.1)
[2020-12-07] MEDS: INSULIN ASPART 100 UNITS/ML 3 ML PEN SC SCH ×3 (08:24→17:32)
[2020-12-07] MEDS: METOPROLOL SUCC 50MG EXT REL TAB PO SCH (08:58)
[2020-12-07] MEDS: APIXABAN 5 MG TABLET PO SCH (08:58)
[2020-12-07] MEDS: ASPIRIN 81 MG ECTAB PO SCH (08:58)
[2020-12-07] MEDS: ATORVASTATIN 40 MG TAB PO SCH (08:58)
[2020-12-07] MEDS: ISOSORBIDE MONO EXTENDED REL 60 MG TABCR PO SCH (09:02)
[2020-12-07] MEDS: AMIODARONE 200 MG TAB PO SCH (09:02)
[2020-12-07] MEDS: NEPHROCAPS PO SCH (09:02)
[2020-12-07] MEDS: PANTOprazole 40 MG TAB PO SCH (09:02)
[2020-12-07] MEDS: MEROPENEM 500 MG in SYRINGE 0 ML IV SCH (10:14)
[2020-12-07] MEDS: amLODIPine BESYLATE 5 MG TAB PO SCH ×2 (11:31→11:46)
--- NOTE | 2020-12-07 11:54 | CT Scan Report ---
CT head/brain wo con CLINICAL HISTORY: New onset delirium COMPARISON STUDY: May 04, 2019 TECHNIQUE: Axial CT of the brain is performed from the vertex to the skull base. IV contrast was not administered for this examination. A dose lowering technique was utilized adhering to the principles of ALARA. CT DOSE: 638.56 mGycm FINDINGS: No intra or extra-axial mass lesions are visualized. There is no CT evidence of acute cortical infarc tion. There is no evidence of midline shift. There is no acute hemorrhage. No acute depressed calvar ial fractures are visualized. There are patchy white matter hypodensities likely on a small vessel basis. Minimal atrophic changes of brain parenchyma associated with slight ex vacuo dilatation of ventricles , unchanged since prior study. Redemonstration of complete opacification of the right maxillary sinus which was also seen during julissa or study. IMPRESSION: No acute intracranial hemorrhage, no midline shift or space occupying lesions. Mild atrophic changes of brain parenchyma and chronic small vessel ischemia. Sinusitis involving right maxillary sinus, unchanged since prior study. ACT 112: Negative or not required by law. The above report was generated using voice recognition software. It may contain grammatical, syntax o r spelling errors. Electronically signed by: Emerita Ba DO 12/07/2020 11:53 AM
--- NOTE | 2020-12-07 16:30 | Discharge Summary ---
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 Following AAA and aorto-iliac bypass patient had shower emboli resulting in development of right great toe ischemic ulcer. He has been following with the wound care clinic for this and getting it debrided in the office. On - the patient had concerns for developing cellulitis with new bone exposure. A wound culture was obtained at that time with Plain film of the right great toe and was started on Doxycycline. He was notified today of X- ray concerning for development of Osteomyelitis with note of interval development of an erosion of the distal tuft of the distal phalanx; this was new since his X-ray in October 2020. His wound culture was also noted to have continual growth of Pseudomonas since September, which was being treated with topical gentamicin ointment. His right heal ulcer was being treated with Aquacel AG and is well healed with very small scab area. Patient will be admitted for IV antibiotics and clinical following of his infection. The patient denies any fevers, chills, or changes to the sensation of his foot or function. For his afib- he remains on Amiodarone, with recent cardioversion in September, currently AV paced- he does at times have underlying SR with 1st degree AV block. He had an ECHO in 06/18/20 with EF 55-60%akinesis of the basal to mid inferior wall with severe hypokinesis of the inferolateral wall. Hypertrophy of the anterior septum. His Pacer/AICD is AAIR/DDR 60-120 BPM. Stress test completed on 06/29/20 no Lexiscan induced chest pain with scintigraphic evidence of prior proximal and mid inferior wall [place], and NO stress induced myocardial Ischemia. Follows with Dr. Bolanos for Nephrology- IJ temporary dialysis line removed in September with stabilizing of [place] MAORI at 2.1. His HR and BP remain well controlled. He remains on Eliquis following DVT/PE in August 2020. Admission Exam Per Admitting Provider General: awake, alert, no apparent distress Head: Normocephalic, atraumatic ENT: PERRL, EOMI, no pharyngeal exudate, mucous membranes moist Neuro: AAO x 3, speech clear and appropriate, strength intact bilaterally 5/5, sensation intact and equal all extremities and dermatomes, no pronator drift Chest: equal rise and fall of the chest, no accessory muscle use, no heaves or thrills, Clear to auscultation, on room air, Cardiac: Regular rate and rhythm, telemetry reviewed, skin warm dry, cap refill <3 seconds, peripheral pulses +2 no JVD, Grade II systolic murmur, no edema GI: NABS x 4 quadrants, soft, nontender to palpation, no rebound, guarding or tenderness : Spontaneously voiding, no pain, no CVA tenderness, Extremities: (+) ulcer right great toe, no surrounding erythema or extension cephalad, no drainage, heel ulcer nearly completely healed, Normal inspection, no peripheral edema or erythema, calfs nontender to palpation Psych: Normal mood and affect Skin: no rash or erythema Principal Diagnosis Osteomyelitis Right Big Toe Discharge Exam General: awake, alert, no apparent distress Head: Normocephalic, atraumatic ENT: PERRL, EOMI, no pharyngeal exudate, mucous membranes moist Neuro: AAO x 3, speech clear and appropriate, strength intact bilaterally 5/5, sensation intact and equal all extremities and dermatomes Chest: equal rise and fall of the chest, no accessory muscle use, no heaves or thrills, Clear to auscultation, on room air, Cardiac: Regular rate and rhythm, telemetry reviewed, skin warm dry, cap refill <3 seconds, peripheral pulses +2 no JVD, Grade II systolic murmur, no edema GI: NABS x 4 quadrants, soft, nontender to palpation, no rebound, guarding or tenderness : Spontaneously voiding, no pain, no CVA tenderness Extremities: (+) ulcer right great toe, no surrounding erythema or extension cephalad, no drainage, heel ulcer nearly completely healed, Normal inspection, no peripheral edema or erythema, calfs nontender to palpation Psych: Normal mood and affect Discharge Data Allergies Allergy/AdvReac Type Severity Reaction Status Date / Time cefepime AdvReac Severe See note Verified 12/07/20 16:14 Consultations 12/03/20 13:21 ED Decision to Admit Stat 12/04/20 15:52 Consult Infectious Diseases Routine Ordered Studies 12/04/20 13:23 CT foot RT w con Routine 12/04/20 15:00 US arterial duplex LE BI Urgent 12/07/20 10:14 CT head/brain wo con Urgent Hospital Course (1) Osteomyelitis of great toe of right foot: (1) Osteomyelitis of great toe of right foot: Admitted for IV Cefepime for Pseudomonas coverage - Xray on 11/30 highly suggestive of osteomyelitis - Unable to get MRI with AICD --> CT performed --> results showed tissue edema and irregularity suggesting possible osteomyelitis - Localized to distal phalanx - ID consulted- recommends 6 weeks of IV abx; recommends either Cipro as long as patient does not have QT prolongation OR cefepime (which he is on right now); we cannot use Cipro due to the patient being on amiodarone and donepezil increasing risk of QT prolongation; however, there was also some concern in using cefepime because back in August patient had an antibiotic (?cefepime) toxicity becoming confused/delirious during treatment s/p AAA repair secondary to decreased kidney function (Cr 4-5s), patient became confused last night but kidney function is in check (Cr 1.6) and symptoms lasted about 8 hours suspecting Delirium (age and hospital stay) > cefepime toxicity. At this point it makes more sense to continue cefepime for osteomyelitis treatment. - Midline inserted. PICC line unsuccessful 2x. - Follow up with wound care; debridement of wound necessary for successful recovery (2) Delirium -Patient became confused last night, he was not oriented to time, place, or person. We suspected this was due to delirium secondary to his age and being in the hospital for a few days. His symptoms lasted till about 11 AM this morning at which point he was alert and oriented x3 back to his baseline. There was suspicion that this may have been toxicity from cefepime because he had a similar case back in August of this year where he had to get dialysis to get the antibiotic out of his system however at that time his kidney function was heavily declined with creatinine levels being in the 4-5's. During this visit his creatinine has stayed around 1.6. Hence we will continue using cefepime in the outpatient setting since the patient cannot use Cipro due to risk of QT prolongation. (3) CKD (chronic kidney disease), stage III: -Kidney function has remained fairly stable throughout the visit. I do not see this being an issue while taking IV cefepime for a prolonged amount of time. Patient can monitor kidney levels weekly in the outpatient setting with close follow-up with their PCP. Total Time Total Time Spent Total Time Spent (In Minutes): 45 Discharge Plan Discharge Items Patient Disposition: Home - Home Health Services Reason For Visit: OSTEOPMEYELITIS Discharge Diagnosis: Osteomyelitis of Right Big Toe Activity: Per Instructions section Non-emergency contact: Primary Care Provider and Specialist Call non-emergency contact if: you have any medication questions, your symptoms worsen, you have a fever and your wound has increased drainage Follow-up/Referrals: Mike Dunham MD [Primary Care Provider] - Diet: Carb Consistent or DM2 Addtl Attending Provider Instructions: You were admitted to the hospital for administration of IV antibiotics for the infection in your right big toe. It has been determined you will need prolonged IV antibiotic therapy in attempts to rid the infection. Fortunately, we inserted a Mid line into your arm which will allow the administration of antibiotics to be possible at home. We will set you up at home with critical access hospital services who will come to your house in the morning to show you how to use the IV and administer the antibiotic. We have given you 1 dose of antibiotic before discharge which should last you through the night into the morning where you will receive another dose at home and then for the next 6 weeks. After conferring with infectious disease the best to antibiotics for us to use against this infection were Cipro and cefepime. Due to your recent interactions with possible cefepime toxicity back in August I wanted to use Cipro going forward however this antibiotic has a side effect with the heart that some of the other medications he is currently on also have. So Cipro was not an option. As for his confusion last night in the hospital I do not think it was due to cefepime toxicity but rather just delirium due to being in the hospital and his age. His kidney function today is much better than it was back in July/August and he should tolerate the medication well. To be sure you can check in with your primary care provider weekly and get kidney function tests to determine appropriate kidney function. We checked her kidney function on the way out and your creatinine though increased was only at 1.58 which I think is stable. I would follow up with your PCP as early as Thursday or Thursday in order to come up with an action plan to monitor kidney function going forward just to be safe. If you begin to feel any symptoms of confusion, pain, fever, or headache please contact a medical provider or present to the emergency room for further evaluation. As for the midline these are typically meant to stay in for about 4 weeks however you will need about 6 weeks of antibiotics. Throughout this process I urged you to look out for any signs of infection near the IV site in his right arm or any systemic symptoms such as fever and chills. Home health will discuss this more with you as you can also get more information from your primary care provider. You should also follow-up with your wound clinic early this week. Infectious disease highly recommends you get steady debridement of the wound site which will help the healing process. Wound care will discuss this more with you and come up with an action plan on how often you need to follow-up with them. They should have access to these documents and the plan we have discharged you with today. Pending Studies at Discharge: No Stand-Alone Forms: My [facility] Medications and DC Order Prescriptions: New cefepime 2 gram recon soln 2 g IV Q12H Qty: 1 RF: 0 Continued (DME) lancets [Accu-Chek Softclix Lancets] Misc See Rx Instructions .ROUTE .MEDSUPPLY Qty: 100 RF: 5 (DME) Accu-Chek SmartView Test Strip Strip See Rx Instructions .ROUTE .MEDSUPPLY Qty: 300 RF: 5 amiodarone 200 mg tablet 200 mg PO 5XWK Qty: 150 RF: 3 isosorbide mononitrate 60 mg tablet extended release 24 hr 60 mg PO QAM Qty: 90 RF: 3 Eliquis 5 mg tablet 5 mg PO BID Qty: 180 RF: 3 atorvastatin 80 mg tablet 80 mg PO QAM Qty: 90 RF: 3 donepezil 10 mg tablet 10 mg PO HS Qty: 90 RF: 3 lansoprazole 30 mg capsule,delayed release(DR/EC) 30 mg PO QAM Qty: 90 RF: 3 metoprolol succinate 50 mg tablet extended release 24 hr 50 mg PO BID Qty: 180 RF: 2 aspirin 81 mg tablet,delayed release (DR/EC) 81 mg PO DAILY Qty: 90 RF: 3 nitroglycerin 0.4 mg tablet, sublingual 0.4 mg Sublingual UD PRN (Reason: Angina) Qty: 30 RF: 0 (DME) CPAP Machine Misc See Dose Instructions .ROUTE .MEDSUPPLY Qty: 1 RF: 0 nystatin [Nystop] 100,000 unit/gram powder 1 applic topical BID PRN (Reason: Skin Irritation) RF: 0 [place] Caps 1 mg capsule 1 cap PO DAILY RF: 0 acetaminophen [Tylenol] 325 mg Tablet 650 mg PO Q4H PRN (Reason: Pain (Scale Score 1-3)) RF: 0 Discontinued doxycycline hyclate 100 mg tablet 100 mg PO bid 14 Days Qty: 28 RF: 0 Discharge Orders: Discharge Order (Routine); Ordered 12/07/20 Ordered By: Jaun Dutton/Other Patient Handouts: Osteomyelitis Dc Admission Data Admit Date/Time: 12/03/20 12:59 Attending Provider: Mike Yost Admit Provider: Saul Zuñiga Primary Care Provider: Mike Dunham Other Providers: Gian Navarrete ; Christiano Abraham ; Montrell Vázquez ; Vivek Celis I. ; Matt Santos II ; Vernell Gonzalez ; Talat Bolanos ; [facility] Other Interventions: Discharge Summary Assessment (RN) Last Done: 12/07/20 18:16 Supervising Physician Co-Signing Physician Notes Attending attestation Pt seen and examined in concert with Dr. Cancino. In agreement with the documented findings as noted in the resident documentation with any exceptions or additions as noted here. Resting comfortably in bed with well controlled pain. On examination, S1/S2 nl RRR no MCG. CTAB. Abd NT/ND BS+ve. Dressings C/D/I in place. Osteomyelietis - ID consult - 6 wks of IV cefepime, which has been tolerated well for several days in hospital without adverse effect Delirium - likely 2/2 - resolved by 10am with oriented to self, time and place. Counseling re: not likely to be impacted by cefepime or caused by same. CKDIII with mild Cr elevation to 1.58 - would bear repeating on Thursday Else see resident documentation as noted. Total attending time spent with the case on the day of discharge: 45 minutes. Resident Activity Tracking Resident Involvement: Resident Care Provided Care Provided: Adult Hospital Medicine
[2020-12-07] MEDS ORDERED: CEFEPIME 2,000 MG in SYRINGE 0 ML IV SCH (17:00)
[2020-12-07 17:36] LABS: BUN Creatinine Ratio 21.1 (10-20); Calcium 8.8 mg/dl (8.5-10.1); Creatinine Clr Calc Pharmacy 38.1 ml/min; Est GFR (African American) 47.2 ml/min; Est GFR (Non-African American) 40.7 ml/min; Potassium 4.8 mmol/L (3.5-5.1)
--- NOTE | 2020-12-11 09:42 | Hospitalist Progress Note ---
Date of Service December 06, 2020 Assessment & Plan (1) Osteomyelitis of great toe of right foot: Plan: (1) Osteomyelitis of great toe of right foot: Admit for IV Cefepime for Pseudomonas coverage - Xray on 11/30 highly suggestive of osteomyelitis - Unable to get MRI with AICD --> CT performed --> results showed tissue edema and irregularity suggesting possible osteomyelitis - Localized to distal phalanx - ID consult --> recommends 6 wks of abx, Cipro or Cefepime would work well - PICC line insertion was unsuccessful yesterday; will try again after ID consultation. - Following with wound care; recommended getting toe brachial index but radiology said it was difficult to do with dressing on; procedure deferred for now (2) Pulmonary embolism: History of since August 2020- continue Eliquis 5 mg BID - CRCL 43.8 - bilateral LE arterial US Doppler performed yesterday (results shown above; right LE bypass graft patent, persistent right popliteal artery occlusion) (3) ICD (implantable cardioverter-defibrillator) in place: As above- settings AAIR/DDDR - Cardioversion in September with Cardiology (4) On amiodarone therapy: As above for Afib - AST/ALT normal - TSH WNL (5) Cardiomyopathy: No acute needs, no evidence of failure - Continue Metoprolol 50mg BID - Continue isosorbide 60mg Q24 - Continue atorvastatin 80 mg daily - Continue aspirin 81 (6) CAD (coronary artery disease): As above- no acute needs (7) Hypertension: As above- hydralazine was discontinued in September secondary to hypotension, may need adjusted for goal <130 - follow while in house and with infectious pathology (8) Hyperlipidemia: As above (9) CKD (chronic kidney disease), stage III: As above- stable- follow daily BMP with Cefepime and volume status (10) Diabetes mellitus, controlled: Not on therapy as outpatient - will place on loose sliding scale - Carb consistent diet - CF 30 no carb coverage at this time - Goal <180 (11) Severe obstructive sleep apnea: CPAP 11 - continue as needed (12) History of abdominal aortic aneurysm: Repaired in July- Imaging in October obtained- Patient was transferred to [facility] [place]- which was deemed not to be an anastomotic leak Admission and Anticipated Discharge Date Admission Date: December 03, 2020 Supervising Physician Co-Signing Physician Notes Patient seen and examined with PGY-1 Dr. Cancino. Agree with history, exam findings, assessment and plan of care as outlined. In brief, Mr. Gracia is an 80 year old male with hx of ischemic ulcer of the right great toe, afib, cardiomyopathy, CKD and prior shower emboli admitted with concerns for osteomyelitis of the right great toe. Today, he is feeling well. Denies pain in the toe. Vital signs and nursing notes reviewed. Afebrile overnight. Non-toxic. Well appearing. No acute distress. Right foot, cold with a barely palpable dorsalis pedis pulse; however dorsalis pedis pulse was heard with the Doppler. Great toe wound without drainage. Yellow crust covering the bone. Labs and imaging reviewed. 1. Osteomyelitis of the right great toe. Bone is exposed and in combination with poor blood flow, concern for true osteomyelitis. CT without definitive findings of osteomyelitis but consistent with cellulitis and possible developing osteomyelitis. No soft tissue gas collection. We are not able to do an MRI due to ICD. Outpatient culture growing Pseudomonas. Elevated CRP and ESR tending down. Blood cultures without growth. Appreciate ID recommendations. PICC line request placed. 2. Hx of PE. Continue home eliquis. 3. Hx of shower emboli resulting in bypass and ischemic ulcer. Arterial dopplers obtained today showing patent bypass graft. 4. CKD. Stable. Dispo: pending clinical improvement. Subjective No acute complaints. Patient wants to go home. Denies fever, SOB, leg swelling/pain. Review of Systems Review of Systems: All systems reviewed & are unremarkable except as noted in HPI & below Physical Exam Physical Exam: General: awake, alert, no apparent distress Neuro: AAO x 3, speech clear and appropriate, strength intact bilaterally 5/5, sensation intact and equal all extremities and dermatomes Chest: equal rise and fall of the chest, no accessory muscle use, no heaves or thrills, Clear to auscultation, on room air, Cardiac: Regular rate and rhythm, telemetry reviewed, skin warm dry, cap refill <3 seconds, peripheral pulses +2 no JVD, Grade II systolic murmur, no edema GI: NABS x 4 quadrants, soft, nontender to palpation, no rebound, guarding or tenderness Extremities: (+) ulcer right great toe, no surrounding erythema or extension cephalad, no drainage, heel ulcer nearly completely healed, Normal inspection, no peripheral edema or erythema, calves nontender to palpation Psych: Normal mood and affect Resident Activity Tracking Resident Involvement: Resident Care Provided Care Provided: Adult Hospital Medicine
== END 2020-12-07 18:58 | disposition home health service (06) | DRG 638 ==
LOC: ED 09:08 → 3N 12:59 → SUATTDRO 12:59 → 3N 15:52

== ENCOUNTER 2021-03-21 11:14 | Inpatient (IN) ==
--- NOTE | 2021-03-21 13:51 | Emergency Department Note ---
Impression & Plan 2019 novel coronavirus-infected pneumonia (NCIP), Hypoxia ED Provider Note NAME: NILTON NYE AGE: 80 SEX: M : 1940 ARRIVES VIA: Walk-In INFORMANT: Patient, ED PROVIDER(S): Frank Cota DO CHIEF COMPLAINT: Requesting COVID-19 testing HPI: The patient is an 80-year-old male who presented to the emergency department for an evaluation of COVID-19 testing. The patient's was recently diagnosed with COVID-19. The patient himself denies having any chest pain. He denies having any difficulty breathing. He denies having any cough or fever. The patient registered at the request of his significant other for a c heckup to see if he required monoclonal antibody therapy. It was noted that the patient's oxygen saturation dropped with exertion but at rest the patient has no symptoms and oxygen saturations are not hypoxic. The patient denies having any lower extremity swelling. He denies having any abdominal pain. He states he has been compliant with his usual outpatient medications. ROS: See above HPI for pertinent positives & negatives. A total of 10 systems reviewed and were otherwise negative. PAST MEDICAL HISTORY: See Below PAST SURGICAL HISTORY: See Below FAMILY HISTORY: See Below SOCIAL HISTORY: See Below HOME MEDICATIONS: See Below ALLERGIES: See Below VITALS: See Below PHYSICAL EXAMINATION: GENERAL: Patient is awake alert in no acute distress patient is resting comfortably and showing no signs of anxiety EYES: The conjunctivae are clear. The pupils are round and reactive. EARS, NOSE, MOUTH AND THROAT: The nose is without any evidence of any deformity. NECK: The neck is nontender and supple. RESPIRATORY: Diminished breath sounds are noted in the left lung field. There is no tachypnea or conversational dyspnea. CARDIOVASCULAR: Regular rate and rhythm noted there no murmurs rubs or gallops normal S1 normal S2. GASTROINTESTINAL: The abdomen is soft. Abdomen is nontender. MUSCULOSKELETAL/EXTREMITIES: There is no evidence of gross deformity full range of motion is noted in the hips and shoulders. SKIN: Skin is warm and dry. Trace pedal edema was noted bilaterally. NEUROLOGIC: Patient is awake alert and oriented x3 MEDICAL DECISION MAKING: Patient is an 80-year-old male who presents emergency department with his significant other for an evaluation of possible Covid. The patient initially only wanted a Covid swab and a chest x-ray but he was significantly hypoxic which worsened with any ambulation. The patient ultimately agreed for a formal evaluation. I discussed the patient's laboratory and radiographic studies with him. He was Covid positive. His chest x-ray showed significant changes consistent with Covid pneumonia. Given the patient's vital signs I did discuss his case with the on-call [facility] hospitalist. The patient has been vaccinated against COVID-19 but unfortunately appears to be doing poorly. He may require further management as an inpatient. Triage Nursing notes reviewed. Prior medical records reviewed Vital Signs: reviewed and remarkable for hypoxia. Differential diagnosis: Viral syndrome, strep pharyngitis, tonsillitis, mononucleosis, retropharyngeal abscess, peritonsillar abscess, otitis media, sinusitis, bronchitis, pneumonia, as well as other pathologies. ER treatment provided: See below Diagnostics interpreted by me: ECG: EKG was obtained in the emergency department. My interpretation is atrial paced rhythm at 60 bpm. There were no [place] beats appreciated. Inferior and lateral T wave inversions were noted. This was compared to a tracing from January 06, 2021. The T wave inversions are new compared the previous tracing. Cardiac Monitoring: An order was placed for continuous cardiac monitoring. The monitor shows a rate of 60 bpm with paced rhythm. Laboratory studies: As stated above and show below. Imaging studies: See below Consultation(s): I discussed this case with Dr. Adame who is on-call for the [facility] hospitalist group. Past Med/Surg History Medical History Abdominal aortic aneurysm (AAA) x3 repaired 08/08/2020 at [place] Aneurysm of right popliteal artery 2018 CAD (coronary artery disease) s/p PCI 1995 and 2002. 2103 chest pain --> cath -- > occluded RCA --> ICD placed. 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 Sosa History of hernia repair History of lithotripsy History of prostate biopsy malignant History of prostate surgery radiation seeds implanted Orbital floor fracture Right orbital fracture April 2019 S/P AAA repair x3--last in 08/08/2020 [place] Status post cystoscopy with ureteral stent placement Status post femoral-popliteal bypass surgery 2018 in [place] Family History Mother Hypertension Cardiac disorder Father Cardiac disorder Myocardial infarction Brother Diabetes Hypertension Hyperlipidemia Obstructive sleep apnea Denies family history of Ovarian cancer Prostate cancer Coronary heart disease Breast cancer Colorectal cancer Social History Smoking Status: Never smoker Second Hand Exposure: No; Hx Alcohol Use: Yes Alcohol type: wine Hx Substance Use: No Preferred Language: Swedish Communication Ability: Effective Hearing Ability: Normal Wax Specialist Required: No Beliefs That Will Affect Care: None marital status: Current Living Situation: Spouse current occupational status: retired Feels Safe at Home: Yes Childhood Exposure to Second-Hand Smoke: No Dental Care, Regularly: Yes Physical Activity Frequency: 5-6 Times per Week Seatbelt Use: always Sunscreen Use: No Assistive Devices: Cane (rarely uses) and Walker (rarely uses) Allergies Allergies Allergy/AdvReac Type Severity Reaction Status Date / Time cefepime AdvReac Severe See note Verified 03/11/21 09:37 Home Meds Home Medications Medication Instructions Recorded Confirmed acetaminophen 325 mg tablet 650 mg PO Q4H PRN 08/30/20 03/21/21 (Tylenol) nystatin 100,000 unit/gram topical 1 applic TOPICAL BID PRN 12/03/20 03/21/21 powder (Nystop) vitamin B complex and vitamin C 1 cap PO QAM 12/03/20 03/21/21 no.20-folic acid 1 mg capsule ([place] Caps) aspirin 81 mg tablet,delayed 81 mg PO QAM 01/06/21 03/21/21 release furosemide 20 mg tablet 20 - 40 mg PO QAM 03/21/21 03/21/21 Previous Rx's Medication Instructions Recorded CPAP Machine #1 ea 02/28/19 lancets (Accu-Chek Softclix #100 ea 05/10/19 Lancets) nitroglycerin 0.4 mg sublingual 0.4 mg SUBLINGUAL UD PRN #30 tab 05/10/19 tablet amiodarone 200 mg tablet 200 mg PO 5XWK #150 tab 10/15/20 apixaban 5 mg tablet (Eliquis) 5 mg PO BID #180 tab 10/15/20 atorvastatin 80 mg tablet 80 mg PO QAM #90 tab 10/15/20 donepezil 10 mg tablet 10 mg PO HS #90 tab 10/15/20 isosorbide mononitrate 60 mg 60 mg PO QAM #90 tab 10/15/20 tablet,extended release 24 hr lansoprazole 30 mg capsule,delayed 30 mg PO QAM #90 cap 10/15/20 release blood sugar diagnostic (Accu-Chek #300 ea 01/01/21 SmartView Test Strip) carvedilol 25 mg tablet 12.5 mg PO BID #30 tab 02/11/21 Results & Data (ED) Vital Signs Vital Signs - 24 hr 03/21/21 11:54 03/21/21 12:01 03/21/21 14:03 Temperature 36.2 C L Temperature Source Temporal Artery Scan Pulse Rate 62 Pulse Rate [Apical] 61 Respiratory Rate 20 20 Respiratory Effort / Characteristics Non-Labored Spontaneous Blood Pressure 123/71 Blood Pressure [Right Arm] 136/84 Blood Pressure Mean 88 Blood Pressure Mean [Right Arm] 101 Blood Pressure Position [Right Arm] Lying Pulse Oximetry 93 91 Oxygen Delivery Method Room Air Room Air Oxygen Flow Rate Sepsis Recent Fever Within 48 Hours No Sepsis New/Unexplained Change in Mental Status N/A Sepsis Action Taken by Nursing No Action Required 03/21/21 14:11 03/21/21 14:50 Temperature Temperature Source Pulse Rate 60 Pulse Rate [Apical] Respiratory Rate 20 Respiratory Effort / Characteristics Blood Pressure Blood Pressure [Right Arm] Blood Pressure Mean Blood Pressure Mean [Right Arm] Blood Pressure Position [Right Arm] Pulse Oximetry 86 L 94 Oxygen Delivery Method Room Air Nasal Cannula Oxygen Flow Rate 1 Sepsis Recent Fever Within 48 Hours Sepsis New/Unexplained Change in Mental Status Sepsis Action Taken by Jail Medications Current Medication List: was personally reviewed by me Laboratory Data Attestation: I reviewed the patient's lab results. Result diagrams: 03/21/21 14:43 03/21/21 14:43 Lab Results 03/21/21 03/21/21 03/21/21 Range/Units 14:38 14:43 14:43 WBC 7.23 (4.8-10.8) K/uL RBC 3.48 L (4.7-6.1) M/uL Hgb 10.5 L (14.0-18.0) g/dL Hct 33.6 L (42-52) % MCV 96.6 (80-100) fL MCH 30.2 (25-34) pg MCHC 31.3 L (32-36) g/dL RDW Std Deviation 55.2 H (36.4-46.3) fL RDW Coeff of Phillip 15.8 H (11.5-14.5) % Plt Count 144 (130-400) K/uL MPV 9.8 (7.4-10.4) fL Immature Gran % (Auto) 0.1 % Neut % (Auto) 77.5 % Lymph % (Auto) 14.7 % Burnett % (Auto) 6.4 % Eos % (Auto) 1.0 % Baso % (Auto) 0.3 % Neut # (Auto) 5.61 (1.4-6.5) K/uL Lymph # (Auto) 1.06 L (1.2-3.4) K/uL Burnett # (Auto) 0.46 (0.11-0.59) K/uL Eos # (Auto) 0.07 (0-0.5) K/uL Baso # (Auto) 0.02 (0-0.2) K/uL Immature Gran # (Auto) 0.01 (0.00-0.02) K/uL PT 12.4 H (9.0-12.0) Seconds INR 1.2 H (0.9-1.1) APTT 38.2 H (21.0-31.0) Seconds PTT Ratio 1.5 VBG pH 7.37 (7.36-7.41) VBG pCO2 48 (38-50) mmHg VBG pO2 23 mmHg VBG HCO3 27 mmol/L VBG O2 Saturation < 60.0 % VBG Base Excess 1.6 mEq/L Barometric Pressure 729.7 mm/Hg Sodium (136-145) mmol/L Potassium (3.5-5.1) mmol/L Chloride (98-107) mmol/L Carbon Dioxide (21-32) mmol/L Anion Gap (3-11) BUN (7-18) mg/dl Creatinine (0.6-1.4) mg/dl Est Cr Clr Drug Dosing ml/min Est GFR ( Amer) ml/min Est GFR (Non-Af Amer) ml/min BUN/Creatinine Ratio (10-20) Glucose (70-99) mg/dl Calcium (8.5-10.1) mg/dl Total Bilirubin (0.2-1) mg/dl AST (15-37) U/L ALT (12-78) U/L Alkaline Phosphatase (45-117) U/L Troponin I (0-0.045) ng/ml Total Protein (6.4-8.2) gm/dl Albumin (3.4-5.0) gm/dl Globulin (2.5-4.0) gm/dl Albumin/Globulin Ratio (0.9-2) Lipase (73-393) U/L SARS-CoV-2, RNA, NAAT (NEGATIVE) 03/21/21 03/21/21 Range/Units 14:43 Unknown WBC (4.8-10.8) K/uL RBC (4.7-6.1) M/uL Hgb (14.0-18.0) g/dL Hct (42-52) % MCV (80-100) fL MCH (25-34) pg MCHC (32-36) g/dL RDW Std Deviation (36.4-46.3) fL RDW Coeff of Phillip (11.5-14.5) % Plt Count (130-400) K/uL MPV (7.4-10.4) fL Immature Gran % (Auto) % Neut % (Auto) % Lymph % (Auto) % Burnett % (Auto) % Eos % (Auto) % Baso % (Auto) % Neut # (Auto) (1.4-6.5) K/uL Lymph # (Auto) (1.2-3.4) K/uL Burnett # (Auto) (0.11-0.59) K/uL Eos # (Auto) (0-0.5) K/uL Baso # (Auto) (0-0.2) K/uL Immature Gran # (Auto) (0.00-0.02) K/uL PT (9.0-12.0) Seconds INR (0.9-1.1) APTT (21.0-31.0) Seconds PTT Ratio VBG pH (7.36-7.41) VBG pCO2 (38-50) mmHg VBG pO2 mmHg VBG HCO3 mmol/L VBG O2 Saturation % VBG Base Excess mEq/L Barometric Pressure mm/Hg Sodium 137 (136-145) mmol/L Potassium 4.1 (3.5-5.1) mmol/L Chloride 106 (98-107) mmol/L Carbon Dioxide 28 (21-32) mmol/L Anion Gap 3.0 (3-11) BUN 38 H (7-18) mg/dl Creatinine 1.55 H (0.6-1.4) mg/dl Est Cr Clr Drug Dosing 38.6 ml/min Est GFR ( Amer) 48.3 ml/min Est GFR (Non-Af Amer) 41.7 ml/min BUN/Creatinine Ratio 24.7 H (10-20) Glucose 99 (70-99) mg/dl Calcium 8.5 (8.5-10.1) mg/dl Total Bilirubin 0.6 (0.2-1) mg/dl AST 38 H (15-37) U/L ALT 65 (12-78) U/L Alkaline Phosphatase 70 (45-117) U/L Troponin I < 0.015 (0-0.045) ng/ml Total Protein 7.0 (6.4-8.2) gm/dl Albumin 2.4 L (3.4-5.0) gm/dl Globulin 4.6 H (2.5-4.0) gm/dl Albumin/Globulin Ratio 0.5 L (0.9-2) Lipase 126 (73-393) U/L SARS-CoV-2, RNA, NAAT POSITIVE A* (NEGATIVE) Administered Medications Discontinued Medications Dexamethasone Sodium Phosphate (DexamethasonePf 10 Mg/Ml Vial) 10 mg IV NOW ONE Stop: 03/21/21 14:13 Last Admin: 03/21/21 14:52 Dose: 10 mg Documented by: [id number] Imaging Data Radiologist's Impression: Chest X-Ray 03/21/21 13:39 XR chest 1V portable CLINICAL HISTORY: cough COMPARISON STUDY: Chest radiograph February 12, 2021. FINDINGS: Left subclavian pacer/AICD is in place. Cardiomegaly is unchanged. There is no pneumothorax or pleural effusion. There has been interval development of moderate bilateral airspace opacities. IMPRESSION: Interval development of moderate bilateral airspace opacities which favor viral pneumonia. Radiographic follow-up to ensure resolution is recommended. ACT 112: Negative or not required by law. Electronically signed by: George Pena M.D. 03/21/2021 2:06 PM Discharge Plan Visit Data Chief Complaint: Cough Stated Complaint: COUGHING/ POSITIVE FOR COVID ON 03/20/21 ED Provider: Frank Cota Discharge Problem: 2019 novel coronavirus-infected pneumonia (NCIP), Hypoxia Patient Disposition: Being Evaluated by Hospitalist Forms Stand Alone Forms: [facility] Prescriptions Prescriptions: No Action (DME) lancets [Accu-Chek Softclix Lancets] Misc See Rx Instructions .ROUTE .MEDSUPPLY Qty: 100 RF: 5 amiodarone 200 mg tablet 200 mg PO 5XWK Qty: 150 RF: 3 isosorbide mononitrate 60 mg tablet extended release 24 hr 60 mg PO QAM Qty: 90 RF: 3 Eliquis 5 mg tablet 5 mg PO BID Qty: 180 RF: 3 atorvastatin 80 mg tablet 80 mg PO QAM Qty: 90 RF: 3 donepezil 10 mg tablet 10 mg PO HS Qty: 90 RF: 3 lansoprazole 30 mg capsule,delayed release(DR/EC) 30 mg PO QAM Qty: 90 RF: 3 (DME) Accu-Chek SmartView Test Strip Strip See Rx Instructions .ROUTE .MEDSUPPLY Qty: 300 RF: 5 carvedilol 25 mg tablet 12.5 mg PO BID Qty: 30 RF: 5 nitroglycerin 0.4 mg tablet, sublingual 0.4 mg Sublingual UD PRN (Reason: Angina) Qty: 30 RF: 0 (DME) CPAP Machine Misc See Dose Instructions .ROUTE .MEDSUPPLY Qty: 1 RF: 0 nystatin [Nystop] 100,000 unit/gram powder 1 applic topical BID PRN (Reason: Skin Irritation) RF: 0 [place] Caps 1 mg capsule 1 cap PO QAM RF: 0 aspirin 81 mg tablet,delayed release (DR/EC) 81 mg PO QAM RF: 0 furosemide 20 mg tablet 20 - 40 mg PO QAM RF: 0 acetaminophen [Tylenol] 325 mg Tablet 650 mg PO Q4H PRN (Reason: Pain (Scale Score 1-3)) RF: 0 Referrals Referrals: Saud Dunham MD [Primary Care Provider] -
--- NOTE | 2021-03-21 14:07 | XRay Report ---
XR chest 1V portable CLINICAL HISTORY: cough COMPARISON STUDY: Chest radiograph February 12, 2021. FINDINGS: Left subclavian pacer/AICD is in place. Cardiomegaly is unchanged. There is no pneumothorax or pleural effusion. There has been interval development of moderate bilateral airspace opacities. IMPRESSION: Interval development of moderate bilateral airspace opacities which favor viral pneumoni a. Radiographic follow-up to ensure resolution is recommended. ACT 112: Negative or not required by law. Electronically signed by: George Pena M.D. 03/21/2021 2:06 PM
[2021-03-21] MEDS ORDERED: dexAMETHasone**PF** 10 MG/ML VIAL IV ONE (14:12)
[2021-03-21 15:00] LABS: Base Excess VBG 1.6 mEq/L; HCO3 VBG 27 mmol/L; PCO2 VBG 48 mmHg (38-50); PO2 VBG 23 mmHg; pH VBG 7.37 (7.36-7.41)
[2021-03-21 15:01] LABS: Hematocrit (blood only) 33.6 % (42-52); Hemoglobin 10.5 g/dL (14.0-18.0); Mean Corpuscular Hemoglobin 30.2 pg (25-34); Mean Corpuscular Hgb Conc 31.3 g/dL (32-36); Mean Corpuscular Volume 96.6 fL (80-100); Mean Platelet Volume 9.8 fL (7.4-10.4); Platelet Count 144 K/uL (130-400); RDW Coefficient of Variation 15.8 % (11.5-14.5); RDW Standard Deviation 55.2 fL (36.4-46.3); Red Blood Count 3.48 M/uL (4.7-6.1); White Blood Count 7.23 K/uL (4.8-10.8)
[2021-03-21 15:02] LABS: Oxygen Saturation VBG < 60.0 %
[2021-03-21 15:19] LABS: Alanine Aminotransferase 65 U/L (12-78); Albumin Level 2.4 gm/dl (3.4-5.0); Aspartate Aminotransferase 38 U/L (15-37); BUN Creatinine Ratio 24.7 (10-20); Blood Urea Nitrogen 38 mg/dl (7-18); Calcium 8.5 mg/dl (8.5-10.1); Carbon Dioxide 28 mmol/L (21-32); Chloride 106 mmol/L (98-107); Creatinine Clr Calc Pharmacy 38.6 ml/min; Est GFR (African American) 48.3 ml/min; Est GFR (Non-African American) 41.7 ml/min; Glucose 99 mg/dl (70-99); Lipase 126 U/L (73-393); Potassium 4.1 mmol/L (3.5-5.1); Sodium 137 mmol/L (136-145)
[2021-03-21 15:23] LABS: INR 1.2 (0.9-1.1); Partial Thromboplastin Ratio 1.5; Partial Thromboplastin Time 38.2 Seconds (21.0-31.0); Prothrombin Time 12.4 Seconds (9.0-12.0)
[2021-03-21 15:24] LABS: Albumin Globulin Ratio 0.5 (0.9-2); Alkaline Phosphatase 70 U/L (45-117); Bilirubin,Total 0.6 mg/dl (0.2-1); Globulin 4.6 gm/dl (2.5-4.0); Troponin I < 0.015 ng/ml (0-0.045)
[2021-03-21 15:29] LABS: Basophils # (auto) 0.02 K/uL (0-0.2); Basophils % (auto) 0.3 %; Eosinophils # (auto) 0.07 K/uL (0-0.5); Immature Granulocytes # (auto) 0.01 K/uL (0.00-0.02); Immature Granulocytes % (auto) 0.1 %; Lymphocytes # (auto) 1.06 K/uL (1.2-3.4); Lymphocytes % (auto) 14.7 %; Monocytes # (auto) 0.46 K/uL (0.11-0.59); Monocytes % (auto) 6.4 %; Neutrophils # (auto) 5.61 K/uL (1.4-6.5); Neutrophils % (auto) 77.5 %
[2021-03-21 15:49] LABS: Adenovirus PCR Not Detected (NotDetected); Bordetella parapertussis PCR Not Detected (NotDetected); Bordetella pertussis PCR Not Detected (NotDetected); Chlamydia pneumoniae PCR Not Detected (NotDetected); Coronavirus 229E PCR Not Detected (NotDetected); Coronavirus HKU1 PCR Not Detected (NotDetected); Coronavirus NL63 PCR Not Detected (NotDetected); Coronavirus OC43PCR Not Detected (NotDetected); Human Metapneumovirus PCR Not Detected (NotDetected); Influenza A PCR Not Detected (NotDetected); Influenza B PCR Not Detected (NotDetected); Mycoplasma pneumoniae PCR Not Detected (NotDetected); Parainfluenza Virus 1 PCR Not Detected (NotDetected); Parainfluenza Virus 2 PCR Not Detected (NotDetected); Parainfluenza Virus 3 PCR Not Detected (NotDetected); Parainfluenza Virus 4 PCR Not Detected (NotDetected); Respiratory Syncytial VirusPCR Not Detected (NotDetected); Rhinovirus/Enterovirus PCR Not Detected (NotDetected)
[2021-03-21 16:17] LABS: Coronavirus CoV-2 (COVID19)PCR DETECTED (NotDetected)
[2021-03-21 16:22] LABS: NT Pro B Type Natriuretic Pept 14233 pg/ml (0-1800)
--- NOTE | 2021-03-21 16:31 | History & Physical Report ---
Date of Service March 21, 2021 Assessment & Plan (1) Pneumonia due to COVID-19 virus: Plan: Fully vaccinated CRP 10.9 Dexamethasone 6mg IV Will avoid remdesivir given limited effectiveness and CKD with recent need for dialysis earlier this year. (2) Acute on chronic heart failure with preserved ejection fraction: Plan: Lasix 40 mg IV I&Os Daily weights Low Na, fluid restrict 1500ml I do not feel a repeat TTE is warranted in setting of COVID - prior LVEF 05/2020 55-60% without significant valvular disease (3) Hypoxia: Plan: Aim O2 sats > 90%, secondary to COVID-19 pneumonia +/- acute CHF (4) CAD (coronary artery disease): Plan: s/p PCI 1995 and 2103 chest pain --> cath -- > occluded RCA --> ICD placed. (5) Paroxysmal atrial fibrillation: Plan: Currently atrial paced Continue anticoagulation at high dose due to pulmonary emboli in August 2020 (6) History of myocardial infarction: Plan: Continue aspirin, Eliquis, carvedilol, atorvastatin (7) Senile dementia: Plan: Continue donepezil (8) Severe obstructive sleep apnea: Plan: CPAP HS (9) Diabetes mellitus, controlled: Plan: HbA1C 5.8 in January Novolog: Goal BSG Range: Low 110 mg/dL, High 140 mg/dL Correction Factor: 45 mg/dL/unit No carb coverage BSGs ACHS if eating, q6h if npo (10) CKD (chronic kidney disease) stage 3, GFR 30-59 ml/min: Plan: At baseline. Monitor with Lasix dosing. (11) ICD (implantable cardioverter-defibrillator) in place: Plan: Noted Plan: VTE Prophylaxis - Eliquis Diet - heart healthy, low Na, Fluid restrict 1500ml Dispotion - admit to med/tele Admission and Anticipated Discharge Date Admission Date: March 21, 2021 History of Present Illness Chief Complaint: has COVID Primary Care Provider: Saud Dunham MD Rowdy Gracia is an 80 year old male extensive cardiovascular disease with coronary artery disease who presents to the ER with his as she was concerne d they both have COVID. The patient reports having no complaints. He is not on any oxygen at home. His provides his history at bedside (of note she is not hypoxic and going to get monoclonal antibodies and discharged). The patient is current on day 7 of cold symptoms. Mainly with coughing up clear mucus and nasal congestion. Taking Coricidin D and Robitussin with limited effectiveness. No sterling nge in bowels, no melena, bright red blood in stool, nausea, vomiting, shortness of breath. He is fully vaccinated for COVID in October Pfizer x2 doses. He has an extensive cardiovascular history best summarized in prior cardiology visits but include angioplasty in 1995 in setting of [place], PCI May 2002, AA repair 2000, 100% RCA occlusion on cardiac cath in 2013, ICD placement 12/2013 due to ventricular tachycardia, AAA endovascular repair 2015, aneurysm coil embolization [id number], distal fem-popliteal bypass 10/2017, vascular procedure in September, Nov, March 2019 due to right popliteal aneurysm and enlarging aortic sac expansion. More recently he had AAA repair and aortoiliac bypass 07/2020. Postoperatively he was started on CRRT for oliguric MURRAY and was on dialysis up until September. He was also diagnosed with pulmonary emboli in August 2020 and currently taking Eliquis for this. In the ER SARS-COV-2 PCR positive. O2 sats drop to 85% on room air at rest. he is not on oxygen at home. In the ER his O2 sats maintaining > 94% on 2LPM O2. He was referred to medicine for admission and ongoing management of hypoxia. Allergies Allergy/AdvReac Type Severity Reaction Status Date / Time cefepime AdvReac Severe See note Verified 03/11/21 09:37 Home Medications Medication Instructions Recorded Confirmed Type CPAP Machine #1 ea 02/28/19 02/20/21 Rx lancets (Accu-Chek Softclix #100 ea 05/10/19 02/20/21 Rx Lancets) nitroglycerin 0.4 mg sublingual 0.4 mg SUBLINGUAL UD PRN #30 tab 05/10/19 03/21/21 Rx tablet acetaminophen 325 mg tablet 650 mg PO Q4H PRN 08/30/20 03/21/21 History (Tylenol) amiodarone 200 mg tablet 200 mg PO 5XWK #150 tab 10/15/20 03/21/21 Rx apixaban 5 mg tablet (Eliquis) 5 mg PO BID #180 tab 10/15/20 03/21/21 Rx atorvastatin 80 mg tablet 80 mg PO QAM #90 tab 10/15/20 03/21/21 Rx donepezil 10 mg tablet 10 mg PO HS #90 tab 10/15/20 03/21/21 Rx isosorbide mononitrate 60 mg 60 mg PO QAM #90 tab 10/15/20 03/21/21 Rx tablet,extended release 24 hr lansoprazole 30 mg capsule,delayed 30 mg PO QAM #90 cap 10/15/20 03/21/21 Rx release nystatin 100,000 unit/gram topical 1 applic TOPICAL BID PRN 12/03/20 03/21/21 History powder (Nystop) vitamin B complex and vitamin C 1 cap PO QAM 12/03/20 03/21/21 History no.20-folic acid 1 mg capsule (Quinn Caps) blood sugar diagnostic (Accu-Chek #300 ea 01/01/21 02/20/21 Rx SmartView Test Strip) aspirin 81 mg tablet,delayed 81 mg PO QAM 01/06/21 03/21/21 History release carvedilol 25 mg tablet 12.5 mg PO BID #30 tab 02/11/21 03/21/21 Rx furosemide 20 mg tablet 20 - 40 mg PO QAM 03/21/21 03/21/21 History Past Med/Surg History Medical History Abdominal aortic aneurysm (AAA) x3 repaired 08/08/2020 at [facility] Aneurysm of right popliteal artery 2018 CAD (coronary artery disease) s/p PCI 1995 and 2002. 2103 chest pain --> cath -- > occluded RCA --> ICD placed. 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 Sosa History of hernia repair History of lithotripsy History of prostate biopsy malignant History of prostate surgery radiation seeds implanted Orbital floor fracture Right orbital fracture April 2019 S/P AAA repair x3--last in 08/08/2020 [email or web address] Status post cystoscopy with ureteral stent placement Status post femoral-popliteal bypass surgery 2018 in [place] Family History Mother Hypertension Cardiac disorder Father Cardiac disorder Myocardial infarction Brother Diabetes Hypertension Hyperlipidemia Obstructive sleep apnea Denies family history of Ovarian cancer Prostate cancer Coronary heart disease Breast cancer Colorectal cancer Social History Smoking Status: Never smoker Second Hand Exposure: No; Do You Dip or Chew Tobacco: No; Tobacco Cessation Education Requested by Patient: No Hx Alcohol Use: No Hx Substance Use: No Preferred Language: [place] Communication Ability: Effective Hearing Ability: Normal Dental Hygiene Instructor Required: No Beliefs That Will Affect Care: None marital status: Current Living Situation: Spouse current occupational status: retired Other Information That Helps Us Care for You: No Feels Safe at Home: Yes Safety Concerns: Feels Safe At This Time Childhood Exposure to Second-Hand Smoke: No Dental Care, Regularly: Yes Physical Activity Frequency: 5-6 Times per Week Seatbelt Use: always Sunscreen Use: No Assistive Devices: Glasses Review of Systems Review of Systems: All systems reviewed & are unremarkable except as noted in HPI & below Physical Exam Constitutional: well developed and + frail appearing; no acute distress ENMT: external ear and nose normal, oropharynx normal Respiratory: normal respiratory effort, + uses accessory muscles and able to speak in complete sentences; expiratory phase not prolonged Auscultation: + diminished lung sounds (bibasal); no crackles, no rales and no wheezes Cardiovascular: Rate/Rhythm: regular rate and regular rhythm Heart Sounds: no murmur Vessels: no JVD Extremities: normal capillary refill; no calf tenderness and no pedal edema Gastrointestinal (Abdomen): normal bowel sounds, soft, nontender, no hepatosplenomegaly Musculoskeletal: no cyanosis or clubbing, extremities motor strength 5/5 Skin: no rashes, warm and dry Neurologic: moves all extremities and awake; not confused Psychiatric: A+Ox3, euthymic affect Results & Data Results & Data ([facility]) Vital Signs (Past 12 Hours) Vital Signs Temp Pulse Pulse Resp BP BP Pulse Ox 03/21/21 15:43 36.9 C 03/21/21 15:41 60 23 155/80 H 94 03/21/21 15:40 60 22 91 03/21/21 15:30 60 19 155/80 H 93 03/21/21 15:20 60 19 90 03/21/21 15:10 60 24 88 L 03/21/21 15:00 60 23 92 03/21/21 14:50 60 17 93 03/21/21 14:40 60 21 93 03/21/21 14:30 59 L 18 86 L 03/21/21 14:20 61 20 87 L 03/21/21 14:11 86 L 03/21/21 14:10 60 23 86 L 03/21/21 14:07 60 26 H 91 03/21/21 14:03 61 20 136/84 91 03/21/21 11:54 36.2 C L 62 20 123/71 93 Diagnostic Findings XR chest 1V portable CLINICAL HISTORY: cough COMPARISON STUDY: Chest radiograph February 12, 2021. FINDINGS: Left subclavian pacer/AICD is in place. Cardiomegaly is unchanged. There is no pneumothorax or pleural effusion. There has been interval development of moderate bilateral airspace opacities. IMPRESSION: Interval development of moderate bilateral airspace opacities which favor viral pneumonia. Radiographic follow-up to ensure resolution is recommended. Medications Administered ER Medications Given: Dexamethasone 10mg IV ECG Indication: SOB/dyspnea Rate (beats per minute): 60 Findings: + paced rhythm (atrial paced) Comparison ECG Date: from (January 06, 2021) Change: the following changes noted (atrial pacing replaced ventricular pacing) Code Status & VTE Plan Code Status Full VTE Prophylaxis Plan VTE Prophylaxis will be ordered: Yes PG Care Time/CCT Total # of Minutes Spent Total Time Spent with Patient: Total time spent is greater than 50% in coordination of care (as documented) at patient's floor/unit and/or counseling patient: Coding Level of Care Code 42672 Initial Inpt Care Lvl 3 Diagnoses Pneumonia due to COVID-19 virus U07.1; J12.82 Hypoxia R09.02 Paroxysmal atrial fibrillation I48.0 Senile dementia F03.90 Dementia behavioral disturbance: without behavioral disturbance History of myocardial infarction I25.2 Severe obstructive sleep apnea G47.33 Diabetes mellitus, controlled E11.9 Diabetes mellitus complication status: without complication Diabetes mellitus keno terminal operator insulin use: without keno terminal operator use Diabetes mellitus type: type 2 CKD (chronic kidney disease) stage 3, GFR 30-59 ml/min N18.30 ICD (implantable cardioverter-defibrillator) in place Z95.810 Acute on chronic heart failure with preserved ejection fraction I50.33 CAD (coronary artery disease) I25.10 Associated angina: without angina Coronary Disease-Associated Artery/Lesion type: [place] artery [place] vs. transplanted heart: [place] heart (1) Diabetes mellitus, controlled Diabetes mellitus complication status: without complication Diabetes mellitus keno terminal operator insulin use: without keno terminal operator use Diabetes mellitus type: type 2 Qualified Code(s): E11.9 - Type 2 diabetes mellitus without complications (2) CAD (coronary artery disease) Associated angina: without angina Coronary Disease-Associated Artery/Lesion type: [place] artery [place] vs. transplanted heart: [place] heart Qualified Code(s): I25.10 - Atherosclerotic heart disease of [place] coronary artery without angina pectoris (3) Senile dementia Dementia behavioral disturbance: without behavioral disturbance Qualified Code(s): F03.90 - Unspecified dementia without behavioral disturbance
[2021-03-21] MEDS ORDERED: FUROSEMIDE 40 MG/4 ML VIAL IV STA (16:33)
[2021-03-21] MEDS ORDERED: AMIODARONE 200 MG TAB PO STA (16:33)
[2021-03-21] MEDS ORDERED: ISOSORBIDE MONO EXTENDED REL 60 MG TABCR PO STA (16:33)
[2021-03-21] MEDS ORDERED: PANTOprazole 40 MG TAB PO STA (16:35)
[2021-03-21] MEDS ORDERED: DEXTROSE 50% 50 ML SYRINGE IV PRN (20:06)
[2021-03-21] MEDS ORDERED: CARBOHYDRATES FOR HYPOGLYCEMIA PO PRN (20:06)
[2021-03-21] MEDS ORDERED: ONDANSETRON INJ 2 MG/ML 2 ML VIAL IV PRN (20:06)
[2021-03-21] MEDS ORDERED: GLUCOSE 40% GEL 15 GM TUBE PO PRN (20:06)
[2021-03-21] MEDS ORDERED: GLUCOSE 10 TABS/TUBE PO PRN (20:06)
[2021-03-21] MEDS ORDERED: GLUCAGON FOR INJ 1 MG VIAL SQ PRN (20:06)
[2021-03-21] MEDS: carvediloL 12.5 MG TAB PO SCH (22:43)
[2021-03-21] MEDS: APIXABAN 5 MG TABLET PO SCH (22:43)
[2021-03-21] MEDS: DONEPEZIL HCL 10 MG TAB PO SCH (22:43)
[2021-03-21] MEDS: AMIODARONE 200 MG TAB PO SCH (22:43)
[2021-03-21] MEDS: INSULIN ASPART 100 UNITS/ML 3 ML PEN SC SCH (23:40)
--- NOTE | 2021-03-22 07:38 | Electrocardiogram Report ---
Test Reason : Blood Pressure : / mmHG Vent. Rate : 060 BPM Atrial Rate : 060 BPM P-R Int : 364 ms QRS Dur : 108 ms QT Int : 500 ms P-R-T Axes : 007 020 265 degrees QTc Int : 500 ms Poor data quality, interpretation may be adversely affected Atrial-paced rhythm with prolonged AV conduction Poor R wave progression, consider anterior AR vs. lead placement vs. LVH Prolonged QT Abnormal ECG When compared with ECG of 06-JAN-2021 16:14, Electronic atrial pacemaker has replaced Electronic ventricular pacemaker Confirmed by Saud Oh ([id number]) on 03/22/2021 7:37:39 AM Referred By: REFERRED SELF Confirmed By:Benji Oh
[2021-03-22] MEDS: INSULIN ASPART 100 UNITS/ML 3 ML PEN SC SCH ×4 (08:38→21:05)
[2021-03-22] MEDS ORDERED: FUROSEMIDE 40 MG/4 ML VIAL IV SCH (09:00)
[2021-03-22] MEDS: ATORVASTATIN 40 MG TAB PO SCH (09:51)
[2021-03-22] MEDS: APIXABAN 5 MG TABLET PO SCH ×2 (09:52→20:57)
[2021-03-22] MEDS: AMIODARONE 200 MG TAB PO SCH (09:52)
[2021-03-22] MEDS: ISOSORBIDE MONO EXTENDED REL 60 MG TABCR PO SCH (09:52)
[2021-03-22] MEDS: ASPIRIN 81 MG ECTAB PO SCH (09:52)
[2021-03-22] MEDS: PANTOprazole 40 MG TAB PO SCH (09:52)
[2021-03-22] MEDS: NEPHROCAPS PO SCH (09:52)
[2021-03-22] MEDS: carvediloL 12.5 MG TAB PO SCH ×2 (09:52→20:57)
[2021-03-22] MEDS: dexAMETHasone 6 MG in SYRINGE 0 ML IV SCH (09:53)
--- NOTE | 2021-03-22 11:47 | Hospitalist Progress Note ---
Date of Service March 22, 2021 Assessment & Plan (1) Pneumonia due to COVID-19 virus: Plan: COVID 19- day 8 of illness reported Fully vaccinated CRP 10.9- on 2LNC- not candidate for any further inteventions Dexamethasone 6mg IV Hold remdisivir with renal function and day of illness unlikely to show any benefit at this time BNP remains elevated- continue with 40mg IV daily lasix- pending his JUAN CARLOS status today could possibly need another dose this evening- would like -500-750ml negative balance in 24 hours Self rotation and proning (2) Acute on chronic heart failure with preserved ejection fraction: Plan: Lasix 40 mg IV I&Os Daily weights Low Na, fluid restrict 1500ml no acute need for repeat TTE is warranted in setting of COVID - prior LVEF 05/2020 55-60% without significant valvular disease Diurese as above (3) Hypoxia: Plan: Aim O2 sats > 90%, secondary to COVID-19 pneumonia +/- acute CHF - Likley need two step tomorrow (4) CAD (coronary artery disease): Plan: s/p PCI 1995 and 2002. 2103 chest pain --> cath -- > occluded RCA --> ICD placed. - no acute complaints and no arrythmias (5) Paroxysmal atrial fibrillation: Plan: With AICD- AAIR with mode switch to DDDR - low rate 60, upper rate 120 Continue amiodarone and anticoagulation Continue anticoagulation at high dose due to pulmonary emboli in August 2020 (6) History of myocardial infarction: Plan: Continue aspirin, Eliquis, carvedilol, atorvastatin (7) Senile dementia: Plan: Continue donepezil (8) Severe obstructive sleep apnea: Plan: CPAP HS (9) Diabetes mellitus, controlled: Plan: HbA1C 5.8 in January Novolog: Goal BSG Range: Low 110 mg/dL, High 140 mg/dL Correction Factor: 45 mg/dL/unit No carb coverage BSGs ACHS if eating, q6h if npo (10) CKD (chronic kidney disease) stage 3, GFR 30-59 ml/min: Plan: At baseline. Monitor with Lasix dosing. - ENVIRONMENTAL ENGINEERING TECHNICIAN pending for this morning (11) ICD (implantable cardioverter-defibrillator) in place: Plan: Noted Plan: VTE Prophylaxis - Eliquis Diet - heart healthy, low Na, Fluid restrict 1500ml Dispotion - admit to med/tele Admission and Anticipated Discharge Date Admission Date: March 21, 2021 Supervising Physician Co-Signing Physician Notes Patient was chart reviewed and discussed with Saul ASTUDILLO. Attempt at increased diuresis with Lasix 40mg IV with no change in O2 sats and increasing Cr therefore suspect most of his O2 requirement is COVID related. Will revert back to his usual 20mg PO Lasix. Will need 2 step prior to discharge. Possibly home tomorrow if stable. Subjective Patient HD #1, admitted for COVID 19 in the setting of RA hypoxia to 88%. Patient is wanting to go home to help take care of his who also has COVID PNA but she was discharged yesterday. Patient is vaccinated. He was started on Dexamethasone 10mg IN EMD and 6mg daily. He has an elevated CRP but remains with good oxygen saturations on 2LNC. He is without conversational dyspnea, he is tolerating diet, and is up to use the urinal with out desaturations or dyspnea. He personally states he feels great. Patient will continue to get diuresed to euvolemia follow his renal function and wean down oxygenation today or perform two-step tomorrow. If he does well overnight can likely be discharge tomorrow. Review of Systems Review of Systems: REVIEW OF SYSTEMS: Constitutional: No fever, sweats or chills Eyes: No diplopia, no worsening or blurred vision ENT: normal hearing, no trouble swallowing Respiratory: No cough, sputum, dyspnea at rest or on exertion Cardiovascular: No chest pain, tightness or palpitations Abdomen: No pain, nausea, vomiting, diarrhea or constipation Musculoskeletal: No joint pain, calf pain, swelling Neurologic: No weakness, numbness/tingling, or balance problems Psychiatric: No anxiety or depression Skin: No rash or itch Physical Exam Physical Exam: PHYSICAL EXAM: General: awake, alert, no apparent distress Head: Normocephalic, atraumatic ENT: PERRL, EOMI, no pharyngeal exudate, mucous membranes moist Neuro: AAO x 3, speech clear and appropriate, strength intact bilaterally 5/5, sensation intact and equal all extremities and dermatomes, no pronator drift Chest: equal rise and fall of the chest, no accessory muscle use, no heaves or thrills, fine crackles throughout, on NC 2L, Cardiac: regular rate and rhythm- paced appropriately, skin warm dry, cap refill <3 seconds, peripheral pulses +2 no JVD, no murmur, trace lower extremity edema GI: NABS x 4 quadrants, soft, nontender to palpation, no rebound, guarding or tenderness : Spontaneously voiding, no pain, no CVA tenderness, Extremities: Normal inspection, no peripheral edema or erythema, calfs nontender to palpation Psych: Normal mood and affect Skin: no rash or erythema Results & Data Results & Data ([facility]) Vital Signs (Past 12 Hours) Vital Signs Temp Pulse Pulse Resp BP BP Pulse Ox 03/22/21 10:40 70 21 97 03/22/21 10:30 61 16 96 03/22/21 10:20 61 23 03/22/21 10:10 64 20 94 03/22/21 10:01 59 L 20 149/84 H 97 03/22/21 09:50 60 18 97 03/22/21 09:40 61 20 97 03/22/21 09:30 95 03/22/21 09:20 61 23 95 03/22/21 09:10 63 15 95 03/22/21 09:00 23 97 03/22/21 08:50 92 H 16 96 03/22/21 08:40 61 18 95 03/22/21 08:30 49 L 19 96 03/22/21 08:20 61 18 96 03/22/21 08:10 86 22 96 03/22/21 08:00 68 18 91 03/22/21 07:50 60 16 95 03/22/21 07:40 49 L 19 95 03/22/21 07:30 71 19 94 03/22/21 07:20 70 22 99 03/22/21 07:10 60 17 98 03/22/21 07:00 66 22 97 03/22/21 06:50 56 L 15 97 03/22/21 06:40 52 L 15 96 03/22/21 06:30 60 16 96 03/22/21 06:20 61 15 97 03/22/21 06:10 61 16 97 03/22/21 06:00 61 25 H 98 03/22/21 05:50 61 15 99 03/22/21 05:40 98 03/22/21 05:30 16 97 03/22/21 05:20 60 16 98 03/22/21 05:10 15 98 03/22/21 05:00 17 98 03/22/21 04:50 16 97 03/22/21 04:41 48 L 16 152/74 H 97 03/22/21 04:40 52 L 15 97 03/22/21 04:30 49 L 15 96 03/22/21 04:20 59 L 17 99 03/22/21 04:10 55 L 17 98 03/22/21 04:00 61 27 H 97 03/22/21 03:50 47 L 18 99 03/22/21 03:40 48 L 25 H 96 03/22/21 03:30 50 L 24 96 03/22/21 03:20 47 L 28 H 96 03/22/21 03:10 51 L 27 H 96 03/22/21 03:00 47 L 24 95 03/22/21 02:50 56 L 27 H 97 03/22/21 02:40 48 L 17 96 03/22/21 02:30 49 L 16 96 03/22/21 00:02 03/21/21 23:44 36.4 C L 60 18 146/84 H 96 Pulse Ox 03/22/21 10:40 03/22/21 10:30 03/22/21 10:20 03/22/21 10:10 03/22/21 10:01 03/22/21 09:50 03/22/21 09:40 03/22/21 09:30 03/22/21 09:20 03/22/21 09:10 03/22/21 09:00 03/22/21 08:50 03/22/21 08:40 03/22/21 08:30 03/22/21 08:20 03/22/21 08:10 03/22/21 08:00 03/22/21 07:50 03/22/21 07:40 03/22/21 07:30 03/22/21 07:20 03/22/21 07:10 03/22/21 07:00 03/22/21 06:50 03/22/21 06:40 03/22/21 06:30 03/22/21 06:20 03/22/21 06:10 03/22/21 06:00 03/22/21 05:50 03/22/21 05:40 03/22/21 05:30 03/22/21 05:20 03/22/21 05:10 03/22/21 05:00 03/22/21 04:50 03/22/21 04:41 03/22/21 04:40 03/22/21 04:30 03/22/21 04:20 03/22/21 04:10 03/22/21 04:00 03/22/21 03:50 03/22/21 03:40 03/22/21 03:30 03/22/21 03:20 03/22/21 03:10 03/22/21 03:00 03/22/21 02:50 03/22/21 02:40 03/22/21 02:30 03/22/21 00:02 98 03/21/21 23:44 Laboratory Results Abnormal lab results 03/21/21 03/21/21 03/21/21 Range/Units 14:43 14:43 14:43 RBC 3.48 L (4.7-6.1) M/uL Hgb 10.5 L (14.0-18.0) g/dL Hct 33.6 L (42-52) % MCHC 31.3 L (32-36) g/dL RDW Std Deviation 55.2 H (36.4-46.3) fL RDW Coeff of Phillip 15.8 H (11.5-14.5) % Lymph # (Auto) 1.06 L (1.2-3.4) K/uL PT 12.4 H (9.0-12.0) Seconds INR 1.2 H (0.9-1.1) APTT 38.2 H (21.0-31.0) Seconds BUN 38 H (7-18) mg/dl Creatinine 1.55 H (0.6-1.4) mg/dl BUN/Creatinine Ratio 24.7 H (10-20) POC Glucose (70-99) mg/dl AST 38 H (15-37) U/L C-Reactive Protein 10.90 H (0-0.29) mg/dl NT-Pro-B Natriuret Pep 71430 H (0-1800) pg/ml Albumin 2.4 L (3.4-5.0) gm/dl Globulin 4.6 H (2.5-4.0) gm/dl Albumin/Globulin Ratio 0.5 L (0.9-2) SARS-CoV-2 (PCR) (NotDetected) SARS-CoV-2, RNA, NAAT (NEGATIVE) 03/21/21 03/21/21 03/21/21 Range/Units 14:43 21:19 23:36 RBC (4.7-6.1) M/uL Hgb (14.0-18.0) g/dL Hct (42-52) % MCHC (32-36) g/dL RDW Std Deviation (36.4-46.3) fL RDW Coeff of [place] (11.5-14.5) % Lymph # (Auto) (1.2-3.4) K/uL PT (9.0-12.0) Seconds INR (0.9-1.1) APTT (21.0-31.0) Seconds BUN (7-18) mg/dl Creatinine (0.6-1.4) mg/dl BUN/Creatinine Ratio (10-20) POC Glucose 239 H 277 H (70-99) mg/dl AST (15-37) U/L C-Reactive Protein (0-0.29) mg/dl NT-Pro-B Natriuret Pep (0-1800) pg/ml Albumin (3.4-5.0) gm/dl Globulin (2.5-4.0) gm/dl Albumin/Globulin Ratio (0.9-2) SARS-CoV-2 (PCR) DETECTED A* (NotDetected) SARS-CoV-2, RNA, NAAT (NEGATIVE) 03/21/21 03/22/21 03/22/21 Range/Units Unknown 07:51 11:50 RBC (4.7-6.1) M/uL Hgb (14.0-18.0) g/dL Hct (42-52) % MCHC (32-36) g/dL RDW Std Deviation (36.4-46.3) fL RDW Coeff of Phillip (11.5-14.5) % Lymph # (Auto) (1.2-3.4) K/uL PT (9.0-12.0) Seconds INR (0.9-1.1) APTT (21.0-31.0) Seconds BUN (7-18) mg/dl Creatinine (0.6-1.4) mg/dl BUN/Creatinine Ratio (10-20) POC Glucose 167 H 232 H (70-99) mg/dl AST (15-37) U/L C-Reactive Protein (0-0.29) mg/dl NT-Pro-B Natriuret Pep (0-1800) pg/ml Albumin (3.4-5.0) gm/dl Globulin (2.5-4.0) gm/dl Albumin/Globulin Ratio (0.9-2) SARS-CoV-2 (PCR) (NotDetected) SARS-CoV-2, RNA, NAAT POSITIVE A* (NEGATIVE) Diagnostic Findings Chest X-Ray 03/21/21 13:39 XR chest 1V portable CLINICAL HISTORY: cough COMPARISON STUDY: Chest radiograph February 12, 2021. FINDINGS: Left subclavian pacer/AICD is in place. Cardiomegaly is unchanged. There is no pneumothorax or pleural effusion. There has been interval development of moderate bilateral airspace opacities. IMPRESSION: Interval development of moderate bilateral airspace opacities which favor viral pneumonia. Radiographic follow-up to ensure resolution is recommended. ACT 112: Negative or not required by law. Electronically signed by: George Pena M.D. 03/21/2021 2:06 PM Medications Administered Amiodarone HCl (Amiodarone 200 Mg Tab) 200 mg PO [id number] [facility] Stop: 04/20/21 20:29 Last Admin: 03/22/21 09:52 Dose: 200 mg Documented by: [id number] Admin: 03/21/21 22:43 Dose: 200 mg Documented by: [id number] Apixaban (Apixaban 5 Mg Tablet) 5 mg PO BID [facility] Stop: 04/20/21 20:59 Last Admin: 03/22/21 09:52 Dose: 5 mg Documented by: [id number] Admin: 03/21/21 22:43 Dose: 5 mg Documented by: [id number] Aspirin (Aspirin 81 Mg Ectab) [facility] Stop: 04/21/21 08:59 Last Admin: 03/22/21 09:52 Dose: 81 mg Documented by: [id number] Atorvastatin Calcium (Atorvastatin 40 Mg Tab) 80 mg PO QAM [facility] Stop: 04/21/21 08:59 Last Admin: 03/22/21 09:51 Dose: 80 mg Documented by: [id number] Carvedilol (Carvedilol 12.5 Mg Tab) 12.5 mg PO BID [facility] Stop: 04/20/21 20:59 Last Admin: 03/22/21 09:52 Dose: 12.5 mg Documented by: [id number] Admin: 03/21/21 22:43 Dose: 12.5 mg Documented by: [id number] Donepezil HCl (Donepezil Hcl 10 Mg Tab) 10 mg PO HS [facility] Stop: 04/20/21 20:59 Last Admin: 03/21/21 22:43 Dose: 10 mg Documented by: [id number] Furosemide (Furosemide 40 Mg/4 Ml Vial) [facility] Stop: 04/21/21 08:59 Last Admin: 03/22/21 09:53 Dose: 40 mg Documented by: [id number] Dexamethasone 6 mg/ Syringe 1.5 mls @ 1 mls/min IV QAM [facility] Stop: 03/31/21 08:59 Last Admin: 03/22/21 09:53 Dose: 1 mls/min Documented by: [id number] Insulin Aspart (Insulin Aspart 100 Units/Ml 3 Ml Pen) 0 units SC ACHS [facility] Stop: 04/20/21 20:59 Last Admin: 03/22/21 08:38 Dose: 1 units Documented by: [id number] Cosigned by: [id number] Admin: 03/21/21 23:40 Dose: 4 units Documented by: [id number] Cosigned by: [id number] Isosorbide Mononitrate (Isosorbide [place] Extended Rel 60 Mg Tabcr) 60 [facility] Stop: 04/21/21 08:59 Last Admin: 03/22/21 09:52 Dose: 60 mg Documented by: [id number] Pantoprazole Sodium (Pantoprazole 40 Mg Tab) [facility]; Protocol Stop: 04/21/21 08:59 Last Admin: 03/22/21 09:52 Dose: 40 mg Documented by: [id number] Vitamin B Complex/Folic Acid (Nephrocaps) 1 cap PO QAM [facility] Stop: 04/21/21 08:59 Last Admin: 03/22/21 09:52 Dose: 1 cap Documented by: [id number] Discontinued Medications Amiodarone HCl (Amiodarone 200 Mg Tab) 200 mg PO NOW STA Stop: 03/21/21 16:34 Last Admin: 03/21/21 16:53 Dose: 200 mg Documented by: [id number] Dexamethasone Sodium Phosphate (DexamethasonePf 10 Mg/Ml Vial) 10 mg IV NOW ONE Stop: 03/21/21 14:13 Last Admin: 03/21/21 14:52 Dose: 10 mg Documented by: [id number] Furosemide (Furosemide 40 Mg/4 Ml Vial) 40 mg IV ONE STA Stop: 03/21/21 16:34 Last Admin: 03/21/21 16:53 Dose: 40 mg Documented by: [id number] Isosorbide Mononitrate (Isosorbide [place] Extended Rel 60 Mg Tabcr) 60 mg PO ONE STA Stop: 03/21/21 16:34 Last Admin: 03/21/21 17:57 Dose: 60 mg Documented by: [id number] Pantoprazole Sodium (Pantoprazole 40 Mg Tab) 40 mg PO NOW STA Stop: 03/21/21 16:36 Last Admin: 03/21/21 16:53 Dose: 40 mg Documented by: [id number] PG Care Time/CCT Total # of Minutes Spent Total Time Spent with Patient: Total time spent is greater than 50% in coordination of care (as documented) at patient's floor/unit and/or counseling patient: Coding Level of Care Code 46647 Subseq Hosp Care Lvl 3 Diagnoses Pneumonia due to COVID-19 virus U07.1; J12.82 Acute on chronic heart failure with preserved ejection fraction I50.33 Hypoxia R09.02 CAD (coronary artery disease) I25.10 Associated angina: without angina Coronary Disease-Associated Artery/Lesion type: [place] artery [place] vs. transplanted heart: [place] heart Paroxysmal atrial fibrillation I48.0 History of myocardial infarction I25.2 Senile dementia F03.90 Dementia behavioral disturbance: without behavioral disturbance Severe obstructive sleep apnea G47.33 Diabetes mellitus, controlled E11.9 Diabetes mellitus complication status: without complication Diabetes mellitus residential insulin use: without rn long term care use Diabetes mellitus type: type 2 CKD (chronic kidney disease) stage 3, GFR 30-59 ml/min N18.30 ICD (implantable cardioverter-defibrillator) in place Z95.810 (1) Diabetes mellitus, controlled Diabetes mellitus complication status: without complication Diabetes mellitus residential insulin use: without residential use Diabetes mellitus type: type 2 Qualified Code(s): E11.9 - Type 2 diabetes mellitus without complications (2) CAD (coronary artery disease) Associated angina: without angina Coronary Disease-Associated Artery/Lesion type: [place] artery [place] vs. transplanted heart: [place] heart Qualified Code(s): I25.10 - Atherosclerotic heart disease of [place] coronary artery without angina pectoris (3) Senile dementia Dementia behavioral disturbance: without behavioral disturbance Qualified Code(s): F03.90 - Unspecified dementia without behavioral disturbance
[2021-03-22 12:24] LABS: BUN Creatinine Ratio 25.3 (10-20); Calcium 8.4 mg/dl (8.5-10.1); Creatinine Clr Calc Pharmacy 31.6 ml/min; Est GFR (African American) 43.8 ml/min; Est GFR (Non-African American) 37.8 ml/min; Potassium 3.7 mmol/L (3.5-5.1)
[2021-03-22] MEDS: DONEPEZIL HCL 10 MG TAB PO SCH (20:57)
[2021-03-23 06:23] VITALS: TEMP 98.8
[2021-03-23] MEDS: INSULIN ASPART 100 UNITS/ML 3 ML PEN SC SCH ×2 (07:51→12:11)
[2021-03-23] MEDS ORDERED: FUROSEMIDE 20 MG TAB PO SCH (09:00)
[2021-03-23] MEDS: carvediloL 12.5 MG TAB PO SCH (09:09)
[2021-03-23] MEDS: NEPHROCAPS PO SCH (09:09)
[2021-03-23] MEDS: ISOSORBIDE MONO EXTENDED REL 60 MG TABCR PO SCH (09:10)
[2021-03-23] MEDS: ASPIRIN 81 MG ECTAB PO SCH (09:10)
[2021-03-23] MEDS: APIXABAN 5 MG TABLET PO SCH (09:10)
[2021-03-23] MEDS: PANTOprazole 40 MG TAB PO SCH (09:10)
[2021-03-23] MEDS: ATORVASTATIN 40 MG TAB PO SCH (09:11)
[2021-03-23] MEDS: dexAMETHasone 6 MG in SYRINGE 0 ML IV SCH (10:10)
--- NOTE | 2021-03-23 12:12 | Discharge Summary ---
Date of Service March 23, 2021 Admission HPI Per Admitting Provider Rowdy Gracia is an 80 year old male extensive cardiovascular disease with coronary artery disease who presents to the ER with his as she was concerned they both have COVID. The patient reports having no complaints. He is not on any oxygen at home. His provides his history at bedside (of note she is not hypoxic and going to get monoclonal antibodies and discharged). The patient is current on day 7 of cold symptoms. Mainly with coughing up clear mucus and nasal congestion. Taking Coricidin D and Robitussin with limited effectiveness. No change in bowels, no melena, bright red blood in stool, nausea, vomiting, shortness of breath. He is fully vaccinated for COVID in October Pfizer x2 doses. 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 More recently he had AAA repair and aortoiliac bypass 07/2020. Postoperatively he was started on CRRT for oliguric MURRAY and was on dialysis up until September. He was also diagnosed with pulmonary emboli in August 2020 and currently taking Eliquis for this. In the ER SARS-COV-2 PCR positive. O2 sats drop to 85% on room air at rest. he is not on oxygen at home. In the ER his O2 sats maintaining > 94% on 2LPM O2. He was referred to medicine for admission and ongoing management of hypoxia. Principal Diagnosis COVID 19 infection Discharge Exam General: well developed, well nourished, no acute distress, comfortable Neck: supple, trachea midline, normal thyroid Lungs: clear to auscultation bilaterally, normal respiratory effort, no acc essory muscle use, no distress Heart: regular S1 and S2, no murmur, peripheral pulses normal, capillary refill normal, no edema Abdomen: soft, NT, ND, + BS, no hepatomegaly, normal to percussion Extremities: normal in appearance, no cyanosis, no petechiae, strength is 5/5 bilaterally Neuro: awake, cooperative, moves all extremities, no focal motor deficits, CN II-XII intact, sensation in extremities intact, normal speech Skin: warm, dry, no rash, normal turgor Psych: Awake, alert oriented x 3, euthymic affect Discharge Data Allergies Allergy/AdvReac Type Severity Reaction Status Date / Time cefepime AdvReac Severe See note Verified 03/11/21 09:37 Consultations 03/21/21 15:29 ED Decision to Admit Stat Hospital Course (1) Pneumonia due to COVID-19 virus: COVID 19- day 8 of illness reported Fully vaccinated Dexamethasone 6mg IV, change to PO for several more days since saturations are < 94% on room air Hold remdisivir with renal function and day of illness unlikely to show any benefit at this time great response to Lasix 40mg IV, dramatic diuresis and improvement of oxygenation recommend taking Lasix 40mg PO daily for 2 days then follow normal regimen of 20-40mg follow up with Dr. Dunham in a week (2) Acute on chronic heart failure with preserved ejection fraction: Lasix 40 mg IV, great response, quickly titrated to room air both at rest and on exertion recommend taking Lasix 40mg PO daily at home for 2 days then resume 20-40mg dosing (3) Hypoxia: Aim O2 sats > 90%, secondary to COVID-19 pneumonia +/- acute CHF 2 step on day of discharge, no oxygen needed at rest or on exertion (4) CAD (coronary artery disease): s/p PCI 1995 and 2002. 2103 chest pain --> cath -- > occluded RCA --> ICD placed. - no acute complaints and no arrythmias (5) Paroxysmal atrial fibrillation: With AICD- AAIR with mode switch to DDDR - low rate 60, upper rate 120 Continue amiodarone and anticoagulation Continue anticoagulation at high dose due to pulmonary emboli in August 2020 (6) History of myocardial infarction: Continue aspirin, Eliquis, carvedilol, atorvastatin (7) Senile dementia: Continue donepezil (8) Severe obstructive sleep apnea: CPAP HS (9) Diabetes mellitus, controlled: HbA1C 5.8 in January Novolog: Goal BSG Range: Low 110 mg/dL, High 140 mg/dL Correction Factor: 45 mg/dL/unit No carb coverage BSGs ACHS if eating, q6h if npo (10) CKD (chronic kidney disease) stage 3, GFR 30-59 ml/min: At baseline. Monitor with Lasix dosing. - TIMBER ROBBER pending for this morning (11) ICD (implantable cardioverter-defibrillator) in place: Noted VTE Prophylaxis - Eliquis Diet - heart healthy, low Na, Fluid restrict 1500ml Dispotion - admit to med/tele Total Time Total Time Spent Total Time Spent (In Minutes): 33 minutes Discharge Plan Discharge Items Patient Disposition: Home - Self-Care Reason For Visit: COVID-19 PNEUMONIA,ACUTE CHF,HYPOXIA Discharge Diagnosis: COVID 19 pneumonia Acute on chronic heart failure Condition on Discharge: Good Goals: continue dexamethasone for a short course take Lasix as prescribed to keep lungs dry stay well rested, well nourished Activity: Resume your previous activity Weightbearing: Full weightbearing Non-emergency contact: Primary Care Provider Call non-emergency contact if: you have any medication questions and your symptoms worsen Follow-up/Referrals: Saud Dunham MD [Primary Care Provider] - (one week) Diet: Carb Consistent or DM2 and Heart Healthy Addtl Attending Provider Instructions: Medications: - DEXAMETHASONE: steroid to reduce inflammation from COVID, recommended since your saturations is < 94% on room air, take 6mg in the morning for 4 more days, start tomorrow - LASIX: I would recommend taking 40mg daily for the next 2 days then you can follow your typical instructions for 20mg vs 40mg COVID 19 pneumonia, acute on chronic heart failure with preserved ejection fraction, acute hypoxia (low oxygen) you responded well to treatment, specifically you got dexamethasone (steroid) and Lasix intravenously with good response you did NOT need oxygen today both when sitting and when walking with respiratory therapy recommend you take dexamethasone for a few more days to help reduce inflammation also, you should take Lasix 40mg for two days to help keep lungs dry stay well nourished and get rest follow a low carbohydrate diet, no sweets, for the next several days while on dexamethasone follow up with Dr. Dunham in a week for hospital transition visit Pending Studies at Discharge: No Stand-Alone Forms: My EZ-Apps, Smoking Cessation Medications and DC Order Prescriptions: New dexamethasone 4 mg tablet 6 mg PO DAILY 4 Days Qty: 6 RF: 0 Continued (DME) lancets [Accu-Chek Softclix Lancets] Misc See Rx Instructions .ROUTE .MEDSUPPLY Qty: 100 RF: 5 amiodarone 200 mg tablet 200 mg PO [id number] Qty: 150 RF: 3 isosorbide mononitrate 60 mg tablet extended release 24 hr 60 mg PO QAM Qty: 90 RF: 3 Eliquis 5 mg tablet 5 mg PO BID Qty: 180 RF: 3 atorvastatin 80 mg tablet 80 mg PO QAM Qty: 90 RF: 3 donepezil 10 mg tablet 10 mg PO HS Qty: 90 RF: 3 lansoprazole 30 mg capsule,delayed release(DR/EC) 30 mg PO QAM Qty: 90 RF: 3 (DME) Accu-Chek SmartView Test Strip Strip See Rx Instructions .ROUTE .MEDSUPPLY Qty: 300 RF: 5 carvedilol 25 mg tablet 12.5 mg PO BID Qty: 30 RF: 5 nitroglycerin 0.4 mg tablet, sublingual 0.4 mg Sublingual UD PRN (Reason: Angina) Qty: 30 RF: 0 (DME) CPAP Machine Misc See Dose Instructions .ROUTE .MEDSUPPLY Qty: 1 RF: 0 nystatin [Nystop] 100,000 unit/gram powder 1 applic topical BID PRN (Reason: Skin Irritation) RF: 0 [place] Caps 1 mg capsule 1 cap PO QAM RF: 0 aspirin 81 mg tablet,delayed release (DR/EC) 81 mg PO QAM RF: 0 furosemide 20 mg tablet 20 - 40 mg PO QAM RF: 0 acetaminophen [Tylenol] 325 mg Tablet 650 mg PO Q4H PRN (Reason: Pain (Scale Score 1-3)) RF: 0 Discharge Orders: Discharge Order (Routine); Ordered 03/23/21 Ordered By: Nikita Wan Admission Data Admit Date/Time: 03/21/21 16:58 Attending Provider: Nikita Wan Admit Provider: David Adame Primary Care Provider: Saud Dunham Other Providers: David Adame ; Saul Zuñiga Other Interventions: Discharge Summary Assessment (RN) Last Done: 03/23/21 13:31 Coding Level of Care Code D/C DAY MANAGEMENT >30 MINS Diagnoses Pneumonia due to COVID-19 virus U07.1; J12.82 Acute on chronic heart failure with preserved ejection fraction I50.33 Hypoxia R09.02 CAD (coronary artery disease) I25.10 Associated angina: without angina Coronary Disease-Associated Artery/Lesion type: [place] artery [place] vs. transplanted heart: [place] heart Paroxysmal atrial fibrillation I48.0 History of myocardial infarction I25.2 Senile dementia F03.90 Dementia behavioral disturbance: without behavioral disturbance Severe obstructive sleep apnea G47.33 Diabetes mellitus, controlled E11.9 Diabetes mellitus complication status: without complication Diabetes mellitus medical terminologist insulin use: without medical terminologist use Diabetes mellitus type: type 2 CKD (chronic kidney disease) stage 3, GFR 30-59 ml/min N18.30 ICD (implantable cardioverter-defibrillator) in place Z95.810
[2021-03-23 13:32] VITALS: BP 144/72; PULSE 61; O2SAT 97
== END 2021-03-23 15:20 | disposition home or self-care (01) | DRG 177 ==
LOC: ED 11:14 → EDINP 16:58 → SUATTDRO 16:58 → EDINP 03-23 16:10

== ENCOUNTER 2023-03-14 00:09 | Inpatient (IN) ==
[2023-03-14 01:00] LABS: Albumin Level 3.3 gm/dl (3.4-5.0); Anion Gap 6 (3-11); Bilirubin,Total 0.6 mg/dl (0.2-1.0); Calcium 8.4 mg/dl (8.6-10.3); Carbon Dioxide 25 mmol/L (21-32); Chloride 104 mmol/L (98-107); Potassium 3.7 mmol/L (3.5-5.1); Sodium 135 mmol/L (136-145)
[2023-03-14 01:01] LABS: Basophils # (auto) 0.01 K/uL (0.00-0.20); Basophils % (auto) 0.2 %; Eosinophils # (auto) 0.07 K/uL (0.00-0.50); Eosinophils % (auto) 1.3 %; Hemoglobin 11.6 g/dl (14.0-18.0); Immature Granulocytes # (auto) 0.02 K/uL (0.01-0.20); Immature Granulocytes % (auto) 0.4 %; Lymphocytes # (auto) 0.47 K/uL (1.20-3.40); Lymphocytes % (auto) 8.6 %; Mean Corpuscular Hemoglobin 27.7 pg (25.0-34.0); Mean Corpuscular Hgb Conc 31.4 g/dL (32.0-36.0); Mean Corpuscular Volume 88.3 fL (80.0-100.0); Mean Platelet Volume 9.8 fL (9.4-12.4); Monocytes # (auto) 0.54 K/uL (0.11-0.59); Monocytes % (auto) 9.8 %; Neutrophils # (auto) 4.38 K/uL (1.40-6.50); Neutrophils % (auto) 79.7 %; Platelet Count 123 K/uL (130-400); RDW Coefficient of Variation 17.8 % (11.5-14.5); RDW Standard Deviation 57.3 fL (36.4-46.3); Red Blood Count 4.19 M/uL (4.70-6.10); White Blood Count 5.49 K/ul (4.8-10.8)
[2023-03-14 01:06] LABS: Alanine Aminotransferase 17 U/L (7-52); Albumin Globulin Ratio 1.3 (0.9-2); Alkaline Phosphatase 62 U/L (34-104); Aspartate Aminotransferase 30 U/L (13-39); BUN Creatinine Ratio 17.4 (10-20); Blood Urea Nitrogen 41 mg/dl (6-23); Est GFR (African American) 28.8 ml/min; Est GFR (Non-African American) 24.8 ml/min; Globulin 2.6 gm/dl (2.5-4.0); Glucose 121 mg/dl (70-99(Fasting)); Total Protein 5.9 gm/dl (6.0-8.3)
[2023-03-14] MEDS ORDERED: SODIUM CHLORIDE 0.9% 500 ML IV ONE (02:17)
--- NOTE | 2023-03-14 02:50 | History & Physical Report ---
Date of Service March 14, 2023 Assessment & Plan (1) Hypoglycemia: Plan: Patient reported to have had an unresponsive/poorly responsive episode by the Found to have a blood glucose of 37 Possible etiology is his home glimepiride however the most likely reason is the recent ingestion of Bactrim Received dextrose 10% Will hold glimepiride for now Continue IV 5% dextrose saline at 100 cc/h Recheck blood glucose (2) Acute kidney injury superimposed on CKD: Plan: Patient has a history of CKD was on hemodialysis at some point in the past However his renal function had stabilized over the past couple of years. Recent worsening over the past couple of days most likely due to Bactrim which was prescribed for suspected UTI Rehydrate with IV saline Recheck BMP (3) Cardiomyopathy: Plan: Status post ICD Monitor input and output, daily weight (4) CAD (coronary artery disease): (5) Diabetes mellitus, controlled: Plan: According to the , his blood glucose has been fairly under good control for the past couple of years Initially started on a low-dose glimepiride 0.5 mg but now currently on 2 mg daily I suspect his episode of hypoglycemia was precipitated by Bactrim (6) Atrial fibrillation, persistent: Plan: Right under good control Continue carvedilol apixaban amiodarone (7) Chronic heart failure with preserved ejection fraction: Plan: Compensated right now Monitor input and output, daily weight (8) CKD (chronic kidney disease) stage 3, GFR 30-59 ml/min: History of Present Illness Chief Complaint: Unresponsive Primary Care Provider: Saud Dunham MD Is an 82-year-old male with a history of ischemic cardiomyopathy, status post ICD AAA status postrepair, CKD, paroxysmal A-fib on anticoagulation who presents to the hospital today following a poorly responsive at episode. According to the from home some of the history was obtained earlier in the day the patient had a. Where he was not making sense at all and the thought he had a seizure. However when the ambulance came and checked his blood glucose it was 37. Upon arrival at the emergency department he received further dextrose infusions but his blood glucose kept dipping below normal so the decision was made to monitor him in the hospital overnight. Also of note there was a slight worsening in his renal function serum creatinine has increased to 2.4 from a baseline of 1.5. Patient admitted to taking Bactrim prescribed for him presumably for UTI by his PCP. For his diabetes he said he now takes glimepiride although at a slightly higher dose than when he started. Allergies Allergy/AdvReac Type Severity Reaction Status Date / Time cefepime AdvReac Severe See note Verified 03/11/23 14:52 Home Medications Medication Instructions Recorded Confirmed Type CPAP Machine #1 ea 02/28/19 03/11/23 Rx lancets (Accu-Chek Softclix #100 ea 05/10/19 03/11/23 Rx Lancets) nitroglycerin 0.4 mg sublingual 0.4 mg sublingual UD PRN Angina 05/10/19 03/11/23 Rx tablet #30 tabs acetaminophen 325 mg tablet 650 mg PO Q4H PRN Pain (Scale 08/30/20 03/11/23 History (Tylenol) Score 1-3) nystatin 100,000 unit/gram topical 1 applic topical BID PRN Skin 12/03/20 03/11/23 History powder (Nystop) Irritation aspirin 81 mg tablet,delayed 81 mg PO QAM 01/06/21 03/11/23 History release amiodarone 200 mg tablet 200 mg PO 5XWK #150 tabs 04/14/22 03/11/23 Rx atorvastatin 80 mg tablet 80 mg PO QAM #90 tabs 04/14/22 03/11/23 Rx donepezil 10 mg tablet 10 mg PO HS #90 tabs 04/14/22 03/11/23 Rx isosorbide mononitrate 60 mg 60 mg PO QAM #90 tabs 04/14/22 03/11/23 Rx tablet,extended release 24 hr lansoprazole 30 mg capsule,delayed 30 mg PO QAM gerd #90 caps 04/14/22 03/11/23 Rx release furosemide 20 mg tablet 20 mg PO QAM edema #90 tabs 05/19/22 03/11/23 Rx dapagliflozin propanediol 10 mg 10 mg PO DAILY #90 tabs 09/16/22 03/11/23 Rx tablet (Farxiga) solifenacin 5 mg tablet (Vesicare) 5 mg PO DAILY #90 tabs 10/01/22 03/11/23 Rx vitamin B complex and vitamin C 1 cap PO QAM #90 caps 10/08/22 03/11/23 Rx no.20-folic acid 1 mg capsule ([place] Caps) carvedilol 25 mg tablet 25 mg PO BID #180 tabs 01/29/23 03/11/23 Rx apixaban 2.5 mg tablet (Eliquis) 2.5 mg PO BID #180 tabs 02/24/23 03/11/23 Rx glimepiride 2 mg tablet 2 mg PO BID #60 tabs 03/05/23 03/11/23 Rx sulfamethoxazole 800 1 tab PO BID #20 tabs 03/11/23 03/11/23 Rx mg-trimethoprim 160 mg tablet (Bactrim DS) blood sugar diagnostic (Accu-Chek #300 ea 03/12/23 Rx SmartView Test Strips) Past Med/Surg History Medical History Pneumonia due to COVID-19 virus Hypoxia Paroxysmal atrial fibrillation Osteomyelitis Osteomyelitis of great toe of right foot Open wound Diabetes mellitus ESRD (end stage renal disease) Pulmonary embolism History of abdominal aortic aneurysm Ventricular tachycardia Senile dementia On amiodarone therapy Lymphedema Cardiomyopathy CAD (coronary artery disease) Abdominal aortic aneurysm (AAA) Kidney stones Prostate cancer Hearing deficit ICD (implantable cardioverter-defibrillator) in place (~2013) Myocardial Infarction (~1995) Aneurysm of right popliteal artery Hyperlipidemia Hypertension Surgical History Orbital floor fracture History of lithotripsy Status post cystoscopy with ureteral stent placement Status post femoral-popliteal bypass surgery History of carpal tunnel release History of prostate biopsy History of hernia repair History of colonoscopy History of prostate surgery History of bilateral cataract extraction S/P AAA repair History of heart artery stent History of cardiac cath History of bilateral knee replacement Family History Mother Hypertension Cardiac disorder Father Cardiac disorder Myocardial infarction Brother Diabetes Hypertension Hyperlipidemia Obstructive sleep apnea Denies family history of Ovarian cancer Prostate cancer Coronary heart disease Breast cancer Colorectal cancer Social History (Updated 03/05/23 @ 10:41 by Brittney Galdamez LPN) Smoking Status: Never smoker Second Hand Exposure: No; Do You Dip or Chew Tobacco: No; Hx Alcohol Use: No Hx Substance Use: No Preferred Language: [place]une[place] Communication Ability: Effective Hearing Ability: Normal Client Onboarding Analyst Required: No Beliefs That Will Affect Care: None marital status: Current Living Situation: Spouse current occupational status: retired Feels Safe at Home: Yes Childhood Exposure to Second-Hand Smoke: No Diet: regular caffeine: Yes Dental Care, Regularly: Yes Physical Activity Frequency: Does not Exercise Seatbelt Use: always Sunscreen Use: No Assistive Devices: Cane and Walker Review of Systems Review of Systems: All systems reviewed are negative, apart from the ones contained in the history. Physical Exam Physical Exam: The patient is awake, alert and oriented 3, well developed and well nourished, normocephalic and atraumatic, lying in bed and in no acute distress. HEENT--PERRL, EOMI, mucous membranes and oropharynx mildly dry Neck--supple. No JVD. No bruits. Thyroid normal, trachea midline, no adenopathy. Heart--normal S1 and S2. No murmurs, rubs or gallops. Lungs--clear bilaterally, no respiratory distress, no accessory muscle use. Abdomen--normal bowel sounds and soft. Mild epigastric and left sided abdominal pain Extremities--no cyanosis or clubbing. No edema. Dermatologic--normal skin turgor, normal color, no abnormal lymph nodes, no rash. Neurologic--cranial nerves II through XII grossly intact. Rheumatologic--normal range of motion. Psychiatric--normal affect. Results & Data Results & Data Vital Signs (Past 12 Hours) Vital Signs Temp Pulse Resp BP Pulse Ox O2 Del Method 03/14/23 01:30 60 21 193/119 H 94 03/14/23 00:25 98.2 F 63 24 149/84 H 94 Room Air 03/14/23 00:16 70 PG Care Time/CCT Total # of Minutes Spent Total Time Spent with Patient: Total time spent is greater than 50% in coordination of care (as documented) at patient's floor/unit and/or counseling patient: Coding Level of Care Code 04979 INT INP/OBS CARE 3/75MIN Diagnoses Hypoglycemia E16.2 Acute kidney injury superimposed on CKD N17.9; N18.9 Cardiomyopathy, unspecified type I42.9 Cardiomyopathy type: unspecified Coronary artery disease involving hughes coronary artery of hughes heart without angina pectoris I25.10 Coronary Disease-Associated Artery/Lesion type: hughes artery [place] vs. transplanted heart: hughes heart Associated angina: without angina Controlled type 2 diabetes mellitus without complication, without long-term current use of insulin E11.9 Diabetes mellitus type: type 2 Diabetes mellitus mcfp insulin use: without mcfp use Diabetes mellitus complication status: without complication Atrial fibrillation, persistent I48.19 Chronic heart failure with preserved ejection fraction I50.32 CKD (chronic kidney disease) stage 3, GFR 30-59 ml/min N18.30 Time Spent (min) 75 (3) Cardiomyopathy Cardiomyopathy type: unspecified Qualified Code(s): I42.9 - Cardiomyopathy, unspecified (4) CAD (coronary artery disease) Coronary Disease-Associated Artery/Lesion type: hughes artery [place] vs. transplanted heart: hughes heart Associated angina: without angina Qualified Code(s): I25.10 - Atherosclerotic heart disease of hughes coronary artery without angina pectoris (5) Diabetes mellitus, controlled Diabetes mellitus type: type 2 Diabetes mellitus intermediate card tender insulin use: without mcfp use Diabetes mellitus complication status: without complication Qualified Code(s): E11.9 - Type 2 diabetes mellitus without complications
[2023-03-14] MEDS: D5W AND NSS 1,000 ML IV SCH ×2 (03:00→11:41)
[2023-03-14] MEDS ORDERED: ACETAMINOPHEN 325 MG TAB PO PRN (03:35)
[2023-03-14] MEDS ORDERED: DEXTROSE 10% 250 ML BAG IV ONE (04:06)
[2023-03-14 04:36] LABS: Calcium 8.6 mg/dl (8.6-10.3); Potassium 3.9 mmol/L (3.5-5.1)
[2023-03-14 04:53] LABS: BUN Creatinine Ratio 16.6 (10-20); Creatinine Clr Calc Pharmacy 27.8 ml/min; Est GFR (African American) 29.7 ml/min; Est GFR (Non-African American) 25.6 ml/min
[2023-03-14] MEDS ORDERED: DEXTROSE 50% 50 ML SYRINGE IV STA (04:53)
--- NOTE | 2023-03-14 05:28 | Emergency Department Note ---
Impression & Plan Acute kidney injury, Hypoglycemia associated with type 2 diabetes mellitus Admit to the [facility] ED Provider Note NAME: NILTON NYE AGE: 82 SEX: Male INFORMANT: Patient ED PROVIDER(S): María Elena Wallace DO CHIEF COMPLAINT: Unresponsive episode PLAN: Disposition: Admit to the [facility] MEDICAL DECISION MAKING: This is an 82-year-old male patient with a history of type 2 diabetes who takes glipizide who presents to the emergency department after an episode of unresponsiveness at home. Patient was found to have a blood sugar of 37. EMS administered D10 which brought the blood sugar up to 137. Patient had been prescribed Bactrim recently for UTI. EMS state the patient had suffered a fall earlier in the day but had no signs of trauma or injuries from that fall. Laboratory studies done here show no leukocytosis and a stable anemia with a hemoglobin of 11.6. Blood sugar was 129. Of concern, the patient's creatinine has doubled and is now 2.35. Patient's explains that he has previously been on dialysis and is followed very closely by nephrology. Patient was bolused with IV normal saline solution. Patient's blood sugar did drop while here in ER. He was given juice and a turkey sandwich to eat which brought his blood sugar back up. [facility] for further [facility] care. Care/management discussed with: [facility]'s Triage Nursing notes: Reviewed and agree with them. Vital Signs: reviewed and unremarkable Additional History obtained from: EMS and the patient's who is now at the bedside Chronic Medical/Social Conditions affecting care: Type 2 diabetes and dementia Prior/ Outside/ External records reviewed: A note from a visit on March 03 of this year where he was checked for his diabetes. Differential Diagnosis: Hypoglycemic event, CVA, hyperglycemia, intracranial hemorrhage Diagnostics, independently interpreted by me: ECG: Atrial paced rhythm at a rate of 62 with T wave inversion laterally. This is difficult to compare to previous EKGs as the previous EKGs show an AV paced rhythm. Cardiac Monitoring: Paced rhythm at 70 Imaging studies: Portable chest x-ray: No acute pulmonary infiltrates or evidence of congestive heart failure. HPI: 82 year old Male arrives for evaluation of hypoglycemia. EMS explained that the patient was recently diagnosed with UTI and started Bactrim. His noticed that he had an altered mental status and became unresponsive in his chair. BSG was noted to be 37. EMS gave the patient D10 which brought the blood sugar up to 137. Patient has type 2 diabetes and takes glipizide. PAST MEDICAL HISTORY: See Below, PAST SURGICAL HISTORY: See Below, SOCIAL HISTORY: See Below, HOME MEDICATIONS: See list ALLERGIES: See list VITALS: See Below PHYSICAL EXAMINATION: HEENT: Head - normocephalic and atraumatic. Pupils are equal, round, and reactive to light. Extraocular eye muscles are intact, and sclera are anicteric. Nose - moist nasal mucosa without discharge. Mouth - moist buccal mucosa. Oropharynx is nonerythematous and there is no tonsillar exudate or edema noted. Neck: Supple; no JVD or cervical lymphadenopathy Heart: Regular rate and rhythm. There is a normal S1 and S2 with no murmurs, clicks, or gallops appreciated. Lungs: Clear to auscultation bilaterally with no wheezes, rales, or rhonchi. Abdomen: Soft, completely nontender, nondistended, with good bowel sounds. There are no palpable pulsatile masses or hepatosplenomegaly. There is no guarding, rigidity, or rebound noted. Extremities: No evidence of cyanosis, clubbing, or edema. There are easily palpable peripheral pulses. Skin: warm and dry with good turgor and no rashes. Emergency department course: The patient was evaluated in room C2. A complete history and physical was performed. Laboratory studies were drawn as above. An order was placed for continuous cardiac monitoring. The patient was in a paced rhythm at a rate of 70. A twelve-lead EKG was obtained as described above. Patient's blood sugar was rechecked again here upon arrival it was noted to be 129. Patient's creatinine has doubled. He was bolused with IV normal saline solution. Later in the stay it was rechecked again and had dropped down to 45. He was given juice to drink along with a turkey sandwich. Past Med/Surg History Medical History Pneumonia due to COVID-19 virus Hypoxia Paroxysmal atrial fibrillation Osteomyelitis Osteomyelitis of great toe of right foot Open wound Diabetes mellitus ESRD (end stage renal disease) Pulmonary embolism History of abdominal aortic aneurysm Ventricular tachycardia Senile dementia On amiodarone therapy Lymphedema Cardiomyopathy CAD (coronary artery disease) Abdominal aortic aneurysm (AAA) Kidney stones Prostate cancer Hearing deficit ICD (implantable cardioverter-defibrillator) in place (~2013) Myocardial Infarction (~1995) Aneurysm of right popliteal artery Hyperlipidemia Hypertension Surgical History Orbital floor fracture History of lithotripsy Status post cystoscopy with ureteral stent placement Status post femoral-popliteal bypass surgery History of carpal tunnel release History of prostate biopsy History of hernia repair History of colonoscopy History of prostate surgery History of bilateral cataract extraction S/P AAA repair History of heart artery stent History of cardiac cath History of bilateral knee replacement Family History Mother Hypertension Cardiac disorder Father Cardiac disorder Myocardial infarction Brother Diabetes Hypertension Hyperlipidemia Obstructive sleep apnea Denies family history of Ovarian cancer Prostate cancer Coronary heart disease Breast cancer Colorectal cancer Social History (Updated 03/05/23 @ 10:41 by Brittney Galdamez LPN) Smoking Status: Former smoker Second Hand Exposure: No; Do You Dip or Chew Tobacco: No; Hx Alcohol Use: No Hx Substance Use: No Preferred Language: Yi Communication Ability: Effective Hearing Ability: Normal Topographical Engineer Required: No Beliefs That Will Affect Care: None marital status: Current Living Situation: Spouse current occupational status: retired Feels Safe at Home: Yes Childhood Exposure to Second-Hand Smoke: No Diet: regular caffeine: Yes Dental Care, Regularly: Yes Physical Activity Frequency: Does not Exercise Seatbelt Use: always Sunscreen Use: No Assistive Devices: Cane and Walker Allergies Allergies Allergy/AdvReac Type Severity Reaction Status Date / Time cefepime AdvReac Severe See note Verified 03/14/23 16:51 Home Meds Home Medications Medication Instructions Recorded Confirmed acetaminophen 325 mg tablet 650 mg PO Q4H PRN Pain (Scale 08/30/20 03/14/23 (Tylenol) Score 1-3) nystatin 100,000 unit/gram topical 1 applic topical BID PRN Skin 12/03/20 03/14/23 powder (Nystop) Irritation aspirin 81 mg tablet,delayed 81 mg PO QAM 01/06/21 03/14/23 release Previous Rx's Medication Instructions Recorded CPAP Machine #1 ea 02/28/19 lancets (Accu-Chek Softclix #100 ea 05/10/19 Lancets) nitroglycerin 0.4 mg sublingual 0.4 mg sublingual UD PRN Angina 05/10/19 tablet #30 tabs amiodarone 200 mg tablet 200 mg PO 5XWK #150 tabs 04/14/22 atorvastatin 80 mg tablet 80 mg PO QAM #90 tabs 04/14/22 donepezil 10 mg tablet 10 mg PO HS #90 tabs 04/14/22 isosorbide mononitrate 60 mg 60 mg PO QAM #90 tabs 04/14/22 tablet,extended release 24 hr lansoprazole 30 mg capsule,delayed 30 mg PO QAM gerd #90 caps 04/14/22 release furosemide 20 mg tablet 20 mg PO QAM edema #90 tabs 05/19/22 dapagliflozin propanediol 10 mg 10 mg PO DAILY #90 tabs 09/16/22 tablet (Farxiga) solifenacin 5 mg tablet (Vesicare) 5 mg PO DAILY #90 tabs 10/01/22 vitamin B complex and vitamin C 1 cap PO QAM #90 caps 10/08/22 no.20-folic acid 1 mg capsule ([place] Caps) carvedilol 25 mg tablet 25 mg PO BID #180 tabs 01/29/23 apixaban 2.5 mg tablet (Eliquis) 2.5 mg PO BID #180 tabs 02/24/23 glimepiride 2 mg tablet 2 mg PO BID #60 tabs 03/05/23 sulfamethoxazole 800 1 tab PO BID #20 tabs 03/11/23 mg-trimethoprim 160 mg tablet (Bactrim DS) blood sugar diagnostic (Accu-Chek #300 ea 03/12/23 SmartView Test Strips) Results & Data (ED) Vital Signs Vital Signs - 24 hr 03/14/23 02:00 Pulse Rate 61 Pulse Rate from SpO2 Sensor 61 Respiratory Rate 23 Blood Pressure 203/106 H Blood Pressure Mean 138 Pulse Oximetry 92 Laboratory Data 03/14/23 08:33 03/14/23 21:20 Lab Results 03/14/23 03/14/23 03/14/23 Range/Units 00:17 00:29 02:12 WBC 5.49 (4.8-10.8) K/ul RBC 4.19 L (4.70-6.10) M/uL Hgb 11.6 L (14.0-18.0) g/dl Hct 37.0 L (42.0-52.0) % MCV 88.3 (80.0-100.0) fL MCH 27.7 (25.0-34.0) pg MCHC 31.4 L (32.0-36.0) g/dL RDW Std Deviation 57.3 H (36.4-46.3) fL RDW Coeff of Phillip 17.8 H (11.5-14.5) % Plt Count 123 L (130-400) K/uL MPV 9.8 (9.4-12.4) fL Immature Gran % (Auto) 0.4 % Neut % (Auto) 79.7 % Lymph % (Auto) 8.6 % [place] % (Auto) 9.8 % Eos % (Auto) 1.3 % Baso % (Auto) 0.2 % Neut # (Auto) 4.38 (1.40-6.50) K/uL Lymph # (Auto) 0.47 L (1.20-3.40) K/uL Mar[place] # (Auto) 0.54 (0.11-0.59) K/uL Eos # (Auto) 0.07 (0.00-0.50) K/uL Baso # (Auto) 0.01 (0.00-0.20) K/uL Immature Gran # (Auto) 0.02 (0.01-0.20) K/uL Sodium 135 L (136-145) mmol/L Potassium 3.7 (3.5-5.1) mmol/L Chloride 104 (98-107) mmol/L Carbon Dioxide 25 (21-32) mmol/L Anion Gap 6 (3-11) BUN 41 H (6-23) mg/dl Creatinine 2.35 H (0.6-1.4) mg/dl Est Cr Clr Drug Dosing Not Reportable Est GFR ( Amer) 28.8 ml/min Est GFR (Non-Af Amer) 24.8 ml/min BUN/Creatinine Ratio 17.4 (10-20) Glucose 121 H (70-99(Fasting)) mg/dl POC Glucose 129 H 45 L* (70-99) mg/dl Calcium 8.4 L (8.6-10.3) mg/dl Total Bilirubin 0.6 (0.2-1.0) mg/dl AST 30 (13-39) U/L ALT 17 (7-52) U/L Alkaline Phosphatase 62 (34-104) U/L Total Protein 5.9 L (6.0-8.3) gm/dl Albumin 3.3 L (3.4-5.0) gm/dl Globulin 2.6 (2.5-4.0) gm/dl Albumin/Globulin Ratio 1.3 (0.9-2) Administered Medications Atorvastatin Calcium (Atorvastatin 40 Mg Tab) 80 mg PO QAM [facility] Stop: 04/13/23 08:59 Last Admin: 03/14/23 10:54 Dose: Not Given Documented By: ES Carvedilol (Carvedilol 25 Mg Tab) 25 mg PO BID [facility] Stop: 04/13/23 08:59 Last Admin: 03/14/23 19:44 Dose: 25 mg Documented By: Admin: 03/14/23 10:54 Dose: Not Given Documented By: ES Dextrose (Dextrose 50% 50 Ml Syringe) 50 ml IV PRN PRN PRN Reason: Hypoglycemia Treatment Stop: 04/13/23 14:28 Last Admin: 03/14/23 20:50 Dose: 50 ml Documented By: Admin: 03/14/23 17:34 Dose: 50 ml Documented By: Admin: 03/14/23 17:16 Dose: 50 ml Documented By: ES Propofol (Diprivan) 1,000 mg in 100 mls @ 14.745 mls/hr IV .Q6H47M [facility]; Protocol Stop: 03/17/23 09:29 Last Admin: 03/14/23 22:31 Dose: 25 mcg/kg/min, 14.7 mls/hr Documented By: TP Co-signed By: BRITTNEY Titration: 03/14/23 22:29 Dose: Infused Documented By: TP Co-signed By: BRITTNEY Titration: 03/14/23 19:14 Dose: 25 mcg/kg/min, 14.7 mls/hr Documented By: TP Co-signed By: BRANDON Admin: 03/14/23 17:55 Dose: Not Given Documented By: Titration: 03/14/23 17:53 Dose: 25 mcg/kg/min, 14.7 mls/hr Documented By: Admin: 03/14/23 15:08 Dose: 20 mcg/kg/min, 11.8 mls/hr Documented By: BRANDON Co-signed By: WRCarina Titration: 03/14/23 15:08 Dose: Infused Documented By: ES Co-signed By: WRS Titration: 03/14/23 12:48 Dose: 20 mcg/kg/min, 11.8 mls/hr Documented By: Titration: 03/14/23 12:10 Dose: 15 mcg/kg/min, 8.8 mls/hr Documented By: Titration: 03/14/23 11:41 Dose: 10 mcg/kg/min, 5.9 mls/hr Documented By: Admin: 03/14/23 08:44 Dose: 20 mcg/kg/min, 11.8 mls/hr Documented By: ANA LUISA Co-signed By: BRENDEN Levetiracetam 500 mg/ Sodium (Chloride) 105 mls @ 420 mls/hr IV Q12H [facility] Stop: 04/13/23 12:59 Last Infusion: 03/15/23 00:51 Dose: Infused Documented By: Admin: 03/15/23 00:36 Dose: 420 mls/hr Documented By: Infusion: 03/14/23 13:34 Dose: Infused Documented By: Admin: 03/14/23 12:57 Dose: 420 mls/hr Documented By: ES Dextrose 250 ml/ Dextrose 1,000 mls @ 100 mls/hr IV .Q10H [facility] Stop: 04/13/23 18:29 Last Admin: 03/14/23 21:10 Dose: 100 mls/hr Documented By: Admin: 03/14/23 19:42 Dose: Not Given Documented By: TP Piperacillin Sod/Tazobactam (Sod 4.5 gm/ Dextrose) 100 mls @ 25 mls/hr IV Q8H [facility]; Protocol Stop: 03/17/23 01:59 Last Admin: 03/15/23 01:18 Dose: 25 mls/hr Documented By: TP Potassium Chloride (K Wong / Wtr) 20 meq in 100 mls @ 50 mls/hr IV Q2H [facility] Stop: 03/15/23 02:14 Last Admin: 03/15/23 00:35 Dose: 50 mls/hr Documented By: Infusion: 03/15/23 00:31 Dose: Infused Documented By: Admin: 03/14/23 22:31 Dose: 50 mls/hr Documented By: TP Isosorbide Mononitrate (Isosorbide [place] Extended Rel 60 Mg Tabcr) [facility] Stop: 04/13/23 08:59 Last Admin: 03/14/23 10:54 Dose: Not Given Documented By: ES Nutritional Formula (Peptamen Intense Vhp 1.0 Jose Angel 1,000 Ml Bag) 0 ml GT UD [facility]; Protocol Stop: 04/13/23 12:29 Last Admin: 03/14/23 12:56 Dose: 1,000 ml Documented By: ES Oxybutynin Chloride (Oxybutynin Chloride Xl 5 Mg Tabcr) 5 mg PO DAILY [facility] Stop: 04/13/23 08:59 Last Admin: 03/14/23 10:54 Dose: Not Given Documented By: ES Sterile Water (Tube Feeding Water Flush) 30 ml GT Q4H [facility] Stop: 04/13/23 12:29 Last Admin: 03/15/23 00:35 Dose: 30 ml Documented By: Admin: 03/14/23 19:48 Dose: 30 ml Documented By: Admin: 03/14/23 15:09 Dose: 30 ml Documented By: Admin: 03/14/23 12:56 Dose: 30 ml Documented By: ES Discontinued Medications Apixaban (Apixaban 2.5 Mg Tab) 2.5 mg PO BID [facility] Stop: 04/13/23 08:59 Last Admin: 03/14/23 10:53 Dose: Not Given Documented By: ES Aspirin (Aspirin 81 Mg Ectab) 81 [facility] Stop: 04/13/23 08:59 Last Admin: 03/14/23 10:53 Dose: Not Given Documented By: ES Dextrose (Dextrose 10% 250 Ml Bag) 250 ml IV ONCE ONE Stop: 03/14/23 04:07 Last Admin: 03/14/23 04:10 Dose: 250 ml Documented By: SHADIA Dextrose (Dextrose 50% 50 Ml Syringe) 50 ml IV NOW STA Stop: 03/14/23 04:54 Last Admin: 03/14/23 06:34 Dose: Not Given Documented By: HH Dextrose (Dextrose 50% 50 Ml Syringe) Confirm Administered Dose 50 ml IV .STK- MED ONE Stop: 03/14/23 09:50 Last Admin: 03/14/23 09:58 Dose: 50 ml Documented By: MNE Dextrose (Dextrose 10% 1,000 Ml Bag) Confirm Administered Dose 1,000 ml IV .STK- MED ONE Stop: 03/14/23 09:55 Last Admin: 03/14/23 11:40 Dose: 1,000 ml Documented By: ES Dextrose (Dextrose 50% 50 Ml Syringe) Confirm Administered Dose 50 ml IV .STK- MED ONE Stop: 03/14/23 11:37 Last Admin: 03/14/23 11:40 Dose: 50 ml Documented By: ES Dextrose (Dextrose 50% 50 Ml Syringe) Confirm Administered Dose 50 ml IV .STK- MED ONE Stop: 03/14/23 13:02 Last Admin: 03/14/23 13:05 Dose: 50 ml Documented By: ES Dextrose (Dextrose 50% 50 Ml Syringe) Confirm Administered Dose 50 ml IV .STK- MED ONE Stop: 03/14/23 14:13 Last Admin: 03/14/23 14:15 Dose: 50 ml Documented By: ES Glucose (Glucose 10 Tab/Tube) 4 tab PO Q4 [facility] Stop: 04/13/23 15:59 Last Admin: 03/14/23 19:48 Dose: Not Given Documented By: Admin: 03/14/23 15:09 Dose: 4 tab Documented By: ES Glucose (Glucose 40% Gel 15 Gm Tube) Confirm Administered Dose 15 gm PO .STK-MED ONE Stop: 03/14/23 19:46 Last Admin: 03/14/23 20:26 Dose: Not Given Documented By: TP Glucose (Glucose 40% Gel 15 Gm Tube) 15 gm PO NOW STA Stop: 03/14/23 19:51 Last Admin: 03/14/23 20:26 Dose: 15 gm Documented By: TP Sodium Chloride (Nss) 500 mls @ 999 mls/hr IV .Q31M ONE Stop: 03/14/23 02:47 Last Infusion: 03/14/23 03:53 Dose: Infused Documented By: Admin: 03/14/23 02:23 Dose: 999 mls/hr Documented By: HH Dextrose/Sodium Chloride (D5w And Nss) 1,000 mls @ 100 mls/hr IV .Q10H [facility] Stop: 04/13/23 03:34 Last Admin: 03/14/23 11:41 Dose: Not Given Documented By: Infusion: 03/14/23 11:41 Dose: Infused Documented By: Infusion: 03/14/23 05:17 Dose: 100 mls/hr Documented By: Infusion: 03/14/23 04:44 Dose: 0 mls/hr Documented By: Admin: 03/14/23 03:00 Dose: 100 mls/hr Documented By: SHADIA Levetiracetam 2,000 mg/ Sodium (Chloride) 270 mls @ 999 mls/hr IV NOW STA Stop: 03/14/23 08:46 Last Infusion: 03/14/23 10:54 Dose: Infused Documented By: Admin: 03/14/23 09:12 Dose: 999 mls/hr Documented By: ANA LUISA Dextrose (D10w) 1,000 mls @ 125 mls/hr IV .Q8H [facility] Stop: 04/13/23 11:59 Last Infusion: 03/14/23 17:55 Dose: Infused Documented By: Infusion: 03/14/23 14:33 Dose: 125 mls/hr Documented By: Admin: 03/14/23 12:17 Dose: 100 mls/hr Documented By: BRANDON Piperacillin Sod/Tazobactam (Sod 4.5 gm/ Dextrose) 100 mls @ 200 mls/hr IV NOW ONE; Protocol Stop: 03/14/23 21:29 Last Infusion: 03/14/23 22:38 Dose: Infused Documented By: Admin: 03/14/23 22:08 Dose: 200 mls/hr Documented By: CLEMENT Lorazepam (Lorazepam 2 Mg/1 Ml Vial) 1 mg IM NOW STA Stop: 03/14/23 08:24 Last Admin: 03/14/23 09:28 Dose: Not Given Documented By: ANA LUISA Lorazepam (Lorazepam 1 Mg/1 Ml Syr Ed Inj Use) 2 mg IV ONE STA Stop: 03/14/23 09:26 Last Admin: 03/14/23 08:25 Dose: 2 mg Documented By: ANA LUISA Lorazepam (Lorazepam 2 Mg/1 Ml Vial) Confirm Administered Dose 2 mg .ROUTE .STK- MED ONE Stop: 03/14/23 17:46 Last Admin: 03/14/23 17:46 Dose: 2 mg Documented By: BRANDON Miscellaneous (Rapid Sequence Induction Bag) Confirm Administered Dose 1 each N/A .STK-MED ONE Stop: 03/14/23 08:36 Last Admin: 03/14/23 09:22 Dose: Not Given Documented By: ANA LUISA Propofol (Propofol Iv Emulsion 10 Mg/Ml 100 Ml Vial) Confirm Administered Dose 1,000 mg IV .STK-MED ONE Stop: 03/14/23 08:40 Last Admin: 03/14/23 09:41 Dose: Not Given Documented By: ANA LUISA Propofol (Propofol Bolus From Bag) 20 mg IV ONCE ONE Stop: 03/14/23 09:31 Last Admin: 03/14/23 10:54 Dose: Not Given Documented By: BRANDON Discharge Plan Visit Data Chief Complaint: Hypoglycemia ED Provider: María Elena Wallace Discharge Problem: Acute kidney injury, Hypoglycemia associated with type 2 diabetes mellitus Patient Disposition: Admitted As Inpatient Discharge Instructions Interventions: ED Discharge Assessment Last Done: 03/14/23 03:36
--- NOTE | 2023-03-14 07:06 | XRay Report ---
SINGLE VIEW CHEST CLINICAL HISTORY: Generalized weakness. FINDINGS: An AP, portable, upright chest radiograph is compared to study dated 09/04/2022. Correlation is made with chest CT dated 11/04/2020. The examination is degraded by portable technique and apical lordotic positioning. A 2-lead cardiac AICD is unchanged in position. The heart is enlarged and not a therosclerotic calcification of the thoracic aorta. The pulmonary vasculature is noncongested. Chroni c interstitial thickening is similar to previous. There is mild bibasilar scarring/atelectasis. Calci fied pleural plaques are again seen bilaterally. No airspace consolidation or large pleural effusion is identified. No pneumothorax is seen. The skeletal structures are osteopenic. The bony thorax is gr ossly intact. Degenerative change is noted in the shoulders. IMPRESSION: 1. Cardiomegaly and AICD without radiographic evidence of congestive failure. 2. No airspace consolidation or large pleural effusion is identified. ACT 112: Negative or not required by law. Electronically signed by: Neto Han M.D. 03/14/2023 7:04 AM
--- NOTE | 2023-03-14 07:36 | Hospitalist Progress Note ---
Date of Service March 14, 2023 Assessment & Plan (1) Hypoglycemia: (2) Acute kidney injury superimposed on CKD: (3) Cardiomyopathy: (4) CAD (coronary artery disease): (5) Diabetes mellitus, controlled: (6) Atrial fibrillation, persistent: (7) Chronic heart failure with preserved ejection fraction: (8) CKD (chronic kidney disease) stage 3, GFR 30-59 ml/min: (9) Tonic clonic convulsion: Plan #Tonic-clonic convulsion #Fall -On 03/14 at approximately 8 AM received a message from nursing stating that the patient fell and hit his head and is now having altered mental status. Patient is on a blood thinner. When examining the patient bedside he had tonic jerking motions of his upper extremity as well as a right upward gaze. Blood glucose bedside was in the 190s. A stroke alert was called on the patient and a CT was ordered. Patient's was intubated due to his worsening respiratory status. He received 2 mg of Ativan and 2 g of Keppra as well as propofol. His seizing has stopped at the moment. -Shortly after patient stopped seizing labs were drawn which showed a glucose level of 20. -CT head showed no evidence of hemorrhage, mass effect, or acute ischemia. -CT cervical spine showed no evidence of fracture or subluxation of the cervical spine. -Patient was transferred to the ICU given his worsening respiratory status -Chest x-ray showed a endotracheal tube in place. Continues to show cardiomegaly. Mild pulmonary vascular congestion was new from earlier x-ray. -Patient's seizure most likely secondary to hypoglycemia. Initial bedside glucose levels were normal, blood glucose after was critically low. -No history of seizures in the past. Neurology consulted. #Hypoglycemia -Patient reported to have had an unresponsive/poorly responsive episode by the -Found to have a blood glucose of 37 -Possible etiology is his home glimepiride, however was recently on Bactrim as well. -Received dextrose 10% -Will hold glimepiride. Will most likely hold at time of discharge and have patient follow-up with PCP regarding diabetes management. -Continue IV 5% dextrose saline at 100 cc/h -Patient continues to have critically low glucose levels while admitted to the hospital with periods of normal glucose as well. -Currently ICU status at this time given his respiratory status and refractory hypoglycemic episodes #Acute kidney injury superimposed on CKD #CKD (chronic kidney disease) stage 3 -Patient has a history of CKD was on hemodialysis at some point in the past -Recent worsening over the past couple of days most likely due to Bactrim which was prescribed for suspected UTI -Initial creatinine of 2.35, baseline around 1.7. Last seen nephrology on 02/10/23. -Rehydrate with IV saline -Improving since admission. #Cardiomyopathy #CAD -Status post ICD -Monitor input and output, daily weight #Diabetes mellitus, controlled -Under control per -Initially started on a low-dose glimepiride 0.5 mg but now currently on 2 mg daily -Hypoglycemia event was most likely precipitated by Bactrim, though #Atrial fibrillation, persistent -Continue carvedilol apixaban amiodarone #Chronic heart failure with preserved ejection fraction -Compensated right now -Monitor input and output, daily weight Fluids: D5W and NSS at 100 mL/hour Nutrition: N.p.o. Code status: full code DVT ppx: Holding home Eliquis. Dispo: ICU Thank you for allowing me to participate in the care of your patient. -Dr. Neto Kirk PGY2 Admission and Anticipated Discharge Date Admission Date: March 14, 2023 Supervising Physician Co-Signing Physician Notes Resident Physician Supervision Note: I independently interviewed and examined the patient and verified the daniels history and physical, reviewed labs and image studies and agree with resident findings and care plan. Acute resp failure - sec to aspiration - on Vent per sleeve wheel maker Metabolic encephalopathy - sec to hypoglycemia Seizure - likely from hypoglycemia. keppra loaded. neuro consulted. hypoglycemia - sec to sulphonylurea in setting of ?acute illness. close glucose monitoring and D50 infusion. D5 in IVF. Will need further collateral history. MURRAY - IVF. follow renal function. Eliquis holding due to fall. Subjective At 8 AM this morning, nursing called about patient following and hitting his head while being on a blood thinner. Patient is not able to respond to any questions at this time and has shaking of his upper extremities bilaterally. He also has altered mental status. Called and confirmed this is different from his baseline. Review of Systems Review of Systems: Unobtainable due to cognitive status Physical Exam Physical Exam: General--tonic-clonic seizure activity of bilateral upper extremities, altered mental status HEENT--eyes deviating looking up to the right Heart--normal S1 and S2. No murmurs, rubs or gallops. Lungs--clear bilaterally, poor respiratory effort Abdomen--normal bowel sounds and soft. Mild epigastric and left sided abdominal pain Extremities--upper extremity tonic-clonic jerking Neurologic--unable to assess Results & Data Results & Data Vital Signs (Past 12 Hours) Vital Signs Temp Pulse Pulse Resp BP BP Pulse Ox 03/14/23 04:36 36.8 C 74 20 152/64 H 96 03/14/23 02:59 92 H 23 205/100 H 94 03/14/23 02:00 61 23 203/106 H 92 03/14/23 01:30 60 21 193/119 H 94 03/14/23 00:25 36.8 C 63 24 149/84 H 94 03/14/23 00:16 70 O2 Del Method 03/14/23 04:36 Room Air 03/14/23 02:59 03/14/23 02:00 03/14/23 01:30 03/14/23 00:25 Room Air 03/14/23 00:16 Resident Activity Tracking Resident Involvement: Resident Care Provided Care Provided: Adult Hospital Medicine (3) Cardiomyopathy Cardiomyopathy type: unspecified Qualified Code(s): I42.9 - Cardiomyopathy, unspecified (4) CAD (coronary artery disease) Associated angina: without angina Coronary Disease-Associated Artery/Lesion type: [place] artery [place] vs. transplanted heart: [place] heart Qualified Code(s): I25.10 - Atherosclerotic heart disease of [place] coronary artery without angina pectoris (5) Diabetes mellitus, controlled Diabetes mellitus complication status: without complication Diabetes mellitus custodial insulin use: without custodial use Diabetes mellitus type: type 2 Qualified Code(s): E11.9 - Type 2 diabetes mellitus without complications
[2023-03-14] MEDS ORDERED: LORazepam 2 MG/1 ML VIAL IM STA (08:23)
[2023-03-14] MEDS ORDERED: LORazepam 2 MG/1 ML VIAL ONE ×2 (08:24→17:45)
[2023-03-14] MEDS ORDERED: RAPID SEQUENCE INDUCTION BAG ONE (08:35)
[2023-03-14] MEDS ORDERED: PROPOFOL IV EMULSION 10 MG/ML 100 ML VIAL IV ONE (08:39)
--- NOTE | 2023-03-14 08:43 | CT Scan Report ---
CT SCAN OF THE BRAIN WITHOUT IV CONTRAST CLINICAL HISTORY: Fall. Seizure activity. COMPARISON STUDY: CT of the brain dated 12/17/2020. TECHNIQUE: Unenhanced axial CT scan of the brain is performed from the vertex to the skull base. A do se lowering technique was utilized adhering to the principles of ALARA. The patient was scanned twice due to motion artifact. FINDINGS: Brain parenchyma: There is age-related involutional change noting moderate subcortical and periventri cular microangiopathic disease. There is no hemorrhage, mass effect, or evidence of acute territorial ischemia by CT criteria. [place]ar[place]-white matter differentiation is preserved. No extra-axial fluid collec tion is seen. Ventricles, sulci, cisterns: Prominent secondary to involutional change. Intracranial vasculature: There is atherosclerotic calcification of the cavernous carotid and vertebr al arteries. Calvarium: Unremarkable. Sinuses and mastoids: There is near complete opacification of the right maxillary sinus. Mild mucosal thickening is noted within the ethmoid sinuses. The mastoid air cells are well pneumatized. Cerumen is noted in the external auditory canals. Orbits: The bony orbits are grossly intact. There are bilateral ocular lens implants. IMPRESSION: There is no evidence of hemorrhage, mass effect, or acute territorial ischemia by CT crit jocelyn noting a motion degraded examination. ACT 112: Negative or not required by law. Electronically signed by: Neto Han M.D. 03/14/2023 8:41 AM
[2023-03-14] MEDS: propofoL 1,000 MG/100 ML VIAL IV SCH ×4 (08:44→22:31)
[2023-03-14 08:47] LABS: Basophils # (auto) 0.03 K/uL (0.00-0.20); Basophils % (auto) 0.4 %; Eosinophils # (auto) 0.17 K/uL (0.00-0.50); Eosinophils % (auto) 2.3 %; Hematocrit (blood only) 41.9 % (42.0-52.0); Hemoglobin 13.1 g/dl (14.0-18.0); Immature Granulocytes # (auto) 0.04 K/uL (0.01-0.20); Immature Granulocytes % (auto) 0.6 %; Lymphocytes # (auto) 0.82 K/uL (1.20-3.40); Lymphocytes % (auto) 11.3 %; Mean Corpuscular Hemoglobin 27.4 pg (25.0-34.0); Mean Corpuscular Hgb Conc 31.3 g/dL (32.0-36.0); Mean Corpuscular Volume 87.7 fL (80.0-100.0); Mean Platelet Volume 9.8 fL (9.4-12.4); Monocytes # (auto) 0.85 K/uL (0.11-0.59); Monocytes % (auto) 11.7 %; Neutrophils # (auto) 5.36 K/uL (1.40-6.50); Neutrophils % (auto) 73.7 %; Platelet Count 143 K/uL (130-400); RDW Coefficient of Variation 17.8 % (11.5-14.5); RDW Standard Deviation 56.4 fL (36.4-46.3); Red Blood Count 4.78 M/uL (4.70-6.10); White Blood Count 7.27 K/ul (4.8-10.8)
--- NOTE | 2023-03-14 08:49 | Emergency Department Note ---
ED Visit Note ED physician note regarding hospitalized patient: Called to CT at 8:20 AM on March 14, 2023. Indication seizing patient 82-year-old gentleman admitted overnight for altered mental status and hypoglycemia. He has been boarding in the ER overnight pending bed upstairs. I was made aware around 8:20 AM that he was being taken to CAT scan for stroke alert. On my evaluation patient is actively seizing. He has tonic jerking motions of upper and lower extremities he is looking up to the right he is altered and not breathing well. He was given 2 mg of IV Ativan and CT was obtained while monitoring respiratory. No clear evidence of intracranial hemorrhage or mass effect on initial CT. He was brought directly back to critical care bay. Patient is altered not protecting airway he was intubated with 7.5 tube without difficulty. He was started on propofol. 2 g of Keppra were given IV. Of note prior to intubation patient seizing seems to have stopped. Blood sugar had been normal on check prior to CAT scan. Respiratory failure consistent with Ativan and patient that already had poor respiratory effort and has evidence of aspiration. Of note during intubation there was a lot of edema around vocal cords and upper trachea consistent with recent or recurrent aspiration issues. I did discuss my concerns for aspiration findings with hospitalist team at bedside and they will continue to monitor and manage. Endotracheal Intubation Indication: Poor respiratory effort unable to protect airway The patient was being bagged by respiratory with BVM. Suction, airway equipment, RSI drugs, respiratory equipment, and appropriate personnel were prepared prior to the initiation of the procedure. A time out was taken. Induction was performed with etomidate & succinylcholine. After observing the clinical benefit of the medications, the airway was easily visualized utilizing a #3 Glidescope Blade. A 7.5 size ETT tube was placed atraumatically to 24 cm using standard technique. The cuff inflated without signs of malfunction. There were bilateral breath sounds, positive colormetric change, no gastric sounds, a good capnography waveform, and post procedure pulse oximetry was 99 %. Post intubation sedation and paralysis was administered using propofol and fentanyl. There were no complications. Critical Care: I have personally spent 30 minutes of critical care time in the direct management of this patient. Acutely seizing patient with respiratory failure. This was a life/limb threatening event. This 30 minutes is in excess of all separately billable procedures. Cole Alejandra MD
--- NOTE | 2023-03-14 08:50 | CT Scan Report ---
CT SCAN OF THE CERVICAL SPINE CLINICAL HISTORY: Fall. COMPARISON STUDY: CT of the cervical spine dated 05/04/2019. TECHNIQUE: CT scan of the cervical spine is performed from the skull base to the upper thoracic spine . Images are reviewed in the axial, sagittal, and coronal planes. IV contrast was not administered fo r this examination. A dose lowering technique was utilized adhering to the principles of ALARA. The examination is degraded by motion artifact. FINDINGS: Skeletal structures: The skeletal structures are osteopenic. There is no evidence of fracture or subl uxation involving the cervical spine. Vertebral body height and alignment are maintained. There is s traightening of cervical lordosis. Anterior osteophytes are seen throughout. The odontoid process and lateral masses are intact. The atlantoaxial articulation is preserved noting productive degenerative change. The spinous processes appear intact. There is moderate multilevel cervical spondylosis. Unco vertebral and facet arthropathy contribute to neural foraminal narrowing at several levels. Intervertebral discs: There is moderate disc space narrowing at C5-C6 and C6-C7. Mild narrowing is se en at the remaining cervical levels. Central canal: Posterior disc osteophyte complexes at C5-C6 and C6-C7 may contribute to mild acquired compromise of the central canal. Soft tissues: The prevertebral and paraspinous soft tissues are within normal limits. There is athero sclerotic calcification of the carotid bulbs. Pacemaker leads are noted at the left thoracic inlet. Calvarium: The visualized calvarium at the skull base appears intact. Brain parenchyma: Partially visualized brain parenchyma at the skull base is within normal limits. Sinuses and mastoids: Mucosal thickening is noted in the right maxillary sinus. The mastoid air cells are well pneumatized. Cerumen is noted in the external auditory canals. Lung apices: Clear as visualized. IMPRESSION: 1. There is no evidence of fracture or subluxation involving the cervical spine. 2. Osteopenia and spondylotic change as above. ACT 112: Negative or not required by law. Electronically signed by: Neto Han M.D. 03/14/2023 8:48 AM
--- NOTE | 2023-03-14 08:53 | XRay Report ---
SINGLE VIEW CHEST CLINICAL HISTORY: Seizure. Change in mental status. Intubation. FINDINGS: An AP, portable, supine chest radiograph is compared to study performed earlier the same da y 03/14/2023. Correlation is made with chest CT dated 11/04/2020. The examination is degraded by elian ble technique and apical lordotic positioning. Endotracheal tube has been placed. The tip projects 4. 2 cm above the osbaldo. A 2-lead cardiac AICD is unchanged in position. The heart is enlarged noting a therosclerotic calcification of the thoracic aorta. There is mild pulmonary vascular congestion. Big Data Admin mino interstitial thickening is similar to previous. There is mild bibasilar scarring/atelectasis. Jose Angel cified pleural plaques are again seen bilaterally. No airspace consolidation or large pleural effusio n is identified. No pneumothorax is seen. The skeletal structures are osteopenic. The bony thorax is grossly intact. Degenerative change is noted in the shoulders. IMPRESSION: 1. An endotracheal tube has been placed as above. 2. Cardiomegaly and AICD. Mild pulmonary vascular congestion is new from today's earlier examination. 3. No airspace consolidation or large pleural effusion is identified. ACT 112: Negative or not required by law. Electronically signed by: Neto Han M.D. 03/14/2023 8:52 AM
[2023-03-14] MEDS ORDERED: APIXABAN 2.5 MG TAB PO SCH (09:00)
[2023-03-14] MEDS ORDERED: ASPIRIN 81 MG ECTAB PO SCH (09:00)
[2023-03-14 09:05] LABS: INR 1.2 (0.9-1.1); Partial Thromboplastin Time 29.6 Seconds (21.0-31.0); Prothrombin Time 12.6 Seconds (9.0-12.0)
[2023-03-14 09:19] LABS: Troponin I High Sensitivity 37.6 pg/ml (0-20)
[2023-03-14] MEDS ORDERED: LORazepam 1 MG/1 ML SYR ED Inj Use IV STA (09:25)
[2023-03-14] MEDS ORDERED: STAT IV Infusion **Titration per Protocol STA (09:27)
[2023-03-14] MEDS ORDERED: PROPOFOL BOLUS FROM BAG IV ONE (09:30)
[2023-03-14 09:41] LABS: Albumin Level 3.7 gm/dl (3.4-5.0); Bilirubin,Total 0.6 mg/dl (0.2-1.0); Calcium 8.5 mg/dl (8.6-10.3); Magnesium 2.1 mg/dl (1.7-2.4); Potassium 3.7 mmol/L (3.5-5.1)
[2023-03-14] MEDS ORDERED: DEXTROSE 50% 50 ML SYRINGE IV ONE ×4 (09:49→14:12)
[2023-03-14 09:54] LABS: Albumin Globulin Ratio 1.2 (0.9-2); BUN Creatinine Ratio 14.3 (10-20); Creatinine Clr Calc Pharmacy 28.4 ml/min; Est GFR (African American) 30.5 ml/min; Est GFR (Non-African American) 26.3 ml/min; Total Protein 6.7 gm/dl (6.0-8.3)
[2023-03-14] MEDS ORDERED: DEXTROSE 10% 1,000 ML BAG IV ONE (09:54)
[2023-03-14] MEDS: ISOSORBIDE MONO EXTENDED REL 60 MG TABCR PO SCH (10:54)
[2023-03-14] MEDS: OXYBUTYNIN CHLORIDE XL 5 MG TABCR PO SCH (10:54)
[2023-03-14] MEDS: ATORVASTATIN 40 MG TAB PO SCH (10:54)
[2023-03-14] MEDS: carvediloL 25 MG TAB PO SCH ×2 (10:54→19:44)
[2023-03-14] MEDS ORDERED: DEXTROSE 10% 1,000 ML IV SCH (12:00)
--- NOTE | 2023-03-14 12:03 | Critical Care Consultation ---
Date of Consultation March 14, 2023 Assessment & Plan (1) Tonic clonic convulsion: (2) Hypoglycemia associated with type 2 diabetes mellitus: (3) Acute kidney injury superimposed on CKD: (4) Hypoglycemia: (5) ICD (implantable cardioverter-defibrillator) battery depletion: (6) Cardiomyopathy: (7) Severe obstructive sleep apnea: (8) Atrial fibrillation, persistent: Plan 82 yaer old male with HFpEF, DM, CKD, afib who presents with confusion. Found hypoglycemic and developed grand mal seizure. 1. acute respiratory failure - intubated for airway protection. vent support requiring minimal setting. Check ABG. 2. ICMP 3. afib 4. Hypoglycemia - glimiperide on hold. continue D10@100 and start tube feeds. q1h glucose check. 5. recently treated UTI - check UA/urine culture. 6. new onset seizure - continue keppra. neurology consult. 7. sedation - on propofol. 8. acute on chronic CKD - monitor crcl and urine output. 9. FEN - start TF. 10. DVT/GI prophy Discussed with primary and RN. Total CC time spent 47 minutes. History of Present Illness Attending Physician: Bailee Jean MD History of Present Illness 82-year-old male with ischemic cardiomyopathy, status post ICD, AAA status postrepair, CKD, paroxysmal A-fib on anticoagulation who presents with a poorly responsive at episode. Per chart review, at home thought he had a seizure. EMS upon arrival found low blood glucose 37. Cause of his hypoglycemia was attributed to recent use of bactrim. He takes glimepiride. In the ED, glucose was difficult to maintain. While in CT he developed active tonic clonic seizure. He was given ativan and subsequently intubated for airway protection. He was loaded on keprra. Transferred to ICU. Allergies Allergy/AdvReac Type Severity Reaction Status Date / Time cefepime AdvReac Severe See note Verified 03/11/23 14:52 Home Medications Medication Instructions Recorded Confirmed Type CPAP Machine #1 ea 02/28/19 03/11/23 Rx lancets (Accu-Chek Softclix #100 ea 05/10/19 03/11/23 Rx Lancets) nitroglycerin 0.4 mg sublingual 0.4 mg sublingual UD PRN Angina 05/10/19 03/11/23 Rx tablet #30 tabs acetaminophen 325 mg tablet 650 mg PO Q4H PRN Pain (Scale 08/30/20 03/11/23 History (Tylenol) Score 1-3) nystatin 100,000 unit/gram topical 1 applic topical BID PRN Skin 12/03/20 03/11/23 History powder (Nystop) Irritation aspirin 81 mg tablet,delayed 81 mg PO QAM 01/06/21 03/11/23 History release amiodarone 200 mg tablet 200 mg PO 5XWK #150 tabs 04/14/22 03/11/23 Rx atorvastatin 80 mg tablet 80 mg PO QAM #90 tabs 04/14/22 03/11/23 Rx donepezil 10 mg tablet 10 mg PO HS #90 tabs 04/14/22 03/11/23 Rx isosorbide mononitrate 60 mg 60 mg PO QAM #90 tabs 04/14/22 03/11/23 Rx tablet,extended release 24 hr lansoprazole 30 mg capsule,delayed 30 mg PO QAM gerd #90 caps 04/14/22 03/11/23 Rx release furosemide 20 mg tablet 20 mg PO QAM edema #90 tabs 05/19/22 03/11/23 Rx dapagliflozin propanediol 10 mg 10 mg PO DAILY #90 tabs 09/16/22 03/11/23 Rx tablet (Farxiga) solifenacin 5 mg tablet (Vesicare) 5 mg PO DAILY #90 tabs 10/01/22 03/11/23 Rx vitamin B complex and vitamin C 1 cap PO QAM #90 caps 10/08/22 03/11/23 Rx no.20-folic acid 1 mg capsule ([place] Caps) carvedilol 25 mg tablet 25 mg PO BID #180 tabs 01/29/23 03/11/23 Rx apixaban 2.5 mg tablet (Eliquis) 2.5 mg PO BID #180 tabs 02/24/23 03/11/23 Rx glimepiride 2 mg tablet 2 mg PO BID #60 tabs 03/05/23 03/11/23 Rx sulfamethoxazole 800 1 tab PO BID #20 tabs 03/11/23 03/11/23 Rx mg-trimethoprim 160 mg tablet (Bactrim DS) blood sugar diagnostic (Accu-Chek #300 ea 03/12/23 Rx SmartView Test Strips) Patient History Medical History Pneumonia due to COVID-19 virus Hypoxia Paroxysmal atrial fibrillation Osteomyelitis Osteomyelitis of great toe of right foot Open wound Diabetes mellitus ESRD (end stage renal disease) Pulmonary embolism History of abdominal aortic aneurysm Ventricular tachycardia Senile dementia On amiodarone therapy Lymphedema Cardiomyopathy CAD (coronary artery disease) Abdominal aortic aneurysm (AAA) Kidney stones Prostate cancer Hearing deficit ICD (implantable cardioverter-defibrillator) in place (~2013) Myocardial Infarction (~1995) Aneurysm of right popliteal artery Hyperlipidemia Hypertension Surgical History Orbital floor fracture History of lithotripsy Status post cystoscopy with ureteral stent placement Status post femoral-popliteal bypass surgery History of carpal tunnel release History of prostate biopsy History of hernia repair History of colonoscopy History of prostate surgery History of bilateral cataract extraction S/P AAA repair History of heart artery stent History of cardiac cath History of bilateral knee replacement Family History Mother Hypertension Cardiac disorder Father Cardiac disorder Myocardial infarction Brother Diabetes Hypertension Hyperlipidemia Obstructive sleep apnea Denies family history of Ovarian cancer Prostate cancer Coronary heart disease Breast cancer Colorectal cancer Social History (Updated 03/05/23 @ 10:41 by Brittney Galdamez LPN) Smoking Status: Former smoker Second Hand Exposure: No; Do You Dip or Chew Tobacco: No; Hx Alcohol Use: No Hx Substance Use: No Preferred Language: Hungarian Communication Ability: Effective Hearing Ability: Normal Fagot Maker Required: No Beliefs That Will Affect Care: None marital status: Current Living Situation: Spouse current occupational status: retired Feels Safe at Home: Yes Childhood Exposure to Second-Hand Smoke: No Diet: regular caffeine: Yes Dental Care, Regularly: Yes Physical Activity Frequency: Does not Exercise Seatbelt Use: always Sunscreen Use: No Assistive Devices: Cane and Walker Physical Exam Constitutional: + mechanically ventilated appears younger than stated age. Respiratory: normal respiratory effort Auscultation: lungs clear to auscultation bilaterally on mechanical ventilation Cardiovascular: Rate/Rhythm: regular rate and regular rhythm Skin: no rashes, warm and dry Neurologic: sedated Results & Data Results & Data Vital Signs (Past 12 Hours) Vital Signs Temp Pulse Pulse Resp BP BP Pulse Ox 03/14/23 10:56 03/14/23 10:25 63 18 97 03/14/23 10:24 128/69 03/14/23 10:24 76 18 95 03/14/23 10:00 113/60 03/14/23 10:00 60 15 98 03/14/23 09:55 60 15 98 03/14/23 09:55 109/61 03/14/23 09:50 60 15 124/65 03/14/23 09:45 60 15 118/66 97 03/14/23 09:40 119/64 03/14/23 09:35 60 15 125/67 97 03/14/23 09:30 60 15 118/66 97 03/14/23 09:25 60 15 119/67 96 03/14/23 09:15 60 15 117/67 96 03/14/23 09:10 60 15 117/67 96 03/14/23 09:05 60 15 120/67 96 03/14/23 09:00 60 15 95 03/14/23 09:00 123/71 03/14/23 08:55 60 15 128/70 95 03/14/23 08:50 61 15 144/78 H 98 03/14/23 08:49 61 15 96 03/14/23 08:45 64 15 181/98 H 100 03/14/23 08:40 64 31 H 192/98 H 100 03/14/23 08:35 67 25 H 147/108 H 91 03/14/23 08:33 72 29 H 72 L 03/14/23 08:13 103 H 29 H 79/57 L 03/14/23 07:00 182/81 H 03/14/23 04:36 36.8 C 74 20 152/64 H 96 03/14/23 02:59 92 H 23 205/100 H 94 03/14/23 02:00 61 23 203/106 H 92 03/14/23 01:30 60 21 193/119 H 94 03/14/23 00:25 36.8 C 63 24 149/84 H 94 03/14/23 00:16 70 O2 Del Method FiO2 03/14/23 10:56 Mechanical Vent 03/14/23 10:25 30 03/14/23 10:24 03/14/23 10:24 30 03/14/23 10:00 03/14/23 10:00 03/14/23 09:55 03/14/23 09:55 03/14/23 09:50 03/14/23 09:45 03/14/23 09:40 03/14/23 09:35 03/14/23 09:30 03/14/23 09:25 Mechanical Vent 03/14/23 09:15 Mechanical Vent 03/14/23 09:10 Mechanical Vent 03/14/23 09:05 Mechanical Vent 03/14/23 09:00 03/14/23 09:00 03/14/23 08:55 Mechanical Vent 03/14/23 08:50 Mechanical Vent 03/14/23 08:49 40 03/14/23 08:45 Mechanical Vent 03/14/23 08:40 Mechanical Vent 03/14/23 08:35 03/14/23 08:33 03/14/23 08:13 03/14/23 07:00 03/14/23 04:36 Room Air 03/14/23 02:59 03/14/23 02:00 03/14/23 01:30 03/14/23 00:25 Room Air 03/14/23 00:16 Coding Level of Care Code 68488 CRITICAL CARE 1ST 30-74M Diagnoses Tonic clonic convulsion G40.409 Hypoglycemia associated with type 2 diabetes mellitus E11.649 Acute kidney injury superimposed on CKD N17.9; N18.9 Hypoglycemia E16.2 ICD (implantable cardioverter-defibrillator) battery depletion Z45.02 Cardiomyopathy, unspecified type I42.9 Cardiomyopathy type: unspecified Severe obstructive sleep apnea G47.33 Atrial fibrillation, persistent I48.19 (6) Cardiomyopathy Cardiomyopathy type: unspecified Qualified Code(s): I42.9 - Cardiomyopathy, unspecified
[2023-03-14] MEDS: PEPTAMEN INTENSE VHP 1.0 CAL 1,000 ML BAG GT SCH (12:56)
[2023-03-14] MEDS: TUBE FEEDING WATER FLUSH GT SCH ×3 (12:56→19:48)
[2023-03-14] MEDS: levETIRAcetam 500 MG in SODIUM CHLOR 0.9% MINI-B 100 ML IV SCH (12:57)
[2023-03-14 14:10] LABS: Appearance Urine Clear (Clear); Bacteria Urine Automated Negative (Negative); Bilirubin Urine Negative (Negative); Blood Urine 3+ (Negative); Cast Urine Automated 0 /lpf (0-5); Color Urine Yellow; Epithelial Cell Urine Auto 0-5 /lpf (0-5); Glucose Urine UA 3+ (Negative); Ketones Urine Negative (Negative); Leukocyte Esterase Urine Negative (Negative); Nitrite Urine Negative (Negative); Protein Urine Negative (Negative); RBC Urine Automated >30 /hpf (0-4); Urobilinogen Urine Negative (Negative); WBC Urine Automated 0 /hpf (0-5); pH Urine 6.5 (4.5-7.5)
[2023-03-14] MEDS: GLUCOSE 10 TAB/TUBE PO SCH ×2 (15:09→19:48)
[2023-03-14] MEDS: DEXTROSE 50% 50 ML SYRINGE IV PRN ×3 (17:16→20:50)
[2023-03-14] MEDS: DEXTROSE 50% 250 ML in DEXTROSE 10% 750 ML IV SCH ×2 (19:42→21:10)
[2023-03-14] MEDS ORDERED: GLUCOSE 40% GEL 15 GM TUBE PO ONE (19:45)
[2023-03-14] MEDS ORDERED: GLUCOSE 40% GEL 15 GM TUBE PO STA (19:50)
[2023-03-14] MEDS ORDERED: GLUCAGON FOR INJ 1 MG VIAL IM PRN (20:00)
[2023-03-14] MEDS ORDERED: DEXTROSE 50% 50 ML SYRINGE IV PRN (20:00)
[2023-03-14] MEDS ORDERED: GLUCOSE 40% GEL 15 GM TUBE PO PRN (20:00)
[2023-03-14] MEDS ORDERED: GLUCOSE 10 TAB/TUBE PO PRN (20:00)
[2023-03-14] MEDS ORDERED: CARBOHYDRATES FOR HYPOGLYCEMIA PO PRN (20:00)
--- NOTE | 2023-03-14 20:06 | XRay Report ---
SINGLE VIEW CHEST CLINICAL HISTORY: Attempted central venous catheter placement. FINDINGS: 2 AP, portable, supine chest radiograph are compared to study performed earlier the same da y 03/14/2023. Correlation is made with chest CT dated 11/04/2020. The examination is significantly deg raded by portable technique and patient rotation. An endotracheal tube is unchanged in position. An e nteric tube has likely been placed. The tip is not visualized. No central venous catheter is identifi ed. A 2-lead cardiac AICD is unchanged in position. The heart is enlarged noting atherosclerotic calc ification of the thoracic aorta. There is pulmonary vascular congestion. Chronic interstitial thicken ing is similar to previous. There is mild bibasilar scarring/atelectasis. Calcified pleural plaques a re again seen bilaterally. Small pleural effusions are suspected and there are increasing bibasilar o pacities. No pneumothorax is seen. The skeletal structures are osteopenic. The bony thorax is grossly intact. Degenerative change is noted in the shoulders. IMPRESSION: 1. No central venous catheter is identified. No pneumothorax is seen following attempted catheter trevon cement. 2. An endotracheal tube is unchanged in position. Question enteric tube placement. This is not well v isualized and the tip is not seen. Correlate clinically. 3. Cardiomegaly and AICD with mild pulmonary vascular congestion. This has worsened from previous. 4. Suspect small pleural effusions. There are increasing bibasilar airspace opacities, left greater t aviles right. This could present atelectasis versus pneumonitis. Clinical correlation will be required. ACT 112: Negative or not required by law. Electronically signed by: Neto Han M.D. 03/14/2023 8:03 PM
[2023-03-14] MEDS ORDERED: ACETAMINOPHEN 1,000 MG/100 ML VIAL IV PRN (20:31)
[2023-03-14] MEDS ORDERED: PIPERACILLIN/TAZOBACTAM 4.5 GM in DEXTROSE 5% MINI-B 100 ML IV ONE (21:00)
--- NOTE | 2023-03-14 21:29 | Procedure Note ---
Procedure Note Date of Service March 14, 2023 Note FEMORAL CENTRAL LINE PROCEDURE NOTE: Procedure: Femoral Central Line Placement with ultrasound guidance Attending: Dr. Surinder Choudhury Provider: BAUDILIO Santiago Indication: Central Drug Administration Anesthesia: 1% lidocaine Line placed emergently in critically ill patient with emergent need for central access and unable to obtain consent from patient due to sedation/mechanical ventilation. A time-out was completed verifying correct patient, procedure, site, positioning, and implants(s) or special equipment if applicable. Patients right Groin was cleansed and draped in the typical sterile fashion using Chloraprep. The Femoral Vein and Femoral Artery were identified using ultrasound. The superficial tissue was anesthetized using 3 mL of 1% lidocaine without epinephrine under direct visualization with the ultrasound. After adequate anesthetization was achieved, the Femoral Vein was cannulated under direct ultrasound guidance using an introducer needle on a syringe. Good venous blood return was maintained prior to removal of syringe from introducer needle. Using Seldinger Technique, a guide wire was advanced through the introducer needle without resistance. The introducer needle was removed and ultrasound images were obtained of the guide wire within the Femoral Vein and saved to the patients medical record. A small incision was made in penetrating fashion at the guide wire insertion site utilizing an 11 blade scalpel. The dilator was advanced to the vessel without resistance. The dilator was exchanged for the triple lumen catheter which was advanced into the vessel without resistance. The guide wire was removed intact from the catheter without issue. Claves were placed on each catheter tip with confirmation of good blood flow from each lumen. Each port was easily flushed with sterile saline. The catheter was placed at the hub and sutured in place. BioPatch was applied to the catheter and a sterile Tegaderm dressing was applied over the catheter with careful attention to sterility. Patient tolerated procedure well. No immediate complications were met. Procedural Ultrasound Guidance: Procedure Date: 03/14/2023 Indication: Central venous catheter insertion Attending: Dr. Surinder Choudhury Provider: BAUDILIO Santiago Artery AND Vein visualized: Yes Compressible Vein: Yes Guidewire or Short Catheter seen in vein prior to dilation: Yes Line confirmed in Vein with ultrasound: Yes Images obtained are saved for permanent record. Coding CPT Codes Tubes, Drains, and Vasc Access - Tubes, Drains, and Vasc Access: [id number] Insertion Of Non-tunneled Catheter Age 5 Yrs> ([id number]) Tubes, Drains, and Vasc Access - Tubes, Drains, and Vasc Access: [id number] Ultrasound Guidance For Vascular ([id number]) [facility] [place] Procedure Codes (Charges) Tubes, Drains, and Vasc Access Procedure 1: Tubes, Drains, and Vasc Access: [id number] Insertion Of Non-tunneled Catheter Age 5 Yrs> Procedure 2: Tubes, Drains, and Vasc Access: [id number] Ultrasound Guidance For Vascular
[2023-03-14 21:58] LABS: Albumin Globulin Ratio 1.3 (0.9-2); BUN Creatinine Ratio 14.1 (10-20); Bilirubin,Total 0.7 mg/dl (0.2-1.0); Calcium 7.9 mg/dl (8.6-10.3); Creatinine Clr Calc Pharmacy 37.4 ml/min; Est GFR (African American) 42.6 ml/min; Est GFR (Non-African American) 36.7 ml/min; Globulin 2.4 gm/dl (2.5-4.0); Potassium 3.6 mmol/L (3.5-5.1); Total Protein 5.4 gm/dl (6.0-8.3)
[2023-03-14 22:12] LABS: Thyroid Stimulating Hormone 0.134 uIu/ml (0.300-4.500)
[2023-03-14] MEDS: POTASSIUM CHLORIDE / WTR 20 MEQ/100 ML PLCT IV SCH (22:31)
[2023-03-14 22:46] LABS: T4 Free Thyroxine 1.39 ng/dl (0.61-1.60)
[2023-03-15] MEDS: TUBE FEEDING WATER FLUSH GT SCH ×6 (00:35→21:44)
[2023-03-15] MEDS: POTASSIUM CHLORIDE / WTR 20 MEQ/100 ML PLCT IV SCH (00:35)
[2023-03-15] MEDS: levETIRAcetam 500 MG in SODIUM CHLOR 0.9% MINI-B 100 ML IV SCH ×2 (00:36→14:09)
[2023-03-15] MEDS: PIPERACILLIN/TAZOBACTAM 4.5 GM in DEXTROSE 5% MINI-B 100 ML IV SCH ×3 (01:18→16:49)
[2023-03-15 03:51] LABS: Base Excess ABG -0.8 mEq/L (-9-1.8); HCO3 ABG 24 mmol/L (19-24); Oxygen Saturation ABG 97.2 % (90-95); PCO2 ABG 37 mmHg (35-46); PO2 ABG 91 mmHg (80-95); pH ABG 7.41 (7.35-7.45)
[2023-03-15 03:53] LABS: Allen Test Pos (Pos)
[2023-03-15] MEDS: propofoL 1,000 MG/100 ML VIAL IV SCH ×2 (04:03→09:25)
[2023-03-15 04:49] LABS: Albumin Globulin Ratio 1.2 (0.9-2); Albumin Level 2.7 gm/dl (3.4-5.0); Bilirubin,Total 0.6 mg/dl (0.2-1.0); Calcium 7.6 mg/dl (8.6-10.3); Creatinine Clr Calc Pharmacy 34.4 ml/min; Est GFR (African American) 38.4 ml/min; Est GFR (Non-African American) 33.2 ml/min; Globulin 2.2 gm/dl (2.5-4.0); Magnesium 1.9 mg/dl (1.7-2.4); Potassium 3.8 mmol/L (3.5-5.1); Total Protein 4.9 gm/dl (6.0-8.3)
[2023-03-15] MEDS ORDERED: POTASSIUM PHOS 3 MMOL/1 ML INFUSION IV STA (05:20)
[2023-03-15 05:38] LABS: iSTAT Allen Test Pass; iSTAT Art Bld Gas pCO2 Correct 33 mmHg (35-46); iSTAT Art Bld Gas pH Corrected 7.429 (7.35-7.45); iSTAT Arterial Blood Gas HCO3 22 meg/L (19-24); iSTAT Arterial Blood Gas pCO2 33 mmHg (35-46); iSTAT Arterial Blood Gas pH 7.44 (7.35-7.45); iSTAT Arterial Blood Gas pO2 80 mmHg (80-95); iSTAT Arterial Blood Gas pO2 C 82; iSTAT Carbon Dioxide 23 mmol/L (24-31); iSTAT FiO2 30 %; iSTAT Hematocrit 34 % (42-52); iSTAT Hemoglobin 11.6 g/dl (14.0-18.0); iSTAT Potassium 3.2 mmol/L (3.3-5.0); iSTAT Site R Radial; iSTAT Sodium 137 mmol/L (135-144)
[2023-03-15 05:38] LABS: iSTAT Allen Test Pass; iSTAT Art Bld Gas pCO2 Correct 36 mmHg (35-46); iSTAT Art Bld Gas pH Corrected 7.378 (7.35-7.45); iSTAT Arterial Blood Gas HCO3 21 meg/L (19-24); iSTAT Arterial Blood Gas pCO2 36 mmHg (35-46); iSTAT Arterial Blood Gas pH 7.39 (7.35-7.45); iSTAT Arterial Blood Gas pO2 81 mmHg (80-95); iSTAT Arterial Blood Gas pO2 C 84; iSTAT Carbon Dioxide 22 mmol/L (24-31); iSTAT FiO2 30 %; iSTAT Hematocrit 33 % (42-52); iSTAT Hemoglobin 11.2 g/dl (14.0-18.0); iSTAT Potassium 3.7 mmol/L (3.3-5.0); iSTAT Site R Radial; iSTAT Sodium 133 mmol/L (135-144)
[2023-03-15] MEDS ORDERED: POTASSIUM PHOSPHATE 15 MMOL in SODIUM CHLORIDE 0.9% 250 ML IV ONE (05:45)
--- NOTE | 2023-03-15 06:47 | Hospitalist Progress Note ---
Date of Service March 15, 2023 Assessment & Plan (1) Hypoglycemia: (2) Acute kidney injury superimposed on CKD: (3) Cardiomyopathy: (4) CAD (coronary artery disease): (5) Diabetes mellitus, controlled: (6) Atrial fibrillation, persistent: (7) Chronic heart failure with preserved ejection fraction: (8) CKD (chronic kidney disease) stage 3, GFR 30-59 ml/min: (9) Tonic clonic convulsion: Plan #Tonic-clonic convulsion #Fall -On 03/14 at approximately 8 AM received a message from nursing stating that the patient fell and hit his head and is now having altered mental status. Patient is on a blood thinner. When examining the patient bedside he had tonic jerking motions of his upper extremity as well as a right upward gaze. Blood glucose bedside was in the 190s. A stroke alert was called on the patient and a CT was ordered. Patient's was intubated due to his worsening respiratory status. He received 2 mg of Ativan and 2 g of Keppra as well as propofol. His seizing has stopped at the moment. -Shortly after patient stopped seizing labs were drawn which showed a glucose level of 20. -CT head showed no evidence of hemorrhage, mass effect, or acute ischemia. -CT cervical spine showed no evidence of fracture or subluxation of the cervical spine. -Patient was transferred to the ICU given his worsening respiratory status -Chest x-ray showed a endotracheal tube in place. Continues to show cardiomegaly. Mild pulmonary vascular congestion was new from earlier x-ray. -Chest x-ray in the a.m. -Patient's seizure most likely secondary to hypoglycemia. Initial bedside glucose levels were normal, blood glucose after was critically low. -No history of seizures in the past. Neurology consulted. -Recommend to continue Keppra and to have a full stroke work-up once stable. -Recommend repeat noncontrast CT of the head today. -EEG ordered. -recommend brain MRI when medically stable. -Consider CTA head/neck pending MRI results If renal function allows. Could consider noncontrast MRI of the brain and carotid ultrasound otherwise. #Hypoglycemia -Patient reported to have had an unresponsive/poorly responsive episode by the -Found to have a blood glucose of 37 -Possible etiology is his home glimepiride, however was recently on Bactrim and had a acute illness. -Received dextrose 10% -Will hold glimepiride. -Patient continues to have critically low glucose levels while admitted to the hospital with periods of normal glucose as well. -Currently ICU status at this time given his respiratory status and repeated hypoglycemic episodes. -C-peptide and proinsulin pending. -Hemoglobin A1c ordered for morning labs. -Titrate D20 and start tube feeds. -Every hour glucose checks. #Acute respiratory failure -Most likely secondary secondary to aspiration. -Intubated on 03/14. Currently mechanically ventilated at this time. -ABG in the a.m. #Febrile -Patient was febrile overnight. -Blood cultures collected on 03/14. -Sputum culture uncollected at this time. -Empiric Zosyn started. #Acute kidney injury superimposed on CKD #CKD (chronic kidney disease) stage 3 -Patient has a history of CKD was on hemodialysis at some point in the past -Recent worsening over the past couple of days most likely due to Bactrim which was prescribed for suspected UTI -Initial creatinine of 2.35, baseline around 1.7. Last seen nephrology on 02/10/23. -Rehydrate with IV saline #Cardiomyopathy #CAD -Status post ICD -Monitor input and output, daily weight #Diabetes mellitus, controlled -Under control per -Initially started on a low-dose glimepiride 0.5 mg but now currently on 2 mg daily -Hypoglycemia event was most likely precipitated by Bactrim/acute illness in combination with glimepiride -Hemoglobin A1c of 10.3 on 11/2022. We will add on hemoglobin A1c to morning labs. -We will most likely need changes to his at home diabetes management. #Atrial fibrillation, persistent -Continue carvedilol, Eliquis, and amiodarone -We will restart Eliquis 2.5 mg twice daily in the a.m. if CT head is negative. #Chronic heart failure with preserved ejection fraction -Compensated right now -Monitor input and output, daily weight Fluids: D20 Nutrition: N.p.o., starting TF Code status: full code DVT ppx: restarting home Eliquis in the AM if CT head negative. Dispo: ICU Thank you for allowing me to participate in the care of your patient. -Dr. Neto Kirk PGY2 Admission and Anticipated Discharge Date Admission Date: March 14, 2023 Supervising Physician Co-Signing Physician Notes Resident Physician Supervision Note: I independently interviewed and examined the patient and verified the daniels history and physical, reviewed labs and image studies and agree with resident findings and care plan. Subjective Patient seen bedside this morning. He was febrile overnight. Currently intubated and mechanically ventilated. Femoral line placed overnight for D20. Review of Systems Review of Systems: Unobtainable due to endotracheal tube Physical Exam Constitutional: + mechanically ventilated Respiratory: normal respiratory effort Auscultation: lungs clear to auscultation bilaterally Cardiovascular: Rate/Rhythm: regular rate and regular rhythm Gastrointestinal (Abdomen): Inspection/Auscultation: normal bowel sounds Percussion/Palpation: abdomen soft Skin: no rashes, warm and dry Results & Data Results & Data Vital Signs (Past 12 Hours) Vital Signs Temp Pulse Resp BP Pulse Ox O2 Del Method FiO2 03/15/23 04:30 37.5 C 60 16 98 03/15/23 04:30 106/58 L 03/15/23 04:26 60 16 98 30 03/15/23 04:00 94/53 L 03/15/23 04:00 37.6 C H 60 16 98 03/15/23 04:00 30 03/15/23 03:30 93/53 L 03/15/23 03:30 37.8 C H 60 16 98 03/15/23 03:00 95/53 L 03/15/23 03:00 37.9 C H 60 16 98 03/15/23 02:30 92/52 L 03/15/23 02:30 38.1 C H 60 16 98 03/15/23 02:00 94/50 L 03/15/23 02:00 38.3 C H 60 17 93 03/15/23 01:30 93/50 L 03/15/23 01:30 38.5 C H 60 21 98 03/15/23 01:00 38.7 C H 60 16 98 03/15/23 01:00 90/52 L 03/15/23 00:30 92/50 L 03/15/23 00:30 38.9 C H 60 16 97 03/15/23 00:15 38.9 C H 60 18 97 03/15/23 00:00 38.9 C H 58 L 16 97 03/15/23 00:00 106/51 L 03/15/23 00:00 30 03/14/23 23:45 38.9 C H 60 16 99 03/14/23 23:31 129/59 L 03/14/23 23:31 39.0 C H 60 18 100 03/14/23 23:30 39.0 C H 60 21 100 03/14/23 23:15 39.1 C H 60 16 97 03/14/23 23:07 60 16 96 30 03/14/23 23:00 103/53 L 03/14/23 23:00 39.1 C H 60 16 96 03/14/23 22:45 39.1 C H 60 20 99 03/14/23 22:30 39.3 C H 60 17 97 03/14/23 22:30 109/54 L 03/14/23 22:15 39.3 C H 60 21 97 03/14/23 22:00 39.3 C H 60 20 97 03/14/23 22:00 107/52 L 03/14/23 21:45 39.3 C H 60 16 97 03/14/23 21:30 39.3 C H 60 22 98 03/14/23 21:15 39.2 C H 26 H 88 L 03/14/23 21:00 39.3 C H 90 23 94 03/14/23 21:00 95/55 L 03/14/23 20:45 39.2 C H 60 19 97 03/14/23 20:30 126/56 L 03/14/23 20:30 39.2 C H 60 19 97 03/14/23 20:15 39.0 C H 60 21 98 03/14/23 20:12 129/60 03/14/23 20:12 39.0 C H 60 21 99 03/14/23 20:00 38.9 C H 64 23 99 03/14/23 20:00 Mechanical Vent 03/14/23 19:52 64 28 H 96 30 03/14/23 19:45 38.9 C H 60 23 98 03/14/23 19:30 128/57 L 03/14/23 19:30 38.8 C H 60 20 97 03/14/23 19:15 38.8 C H 60 18 97 03/14/23 19:00 128/58 L 03/14/23 19:00 38.8 C H 60 18 97 Resident Activity Tracking Resident Involvement: Resident Care Provided Care Provided: Adult Hospital Medicine (3) Cardiomyopathy Cardiomyopathy type: unspecified Qualified Code(s): I42.9 - Cardiomyopathy, unspecified (4) CAD (coronary artery disease) Associated angina: without angina Coronary Disease-Associated Artery/Lesion type: [place] artery [place] vs. transplanted heart: [place] heart Qualified Code(s): I25.10 - Atherosclerotic heart disease of [place] coronary artery without angina pectoris (5) Diabetes mellitus, controlled Diabetes mellitus complication status: without complication Diabetes mellitus long distance operator insulin use: without long distance operator use Diabetes mellitus type: type 2 Qualified Code(s): E11.9 - Type 2 diabetes mellitus without complications
[2023-03-15 07:17] LABS: Hematocrit (blood only) 32.9 % (42.0-52.0); Hemoglobin 10.6 g/dl (14.0-18.0); Mean Corpuscular Hemoglobin 27.4 pg (25.0-34.0); Mean Corpuscular Hgb Conc 32.2 g/dL (32.0-36.0); Mean Platelet Volume 10.2 fL (9.4-12.4); Platelet Count 90 K/uL (130-400); Platelet Estimate Decreased (Normal); RDW Coefficient of Variation 17.8 % (11.5-14.5); RDW Standard Deviation 55.4 fL (36.4-46.3); Red Blood Count 3.87 M/uL (4.70-6.10)
[2023-03-15] MEDS: DEXTROSE 50% 250 ML in DEXTROSE 10% 750 ML IV SCH ×2 (08:45→20:33)
[2023-03-15] MEDS: ISOSORBIDE MONO EXTENDED REL 60 MG TABCR PO SCH (09:21)
[2023-03-15] MEDS: ATORVASTATIN 40 MG TAB PO SCH (09:22)
[2023-03-15] MEDS: OXYBUTYNIN CHLORIDE XL 5 MG TABCR PO SCH (09:22)
[2023-03-15] MEDS: carvediloL 25 MG TAB PO SCH ×2 (09:22→21:44)
--- NOTE | 2023-03-15 09:43 | Intensivist Progress Note ---
Date of Service March 15, 2023 Assessment & Plan (1) Tonic clonic convulsion: (2) Hypoglycemia associated with type 2 diabetes mellitus: (3) Acute kidney injury superimposed on CKD: (4) Hypoglycemia: (5) ICD (implantable cardioverter-defibrillator) battery depletion: (6) Cardiomyopathy: (7) Severe obstructive sleep apnea: (8) Atrial fibrillation, persistent: Plan 82 yaer old male with HFpEF, DM, CKD, afib who presents with confusion. Found hypoglycemic and developed grand mal seizure. 1. acute respiratory failure - intubated for airway protection. vent support requiring minimal setting. follow up ABG. 2. ICMP 3. afib - on amio. 4. Hypoglycemia - glimiperide on hold. Titrate D20. start tube feeds. q1h glucose check. 5. recently treated UTI - febrile overnight. Follow up cultures. started empiric zosyn d1. check CXR in AM. 6. new onset seizure - continue keppra. neurology consult appreciated. stroke workup when stable. Follow up EEG. 7. sedation - on propofol. 8. acute on chronic CKD - monitor crcl and urine output. 9. FEN - start TF. 10. DVT/GI prophy Discussed with primary, RN and neuro. Total CC time spent 37 minutes. Admission and Anticipated Discharge Date Admission Date: March 14, 2023 Subjective febrile overnight. fem line placed for D20. Physical Exam Constitutional: + mechanically ventilated Respiratory: normal respiratory effort Auscultation: lungs clear to auscultation bilaterally Cardiovascular: Rate/Rhythm: regular rate and regular rhythm Skin: no rashes, warm and dry Results & Data Results & Data Vital Signs (Past 12 Hours) Vital Signs Temp Pulse Resp BP Pulse Ox FiO2 03/15/23 07:01 37.4 C 72 20 98 03/15/23 07:01 136/67 03/15/23 07:00 37.4 C 60 17 98 03/15/23 06:45 60 20 97 30 03/15/23 04:30 37.5 C 60 16 98 03/15/23 04:30 106/58 L 03/15/23 04:26 60 16 98 30 03/15/23 04:00 94/53 L 03/15/23 04:00 37.6 C H 60 16 98 03/15/23 04:00 30 03/15/23 03:30 93/53 L 03/15/23 03:30 37.8 C H 60 16 98 03/15/23 03:00 95/53 L 03/15/23 03:00 37.9 C H 60 16 98 03/15/23 02:30 92/52 L 03/15/23 02:30 38.1 C H 60 16 98 03/15/23 02:00 94/50 L 03/15/23 02:00 38.3 C H 60 17 93 03/15/23 01:30 93/50 L 03/15/23 01:30 38.5 C H 60 21 98 03/15/23 01:00 38.7 C H 60 16 98 03/15/23 01:00 90/52 L 03/15/23 00:30 92/50 L 03/15/23 00:30 38.9 C H 60 16 97 03/15/23 00:15 38.9 C H 60 18 97 03/15/23 00:00 38.9 C H 58 L 16 97 03/15/23 00:00 106/51 L 03/15/23 00:00 30 03/14/23 23:45 38.9 C H 60 16 99 03/14/23 23:31 129/59 L 03/14/23 23:31 39.0 C H 60 18 100 03/14/23 23:30 39.0 C H 60 21 100 03/14/23 23:15 39.1 C H 60 16 97 03/14/23 23:07 60 16 96 30 03/14/23 23:00 103/53 L 03/14/23 23:00 39.1 C H 60 16 96 03/14/23 22:45 39.1 C H 60 20 99 03/14/23 22:30 39.3 C H 60 17 97 03/14/23 22:30 109/54 L 03/14/23 22:15 39.3 C H 60 21 97 03/14/23 22:00 39.3 C H 60 20 97 03/14/23 22:00 107/52 L 03/14/23 21:45 39.3 C H 60 16 97 PG Care Time/CCT Total # of Minutes Spent Total Time Spent with Patient: Total time spent is greater than 50% in coordination of care (as documented) at patient's floor/unit and/or counseling patient: Coding Level of Care Code 85257 CRITICAL CARE 1ST 30-74M Diagnoses Tonic clonic convulsion G40.409 Hypoglycemia associated with type 2 diabetes mellitus E11.649 Acute kidney injury superimposed on CKD N17.9; N18.9 Hypoglycemia E16.2 ICD (implantable cardioverter-defibrillator) battery depletion Z45.02 Cardiomyopathy, unspecified type I42.9 Cardiomyopathy type: unspecified Severe obstructive sleep apnea G47.33 Atrial fibrillation, persistent I48.19 (6) Cardiomyopathy Cardiomyopathy type: unspecified Qualified Code(s): I42.9 - Cardiomyopathy, unspecified
[2023-03-15] MEDS ORDERED: PLASMA-LYTE A 500 ML IV ONE (10:41)
[2023-03-15] MEDS ORDERED: fentaNYL BOLUS from BAG IV PRN (10:41)
[2023-03-15] MEDS ORDERED: STAT IV Infusion **Titration per Protocol STA ×2 (10:41→10:42)
[2023-03-15] MEDS ORDERED: MIDAZOLAM BOLUS FROM BAG IV PRN (10:42)
[2023-03-15] MEDS ORDERED: MIDAZOLAM HCL 125 MG/250 ML BAG IV PRN (10:42)
[2023-03-15] MEDS ORDERED: fentaNYL citrate 2,500 MCG/250 ML BAG IV SCH (10:45)
--- NOTE | 2023-03-15 11:17 | Neurology Consultation ---
Date of Consultation March 15, 2023 Assessment & Plan (1) Tonic clonic convulsion: (2) Hypoglycemia associated with type 2 diabetes mellitus: (3) Cardiomyopathy: (4) Atrial fibrillation, persistent: Plan 82-year-old male with altered mental status at home, previous fall earlier that day, subsequently became unresponsive, noted to have a blood glucose of 37. During his evaluation in the emergency department, he had a witnessed generalized tonic-clonic seizure which resolved with lorazepam and levetiracetam, he was subsequently intubated for airway protection and remains in the ICU on the mechanical ventilator, receiving propofol. A CT of the head was negative for hemorrhage or acute process but does reveal moderately extensive chronic cerebrovascular disease. Past medical history notable for atrial fibrillation, he has a dual-chamber ICD and follows with [facility] cardiology. He is also prescribed apixaban. As above, new onset seizure, which I suspect was secondary to hypoglycemia, but occurred in the context of his evaluation and management in the emergency department. Further, he does have a history of atrial fibrillation and cardiomyopathy, dual-chamber ICD, on apixaban, a cardioembolic stroke should also be considered. Would continue with levetiracetam 500 mg IV every 12 hours as ordered. An EEG is not unreasonable although I note his seizure activity stopped prior to intubation, and I suspect the observed seizure was secondary to underlying metabolic disturbance as above, or possible stroke. Would recommend brain MRI without contrast when medically stable. A repeat noncontrast CT of the head could be completed today. Consider obtaining a CTA of the head and neck depending on MRI results. However, if patient's renal function will not allow for iodinated IV contrast, could obtain a noncontrast MRA of the brain and carotid ultrasound. Dr. Fields will be covering the neurology service starting tomorrow morning. History of Present Illness Reason for Consultation: New onset seizure Requesting Physician: Abby Limon MD Attending Physician: Bailee Jean MD History of Present Illness The patient is an 82-year-old male who was brought to the emergency department yesterday after he was found unresponsive at home with a blood sugar of 37. He had also suffered a fall earlier that day but without obvious signs of trauma. The patient had observed seizure activity while being brought to CT, he was treated with lorazepam, CT of the head was negative for hemorrhage or obvious acute process, he was subsequently intubated for airway protection and started on propofol. He was also given a 2 g loading dose of levetiracetam. Patient seizure activity had ceased prior to intubation. Patient does have a history of ischemic cardiomyopathy, ICD, AAA repair, CKD, and paroxysmal atrial fibrilla tion, on apixaban. Patient's spouse had reported to the admitting physician that he had not been making sense and she had wondered whether or not he may have had a seizure. I did evaluate this patient this morning in the ICU, he is currently intubated, on the mechanical ventilator, and is receiving propofol. Information is obtained from review of the available medical records. I did independently review the above CT of the head. There is generalized atrophy and chronic microvascular ischemic disease. No hemorrhage or obvious acute process. Allergies Allergy/AdvReac Type Severity Reaction Status Date / Time cefepime AdvReac Severe See note Verified 03/14/23 16:51 Home Medications Medication Instructions Recorded Confirmed Type CPAP Machine #1 ea 02/28/19 03/11/23 Rx lancets (Accu-Chek Softclix #100 ea 05/10/19 03/11/23 Rx Lancets) nitroglycerin 0.4 mg sublingual 0.4 mg sublingual UD PRN Angina 05/10/19 03/14/23 Rx tablet #30 tabs acetaminophen 325 mg tablet 650 mg PO Q4H PRN Pain (Scale 08/30/20 03/14/23 History (Tylenol) Score 1-3) nystatin 100,000 unit/gram topical 1 applic topical BID PRN Skin 12/03/20 03/14/23 History powder (Nystop) Irritation aspirin 81 mg tablet,delayed 81 mg PO QAM 01/06/21 03/14/23 History release amiodarone 200 mg tablet 200 mg PO 5XWK #150 tabs 04/14/22 03/14/23 Rx atorvastatin 80 mg tablet 80 mg PO QAM #90 tabs 04/14/22 03/14/23 Rx donepezil 10 mg tablet 10 mg PO HS #90 tabs 04/14/22 03/14/23 Rx isosorbide mononitrate 60 mg 60 mg PO QAM #90 tabs 04/14/22 03/14/23 Rx tablet,extended release 24 hr lansoprazole 30 mg capsule,delayed 30 mg PO QAM gerd #90 caps 04/14/22 03/14/23 Rx release furosemide 20 mg tablet 20 mg PO QAM edema #90 tabs 05/19/22 03/14/23 Rx dapagliflozin propanediol 10 mg 10 mg PO DAILY #90 tabs 09/16/22 03/14/23 Rx tablet (Farxiga) solifenacin 5 mg tablet (Vesicare) 5 mg PO DAILY #90 tabs 10/01/22 03/14/23 Rx vitamin B complex and vitamin C 1 cap PO QAM #90 caps 10/08/22 03/14/23 Rx no.20-folic acid 1 mg capsule (Uqinn Caps) carvedilol 25 mg tablet 25 mg PO BID #180 tabs 01/29/23 03/14/23 Rx apixaban 2.5 mg tablet (Eliquis) 2.5 mg PO BID #180 tabs 02/24/23 03/14/23 Rx glimepiride 2 mg tablet 2 mg PO BID #60 tabs 03/05/23 03/14/23 Rx sulfamethoxazole 800 1 tab PO BID #20 tabs 03/11/23 03/14/23 Rx mg-trimethoprim 160 mg tablet (Bactrim DS) blood sugar diagnostic (Accu-Chek #300 ea 03/12/23 Rx SmartView Test Strips) Patient History Medical History Pneumonia due to COVID-19 virus Hypoxia Paroxysmal atrial fibrillation Osteomyelitis Osteomyelitis of great toe of right foot Open wound Diabetes mellitus ESRD (end stage renal disease) dialysis from 08/08/2020 thru 10/03/2020 Pulmonary embolism B/L, with DVT in L common femoral vein. Treated at [facility] 08/2020. History of abdominal aortic aneurysm Ventricular tachycardia hx 2013 and has ICD Senile dementia Per PAT assessment analyst, pt reported his own PMH, does not require assistance with ADLs On amiodarone therapy Lymphedema Cardiomyopathy EF 55-60% on 06/18/2020 echocardiogram CAD (coronary artery disease) s/p PCI 1995 and 2002. 2103 chest pain --> cath -- > occluded RCA --> ICD placed. Abdominal aortic aneurysm (AAA) x3 repaired 08/08/2020 at [place] Kidney stones hx Prostate cancer sx Hearing deficit ICD (implantable cardioverter-defibrillator) in place (~2013) med[employer] Myocardial Infarction (~1995) Aneurysm of right popliteal artery 2017 Hyperlipidemia Hypertension Surgical History Orbital floor fracture Right orbital fracture April 2019 History of lithotripsy Status post cystoscopy with ureteral stent placement Status post femoral-popliteal bypass surgery 2018 in [place] History of carpal tunnel release History of prostate biopsy malignant History of hernia repair History of colonoscopy History of prostate surgery radiation seeds implanted History of bilateral cataract extraction S/P AAA repair x3--last in 08/08/2020 [place] History of heart artery stent x1-2013; "last one was years ago"--follows with Dr. Sosa History of cardiac cath multiple--last one 2013 History of bilateral knee replacement Family History Mother Hypertension Cardiac disorder Father Cardiac disorder Myocardial infarction Brother Diabetes Hypertension Hyperlipidemia Obstructive sleep apnea Denies family history of Ovarian cancer Prostate cancer Coronary heart disease Breast cancer Colorectal cancer Social History Smoking Status: Former smoker Second Hand Exposure: No; Do You Dip or Chew Tobacco: No; Hx Alcohol Use: No Hx Substance Use: No Preferred Language: Greek Communication Ability: Effective Hearing Ability: Normal Family Practice Doctor Required: No Beliefs That Will Affect Care: None marital status: Current Living Situation: Spouse current occupational status: retired Feels Safe at Home: Yes Childhood Exposure to Second-Hand Smoke: No Diet: regular caffeine: Yes Dental Care, Regularly: Yes Physical Activity Frequency: Does not Exercise Seatbelt Use: always Sunscreen Use: No Assistive Devices: Cane and Walker Review of Systems Review of Systems: Unobtainable due to endotracheal tube and Unobtainable due to reduced consciousness Exam (Neuro) Neurologic: Details: Patient is currently in the ICU, intubated, on the mechanical ventilator, receiving propofol. Pupils are equal, round, minimally reactive to light. I am unable to elicit oculocephalic or corneal reflexes. He does not exhibit any spontaneous movements or abnormal posturing. Muscle tone is diffusely flaccid. He does not withdraw or react to noxious stimulation. Results & Data Vital Signs (Past 12 Hours) Vital Signs Temp Pulse Resp BP Pulse Ox FiO2 03/15/23 07:01 37.4 C 72 20 98 03/15/23 07:01 136/67 03/15/23 07:00 37.4 C 60 17 98 03/15/23 06:45 60 20 97 30 03/15/23 04:30 37.5 C 60 16 98 03/15/23 04:30 106/58 L 03/15/23 04:26 60 16 98 30 03/15/23 04:00 94/53 L 03/15/23 04:00 37.6 C H 60 16 98 03/15/23 04:00 30 03/15/23 03:30 93/53 L 03/15/23 03:30 37.8 C H 60 16 98 03/15/23 03:00 95/53 L 03/15/23 03:00 37.9 C H 60 16 98 03/15/23 02:30 92/52 L 03/15/23 02:30 38.1 C H 60 16 98 03/15/23 02:00 94/50 L 03/15/23 02:00 38.3 C H 60 17 93 03/15/23 01:30 93/50 L 03/15/23 01:30 38.5 C H 60 21 98 03/15/23 01:00 38.7 C H 60 16 98 03/15/23 01:00 90/52 L 03/15/23 00:30 92/50 L 03/15/23 00:30 38.9 C H 60 16 97 03/15/23 00:15 38.9 C H 60 18 97 03/15/23 00:00 38.9 C H 58 L 16 97 03/15/23 00:00 106/51 L 03/15/23 00:00 30 03/14/23 23:45 38.9 C H 60 16 99 03/14/23 23:31 129/59 L 03/14/23 23:31 39.0 C H 60 18 100 03/14/23 23:30 39.0 C H 60 21 100 03/14/23 23:15 39.1 C H 60 16 97 03/14/23 23:07 60 16 96 30 03/14/23 23:00 103/53 L 03/14/23 23:00 39.1 C H 60 16 96 03/14/23 22:45 39.1 C H 60 20 99 Laboratory Results WBC 4.30, hemoglobin 10.6, hematocrit 32.9, platelet count 90, sodium 133, potassium 3.8, BUN 24, creatinine 1.85, glucose 183, calcium 7.6, phosphorus 2.0, magnesium 1.9, AST 35, ALT 23, TSH 0.134, free T41.[address] of the head is as described in the HPI, I independently reviewed these images and had compared them with the previous CT of the head done in November 2020. Electrocardiogram revealed an ectopic atrial rhythm with occasional ventricular paced complexes, 61 bpm. A previous echocardiogram completed August 27, 2022 revealed normal left ventricular size and systolic function, EF 55 to 60%, akinesis of the basal to mid inferior wall with hypokinesis of the inferolateral wall. Severe hypertrophy involving the anteroseptum, mild biatrial dilatation, aortic valve sclerosis without significant stenosis, interatrial septum intact. Coding Level of Care Code 57465 INT INP/OBS CARE 375MIN Diagnoses Tonic clonic convulsion G40.409 Hypoglycemia associated with type 2 diabetes mellitus E11.649 Cardiomyopathy, unspecified type I42.9 Cardiomyopathy type: unspecified Atrial fibrillation, persistent I48.19 Time Spent (min) 90 (3) Cardiomyopathy Cardiomyopathy type: unspecified Qualified Code(s): I42.9 - Cardiomyopathy, unspecified
[2023-03-15] MEDS: PEPTAMEN INTENSE VHP 1.0 CAL 1,000 ML BAG GT SCH (11:28)
--- NOTE | 2023-03-15 14:06 | CT Scan Report ---
CT OF THE HEAD WITHOUT CONTRAST CLINICAL HISTORY: r/o bleed COMPARISON STUDY: Head CT March 14, 2023. CT DOSE: 625.8 mGy.cm TECHNIQUE: Helical axial images of the head were obtained without IV contrast. Automated exposure con trol was utilized for the study. A dose lowering technique was utilized adhering to the principles o f ALARA. FINDINGS: No acute intracranial hemorrhage, midline shift or mass effect is present. The ventricular system is stable. Basal cisterns are patent. There are no extra-axial collections. White matter hypod ensities are unchanged and favor small vessel disease. There are no findings to suggest acute dural s inus thrombosis or acute territorial infarct. The appearance of the brain is unchanged. Right maxilla ry sinus opacification is unchanged. There is mild ethmoid sinus mucosal thickening. There is no mast oid fluid. There is no acute calvarial fracture. IMPRESSION: No acute intracranial findings. No change in appearance of the brain. ACT 112: Negative or not required by law. Electronically signed by: George Pena M.D. 03/15/2023 2:04 PM
[2023-03-15] MEDS ORDERED: LORazepam 2 MG in SYRINGE 1 ML IV STA (19:33)
[2023-03-15] MEDS ORDERED: APIXABAN 2.5 MG TAB PO SCH (21:00)
[2023-03-15] MEDS ORDERED: VANCOMYCIN CONSULT ACTIVE PRN (22:31)
[2023-03-15] MEDS ORDERED: VALPROATE SOD 2,000 MG in DEXTROSE 5% 100 ML IV ONE (22:38)
[2023-03-15] MEDS ORDERED: ACYCLOVIR SOD 800 MG in DEXTROSE 5% 250 ML IV SCH (23:00)
[2023-03-15] MEDS ORDERED: AMPICILLIN 2,000 MG in SODIUM CHLOR 0.9% MINI-B 100 ML IV SCH (23:00)
[2023-03-15] MEDS ORDERED: cefTRIAXone SODIUM 2,000 MG in DEXTROSE 5 % MINI-B 50 ML IV ONE (23:00)
[2023-03-16] MEDS ORDERED: VANCOMYCIN HCL 2,000 MG in SODIUM CHLORIDE 0.9% 500 ML IV ONE
[2023-03-16] MEDS ORDERED: PROPOFOL BOLUS FROM BAG IV PRN (00:04)
[2023-03-16] MEDS ORDERED: STAT IV Infusion **Titration per Protocol STA (00:04)
[2023-03-16] MEDS ORDERED: PROPOFOL IV EMULSION 10 MG/ML 100 ML VIAL IV ONE (00:06)
--- NOTE | 2023-03-16 00:10 | Communication Note ---
Date of Service: March 16, 2023 This evening the patient has continued to have more frequent myotonic seizure activity despite being on Versed drip and 500 mg Keppra twice daily. Also, patient has become significantly febrile with most recent temperature of 39.6. I did speak with Dr. Mcgregor with neurology, who recommended empiric meningitis coverage and loading with Depakote. Repeat CT head is pending. Patient has been started on ampicillin, vancomycin, ceftriaxone, and ampicillin. I did speak with portable track crew chief and with neurology at [facility], in regards to transfer for continuous EEG. Patient has been accepted to the MICU at this time and will be transferring the [facility]. Patient's was informed and consented to transfer over the phone. CRITICAL CARE TIME - I have personally spent 35 minutes of critical care time in the direct management of this patient. This is a life/limb threatening event. This includes time spent evaluating patient, direct bedside care, chart review, placing orders, interpretation of diagnostic studies, discussion with consultants, patient, and family members, as well as other required patient management activities. This time is exclusive of all separately billable procedures, and teaching time and separate from and in addition to any other critical care service time. Coding Level of Care Code 04875 CRITICAL CARE EA ADD 30M
--- NOTE | 2023-03-16 00:12 | Discharge Summary ---
Date of Service March 16, 2023 Admission HPI Per Admitting Provider Is an 82-year-old male with a history of ischemic cardiomyopathy, status post ICD AAA status postrepair, CKD, paroxysmal A-fib on anticoagulation who presents to the hospital today following a poorly responsive at episode. According to the from home some of the history was obtained earlier in the day the patient had a. Where he was not making sense at all and the thought he had a seizure. However when the ambulance came and checked his blood glucose it was 37. Upon arrival at the emergency department he received further dextrose infusions but his blood glucose kept dipping below normal so the decision was made to monitor him in the hospital overnight. Also of note there was a slight worsening in his renal function serum creatinine has increased to 2.4 from a baseline of 1.5. Patient admitted to taking Bactrim prescribed for him presumably for UTI by his PCP. For his diabetes he said he now takes glimepiride although at a slightly higher dose than when he started. Admission Exam Per Admitting Provider The patient is awake, alert and oriented 3, well developed and well nourished, normocephalic and atraumatic, lying in bed and in no acute distress. HEENT--PERRL, EOMI, mucous membranes and oropharynx mildly dry Neck--supple. No JVD. No bruits. Thyroid normal, trachea midline, no adenopathy. Heart--normal S1 and S2. No murmurs, rubs or gallops. Lungs--clear bilaterally, no respiratory distress, no accessory muscle use. Abdomen--normal bowel sounds and soft. Mild epigastric and left sided abdominal pain Extremities--no cyanosis or clubbing. No edema. Dermatologic--normal skin turgor, normal color, no abnormal lymph nodes, no rash. Neurologic--cranial nerves II through XII grossly intact. Rheumatologic--normal range of motion. Psychiatric--normal affect. Principal Diagnosis Hypoglycemia, tonic clonic seizures Discharge Exam Constitutional Please see previous day Constitutional: + mechanically ventilated Respiratory: normal respiratory effort Auscultation: lungs clear to auscultation bilaterally Cardiovascular: Rate/Rhythm: regular rate and regular rhythm Gastrointestinal (Abdomen): Inspection/Auscultation: normal bowel sounds Percussion/Palpation: abdomen soft Skin: no rashes, warm and dry Discharge Data Allergies Allergy/AdvReac Type Severity Reaction Status Date / Time cefepime AdvReac Severe See note Verified 03/14/23 16:51 Consultations 03/14/23 02:18 ED Decision to Admit Stat 03/14/23 12:29 Consult Neurology Routine 03/14/23 19:52 Consult Fluid Jet Cutter Operator Routine 03/15/23 23:57 Burn CD for patient Stat Ordered Studies 03/14/23 08:13 CT cervical spine wo con Stat CT head/brain wo con Stat 03/15/23 12:21 CT head/brain wo con Urgent 03/15/23 19:35 MRI Brain [MR brain wo con] Routine 03/15/23 22:47 CT head/brain wo con Stat Hospital Course (1) Hypoglycemia: (2) Acute kidney injury superimposed on CKD: (3) Cardiomyopathy: (4) CAD (coronary artery disease): (5) Diabetes mellitus, controlled: (6) Atrial fibrillation, persistent: (7) Chronic heart failure with preserved ejection fraction: (8) CKD (chronic kidney disease) stage 3, GFR 30-59 ml/min: (9) Tonic clonic convulsion: Plan #Tonic-clonic convulsion #Fall -On 03/14 at approximately 8 AM received a message from nursing stating that the patient fell and hit his head and is now having altered mental status. Patient is on a blood thinner. When examining the patient bedside he had tonic jerking motions of his upper extremity as well as a right upward gaze. Blood glucose bedside was in the 190s. A stroke alert was called on the patient and a CT was ordered. Patient's was intubated due to his worsening respiratory status. He received 2 mg of Ativan and 2 g of Keppra as well as propofol. His seizing has stopped at the moment. -Shortly after patient stopped seizing labs were drawn which showed a glucose level of 20. -CT head showed no evidence of hemorrhage, mass effect, or acute ischemia. -CT cervical spine showed no evidence of fracture or subluxation of the cervical spine. -Patient was transferred to the ICU given his worsening respiratory status -Chest x-ray showed a endotracheal tube in place. Continues to show cardiomegaly. Mild pulmonary vascular congestion was new from earlier x-ray. -Chest x-ray in the a.m. -Patient's seizure most likely secondary to hypoglycemia. Initial bedside gluco se levels were normal, blood glucose after was critically low. -No history of seizures in the past. Neurology consulted. -Recommend to continue Keppra and to have a full stroke work-up once stable. -Recommend repeat noncontrast CT of the head today. -EEG ordered. -recommend brain MRI when medically stable. -Consider CTA head/neck pending MRI results If renal function allows. Could consider noncontrast MRI of the brain and carotid ultrasound otherwise. -Need for continuous EEG monitoring - transferred to [place] #Hypoglycemia -Patient reported to have had an unresponsive/poorly responsive episode by the -Found to have a blood glucose of 37 -Possible etiology is his home glimepiride, however was recently on Bactrim and had a acute illness. -Received dextrose 10% -Will hold glimepiride. -Patient continues to have critically low glucose levels while admitted to the hospital with periods of normal glucose as well. -Currently ICU status at this time given his respiratory status and repeated hypoglycemic episodes. -C-peptide and proinsulin pending. -Hemoglobin A1c ordered for morning labs. -Titrate D20 and start tube feeds. -Every hour glucose checks. #Acute respiratory failure -Most likely secondary secondary to aspiration. -Intubated on 03/14. Currently mechanically ventilated at this time. -ABG in the a.m. #Febrile -Patient was febrile overnight. -Blood cultures collected on 03/14. -Sputum culture uncollected at this time. -Empiric Zosyn started. #Acute kidney injury superimposed on CKD #CKD (chronic kidney disease) stage 3 -Patient has a history of CKD was on hemodialysis at some point in the past -Recent worsening over the past couple of days most likely due to Bactrim which was prescribed for suspected UTI -Initial creatinine of 2.35, baseline around 1.7. Last seen nephrology on 02/10/23. -Rehydrate with IV saline #Cardiomyopathy #CAD -Status post ICD -Monitor input and output, daily weight #Diabetes mellitus, controlled -Under control per -Initially started on a low-dose glimepiride 0.5 mg but now currently on 2 mg daily -Hypoglycemia event was most likely precipitated by Bactrim/acute illness in combination with glimepiride -Hemoglobin A1c of 10.3 on 11/2022. We will add on hemoglobin A1c to morning labs. -We will most likely need changes to his at home diabetes management. #Atrial fibrillation, persistent -Continue carvedilol, Eliquis, and amiodarone -We will restart Eliquis 2.5 mg twice daily in the a.m. if CT head is negative. #Chronic heart failure with preserved ejection fraction -Compensated right now -Monitor input and output, daily weight Fluids: D20 Nutrition: N.p.o., starting TF Code status: full code DVT ppx: restarting home Eliquis in the AM if CT head negative. Dispo: ICU Total Time Total Time Spent Total Time Spent (In Minutes): Please see attending attestation. Discharge Plan Discharge Items Patient Disposition: Transfer Acute [facility] Reason For Visit: HYPOGLYCEMIA Discharge Diagnosis: Tonic clonic seizures Activity: Per Instructions section Non-emergency contact: Primary Care Provider and Neurologist Call non-emergency contact if: your pain is not controlled Follow-up/Referrals: Saud Dunham MD [Primary Care Provider] - Diet: Regular Addtl Attending Provider Instructions: #Tonic-clonic convulsion #Fall -On 03/14 at approximately 8 AM received a message from nursing stating that the patient fell and hit his head and is now having altered mental status. Patient is on a blood thinner. When examining the patient bedside he had tonic jerking motions of his upper extremity as well as a right upward gaze. Blood glucose bedside was in the 190s. A stroke alert was called on the patient and a CT was ordered. Patient's was intubated due to his worsening respiratory status. He received 2 mg of Ativan and 2 g of Keppra as well as propofol. His seizing has stopped at the moment. -Shortly after patient stopped seizing labs were drawn which showed a glucose level of 20. -CT head showed no evidence of hemorrhage, mass effect, or acute ischemia. -CT cervical spine showed no evidence of fracture or subluxation of the cervical spine. -Patient was transferred to the ICU given his worsening respiratory status -Chest x-ray showed a endotracheal tube in place. Continues to show cardiomegaly. Mild pulmonary vascular congestion was new from earlier x-ray. -Chest x-ray in the a.m. -Patient's seizure most likely secondary to hypoglycemia. Initial bedside glucose levels were normal, blood glucose after was critically low. -No history of seizures in the past. Neurology consulted. -Recommend to continue Keppra and to have a full stroke work-up once stable. -Recommend repeat noncontrast CT of the head today. -EEG ordered. -recommend brain MRI when medically stable. -Consider CTA head/neck pending MRI results If renal function allows. Could consider noncontrast MRI of the brain and carotid ultrasound otherwise. -Need for continuous EEG monitoring - transferred to [place] #Hypoglycemia -Patient reported to have had an unresponsive/poorly responsive episode by the -Found to have a blood glucose of 37 -Possible etiology is his home glimepiride, however was recently on Bactrim and had a acute illness. -Received dextrose 10% -Will hold glimepiride. -Patient continues to have critically low glucose levels while admitted to the hospital with periods of normal glucose as well. -Currently ICU status at this time given his respiratory status and repeated hypoglycemic episodes. -C-peptide and proinsulin pending. -Hemoglobin A1c ordered for morning labs. -Titrate D20 and start tube feeds. -Every hour glucose checks. #Acute respiratory failure -Most likely secondary secondary to aspiration. -Intubated on 03/14. Currently mechanically ventilated at this time. -ABG in the a.m. #Febrile -Patient was febrile overnight. -Blood cultures collected on 03/14. -Sputum culture uncollected at this time. -Empiric Zosyn started. #Acute kidney injury superimposed on CKD #CKD (chronic kidney disease) stage 3 -Patient has a history of CKD was on hemodialysis at some point in the past -Recent worsening over the past couple of days most likely due to Bactrim which was prescribed for suspected UTI -Initial creatinine of 2.35, baseline around 1.7. Last seen nephrology on 02/10/23. -Rehydrate with IV saline #Cardiomyopathy #CAD -Status post ICD -Monitor input and output, daily weight #Diabetes mellitus, controlled -Under control per -Initially started on a low-dose glimepiride 0.5 mg but now currently on 2 mg daily -Hypoglycemia event was most likely precipitated by Bactrim/acute illness in co mbination with glimepiride -Hemoglobin A1c of 10.3 on 11/2022. We will add on hemoglobin A1c to morning labs. -We will most likely need changes to his at home diabetes management. #Atrial fibrillation, persistent -Continue carvedilol, Eliquis, and amiodarone -We will restart Eliquis 2.5 mg twice daily in the a.m. if CT head is negative. #Chronic heart failure with preserved ejection fraction -Compensated right now -Monitor input and output, daily weight Fluids: D20 Nutrition: N.p.o., starting TF Code status: full code DVT ppx: restarting home Eliquis in the AM if CT head negative. Dispo: ICU Pending Studies at Discharge: Yes (CT head) Stand-Alone Forms: My [facility] Skilled Items Patient informed of condition?: Yes DNR: No Discharge Level of Care: Other Communicable Disease: No Discharge Prognosis: Other Lines: Peripheral IV Urinary Catheter: No Medications and DC Order Prescriptions: Continued (DME) lancets [Accu-Chek Softclix Lancets] Misc See Rx Instructions .ROUTE .MEDSUPPLY Qty: 100 5RF Rx Instructions: test 3 times daily amiodarone 200 mg tablet 200 mg PO 5XWK Qty: 150 3RF Rx Instructions: TAKES THURSDAY THRU THURSDAY. atorvastatin 80 mg tablet 80 mg PO QAM Qty: 90 3RF donepezil 10 mg tablet 10 mg PO HS Qty: 90 3RF isosorbide mononitrate 60 mg tablet extended release 24 hr 60 mg PO QAM Qty: 90 3RF lansoprazole 30 mg capsule,delayed release(DR/EC) 30 mg PO QAM Qty: 90 3RF furosemide 20 mg tablet 20 mg PO QAM Qty: 90 3RF Farxiga 10 mg tablet 10 mg PO DAILY Qty: 90 3RF Quinn Caps 1 mg capsule 1 cap PO QAM Qty: 90 3RF carvedilol 25 mg tablet 25 mg PO BID Qty: 180 3RF Rx Instructions: must administer with a meal/food Eliquis 2.5 mg tablet 2.5 mg PO BID Qty: 180 3RF (DME) Accu-Chek SmartView Test Strip Strip See Rx Instructions .ROUTE .MEDSUPPLY Qty: 300 5RF Rx Instructions: test 1 time daily sulfamethoxazole-trimethoprim [Bactrim DS] 800-160 mg tablet 1 tab PO BID Qty: 20 0RF Rx Instructions: Start Date 03/11/23 - End Date: 03/21/23 nitroglycerin 0.4 mg tablet, sublingual 0.4 mg Sublingual UD PRN (Reason: Angina) Qty: 30 0RF solifenacin [Vesicare] 5 mg tablet 5 mg PO DAILY Qty: 90 3RF (DME) [facility] See Dose Instructions .ROUTE .MEDSUPPLY Qty: 1 0RF Dose Instruction: As directed Rx Instructions: CPAP 11 cm water pressure, C flex setting #3 with a Quattro full face mask size Large from [employer] glimepiride 2 mg tablet 2 mg PO BID Qty: 60 11RF nystatin [Nystop] 100,000 unit/gram powder 1 applic topical BID PRN (Reason: Skin Irritation) aspirin 81 mg tablet,delayed release (DR/EC) 81 mg PO QAM acetaminophen [Tylenol] 325 mg Tablet 650 mg PO Q4H PRN (Reason: Pain (Scale Score 1-3)) Admission Data Admit Date/Time: 03/14/23 02:22 Attending Provider: Bailee Jean Admit Provider: Jose Rankin Primary Care Provider: Saud Dunham Other Providers: Jose Rankin; Doug Mcgregor; Cody Fields; Seble Brock; Bridget Lackey; Jesenia Norris; Ra Page; Abby Limon
[2023-03-16] MEDS ORDERED: propofoL 1,000 MG/100 ML VIAL IV SCH (00:15)
[2023-03-16] MEDS: levETIRAcetam 500 MG in SODIUM CHLOR 0.9% MINI-B 100 ML IV SCH (00:18)
[2023-03-16] MEDS: TUBE FEEDING WATER FLUSH GT SCH (00:36)
[2023-03-16] MEDS ORDERED: SUCCINYLCHOLINE CHLORIDE 20 MG/ML 10 ML VIAL IV ONE (01:09)
[2023-03-16] MEDS ORDERED: fentaNYL citrate PF 100 MCG/2 ML VIAL IV ONE (01:09)
[2023-03-16] MEDS ORDERED: ETOMIDATE 2 MG/ML 20 ML VIAL IV ONE (01:09)
--- NOTE | 2023-03-16 02:01 | CT Scan Report ---
Exam(s): CT HEAD Without Contrast EXAM: CT Head Without Intravenous Contrast CLINICAL HISTORY: Reason for exam: seizure AMS. TECHNIQUE: Axial computed tomography images of the head/brain without intravenous contrast. CTDI is 46.94 mGy and DLP is 799.24 mGy-cm. Automated exposure control was utilized for the study. A dose lowering technique was utilized adhering to the principles of ALARA. COMPARISON: Comparison made to prior head CT from March 15, 2023. FINDINGS: Brain: Remote ischemic injury of the right cerebellum. No hemorrhage. Moderate to advanced nonspecific white matter changes. No edema. Tiny pineal cyst. Ventricles: Unremarkable. No ventriculomegaly. Bones/joints: Hyperostosis frontalis interna. No acute fracture. Soft tissues: Bilateral lens replacements. Sinuses: Chronic right maxillary and ethmoid sinusitis. No acute sinusitis. Mastoid air cells: Unremarkable as visualized. No mastoid effusion. IMPRESSION: No evidence of acute intracranial pathology. Electronically signed by: Eleni Hurt MD 03/16/23 02:00 AM
[2023-03-16] MEDS ORDERED: AMIODARONE 200 MG TAB PO SCH (09:00)
[2023-03-16] MEDS ORDERED: APIXABAN 2.5 MG TAB PO SCH (09:00)
[2023-03-16] MEDS ORDERED: cefTRIAXone SODIUM 2,000 MG in DEXTROSE 5 % MINI-B 50 ML IV SCH (13:00)
[2023-03-16 13:46] LABS: iSTAT Blood Urea Nitrogen 29 mg/dl (7-18); iSTAT Carbon Dioxide 25 mmol/L (24-31); iSTAT Chloride 103 mmol/L (101-112); iSTAT Creatinine 2.3 mg/dl (0.6-1.3); iSTAT Glucose < 20 mg/dl (70-99); iSTAT Hematocrit 42 % (42-52); iSTAT Hemoglobin 14.3 g/dl (14.0-18.0); iSTAT Ionized Calcium 1.12 mmol/l (1.12-1.32); iSTAT Potassium 3.6 mmol/L (3.3-5.0); iSTAT Sodium 137 mmol/L (135-144)
--- NOTE | 2023-03-16 19:07 | Electrocardiogram Report ---
Test Reason : Blood Pressure : / mmHG Vent. Rate : 062 BPM Atrial Rate : 062 BPM P-R Int : 344 ms QRS Dur : 122 ms QT Int : 478 ms P-R-T Axes : 000 -22 228 degrees QTc Int : 485 ms Atrial-paced rhythm with prolonged AV conduction Minimal voltage criteria for LVH, may be normal variant Inferior infarct , age undetermined Abnormal ECG When compared with ECG of 19-DEC-2022 10:39, Ventricular pacing is no longer present Confirmed by Jean Sosa ([id number]) on 03/16/2023 7:06:43 PM Referred By: REFERRED SELF Confirmed By:Jean Sosa
--- NOTE | 2023-03-17 21:48 | Electrocardiogram Report ---
Test Reason : Blood Pressure : / mmHG Vent. Rate : 061 BPM Atrial Rate : 061 BPM P-R Int : 330 ms QRS Dur : 126 ms QT Int : 526 ms P-R-T Axes : -45 009 245 degrees QTc Int : 529 ms Atrial-paced rhythm Non-specific intra-ventricular conduction block Inferior infarct , age undetermined T wave abnormality, consider anterolateral ischemia T wave abnormality, consider inferior ischemia Abnormal ECG When compared with ECG of 14-MAR-2023 00:21, No significant change Confirmed by Jean Sosa ([id number]) on 03/17/2023 9:47:38 PM Referred By: REFERRED SELF Confirmed By:Jean Sosa
== END 2023-03-16 01:10 | disposition short-term general hospital (02) | DRG 637 ==
LOC: ED 00:09 → SUATTDRO 02:22 → EDINP 02:22 → 1E 03:36